=== PATIENT | male | born 1945 | race Caucasian/White ===

== ENCOUNTER 2022-04-03 13:51 | Outpatient (RCR) | payer OTHER, SELFPAY ==
[2022-03-14 19:12] LABS: Basophils Absolute Auto 0.04 K/uL (0.00-0.30); Basophils Percent Auto 0.7 % (0.0-3.0); Eosinophils Absolute Auto 0.34 K/uL (0.00-0.50); Eosinophils Percent Auto 5.5 % (0.0-7.0); Hematocrit 46.3 % (37.0-53.0); Hemoglobin* 15.6 gm/dL (13.5-17.5); Immature Granulocytes Abs Auto 0.02 K/uL (0.00-0.30); Lymphocytes Absolute Auto 1.41 K/uL (0.90-2.90); Mean Corpuscular HGB Conc 34 gm/dL (32-36); Mean Corpuscular Hemoglobin 32 pg (26-34); Mean Corpuscular Volume 96 fL (80-100); Monocytes Percent Auto 9.4 % (0.0-11.0); Neutrophils Absolute Auto 3.75 K/uL (1.7-7.0); Neutrophils Percent Auto 61.1 % (42.0-72.0); Platelet Count* 167 K/uL (140-440); RDW Coefficient of Variation % 13.1 % (11.5-15.5); Red Blood Count 4.82 m/uL (4.30-5.90); White Blood Count* 6.14 K/uL (4.50-11.00)
[2022-03-14 19:39] LABS: Aspartate Amino Transferase* 27 U/L (12-35); Bilirubin Total* 3.2 mg/dL (0.1-1.5); Estimated Glomerular Filt Rate 78 ml/min
[2022-03-14 19:40] LABS: Alanine Aminotransferase* 17 U/L (4-50); Alkaline Phosphatase* 109 U/L (40-150)
[2022-03-14 19:57] LABS: Slide Review Reflex No
[2022-04-03 14:20] LABS: White Blood Count* 6.12 K/uL (4.50-11.00)
[2022-04-03 14:21] LABS: Basophils Absolute Auto 0.05 K/uL (0.00-0.30); Basophils Percent Auto 0.8 % (0.0-3.0); Eosinophils Percent Auto 8.3 % (0.0-7.0); Hematocrit 44.7 % (37.0-53.0); Hemoglobin* 15.4 gm/dL (13.5-17.5); Immature Granulocytes Abs Auto 0.02 K/uL (0.00-0.30); Lymphocytes Absolute Auto 1.52 K/uL (0.90-2.90); Lymphocytes Percent Auto 24.8 % (20-44); Mean Corpuscular HGB Conc 35 gm/dL (32-36); Mean Corpuscular Hemoglobin 33 pg (26-34); Mean Corpuscular Volume 94 fL (80-100); Monocytes Percent Auto 11.6 % (0.0-11.0); Neutrophils Absolute Auto 3.31 K/uL (1.7-7.0); Neutrophils Percent Auto 54.2 % (42.0-72.0); Platelet Count* 169 K/uL (140-440); Red Blood Count 4.74 m/uL (4.30-5.90)
[2022-04-03 14:29] LABS: Slide Review Reflex No
[2022-04-03 14:41] LABS: Creatinine* 1.1 mg/dL (0.5-1.5); Estimated Glomerular Filt Rate 69 ml/min
[2022-04-05 15:17] LABS: Hepatitis B Core Antibody, IgM Negative (Negative); Hepatitis B Surface Antigen Negative (Negative); Hepatitis C Antibody by CIA Negative (Negative)
== END 2023-03-04 23:00 | disposition home or self-care (01) ==
LOC: LAB 13:51
PROVIDERS: PCP Internal Medicine; Visit Provider Internal Medicine
DX: A31.9 Mycobacterial infection, unspecified (principal); Z79.2 Long term (current) use of antibiotics
CPT/HCPCS: 36415; 80074; 82247; 82565; 84075; 84450; 84460; 85025

== ENCOUNTER 2022-04-11 14:55 | Outpatient (CLI) | payer OTHER, SELFPAY ==
--- OUTSIDE RECORDS SUMMARY | 2022-04-11 15:02 | XMS_ITS | Encounter Summary ---
:1945 Author Organization [facility] Address [address] [place] [address] Care Team Providers Name Role Phone Elsewhere, Pcp Primary Care Provider Unavailable Encounter Details Date Type Department Care Team Description 01/04/2022 Ancillary Procedure Department of Infectious Diseases Social History Tobacco Use Types Packs/Day Years Used Date Smoking Tobacco: Former Cigarettes 0 4 09/1965 - 09/01/1969 Smokeless Tobacco: Never Alcohol Use Standard Drinks/Week Comments No 0 (1 standard drink = 0.6 oz pure alcoho l) Alcohol Habits Answer Date Recorded How often do you have a drink containing alcohol? Monthly or less 12/12/2021 How many drinks containing alcohol do you have on a 1 or 2 12/12/2021 typical day when you are drinking? How often do you have six or more drinks on one Never 12/12/2021 occasion? Comment: Not asked Social Isolation Answer Date Recorded In a typical week, how many times do you More than three maximiliano es a week 12/12/2021 talk on the phone with family, friends, or neighbors? How often do you get together with friends More than three t imes a week 12/12/2021 or relatives? How often do you attend voodoo or More than 4 times per year 12/12/2021 gnosticist services? Do you belong to any clubs or Yes 12/12/2021 organizations such as voodoo groups, unions, fraternal or athletic groups, or school groups? How often do you attend meetings of the More than 4 times pe r year 12/12/2021 clubs or organizations you belong to? Are you now , , , 12/12/2021 , never or living with a partner? Physical Activity Answer Date Recorded On average, how many days per week do you engage in moderate to 2 days 12/12/2021 strenuous exercise (like walking fast, running, jogging, dancing, swimming, biking, or other activities that cause a light or heavy sweat)? On average, how many minutes do you engage in exercise at th is 10 min 12/12/2021 level? Stress Answer Date Recorded Do you feel stress - tense, restless, nervous, or anxious, N ot at all 12/12/2021 or unable to sleep at night because your mind is troubled all the time - these days? Financial Resource Strain Answer Date Recorded How hard is it for you to pay for the very basics like Not h valeriy at all 12/12/2021 food, housing, medical care, and heating? Intimate Partner Violence Answer Date Recorded Within the last year, have you been afraid of your partner o r No 12/12/2021 ex-partner? Within the last year, have you been humiliated or emotionall y No 12/12/2021 abused in other ways by your partner or ex-partner? Within the last year, have you been kicked, hit, slapped, or No 12/12/2021 otherwise physically hurt by your partner or ex-partner? Within the last year, have you been raped or forced to have any No 12/12/2021 kind of sexual activity by your partner or ex-partner? Food Insecurity Answer Date Recorded Within the past 12 months, you worried that your food would Never true 12/12/2021 run out before you got money to buy more. Within the past 12 months, the food you bought just didn't N ever true 12/12/2021 last and you didn't have money to get more. Transportation Needs Answer Date Recorded In the past 12 months, has lack of transportation kept you f rom No 12/12/2021 medical appointments or from getting medications? In the past 12 months, has lack of transportation kept you f rom No 12/12/2021 meetings, work, or getting things needed for daily living? Housing Stability Answer Date Recorded In the last 12 months, was there a time when you were not ab le No 12/12/2021 to pay the mortgage or rent on time? In the last 12 months, how many places have you lived? 1 12/12/2021 In the last 12 months, was there a time when you did not hav e a No 12/12/[address] to [address] or slept in a penitentiary (including now)? Education Answer Date Recorded What is the highest level of Professional school degree (e.g ., MD, 12/12/2021 school you have completed or the DDS, DVM, RODOLFO) highest degree you have received? Sex Assigned at Date Recorded Male 04/03/2018 7:54 AM CDT documented as of this encounter Plan of Treatment Upcoming Encounters Date Type Specialty Care Team Description 04/16/2022 Clinical Communication Admitting/Central Scheduling 04/19/2022 Ancillary Procedure Cardiovascular Disease Milla Lew M.D. [address] [place] [phone] 04/19/2022 Appointment Laboratory Medicine Sherrie Lew M.D. [address] [place] [phone] 04/19/2022 Office Visit Infectious Diseases Max Aguilar, D.ODale [address] [place] [phone] 04/20/2022 Comprehensive Visit Allergy and Immunology Kavon Ahmadi M.D., M.S. [address] [place] [phone] documented as of this encounter Procedures Procedure Name Priority Date/Time Associated Comments Diagnosis INFECTIOUS DISEASES Routine 01/04/2022 4:05 PM Re sults for this IMAGE EXAM CDT procedure are i n the results section. documented in this encounter Results Hand-Infectious Diseases Image Exam (01/04/2022 4:05 PM CDT) Specimen (Source) Anatomical Collection Method Collection Time Re ceived Time Location / / Volume Laterality 01/04/2022 4:05 PM CDT Narrative [facility] - 01/04/2022 4:08 PM CDT This order has been created and auto-finalized to support the import of images acquired without order. The clini em documentation to support these images can be found on the encounter benny t produced images. Provider Not In System IMG NON RAD IMAGING PROCEDUR ES Performing Organization Address City/State/ZIP Code Phon e Number [facility] NA documented in this encounter Visit Diagnoses Not on filedocumented in this encounter Care Teams Media Supervisor Relationship Specialty Start Date End Date Elsewhere, Pcp PCP - General Internal Medicine 12/26/21 documented as of this encounter
--- OUTSIDE RECORDS SUMMARY | 2022-04-11 15:02 | XMS_ITS | Encounter Summary ---
:1945 Author Organization [facility] Address [address] [place] [address] Care Team Providers Name Role Phone Elsewhere, Pcp Primary Care Provider Unavailable Reason for Referral Outpatient (Routine) - Authorized Specialty Diagnoses / Procedures Referred By Contact Refer red To Contact Infectious Diseases Max Acevedo [place] D.O. 200 [place] [address] Referral ID Status Reason Start Date Expiration Date Visits V isits Requested Authorized [id number] Authorized 03/22/2022 03/22/2023 1 1 Reason for Visit Reason Comments Med Refill Encounter Details Date Type Department Care Team Description 03/22/2022 Clinical Communication Section of Infectious Max Acevedo Med Refill Diseases in [place], [place], [place] 200 [facility] 200 [place] [phone] Social History Tobacco Use Types Packs/Day Years [...] or relatives? How often do you attend mosque or More than 4 times per year 12/12/2021 amish services? Do you belong to any clubs or Yes 12/12/2021 organizations such as mosque groups, unions, fraternal or athletic groups, or [...] place to sleep or slept in a longterm (including now)? Education Answer Date Recorded What is the highest level of Professional school degree (e.g ., , 12/12/2021 school you have completed or the DDS, DVM, RODOLFO) highest degree you have received? Sex Assigned at Date Recorded Male 04/03/2018 7:54 AM CDT documented as of this encounter Miscellaneous Notes Addendum Note - Max Acevedo, D.O. - 03/22/2022 3:38 PM CDT Addended by: MAX ACEVEDO on: 03/22/2022 03:38 PM Modules accepted: Orders Telephone Encounter - Max Acevedo, D.O. - 03/22/2022 3:34 PM CDT Have changed the Doxycycline and azithromycin to go to the requested [facility]. Will need Dr. Lew's assistance to order Clofazamine Telephone Encounter - Bharti Mahajan - 03/22/2022 9:13 AM CDT You refilled his two antibiotics, azithromycin and doxycycline monohydrate, on 03/12/22 and sent them to [facility]. He no longer uses them so would like the prescriptions sent to [facility] instead.This pharmacy has been added and [facility] deleted. He also needs clofazimine which is part of a research study. He's not sure how that is obtained but he only has about [address] Lew was involved with that. documented in this encounter Plan of Treatment Upcoming Encounters Date Type Specialty Care Team Description 04/16/2022 Clinical Communication Admitting/Central Scheduling 04/19/2022 Ancillary Procedure Cardiovascular Disease Milla Lew M.D. [address] [place] [phone] 04/19/2022 Appointment Laboratory Medicine Sherrie Lew M.D. [address] [place] [phone] 04/19/2022 Office Visit Infectious Diseases Max Acevedo D.O. [address] [place] [phone] 04/20/2022 Comprehensive Visit Allergy and Immunology Kavon Ahmadi M.D., M.S. [address] [place] [phone] Scheduled Referrals Name Type Priority Associated Order Schedule Diagnoses Infectious Diseases Outpatient Referral Routine E xpected: office visit 04/09/2022 (clinic) (Approximate), Expires: 06/22/2023 documented as of this encounter Visit Diagnoses Diagnosis Mycobacterium Infection documented in this encounter Care Teams Rn Telemetry Relationship Specialty Start Date End Date Elsewhere, Pcp PCP - General Internal Medicine 12/26/21 documented as of this encounter
--- OUTSIDE RECORDS SUMMARY | 2022-04-11 15:02 | XMS_ITS | Encounter Summary ---
:1945 Author Organization [facility] Address [address] [place] [address] Care Team Providers Name Role Phone Elsewhere, Pcp Primary Care Provider Unavailable Reason for Visit Reason Comments OPAT Normal Labs Encounter Details Date Type Department Care Team Description 04/04/2022 Clinical Communication Section of SONIA Lice[place] (Normal Labs) Infectious Diseases Pascual Cross R.N. in [place], [place] (Work) [address] [place] [phone] Social History Tobacco Use Types Packs/Day Years [...] or relatives? How often do you attend nondenominational or More than 4 times per year 12/12/2021 buddhist services? Do you belong to any clubs or Yes 12/12/2021 organizations such as nondenominational groups, unions, fraternal or athletic groups, or [...] place to sleep or slept in a halfway (including now)? Education Answer Date Recorded What is the highest level of Professional school degree (e.g ., MD, 12/12/2021 school you have completed or the DDS, DVM, RODOLFO) highest degree you have received? Sex Assigned at Date Recorded Male 04/03/2018 7:54 AM CDT documented as of this encounter Miscellaneous Notes Telephone Encounter - Rocky Toure R.N. - 04/06/2022 1:52 PM CDT OPAT NOTE Infusion Provider: NA-patient on oral antimicrobials Labs at [facility] Antimicrobial(s) currently prescribed: See Med List Hyperlink in note Tentative stop date: 4-6 months ; final stop date to be determined at follow up visit. Date of ID follow up appt: 04/19/22 Lab results from 04/03/2022 are viewable in the MCR record. ECG from 03/29/22 is viewable in Care Everywhere ([facility]) Interpretation and action: Labs we received are satisfactory per OPAT practice guidelines, but the liver tests are missing. Patient will have labs drawn here on 04/19 and I verified that correct labs are ordered. Monthly labs: (CBC with diff, Creatinine, ALT, AST, Bili, Alk Phos). Also needs monthly ECG. documented in this encounter Plan of Treatment Upcoming Encounters Date Type Specialty Care Team Description 04/16/2022 Clinical Communication Admitting/Central Scheduling 04/19/2022 Ancillary Procedure Cardiovascular Disease Milla Lew M.D. [address] [place] [phone] 04/19/2022 Appointment Laboratory Medicine Sherrie Lew M.D. [address] [place] [phone] 04/19/2022 Office Visit Infectious Diseases Max Aguilar D.O. [address] [place] [phone] 04/20/2022 Comprehensive Visit Allergy and Immunology Kavon Ahmadi M.D., M.S. [address] [place] [phone] documented as of this encounter Procedures Procedure Name Priority Date/Time Associated Diagnosis Comme nts CBC WITH DIFFERENTIAL, Routine 04/03/2022 Resul ts for this B procedure are i n the results section . CREATININE WITH EGFR, Routine 04/03/2022 Result s for this S/P procedure are i n the results section . documented in this encounter Results Creatinine with Estimated GFR (04/03/2022) athologist Signature EXT Creatinine 1.1 0.5 - 1.5 [place] mg/dL [facility] Specimen (Source) Anatomical Location Collection Method / Collectio n Time Received Time / Laterality Volume Blood (Blood, Venous) Max Aguilar D.O. LAB BLOOD ADD-ON Performing Organization Address City/State/ZIP Code Phon e Number [facility] [address] [place] [address] CBC with Differential, Blood (04/03/2022) athologist Signature EXT Platelet 169 140 - 440 [place] Count [facility] EXT Eosinophils 0.5 0 - 0.5 [facility] EXT Hemoglobin 15.4 13.5 - [place] 17.5 [facility] EXT Absolute 3.31 1.7 - 7 [place] Neutrophils [facility] EXT White Blood 6.1 4.5 - 11.0 [place] Cell (WBC) Count [facility] Specimen (Source) Anatomical Location Collection Method / Collectio n Time Received Time / Laterality Volume Blood (Blood, Venous) Max Aguilar D.O. LAB BLOOD ADD-ON Performing Organization Address City/State/ZIP Code Phon e Number [facility] [address] [place] [phone] documented in this encounter Visit Diagnoses Not on filedocumented in this encounter Care Teams Disassembler Product Relationship Specialty Start Date End Date Elsewhere, Pcp PCP - General Internal Medicine 12/26/21 documented as of this encounter
--- OUTSIDE RECORDS SUMMARY | 2022-04-11 15:02 | XMS_ITS | Encounter Summary ---
:1945 Author Organization [facility] Address [address] [place] [address] Care Team Providers Name Role Phone Elsewhere, Pcp Primary Care Provider Unavailable Reason for Visit Reason Comments OPAT Lab Request Encounter Details Date Type Department Care Team Description 03/20/2022 Clinical Communication Section of [place] Chambers (Lab Request) Infectious Diseases M, R.N. in [facility] [phone] [place] (Work) [address] [place] [phone] Social History Tobacco Use Types Packs/Day Years [...] or relatives? How often do you attend sabianist or More than 4 times per year 12/12/2021 mosque services? Do you belong to any clubs or Yes 12/12/2021 organizations such as sabianist groups, unions, fraternal or athletic groups, or [...] place to sleep or slept in a usp (including now)? Education Answer Date Recorded What is the highest level of Professional school degree (e.g ., , 12/12/2021 school you have completed or the DDS, DVM, RODOLFO) highest degree you have received? Sex Assigned at Date Recorded Male 04/03/2018 7:54 AM CDT documented as of this encounter Miscellaneous Notes Addendum Note - Max Acevedo D.O. - 03/29/2022 3:51 PM CDT Addended by: MAX ACEVEDO on: 03/29/2022 03:51 PM Modules accepted: Orders Telephone Encounter - Max Acevedo D.O. - 03/29/2022 3:43 PM CDT I called Mr. Mendez regarding his bilirubin level. He denies any abdominal pain, change in stools, or altered taste. He is willing to have repeat liver test done at the [facility] lab. I will reach out to our post adoption coordinator regarding the Clofazamine. -Max Acevedo Telephone Encounter - Cynthia Ortega R.N. - 03/28/2022 10:54 AM CDT OPAT NOTE Infusion Provider: NA-patient on oral antimicrobials Antimicrobial(s) currently prescribed: See Med List Hyperlink in note Tentative stop date: 4-6 months ; final stop date to be determined at follow up visit. Date of ID follow up appt:Not yet scheduled . Lab results from 03/14/2022 are viewable in the MCR record. Interpretation and action: Total bilirubin will be sent to OPAT providers for review. Monthly labs: (CBC with diff, Creatinine, ALT, AST, Bili, Alk Phos). Telephone Encounter - Argentina Chambers R.N. - 03/20/2022 4:40 PM CDT Contacted Radha Howard, phone: [phone] and spoke with Medical Records. I checked for results (labs and EKG) from 03/12/22 (or any time in March) and was advised that there are no results available. Per Rocky Toure RN's documentation on 02/07/22, she sent orders to Radha Howard for monthly CBC, Cr, ALT, AST, Bili, Alk phos and ECG x 2 months at [facility]. I will reach out to thepatient to request he go in for a lab appt this week. documented in this encounter Plan of Treatment Upcoming Encounters Date Type Specialty Care Team Description 04/16/2022 Clinical Communication Admitting/Central Scheduling 04/19/2022 Ancillary Procedure Cardiovascular Disease Milla Lew M.D. [address] [place] [phone] 04/19/2022 Appointment Laboratory Medicine Sherrie Lew M.D. [address] [place] [address] [phone] 04/19/2022 Office Visit Infectious Diseases Max Acevedo D.O. [address] [place] [address] 04/20/2022 Comprehensive Visit Allergy and Immunology Kavon Ahmadi M.D., M.S. [address] [place] [phone] documented as of this encounter Procedures Procedure Name Priority Date/Time Associated Diagnosis Comme nts CBC WITH DIFFERENTIAL, B Routine 03/14/2022 Res ults for this procedure are i n the results section. ALANINE AMINOTRANSFERASE Routine 03/14/2022 Res ults for this (ALT), S/P procedure are i n the results section. ASPARTATE AMINOTRANSFERASE Routine 03/14/2022 R esults for this (AST), S/P procedure are i n the results section. ALKALINE PHOSPHATASE, S/P Routine 03/14/2022 Re sults for this procedure are i n the results section. CREATININE WITH EGFR, S/P Routine 03/14/2022 Re sults for this procedure are i n the results section. BILIRUBIN, TOT, S/P Routine 03/14/2022 Results for this procedure are i n the results section. documented in this encounter Results ALT (Alanine Aminotransferase) (03/14/2022) athologist Signature EXT ALT 17 4 - 50 [facility] Specimen (Source) Anatomical Location Collection Method / Collectio n Time Received Time / Laterality Volume Blood (Blood, Venous) Eliana Ivy P.A.-C. LAB BLOOD ADD-ON Performing Organization Address City/[facility]/ZIP Code Phon e [facility] [address] [place] [address] AST (Aspartate Aminotransferase) (03/14/2022) athologist Signature EXT AST 27 12 - 35 [facility] Specimen (Source) Anatomical Location Collection Method / Collectio n Time Received Time / Laterality Volume Blood (Blood, Venous) Eliana Perez-C. LAB BLOOD ADD-ON Performing Organization Address City/[facility]/ZIP Code Phon [facility] [address] [place] [address] Alkaline Phosphatase (03/14/2022) athologist Signature EXT Alkaline 109 40 - 150 [facility] Specimen (Source) Anatomical Location Collection Method / Collectio n Time Received Time / Laterality Volume Blood (Blood, Venous) Eliana Ivy P.A.-C. LAB BLOOD ADD-ON Performing Organization Address City/[facility] Code Phon e Number [facility] [address] [place] [address] Creatinine with Estimated GFR (03/14/2022) athologist Signature EXT Creatinine 1 0.5 - 1.5 [place] mg/dL [facility] Specimen (Source) Anatomical Location Collection Method / Collectio n Time Received Time / Laterality Volume Blood (Blood, Venous) Eliana Ivy P.A.-C. LAB BLOOD ADD-ON Performing Organization Address [facility] Phon e Number [facility] [address] [place] [address] (ABNORMAL) Bilirubin, Total (03/14/2022) athologist Signature EXT Bilirubin, 3.2 (A) 0.1 - 1.5 [place] Total, S [facility] Specimen (Source) Anatomical Location Collection Method / Collectio n Time Received Time / Laterality Volume Blood (Blood, Venous) Eliana Ivy P.A.-C. LAB BLOOD ADD-ON Performing Organization Address [facility] Phon e Number [facility] [address] [place] [address] CBC with Differential, Blood (03/14/2022) athologist Signature EXT Platelet 167 140 - 440 [place] Count [facility] EXT Eosinophils 0.34 0 - 0.5 [facility] EXT Hemoglobin 15.6 13.5 - [place] 17.5 [facility] EXT Absolute 3.75 1.7 - 7 [place] Neutrophils [facility] EXT White Blood 6.1 4.5 - 11.0 [place] Cell (WBC) Count [facility] Comment: 6.14 Specimen (Source) Anatomical Location Collection Method / Collectio n Time Received Time / Laterality Volume Blood (Blood, Venous) Eliana Ivy P.A.-C. LAB BLOOD ADD-ON Performing Organization Address City/State/ZIP Code Phon e Number [facility] [address] [place] [address] documented in this encounter Visit Diagnoses Diagnosis Elevated Bilirubin - Primary documented in this encounter Care Teams Kitchen Runner Relationship Specialty Start Date End Date Elsewhere, Pcp PCP - General Internal Medicine 12/26/21 documented as of this encounter
--- OUTSIDE RECORDS SUMMARY | 2022-04-11 15:02 | XMS_ITS | Encounter Summary ---
:1945 Author Organization [facility] Address [address] [place] [address] Care Team Providers Name Role Phone Elsewhere, Pcp Primary Care Provider Unavailable Encounter Details Date Type Department Care Team Description 01/04/2022 Orders Only Section of Infectious Monae Khan My cobacterium Infection Diseases in [facility] (Primary Dx) [place], [place] [phone] [address] [facility] (Work) [place] [phone] Social History Tobacco Use Types Packs/Day Years [...] or relatives? How often do you attend episcopalian or More than 4 times per year 12/12/2021 quaker services? Do you belong to any clubs or Yes 12/12/2021 organizations such as episcopalian groups, unions, fraternal or athletic groups, or [...] place to sleep or slept in a skilled nursing (including now)? Education Answer Date Recorded What [...] Procedure Cardiovascular Disease Milla Lew M.D. [address] [place] [phone] 04/19/2022 Appointment Laboratory Medicine Sherrie Lew M.D. [address] [place] [phone] 04/19/2022 Office Visit Infectious Diseases Max Aguilar, D.O. [address] [place] [address] 04/20/2022 Comprehensive Visit Allergy and Immunology Kavon Ahmadi M.D., M.S. 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
--- OUTSIDE RECORDS SUMMARY | 2022-04-11 15:02 | XMS_ITS | Encounter Summary ---
:1945 Author Organization [facility] Address [address] [place] [address] Care Team Providers Name Role Phone Elsewhere, Pcp Primary Care Provider Unavailable Reason for Referral Outpatient (Routine) - Closed Specialty Diagnoses / Procedures Referred By Contact Refer red To Contact Diagnoses Mycobacterium Infection Smith Arambula M.D. [facility] Procedures ECG 12 Lead [address] [place], [place] [phone] Referral ID Status Reason Start Date Expiration Date Visits Requ ested Visits Authorized [id number] Closed 01/04/2022 01/04/2023 1 1 utpatient (Routine) - Closed Specialty Diagnoses / Procedures Referred By Contact Refer red To Contact Infectious Diseases Diagnoses Mycobacterium Infection Smith Arambula M.D. [facility] [address] [place] [address] Referral ID Status Reason Start Date Expiration Date Visits Requ ested Visits Authorized [id number] Closed 01/04/2022 01/04/2023 1 1 Scheduling Instructions NTM return appointment Reason for Visit Outpatient (Routine) - Closed Specialty Diagnoses / Procedures Referred By Contact Refer red To Contact Infectious Diseases Diagnoses Mycobacterium Infection Sherrie Lew M.D. [facility] [address] [place] [address] Referral ID Status Reason Start Date Expiration Date Visits Requ ested Visits Authorized [id number] Closed 12/28/2021 12/28/2022 1 1 Encounter Details Date Type Department Care Team Description 01/04/2022 Office Visit Section of Infectious Emory Lew M.D. [address] [place] [phone] Mycobacterium Infection Diseases in [place] [address] [place] [phone] [place] [address] [place] [phone] Social History Tobacco Use Types Packs/Day Years [...] or relatives? How often do you attend buddhist or More than 4 times per year 12/12/2021 latter-day services? Do you belong to any clubs or Yes 12/12/2021 organizations such as buddhist groups, unions, fraternal or athletic groups, or [...] place to sleep or slept in a residential (including now)? Education Answer Date Recorded What is the highest level of Professional school degree (e.g ., , 12/12/2021 school you have completed or the DDS, DVM, RODOLFO) highest degree you have received? Sex Assigned at Date Recorded Male 04/03/2018 7:54 AM CDT documented as of this encounter Progress Notes Smith Arambula M.D. - 01/04/2022 4:00 PM CDT Infectious Diseases Outpatient Consultation Service-Subsequent Visit Note SUBJECTIVE DEMOGRAPHIC INFORMATION Clinic Number:[id number] Patient Name: Truong Mendez Age: 76 y.o. Birthdate: 1945 Sex: male [address]: [address] [place] [phone] Service Date/Time: 01/04/22 4:25 PM CDT Provider: Smith Arambula M.D. Referring Provider: Sherrie Lew M.D. REASON FOR CONSULT We are asked to see Mr. 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 The patient presents with his . HISTORY OF PRESENT ILLNESS Mr. 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 Please see Dr. Sherrie Lew and Dr. Cota's previous Infectious Diseases consultative notes from November and Dec, 2021. 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 He underwent a biopsy of the left hand earlier this month. His biopsy revealed granulomatous inflammation with positive AFB staining and culture was again positive for M chelonae. Mr. Mendez is not immunosuppressed although he does have multiple chronic medical conditions including congestive heart failure, nonischemic cardiomyopathy, nonobstructive coronary artery disease, permanent atrial fibrillation on apixaban??s/p AV node ablation and SOFTWARE IMPLEMENTATION SPECIALIST-P placement??02/20/2021, hypertension, dyslipidemia, JOSE RAFAEL, and obesity with BMI 52.?Additionally he has had a righttotal knee arthroplasty around [phone], reportedly complicated by a noninfected periprosthetic frac ture which limits ambulation. ??Immunocompetent, no recent steroids or other immunosuppressants. The patient was started on oral doxycycline December 29 and azithromycin December 30, 2021. He has signed an informed consent to start clofazimine, which requires an IND to the manufacture: [employer]. Our yard coordinator has discussed potential risks and benefits of this medication: Dale Farida Khan. The patient feels well in general. He has thin skin and his forearm Skin is easily bruised. He removed 1 of the sutures from the left hand biopsy. He could not locate the 2nd suture. He wears skin protection when exposed to the sun and he was encouraged to do so in setting of doxycycline which increases risk for photosensitivity reaction with sun exposure. Organism ? MYCOBACTERIUM CHELONAE ?Antibiotic ?POPPY (mcg/mL) ??Interpretation ?Cefoxitin ? >128 ? R ?Imipenem ?16 ? I ?Clofazimine ? 0.25 ?Ciprofloxacin ? >4 ? R ?Moxifloxacin ?>4 ? R ?Clarithromycin ? 0.5 ? S ?Amikacin ?32 ? I ?Tobramycin ? 2 ? S ?Doxycycline ? >8 ? R ?Tigecycline ?0.5 ?TMP/SMX ?>4/ ? R ?Linezolid ? 32 ? R REVIEW OF SYSTEMS A full review of systems was performed and was negative except as noted in the history of present illness. I have reviewed and updated the following: allergies, current medications, family history, medical history, social history, surgical history and problem list. OBJECTIVE There were no vitals filed for this visit. PHYSICAL EXAMINATION Physical Exam Left hand skin lesion was photo-documented with the patient's permission. See photo in QREADS. DIAGNOSTICS Lab Results Component Value Date WBC 6.5 01/04/2022 HGB 15.6 01/04/2022 HCT 45.6 01/04/2022 MCV 93.6 01/04/2022 PLT 182 01/04/2022 Lab Results Component Value Date ALT 18 01/04/2022 AST 18 01/04/2022 ALKPHOS 122 01/04/2022 BILITOT 2.0 (H) 01/04/2022 Lab Results Component Value Date CREATININE 1.08 01/04/2022 CrCl cannot be calculated (Patient weight not recorded). ASSESSMENT / PLAN 1. 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 Initiation of oral doxycycline monohydrate (December 29) and azithromycin (December 30) with plan to start clofazimine in the next couple days after it has been shift to the patient. 3. Multiple medical comorbidities DISCUSSION The patient is tolerating azithromycin and doxycycline. RECOMMENDATIONS 1. Start clofazimine after in arrives at his home. The patient has signed an informed consent for this medication and side effects had been discussed by 1 of our study coordinators. 2. EKG with the patient's home physician in 2 weeks. 3. Follow-up with us in 4 weeks, ideally Dr. Lew with repeat CBC, serum creatinine, and LFTs and ECG. 4. Patient should concept us with any questions or changes or new symptoms that might be related to antibiotic intolerance. DIAGNOSES #1 Mycobacterium Infection Smith Arambula M.D. documented in this encounter Plan of Treatment Upcoming Encounters Date Type Specialty Care Team Description 04/16/2022 Clinical Communication Admitting/Central Scheduling 04/19/2022 Ancillary Procedure Cardiovascular Disease Milla Lew M.D. [address] [place] [phone] 04/19/2022 Appointment Laboratory Medicine Sherrie Lew M.D. [address] [place] [phone] 04/19/2022 Office Visit Infectious Diseases Max Aguilar, Hua.ODale [address] [place] [phone] 04/20/2022 Comprehensive Visit Allergy and Immunology Kavon Ahmadi M.D., M.S. [address] [place] [phone] Scheduled Referrals Name Type Priority Associated Diagnoses Order [facility] Infectious Diseases Outpatient Referral Routine Mycobacterium Expected: office visit Infection 02/03/2022 (clinic) (Approximate), Expires: 04/06/2023 documented as of this encounter Results ECG 12 Lead (02/07/2022 9:42 AM CDT) [facility] Method Time Signature Ventricular 85 BPM MUSE Rate ECG/Min QRSD Interval 140 ms MUSE QT Interval 392 ms MUSE QTC Interval 466 ms MUSE R [place] -46 degrees MUSE T Wave [place] 2 degrees MUSE CODED Atrial MUSE DIAGNOSIS fibrillation Specimen Anatomical Collection Method Collection Time Receive d Time (Source) Location / / Volume Laterality 02/07/2022 9:42 AM 2 CDT 10:24 AM CDT Impressions MUSE - 02/07/2022 10:24 AM CDT Electronic ventricular pacemaker Atrial fibrillation When compared with ECG of 28-NOV-2021 15 :36, No significant change was found Reviewed by VARUN Sullivan Narrative This result has an attachment that is no t available. Procedure Note Daniel Bobo M.D. - 02/07/2022Formatt ing of this note might be different from the original. IMPRESSION: Electronic ventricular pacemaker Atrial fibrillation When compared with ECG of 28-NOV-2021 15 :36, No significant change was found Reviewed by VARUN Sullivan Smith Arambula M.D. ECG ORDERABLES Performing Organization Address City/[facility]/ZIP Code Phon e Number MUSE MUSE NA Bilirubin, Direct (02/07/2022 9:26 AM CDT) athologist Signature Bilirubin, 0.3 0.0 - 0.3 02/07/2022 DTL Direct, S mg/dL 10:29 AM CDT Specimen Anatomical Collection Method Collection Time Receive d Time (Source) Location / / Volume Laterality Blood (Blood, 02/07/2022 9:26 AM 02/08/20 22 Venous) CDT 10:11 AM CDT Smith Arambula M.D. LAB BLOOD ADD-ON Performing Organization Address City/[facility]/ZIP Code Phon e Number [facility] - [address] [place] [address] [facility] (ABNORMAL) Bilirubin, Total (02/07/2022 9:26 AM CDT) athologist Signature Bilirubin, 2.3 (H) <=1.2 02/07/2022 DTL Total, S mg/dL 10:29 AM CDT Specimen Anatomical Collection Method Collection Time Receive d Time (Source) Location / / Volume Laterality Blood (Blood, 02/07/2022 9:26 AM 02/08/20 22 Venous) CDT 10:11 AM CDT Smith Arambula M.D. LAB BLOOD ADD-ON Performing Organization Address City/[facility]/ZIP Code Phon e Number [facility] - [address] [place] [address] [facility] CBC with Differential, Blood (02/07/2022 9:26 AM CDT) athologist Signature Hemoglobin 15.3 13.2 - 02/07/2022 DTL 16.6 g/dL 10:21 AM CDT Hematocrit 46.2 38.3 - 02/07/2022 DTL 48.6 % 10:21 AM CDT Erythrocytes 4.85 4.35 - 02/07/2022 DTL 5.65 10:21 AM CDT x10(12)/L MCV 95.3 78.2 - 02/07/2022 DTL 97.9 fL 10:21 AM CDT RBC Distrib Width 12.9 11.8 - 02/07/2022 DTL 14.5 % 10:21 AM CDT Platelet Count 165 135 - 317 02/07/2022 DTL x10(9)/L 10:21 AM CDT Leukocytes 5.3 3.4 - 9.6 02/07/2022 DTL x10(9)/L 10:21 AM CDT Neutrophils 3.28 1.56 - 02/07/2022 DTL 6.45 10:21 AM CDT x10(9)/L Lymphocytes 1.28 0.95 - 02/07/2022 DTL 3.07 10:21 AM CDT x10(9)/L Monocytes 0.55 0.26 - 02/07/2022 DTL 0.81 10:21 AM CDT x10(9)/L Eosinophils 0.19 0.03 - 02/07/2022 DTL 0.48 10:21 AM CDT x10(9)/L Basophils 0.03 0.01 - 02/07/2022 DTL 0.08 10:21 AM CDT x10(9)/L Specimen Anatomical Collection Method Collection Time Receive d Time (Source) Location / / Volume Laterality Blood (Blood, 02/07/2022 9:26 AM 02/08/20 9:53 Venous) CDT AM CDT Smith Arambula M.D. LAB BLOOD ADD-ON Performing Organization Address City/State/ZIP Code Phon e Number [facility] - [address] [place], [place] [address] [facility] [place] [address] [facility] [address] [facility] Creatinine with Estimated GFR (02/07/2022 9:26 AM CDT) athologist Signature Creatinine 0.98 0.74 - 02/07/2022 DTL 1.35 mg/dL 10:29 AM CDT eGFR-Non 74 >=60 02/07/2022 DTL Black/ mL/min/BSA 10:29 AM CDT [place] Comment: ----ADDITIONAL INFORMATION---- Estimated GFR calculated using the 2009 CKD_EPI creatinine equation. eGFR-Black/ 86 >=60 mL/min/BSA 2021 10:29 AM CDT DTL Comment: ----ADDITIONAL INFORMATION---- Estimated GFR calculated using the 2009 CKD_EPI creatinine equation. Specimen Anatomical Collection Method Collection Time Receive d Time (Source) Location / / Volume Laterality Blood (Blood, 02/07/2022 9:26 AM 02/08/20 Venous) CDT 10:11 AM CDT Smith Arabmula M.D. LAB BLOOD ADD-ON Performing Organization Address City/[facility] Code Phon e Number [facility] - [address] [place], [place] [address] [place] [address] [place] [address] ALT (Alanine Aminotransferase) (02/07/2022 9:26 AM CDT) Patholo gist Method Time Signature Alanine 17 7 - 55 02/07/2022 DTL Aminotransferase U/L 10:29 AM CDT (ALT), S Specimen Anatomical Collection Method Collection Time Receive d Time (Source) Location / / Volume Laterality Blood (Blood, 02/07/2022 9:26 AM 02/08/20 22 Venous) CDT 10:11 AM CDT Smith Arambula M.D. LAB BLOOD ADD-ON Performing Organization Address City/State/[facility] Code Phon e Number [facility] - [address] [place], [place] [address] [place] [address] [place] [address] [place] [address] [facility] Alkaline Phosphatase (02/07/2022 9:26 AM CDT) P athologist Signature Alkaline 116 40 - 129 02/07/2022 DTL Phosphatase, S U/L 10:29 AM CDT Specimen Anatomical Collection Method Collection Time Receive d Time (Source) Location / / Volume Laterality Blood (Blood, 02/07/2022 9:26 AM 02/08/20 22 Venous) CDT 10:11 AM CDT Smith Arambula M.D. LAB BLOOD ADD-ON Performing Organization Address City/State/ZIP Code Phon e Number [facility] - [address] [place], [place] [address] [facility] [place] [place] [address] [facility] [address] documented in this encounter Visit Diagnoses Diagnosis Mycobacterium Infection documented in this encounter Care Teams Data Warehousing Specialist Relationship Specialty Start Date End Date Elsewhere, Pcp PCP - General Internal Medicine 12/26/21 documented as of this encounter
--- OUTSIDE RECORDS SUMMARY | 2022-04-11 15:02 | XMS_ITS | Encounter Summary ---
:1945 Author Organization [facility] Address [address] [place] [address] Care Team Providers Name Role Phone Elsewhere, Pcp Primary Care Provider Unavailable Reason for Visit Outpatient (Routine) - Closed Specialty Diagnoses / Procedures Referred By Contact Refer red To Contact Video Medicine Diagnoses Mycobacterium Infection Sherrie Lew M.D. [facility] [address] [place] [phone] Referral ID Status Reason Start Date Expiration Date Visits Requ ested Visits Authorized [id number] Closed 02/07/2022 02/07/2023 1 1 Encounter Details Date Type Department Care Team Description 03/12/2022 Telemedicine Section of Infectious Max Aguilar Infection Diseases in D, D.O. (Primary Dx) [place], [place] [address] [facility] [address] [place] [phone] Social History Tobacco Use Types Packs/Day Years [...] or relatives? How often do you attend gnosticist or More than 4 times per year 12/12/2021 amish services? Do you belong to any clubs or Yes 12/12/2021 organizations such as gnosticist groups, unions, fraDailymotion or athletic groups, or school groups? How [...] place to sleep or slept in a custodial (including now)? Education Answer Date Recorded What is the highest level of Professional school degree (e.g ., , 12/12/2021 school you have completed or the DDS, DVM, RODOLFO) highest degree you have received? Sex Assigned at Date Recorded Male 04/03/2018 7:54 AM CDT documented as of this encounter Progress Notes Max Aguilar, D.O. - 03/12/2022 3:00 PM CDT SUBJECTIVE CHIEF COMPLAINT / REASON FOR VISIT Truong Mendez is a 76 y.o. 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 HISTORY OF PRESENT ILLNESS Please see note from 02/07/[address] Lew and 10/31/[address] Garry Bradley for the descriptionhis clinical course. In brief, is being treated with doxycycline and azithromycin, as well as experimental clofazimine. Monthly monitoring of labs and EKG and follow-up. At this time, he reports a skin rash to be slowly resolving. He has noticed some bruising when he hits seen and, but attributes this to his Eliquis. He has had some diarrhea around 10:00 a.m. that he attributes to the medications. He is interested in trying kefir, but did not know how to obtain this. He wonders if he was supposed to get labs prior to this appointment. The following portions of the patient's history were reviewed and updated as appropriate: current medications, medical history, and problem list. REVIEW OF SYSTEMS The following systems were negative: Constitutional, Skin, Eyes, ENT, Respiratory, Cardiovascular, Genitourinary, Hematologic, Musculoskeletal, Neurological, Psychiatric OBJECTIVE PHYSICAL EXAM Tele visit, unable to obtain Previous EKG 02/07/2022 QTC 466 CBC, creatinine LFTs unremarkable ASSESSMENT / PLAN 1. Mycobacterium Infection Patient reports doing well. Some diarrhea. I showed him photos of Kefir to help him obtain. Believe labs and EKG need to be performed now and in 1 month with follow-up. Plan to send orders to [facility]. Need follow-up in [address] Lew and Dr. Aguilar. This will be virtual, followed by in-person visit in 2 months - Video anyplace visit - ECG 12 Lead; now - CBC with Differential, Blood; now - Creatinine with Estimated GFR; now - Hepatic Function Panel; now - doxycycline monohydrate (ADOXA) 100 mg tablet; Take 1 tablet (100 mg total) by mouth 2 (two) timesa day. Dispense: 60 tablet; Refill: 2 - azithromycin (ZITHROMAX) 500 mg tablet; Take 1 tablet (500 mg total) by mouth daily. Take with food Dispense: 30 tablet; Refill: 2 - CBC with Differential, Blood; 1 mo - ECG 12 Lead; 1 mo - Creatinine with Estimated GFR; 1 mo - Hepatic Function Panel; 1 mo Max Aguilar D.O. documented in this encounter Plan of Treatment Upcoming Encounters Date Type Specialty Care Team Description 04/16/2022 Clinical Communication Admitting/Central Scheduling 04/19/2022 Ancillary Procedure Cardiovascular Disease Milla Lew M.D. [address] [place] [phone] 04/19/2022 Appointment Laboratory Medicine Sherrie Lew M.D. [address] [place] [phone] 04/19/2022 Office Visit Infectious Diseases Max Aguilar D.O. [address] [place] [address] 04/20/2022 Comprehensive Visit Allergy and Immunology Kavon Ahmadi M.D., M.S. [address] [place] [phone] documented as of this encounter Visit Diagnoses Diagnosis Mycobacterium Infection - Primary documented in this encounter Care Teams Merchant Banker Relationship Specialty Start Date End Date Elsewhere, Pcp PCP - General Internal Medicine 12/26/21 documented as of this encounter
--- OUTSIDE RECORDS SUMMARY | 2022-04-11 15:02 | XMS_ITS | Encounter Summary ---
:1945 Author Organization [facility] Address [address] [place] [address] Care Team Providers Name Role Phone Elsewhere, Pcp Primary Care Provider Unavailable Encounter Details Date Type Department Care Team Description 03/23/2022 Orders Only Section of Infectious Monae Khan, Na cobacteria Cutaneous Diseases in [facility] Not Tuberculosis [place], [place] [phone] (Primary Dx) [address] [facility] (Work) [place] [phone] Social History Tobacco Use Types Packs/Day Years [...] More than 4 times per year 12/12/2021 islam services? Do you belong to any clubs [...] place to sleep or slept in a snf (including now)? Education Answer Date Recorded What [...] Procedure Cardiovascular Disease Milla Lew M.D. [address] [place] [phone] 04/19/2022 Appointment Laboratory Medicine Sherrie Lew M.D. [address] [place] [phone] 04/19/2022 Office Visit Infectious Diseases Max Aguilar, D.O. [address] [place] [phone] 04/20/2022 Comprehensive Visit Allergy and Immunology Kavon Ahmadi M.D., M.S. [address] [place] [phone] documented as of this encounter Visit Diagnoses Diagnosis Mycobacteria Cutaneous Not Tuberculosis - Primary documented in this encounter Care Teams Manager Learning Relationship Specialty Start Date End Date Elsewhere, Pcp PCP - General Internal Medicine 12/26/21 documented as of this encounter
--- OUTSIDE RECORDS SUMMARY | 2022-04-11 15:02 | XMS_ITS | Encounter Summary ---
:1945 Author Organization [facility] Address [address] [place] [address] Care Team Providers Name Role Phone Elsewhere, Pcp Primary Care Provider Unavailable Encounter Details Date Type Department Care Team Description 01/04/2022 Hospital Encounter Department of Sherrie Lew Laboratory Medicine Feliberto Cavrajal Infection and Pathology, [address] [place] [address] in [place], [place] [phone] [place] [address] [place], [place] (Work) [phone] Social History Tobacco Use Types Packs/Day Years [...] or relatives? How often do you attend mandaen or More than 4 times per year 12/12/2021 nondenominational services? Do you belong to any clubs or Yes 12/12/2021 organizations such as mandaen groups, unions, fraternal or athletic groups, or [...] place to sleep or slept in a correction (including now)? Education Answer Date Recorded What is the highest level of Professional school degree (e.g ., , 12/12/2021 school you have completed or the DDS, DVM, RODOLFO) highest degree you have received? Sex Assigned at Date Recorded Male 04/03/2018 7:54 AM CDT documented as of this encounter Medications at Time of Discharge Medication Sig Dispensed Refills Start Date End Date acetaminophen (TYLENOL) Take 1,000 mg by 0 500 mg tablet mouth. atorvastatin (LIPITOR) 40 Take 40 mg by mouth 0 0 02/21/2021 mg tablet daily. carvediloL (COREG) 25 mg Take 25 mg by mouth 0 tablet 2 (two) times a day with meals. clindamycin (CLEOCIN) 300 2 capsules prior to 0 mg capsule dental work Eliquis 5 mg tablet 0 11/29/2021 Entresto 97-103 mg per Take 1 tablet by 0 022 tablet mouth 2 (two) times a day. furosemide (LASIX) 20 mg Take 20 mg by mouth 0 tablet as needed. multivit with min-folic Take 1 tablet by 0 2016 acid 0.4 mg tablet mouth daily. nitroglycerin (NITROSTAT) Place 0.4 mg under 0 0.4 mg SL tablet the tongue. omeprazole (PriLOSEC) 20 Take 20 mg by mouth [address] capsule daily. Research IRB [id number] Take 2 capsules 2 Bottle 0 01/05/20 22 clofazimine 50 mg (100 mg total) by capsuleIndications: mouth daily. Take Mycobacterium Infection with food. spironolactone (ALDACTONE) Take 25 mg by mouth 0 11/19/2021 25 mg tablet daily. azithromycin (ZITHROMAX) Take 1 tablet (500 30 tablet 2 03/12/2022 500 mg tablet mg total) by mouth daily. Take with food doxycycline monohydrate Take 1 tablet (100 60 tablet 2 12/0403/12/2022 (ADOXA) 100 mg tablet mg total) by mouth 2 (two) times a day. multivitamin (THERAGRAN) Take 1 tablet by 0 03/09/2022 tablet mouth. documented as of this encounter Plan of Treatment Upcoming Encounters Date Type Specialty Care Team Description 04/16/2022 Clinical Communication Admitting/Central Scheduling 04/19/2022 Ancillary Procedure Cardiovascular Disease Milla Lew M.D. [address] [place] [phone] 04/19/2022 Appointment Laboratory Medicine Sherrie Lew M.D. [address] [place] [phone] 04/19/2022 Office Visit Infectious Diseases Max Aguilar, D.ODale [address] [place] [phone] 04/20/2022 Comprehensive Visit Allergy and Immunology Kavon Ahmadi M.D., M.S. [address] [place] [phone] documented as of this encounter Procedures Procedure Name Priority Date/Time Associated Diagnosis Comme nts CBC WITH Routine 01/04/2022 12:21 Mycobacterium Results fo r this DIFFERENTIAL, B PM CDT Infection procedure ar e in the results section. COMPREHENSIVE Routine 01/04/2022 12:21 Mycobacterium Results f or this METABOLIC PANEL, S/P PM CDT Infection procedu re are in the results section. documented in this encounter Results (ABNORMAL) Comprehensive Metabolic Panel (01/04/2022 12:21 PM CDT) P athologist Signature Potassium, S 4.7 3.6 - 5.2 01/04/2022 DTL mmol/L 1:41 PM CDT Sodium, S 139 135 - 145 01/04/2022 DTL mmol/L 1:41 PM CDT Chloride, S 101 98 - 107 01/04/2022 DTL mmol/L 1:41 PM CDT Bicarbonate, S 28 22 - 29 01/04/2022 DTL mmol/L 1:41 PM CDT Anion Gap 10 7 - 15 01/04/2022 DTL 1:41 PM CDT BUN (Blood Urea 13 8 - 24 01/04/2022 DTL Nitrogen), S mg/dL 1:41 PM CDT Creatinine 1.08 0.74 - 01/04/2022 DTL 1.35 mg/dL 1:41 PM CDT eGFR-Non 66 >=60 01/04/2022 DTL Black/ mL/min/BSA 1:41 PM CDT [place] Comment: ----ADDITIONAL INFORMATION---- Estimated GFR calculated using the 2009 CKD_EPI creatinine equation. eGFR-Black/ 76 >=60 mL/min/BSA 2021 1:41 PM CDT DTL Comment: ----ADDITIONAL INFORMATION---- Estimated GFR calculated using the 2009 CKD_EPI creatinine equation. Calcium, Total, S 9.3 8.8 - 10.2 mg/dL 01/04/2022 1:41 PM CDT DTL Glucose, S 102 70 - 140 mg/dL 01/04/2022 1:41 PM CDT D TL Protein, Total, S 6.4 6.3 - 7.9 g/dL 01/04/2022 1:41 P M CDT DTL Albumin, S 4.0 3.5 - 5.0 g/dL 01/04/2022 1:41 PM CDT D TL Aspartate Aminotransferase 18 8 - 48 U/L 01/04/2022 1 :41 PM CDT DTL (AST), S Alkaline Phosphatase, S 122 40 - 129 U/L 01/04/2022 1: 41 PM CDT DTL Alanine Aminotransferase 18 7 - 55 U/L 01/04/2022 1:4 1 PM CDT DTL (ALT), S Bilirubin, Total, S 2.0 (H) <=1.2 mg/dL 01/04/2022 1:41 PM CDT DTL Specimen Anatomical Collection Method Collection Time Receive d Time (Source) Location / / Volume Laterality Blood (Blood, 01/04/2022 12:21 01/04/2022 1:04 Venous) PM CDT PM CDT Sherrie Lew M.D. LAB BLOOD ADD-ON Performing Organization Address City/State/ZIP Code Phon e Number [facility] - 200 [place], [place] [address] [place] [address] [facility] 200 [facility] CBC with Differential, Blood (01/04/2022 12:21 PM CDT) P athologist Signature Hemoglobin 15.6 13.2 - 01/04/2022 DTL 16.6 g/dL 12:59 PM CDT Hematocrit 45.6 38.3 - 01/04/2022 DTL 48.6 % 12:59 PM CDT Erythrocytes 4.87 4.35 - 01/04/2022 DTL 5.65 12:59 PM CDT x10(12)/L MCV 93.6 78.2 - 01/04/2022 DTL 97.9 fL 12:59 PM CDT RBC Distrib Width 13.0 11.8 - 01/04/2022 DTL 14.5 % 12:59 PM CDT Platelet Count 182 135 - 317 01/04/2022 DTL x10(9)/L 12:59 PM CDT Leukocytes 6.5 3.4 - 9.6 01/04/2022 DTL x10(9)/L 12:59 PM CDT Neutrophils 3.74 1.56 - 01/04/2022 DTL 6.45 12:59 PM CDT x10(9)/L Lymphocytes 1.65 0.95 - 01/04/2022 DTL 3.07 12:59 PM CDT x10(9)/L Monocytes 0.70 0.26 - 01/04/2022 DTL 0.81 12:59 PM CDT x10(9)/L Eosinophils 0.32 0.03 - 01/04/2022 DTL 0.48 12:59 PM CDT x10(9)/L Basophils 0.05 0.01 - 01/04/2022 DTL 0.08 12:59 PM CDT x10(9)/L Specimen Anatomical Collection Method Collection Time Receive d Time (Source) Location / / Volume Laterality Blood (Blood, 01/04/2022 12:21 01/04/2022 Venous) PM CDT 12:50 PM CDT Sherire Lew M.D. LAB BLOOD ADD-ON Performing Organization Address City/State/ZIP Code Phon e Number [facility] - [address] [place], [place] [address] [facility] [place] [address] [facility] [address] documented in this encounter Visit Diagnoses Diagnosis Mycobacterium Infection documented in this encounter Care Teams Medical Customer Service Representative Relationship Specialty Start Date End Date Elsewhere, Pcp PCP - General Internal Medicine 12/26/21 documented as of this encounter
--- OUTSIDE RECORDS SUMMARY | 2022-04-11 15:02 | XMS_ITS | Encounter Summary ---
:1945 Author Organization [facility] Address 200 [place] [address] Care Team Providers Name Role Phone Elsewhere, Pcp Primary Care Provider Unavailable Reason for Referral Outpatient (Routine) - Closed Specialty Diagnoses / Procedures Referred By Contact Refer red To Contact Video Medicine Diagnoses Mycobacterium Infection Sherrie Lew M.D. [facility] [address] [place] [phone] Referral ID Status Reason Start Date Expiration Date Visits Requ ested Visits Authorized [id number] Closed 02/07/2022 02/07/2023 1 1 Reason for Visit Outpatient (Routine) - Closed Specialty Diagnoses / Procedures Referred By Contact Refer red To Contact Infectious Diseases Diagnoses Mycobacterium Infection Smith Arambula M.D. [facility] [address] [place] [phone] Referral ID Status Reason Start Date Expiration Date Visits Requ ested Visits Authorized [id number] Closed 01/04/2022 01/04/2023 1 1 Encounter Details Date Type Department Care Team Description 02/07/2022 Office Visit Section of Infectious Emory Arambula M.D. [address] [place] [phone] Mycobacterium Infection Diseases in [place], Sherrie Lew M.D. [address] [place] [phone] [place] [address] [place] [phone] Social History Tobacco Use Types Packs/Day Years [...] or relatives? How often do you attend confucianism or More than 4 times per year 12/12/2021 anglican services? Do you belong to any clubs or Yes 12/12/2021 organizations such as confucianism groups, unions, fraternal or athletic groups, or [...] AM CDT documented as of this encounter Last Filed Vital Signs Vital Sign Reading Time Taken Comments Blood Pressure - - Pulse - - Temperature 36.3 ??C (97.3 ??F) 02/07/2022 10:53 AM CDT Respiratory Rate - - Oxygen Saturation - - Inhaled Oxygen Concentration - - Weight 149 kg (327 lb 15 oz) 02/07/2022 10:53 AM CDT Height - - Body Mass Index 52.45 07/08/2018 2:12 PM [employer]PER[employer] documented in this encounter Progress Notes Sherrie Lew M.D. - 02/07/2022 11:00 AM CDT SUBJECTIVE CHIEF COMPLAINT/REASON FOR VISIT M. Chelonae infection L hand HISTORY OF PRESENT ILLNESS Please see Dr. Cota's note from 11/28/[address] Arambula's 01/04/22 follow-up. He received the clofazimine shortly after his visit with Tyesha Helms (later that weeks ) and promptly started it. He is tolerating all of his medications well. He has noted occasional loose stools but nothing bothersome. He asked about a probiotic. No other concerns and reports hand is improving. REVIEW OF SYSTEMS Pertinent items are noted in HPI; all other review of systems was negative. OBJECTIVE Vitals: 02/07/22 1053 Temp: 36.3 ??C Weight: (!) 149 kg TempSrc: Tympanic PHYSICAL EXAMINATION Overweight but otherwise appears well L hand appears significantly improved. Lesion is less erythematous and is now nontender. DIAGNOSTICS Organism ? MYCOBACTERIUM CHELONAE ?Antibiotic ?POPPY (mcg/mL) ??Interpretation ?Cefoxitin ? >128 ? R ?Imipenem ?16 ? I ?Clofazimine ? 0.25 ?Ciprofloxacin ? >4 ? R ?Moxifloxacin ?>4 ? R ?Clarithromycin ? 0.5 ? S ?Amikacin ?32 ? I ?Tobramycin ? 2 ? S ?Doxycycline ? >8 ? R ?Tigecycline ?0.5 ?TMP/SMX ?>4/76 ? R ?Linezolid ? 32 ? R ?? ECG no change since 11/24. ASSESSMENT / PLAN 1. 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 Initiation of oral doxycycline monohydrate (December 29) and azithromycin (December 30) and clofazimine approx 01/07/22 3. Multiple medical comorbidities Recommendations 1. Continue current RX Plan for 4-6 months Rx 2. ECG and routine labs for clofazimine monthly - He wants to do at [facility]. RTN via videoin 1 and 2 months and face to face in 3 months 3. Will ask for a fellow to see him, and although usually I would be happy to staff him, I will be away the fir two weeks of march. 4. Suggested Kefir as a probiotic 5. Will reach out to [facility] re scheduling apt. He remains interested in a face to face consult. 25 minutes with at least 20 being spent counseling and coordinating care. GOLDEN Lew [id number] documented in this encounter Plan of Treatment Upcoming Encounters Date Type Specialty Care Team Description 04/16/2022 Clinical Communication Admitting/Central Scheduling 04/19/2022 Ancillary Procedure Cardiovascular Disease Milla Lew M.D. [address] [place] [phone] 04/19/2022 Appointment Laboratory Medicine Sherrie Lew M.D. [address] [place] [phone] 04/19/2022 Office Visit Infectious Diseases Max Aguilar D.O. [address] [place] [phone] 04/20/2022 Comprehensive Visit Allergy and Immunology Kavon Ahmadi M.D., M.S. [address] [place] [phone] Scheduled Referrals Name Type Priority Associated Diagnoses Order S chedule Video anyplace Outpatient Referral Routine Mycobacterium Expec emory: visit Infection 03/12/2022, Expires: 05/10/2023 documented as of this encounter Visit Diagnoses Diagnosis Mycobacterium Infection documented in this encounter Care Teams Supervisor [employer] Relationship Specialty Start Date End Date Elsewhere, Pcp PCP - General Internal Medicine 12/26/21 documented as of this encounter
--- OUTSIDE RECORDS SUMMARY | 2022-04-11 15:02 | XMS_ITS | Encounter Summary ---
:1945 Author Organization [facility] Address [address] [place] [address] Care Team Providers Name Role Phone Elsewhere, Pcp Primary Care Provider Unavailable Reason for Referral Outpatient (Routine) - Authorized Specialty Diagnoses / Procedures Referred By Contact Refer red To Contact Diagnoses Skilled Nursing Antibiotic Treatment Sherrie Lew M.D. [facility] Procedures ECG 12 Lead [address] [place] [phone] Referral ID Status Reason Start Date Expiration Date Visits V isits Requested Authorized [id number] Authorized 02/07/2022 02/07/2023 1 1 utpatient (Routine) - Authorized Specialty Diagnoses / Procedures Referred By Contact Refer red To Contact Diagnoses Road Service Locksmith Antibiotic Treatment Sherrie Lew M.D. [address] [place] [phone] Referral ID Status Reason Start Date Expiration Date Visits V isits Requested Authorized [id number] Authorized 02/07/2022 02/07/2023 1 1 Reason for Visit Reason Comments OPAT Care Coordination/ Normal la bs Encounter Details Date Type Department Care Team Description 02/07/2022 Clinical Communication Section of Rocky Toure (Care Infectious Diseases E, R.N. Coordination/ in [address] Normal labs) [place], [place] [address] [facility] [address] [place], [place] [phone] (Work) [phone] Social History Tobacco Use Types Packs/Day Years [...] or relatives? How often do you attend protestant or More than 4 times per year 12/12/2021 yazidi services? Do you belong to any clubs or Yes 12/12/2021 organizations such as protestant groups, unions, fraternal or athletic groups, or [...] place to sleep or slept in a care home (including now)? Education Answer Date Recorded What is the highest level of Professional school degree (e.g ., , 12/12/2021 school you have completed or the DDS, DVM, RODOLFO) highest degree you have received? Sex Assigned at Date Recorded Male 04/03/2018 7:54 AM CDT documented as of this encounter Miscellaneous Notes Telephone Encounter - Cynthia Ortega R.N. - 02/08/2022 8:17 AM CDT OPAT NOTE Infusion Provider: NA-patient on oral antimicrobials Antimicrobial(s) currently prescribed: See Med List Hyperlink in note Tentative stop date: 4-6 months ; final stop date to be determined at follow up visit. Date of ID follow up appt:03/12/2022 . Lab results from 02/07/2022 are viewable in the MCR record. Interpretation and action: The labs were satisfactory and acceptable. No change in plan as per OPAT Practice Guideline. Total bilirubin (not a lab we follow for the patient's oral antibiotics) has increased. Telephone Encounter - Rocky Toure R.N. - 02/07/2022 4:40 PM CDT Lab and ECG orders were faxed to Radha Howard, phone: [phone], fax: [phone]. They were also ordered to be scheduled along with ID follow up in 3 months. Telephone Encounter - Rocky Toure R.N. - 02/07/2022 11:28 AM CDT ----- Message from Sherrie Lew M.D. sent at 02/07/2022 11:12 AM CDT ----- Please enroll patient in OPAT for monitoring on Clofazimine Arrange monthly CBC, Cr, ALT, AST, Bili,Alk phos and ECG x 2 months at [facility] (not hospital) In 3 months arrange for here at [facility] to be coordinated with his face to face rtn in ID Thanks for the help! Yolande [id number] documented in this encounter Plan of Treatment Upcoming Encounters Date Type Specialty Care Team Description 04/16/2022 Clinical Communication Admitting/Central Scheduling 04/19/2022 Ancillary Procedure Cardiovascular Disease Milla Lew M.D. [address] [place] [phone] 04/19/2022 Appointment Laboratory Medicine Sherrie Lew M.D. [address] [place] [phone] 04/19/2022 Office Visit Infectious Diseases Max Aguilar, D.ODale [address] [place] [phone] 04/20/2022 Comprehensive Visit Allergy and Immunology Kavon Ahmadi M.D., M.S. [address] [place] [phone] Scheduled Orders Name Type Priority Associated Diagnoses Order S chedule CBC with Differential, Lab Routine Skilled Nursing Antibiot ic Expected: 05/10/2022, Blood Treatment Expires: 2022 ALT (Alanine Lab Routine Skilled Nursing Antibiotic Expecte d: 05/10/2022, Aminotransferase) Treatment Expires: 0 02/07/2023 Creatinine with Estimated Lab Routine Skilled Nursing Antib iotic Expected: 05/10/2022, GFR Treatment Expires: 2022 AST (Aspartate Lab Routine Skilled Nursing Antibiotic Expec emory: 05/10/2022, Aminotransferase) Treatment Expires: 1 Alkaline Phosphatase Lab Routine Skilled Nursing Antibiotic Expected: 05/10/2022, Treatment Expires: 2022 Bilirubin, Total Lab Routine Skilled Nursing Antibiotic Exp ected: 05/10/2022, Treatment Expires: 2022 ECG 12 Lead ECG Routine Skilled Nursing Antibiotic Expecte d: 05/10/2022, Treatment Expires: 2022 documented as of this encounter Visit Diagnoses Diagnosis Skilled Nursing Antibiotic Treatment - Primary documented in this encounter Care Teams Issuing Operator Relationship Specialty Start Date End Date Elsewhere, Pcp PCP - General Internal Medicine 12/26/21 documented as of this encounter
--- OUTSIDE RECORDS SUMMARY | 2022-04-11 15:02 | XMS_ITS | Clinical Summary ---
:1945 Author Organization [facility] Address [address] [place] [address] Care Team Providers Name Role Phone Elsewhere, Pcp Primary Care Provider Unavailable Source Comments Patient records contain information from all sites at [facility]. For routine questions regarding patient records, call [phone] during business hours, M-F 8:00 AM - 5:00 PM Central Time. Record requests for emergency care only can be directed to [phone] at any time.[facility] Allergies Active Allergy Reactions Severity Noted Date Comments Adhesive Tape-Silicones Rash Low 07/18/2017 Penicillins Hives Low 07/18/2017 Medications Medication Sig Dispensed Refills Start Date End Date Status acetaminophen Take 1,000 mg 0 Ac tive (TYLENOL) 500 mg by mouth. tablet clindamycin 2 capsules 0 Active (CLEOCIN) 300 mg prior to capsule dental work nitroglycerin Place 0.4 mg 0 Act cristhian (NITROSTAT) 0.4 mg under the SL tablet tongue. multivit with Take 1 tablet 0 10/18/2016 A ctive min-folic acid 0.4 by mouth mg tablet daily. omeprazole Take 20 mg by 0 10/18/2016 Acti ve (PriLOSEC) [address] mouth daily. capsule atorvastatin Take 40 mg by 0 02/21/2021 Ac tive (LIPITOR) 40 mg mouth daily. tablet carvediloL (COREG) Take 25 mg by 0 04/04/2021 Active 25 mg tablet mouth 2 (two) times a day with meals. furosemide (LASIX) Take 20 mg by 0 02/21/2021 Active 20 mg tablet mouth as needed. spironolactone Take 25 mg by 0 11/19/2021 Active (ALDACTONE) 25 mg mouth daily. tablet Entresto 97-103 mg Take 1 tablet 0 09/21/2021 Active per tablet by mouth 2 (two) times a day. Eliquis 5 mg tablet 0 11/29/2021 Active Research IRB Take 2 2 Bottle 0 01/04/2022 Active [id number] capsules (100 clofazimine 50 mg mg total) by capsuleIndications: mouth daily. Mycobacterium Take with Infection food. apixaban (ELIQUIS) 5 5 mg 2 (two) 0 Active mg tablet times a day. azithromycin Take 1 tablet 30 tablet 2 03/22/2022 Ac tive (ZITHROMAX) 500 mg (500 mg total) tabletIndications: by mouth Mycobacterium daily. Take Infection with food doxycycline Take 1 tablet 60 tablet 2 03/22/2022 Act cristhian monohydrate (ADOXA) (100 mg total) 100 mg by mouth 2 tabletIndications: (two) times a Mycobacterium day. Infection Research IRB Take 2 2 Bottle 0 03/28/2022 Active [id number] capsules (100 clofazimine 50 mg mg total) by capsuleIndications: mouth daily. Mycobacteria Take with Cutaneous Not food. Tuberculosis doxycycline Take 1 tablet 60 tablet 2 03/12/2022 Dis continued monohydrate (ADOXA) (100 mg total) 2 100 mg by mouth 2 tabletIndications: (two) times a Mycobacterium day. Infection azithromycin Take 1 tablet 30 tablet 2 03/12/2022 Di scontinued (ZITHROMAX) 500 mg (500 mg total) 2 tabletIndications: by mouth Mycobacterium daily. Take Infection with food Encounters Date Type Specialty Care Team Description 04/04/2022 Clinical Infectious Pascual Licea (Normal Labs) Communication Diseases P, R.N. 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 03/20/2022 Clinical Infectious Argentina Chambers (Lab Req uest) Communication Diseases M, R.N. 03/12/2022 Telemedicine Infectious Aguilar, Mycobacterium Diseases Max Sequeira D.O. Infection (P rimary Dx) 03/09/2022 Clinical Admitting/Central Pre-visit Intake Communication Scheduling 02/07/2022 Office Visit Infectious Smith Arambula, Mycobacteriu m Diseases Ashli. Infection Sherrie Lew M.D. 02/07/2022 Hospital Encounter Laboratory Smith Arambula, Mycoba cterium Medicine Feliberto Infection 02/07/2022 Clinical Infectious Rocky Toure (Care Communication Diseases E, R.N. Coordination/ Normal labs) 01/11/2022 Clinical Infectious Monae Khan Communication Diseases D, CCRP 01/11/2022 Clinical Infectious Monae Khan Starting Lea barber Communication Diseases D, CCRP from Last 3 Months Family History Medical History Relation Name Comments Melanoma Brother 1 Mayank Cisnerosverson Prostate cancerm Prostate cancer Brother 1 Mayank Andrea Basal cell carcinoma Brother 2 Colon polyps Brother 3 leonel andrea Coronary artery disease Brother 3 leonel andrea Melanoma Brother 3 leonel andrea Coronary artery disease Father r aristides andrea Hypertension Father r aristides andrea Melanoma Father r aristides andrea Obesity Father r aristides andrea Melanoma Father's Brother Melanoma Mother Sabina Reeson Relation Name Status Comments Brother 1 Mayank Andrea Brother 2 Brother 3 leonel andrea Father r aristides andrea Father's Brother Mother Sabina Mendez Social History Tobacco Use Types Packs/Day Years [...] or relatives? How often do you attend samaritan or More than 4 times per year 12/12/2021 worship services? Do you belong to any clubs or Yes 12/12/2021 organizations such as samaritan groups, unions, fraternal or athletic groups, or [...] place to sleep or slept in a senior care (including now)? Education Answer Date Recorded What is the highest level of Professional school degree (e.g ., , 12/12/2021 school you have completed or the DDS, DVM, RODOLFO) highest degree you have received? 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 [address] [place] [phone] 04/19/2022 Appointment Laboratory Medicine Sherrie Lew M.D. [address] [place] [phone] 04/19/2022 Office Visit Infectious Diseases Max Aguilar D.O. [address] [place] [address] 04/20/2022 Comprehensive Visit Allergy and Immunology Kavon Ahmadi M.D., M.S. [address] [place] [phone] Health Maintenance Due Date Last Done Comments CT Colonography 1945 Cologuard 1945 Colonoscopy 1945 Colorectal Cancer Surveillance 1945 Hepatitis C Screening 1945 Pneumococcal vaccine (65+ years) 06/07/2016 06/07/2015 (2 - PPSV23 or PCV20) Depression Screening (Annual 08/05/2021 PHQ-2) Fall Risk Screen (Annual) 08/05/2021 Influenza Vaccine (#1) 2022 05/08/2021, 05/21/2019, 05/13/2018, Additional history exists Potassium Level 01/04/2023 01/04/2022, 09/21/2021, 06/19/2021, Additional history exists Sodium Level 01/04/2023 01/04/2022, 09/21/2021, 06/19/2021, Additional history exists Creatinine Level 04/03/2023 04/03/2022, 03/14/2022, 02/07/2022, Additional history exists DTaP,Tdap,and Td Vaccines (2 - Td 06/07/2025 06/07/2015, or Tdap) Zoster Vaccines Completed 09/06/2021, 05/08/2021 COVID-19 Vaccine Completed 12/29/2021, 05/30/2021, 09/25/2020, Additional history exists Medical Devices Implanted Type Area Case Supervisor Device Shelf Model / Identifier Expiration Serial / Date Lot Knee Implant-07/06/2019 Knee Implant Right: Implanted: 07/06/2019 (Quantity not on file) Knee Ocular Lens Ocular Lens Bilateral : Eye 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 CBC WITH DIFFERENTIAL, B Routine 04/03/2022 Res ults for this procedure are i n the results section. ALANINE AMINOTRANSFERASE Routine 03/14/2022 Res ults for this (ALT), S/P procedure are i n the results section. ASPARTATE Routine 03/14/2022 Results for thi s AMINOTRANSFERASE (AST), proc edure are in S/P the results section. ALKALINE PHOSPHATASE, Routine 03/14/2022 Result s for this S/P procedure are i n the results section. CREATININE WITH EGFR, Routine 03/14/2022 Result s for this S/P procedure are i n the results section. BILIRUBIN, TOT, S/P Routine 03/14/2022 Results for this procedure are i n the results section. CBC WITH DIFFERENTIAL, B Routine 03/14/2022 Res ults for this procedure are i n the results section. ECG Routine 02/07/2022 9:42 Mycobacterium Results for this AM CDT Infection procedure are i n the results section. BILIRUBIN DIRECT, S/P Routine 02/07/2022 9:26 Mycobacterium Re sults for this AM CDT Infection procedure are i n the results section. BILIRUBIN, TOT, S/P Routine 02/07/2022 9:26 Mycobacterium Resu lts for this AM CDT Infection procedure are i n the results section. CBC WITH DIFFERENTIAL, B Routine 02/07/2022 9:26 Mycobacterium Results for this AM CDT Infection procedure are i n the results section. CREATININE WITH EGFR, Routine 02/07/2022 9:26 Mycobacterium Re sults for this S/P AM CDT Infection procedure are i n the results section. ALANINE AMINOTRANSFERASE Routine 02/07/2022 9:26 Mycobacterium Results for this (ALT), S/P AM CDT Infection procedure are i n the results section. ALKALINE PHOSPHATASE, Routine 02/07/2022 9:26 Mycobacterium Re sults for this S/P AM CDT Infection procedure are i n the results section. from Last 3 Months Results CBC with Differential, Blood (04/03/2022)Only the most recent of3 resultswithin the time period is included. athologist Signature EXT Platelet 169 140 - 440 [place] Count [facility] EXT Eosinophils 0.5 0 - 0.5 [facility] EXT Hemoglobin 15.4 13.5 - [place] 17.5 [facility] EXT Absolute 3.31 1.7 - 7 [place] Neutrophils [facility] EXT White Blood 6.1 4.5 - 11.0 [place] Cell (WBC) Count [facility] Specimen (Source) Anatomical Location Collection Method / Collectio n Time Received Time / Laterality Volume Blood (Blood, Venous) Max Aguilar D.O. LAB BLOOD ADD-ON Performing Organization Address City/[facility]/ZIP [facility] [address] [place] [address] Creatinine with Estimated GFR (04/03/2022)Only the most recent of3 resultswithin the time period is included. athologist Signature EXT Creatinine 1.1 0.5 - 1.5 [place] mg/dL [facility] Specimen (Source) Anatomical Location Collection Method / Collectio n Time Received Time / Laterality Volume Blood (Blood, Venous) Max Aguilar D.O. LAB BLOOD ADD-ON Performing Organization Address City/[facility] Phon e Number [facility] [address] [place] [address] ALT (Alanine Aminotransferase) (03/14/2022)Only the most recent of2 results within the time period is included. athologist Signature EXT ALT 17 4 - 50 [facility] Specimen (Source) Anatomical Location Collection Method / Collectio n Time Received Time / Laterality Volume Blood (Blood, Venous) Eliana Ivy P.A.-C. LAB BLOOD ADD-ON Performing Organization Address City/[facility]/ZIP [facility] [place] [place] Phon e [facility] [address] [place] [address] AST (Aspartate Aminotransferase) (03/14/2022) athologist Signature EXT AST 27 12 - 35 [facility] Specimen (Source) Anatomical Location Collection Method / Collectio n Time Received Time / Laterality Volume Blood (Blood, Venous) Eliana Ivy P.A.-C. LAB BLOOD ADD-ON Performing Organization Address [facility]/ZIP Code Phon e Number [facility] [address] [place] [address] Alkaline Phosphatase (03/14/2022)Only the most recent of2 resultswithin the time period is included. athologist Signature EXT Alkaline 109 40 - 150 [facility] Specimen (Source) Anatomical Location Collection Method / Collectio n Time Received Time / Laterality Volume Blood (Blood, Venous) Eliana Perez-CDale LAB BLOOD ADD-ON Performing Organization Address [facility] e Number [facility] [address] [place] [address] (ABNORMAL) Bilirubin, Total (03/14/2022)Only the most recent of2 resultswithin the time period is included. athologist Signature EXT Bilirubin, 3.2 (A) 0.1 - 1.5 [facility] Specimen (Source) Anatomical Location Collection Method / Collectio n Time Received Time / Laterality Volume Blood (Blood, Venous) Eliana Perez-Andria LAB BLOOD ADD-ON Performing Organization Address City/[facility]/ZIP [facility] [place] [place] Phon e Number [facility] [address] [place] [address] ECG 12 Lead (02/07/2022 9:42 AM CDT) [facility] gist Method Time Signature Ventricular 85 BPM MUSE Rate ECG/Min QRSD Interval 140 ms MUSE QT Interval 392 ms MUSE QTC Interval 466 ms MUSE R [place] -46 degrees MUSE T Wave [place] 2 degrees MUSE CODED Atrial MUSE DIAGNOSIS [...] Arambula M.D. ECG ORDERABLES Performing Organization Address City/State/ZIP Code Phon e Number MUSE MUSE NA Bilirubin, Direct (02/07/2022 9:26 AM CDT) P athologist Signature Bilirubin, 0.3 0.0 - 0.3 02/07/2022 DTL Direct, S mg/dL 10:29 AM CDT Specimen Anatomical Collection Method Collection Time Receive d Time (Source) Location / / Volume Laterality Blood (Blood, 02/07/2022 9:26 AM 02/08/20 22 Venous) CDT 10:11 AM CDT Smith Arambula M.D. LAB BLOOD ADD-ON Performing Organization Address City/State/ZIP Code Phon e Number [facility] - [address] [place], [place] [address] [facility] [place] [address] Laboratories-[facility] [address] from Last 3 Months Insurance Payer Benefit Plan / Subscriber ID Effective Dates Phone Addre ss Type Group HUMANA HUMANA CHOICE [id number] 2018-Present [phone] [address] [address] [place] [address] Care Teams Labor And Employment Paralegal Relationship Specialty Start Date End Date Elsewhere, Pcp PCP - General Internal Medicine 12/26/21
--- OUTSIDE RECORDS SUMMARY | 2022-04-11 15:02 | XMS_ITS | Encounter Summary ---
:1945 Author Organization [facility] Address [address] [place] [address] Care Team Providers Name Role Phone Elsewhere, Pcp Primary Care Provider Unavailable Reason for Visit Reason Onset Date Comments Starting Clofazimine 01/11/2022 Encounter Details Date Type Department Care Team Description 01/11/2022 Clinical Communication Section of Monae Khan Infectious D, CCRP Clofazimine Diseases in [phone] [facility] [address] [place] [address] Social History Tobacco Use Types Packs/Day Years [...] or relatives? How often do you attend orthodox or More than 4 times per year 12/12/2021 mormonism services? Do you belong to any clubs or Yes 12/12/2021 organizations such as orthodox groups, unions, fraternal or athletic groups, or school groups? How often do you attend meetings of the More than 4 times [facility] year 12/12/2021 clubs or organizations you belong [...] minutes do you engage in exercise at is 10 min 12/12/2021 level? Stress Answer [...] place to sleep or slept in a long term (including now)? Education Answer Date Recorded What [...] Procedure Cardiovascular Disease Milla Lew M.D. [address] [place] [phone] 04/19/2022 Appointment Laboratory Medicine Sherrie Lew M.D. [address] [place] [phone] 04/19/2022 Office Visit Infectious Diseases Max Aguilar, D.O. [address] [place] [phone] 04/20/2022 Comprehensive Visit Allergy and Immunology Kavon Ahmadi M.D., M.S. [address] [place] [phone] documented as of this encounter Visit Diagnoses Not on filedocumented in this encounter Care Teams Press And Blow Machine Tender Relationship Specialty Start Date End Date Elsewhere, Pcp PCP - General Internal Medicine 12/26/21 documented as of this encounter
--- OUTSIDE RECORDS SUMMARY | 2022-04-11 15:02 | XMS_ITS | Encounter Summary ---
:1945 Author Organization [facility] Address [address] [place] [address] Care Team Providers Name Role Phone Elsewhere, Pcp Primary Care Provider Unavailable Encounter Details Date Type Department Care Team Description 12/28/2021 Documentation Section of Infectious Natali Khan, CCRP Diseases in [place], (Work ) [place] [address] [place] [phone] Social History Tobacco Use Types Packs/Day Years [...] or relatives? How often do you attend congregational or More than 4 times per year 12/12/2021 druze services? Do you belong to any clubs or Yes 12/12/2021 organizations such as congregational groups, unions, fraternal or athletic groups, or [...] place to sleep or slept in a fci (including now)? Education Answer Date Recorded What [...] Admitting/Central Scheduling 04/19/2022 Ancillary Procedure Cardiovascular Disease Mlila Lew M.D. [address] [place] [phone] 04/19/2022 Appointment Laboratory Medicine Sherrie Lew M.D. [address] [place] [phone] 04/19/2022 Office Visit Infectious Diseases Max Aguilar, D.O. [address] [place] [phone] 04/20/2022 Comprehensive Visit Allergy and Immunology Kavon Ahmadi M.D., M.S. [address] [place] [phone] documented as of this encounter Visit Diagnoses Not on filedocumented in this encounter Care Teams Hole Digger Truck Driver Relationship Specialty Start Date End Date Elsewhere, Pcp PCP - General Internal Medicine 12/26/21 documented as of this encounter
--- OUTSIDE RECORDS SUMMARY | 2022-04-11 15:02 | XMS_ITS | Encounter Summary ---
:1945 Author Organization [facility] Address [address] [place] [address] Care Team Providers Name Role Phone Elsewhere, Pcp Primary Care Provider Unavailable Encounter Details Date Type Department Care Team Description 01/11/2022 Clinical Communication Section of Grecia Ashley, [place] [phone] [address] [facility] ([place]) [place] [address] Social History Tobacco Use Types Packs/Day Years [...] or relatives? How often do you attend christian or More than 4 times per year 12/12/2021 sikhism services? Do you belong to any clubs or Yes 12/12/2021 organizations such as christian groups, unions, fraternal or athletic groups, or [...] Procedure Cardiovascular Disease Milla Lew M.D. [address] [place] [phone] 04/19/2022 Appointment Laboratory Medicine Sherire Lew M.D. [address] [place] [phone] 04/19/2022 Office Visit Infectious Diseases Max Aguilar, D.O. [address] [place] [phone] 04/20/2022 Comprehensive Visit Allergy and Immunology Kavon Ahmadi M.D., M.S. [address] [place] [phone] documented as of this encounter Visit Diagnoses Not on filedocumented in this encounter Care Teams Sighter Relationship Specialty Start Date End Date Elsewhere, Pcp PCP - General Internal Medicine 12/26/21 documented as of this encounter
--- OUTSIDE RECORDS SUMMARY | 2022-04-11 15:02 | XMS_ITS | Encounter Summary ---
:1945 Author Organization [facility] Address [address] [place] [address] Care Team Providers Name Role Phone Elsewhere, Pcp Primary Care Provider Unavailable Reason for Visit Reason Comments Pre-visit Intake Encounter Details Date Type Department Care Team Description 03/09/2022 Clinical Communication Visit Review in Pr e-visit Intake [place], [place] [address] [place] [address] Social History Tobacco Use Types Packs/Day Years [...] or relatives? How often do you attend druze or More than 4 times per year 12/12/2021 jewish services? Do you belong to any clubs or Yes 12/12/2021 organizations such as druze groups, unions, fraternal or athletic groups, or [...] place to sleep or slept in a long-term (including now)? Education Answer Date Recorded What is the highest level of Professional school degree (e.g ., , 12/12/2021 school you have completed or the DDS, DVM, RODOLFO) highest degree you have received? Sex Assigned at Date Recorded Male 04/03/2018 7:54 AM CDT documented as of this encounter Miscellaneous Notes Telephone Encounter - Sharri Sanchez - 03/09/2022 2:51 PM CDT ALISA DONE- [facility] 03/09 documented in this encounter Plan of Treatment Upcoming Encounters Date Type Specialty Care Team Description 04/16/2022 Clinical Communication Admitting/Central Scheduling 04/19/2022 Ancillary Procedure Cardiovascular Disease Milla Lew M.D. [address] [place] [phone] 04/19/2022 Appointment Laboratory Medicine Sherrie Lew M.D. [address] [place] [phone] 04/19/2022 Office Visit Infectious Diseases Max Aguilar, Rufino [address] [place] [phone] 04/20/2022 Comprehensive Visit Allergy and Immunology Kavon Ahmadi M.D., M.S. [address] [place] [phone] documented as of this encounter Visit Diagnoses Not on filedocumented in this encounter Care Teams Netting Inspector Relationship Specialty Start Date End Date Elsewhere, Pcp PCP - General Internal Medicine 12/26/21 documented as of this encounter
--- OUTSIDE RECORDS SUMMARY | 2022-04-11 15:02 | XMS_ITS | Clinical Summary ---
:1945 Author Organization [employer] [facility] [place] [address] Care Team Providers Name Role Phone Choco Masters MD Primary Care Provider Nurses, Advanced Heart Failure Unavailable [phone] [facility] Unavailable Allergies Active Allergy Reactions Severity Noted Date Comments Adhesive Tape-Silicones Rash Low 07/18/2017 Hydrocodone-Acetaminophen GI Upset 02/10/2016 In tolerance Penicillins Hives Medium 10/18/2016 Medications Medication Sig Dispensed Refills Start End Status Date Date multivitamin Take 1 Tablet by 0 Active therapeutic mouth once daily. (THERAGRAN; ONCOVITE) tablet omeprazole Take 1 Capsule by 0 A ctive (PRILOSEC) 20 mg mouth once daily 1 Delayed-Release before a meal. capsule nitroglycerin Place 0.4 mg 0 Act cristhian (NITROSTAT) 0.4 mg under the tongue sublingual tablet every 5 minutes if needed. spironolactone Take 25 mg by 0 A ctive (ALDACTONE) 25 mg mouth once daily. 1 tablet acetaminophen Take 1,000 mg by 0 Active (TYLENOL EXTRA mouth every 6 STRGTH) 500 mg hours if needed. tablet Max acetaminophen dose: 4000mg in 24 hrs. atorvastatin Take 1 Tablet (40 30 Tablet 2 Active (LIPITOR) 40 mg mg) by mouth at 1 tabletIndications: bedtime. Dyslipidemia furosemide (LASIX) Take 20 mg as 0 Active 20 mg needed for weight 1 tabletIndications: gain of 3lbs in Acute on chronic 24 hours. Your systolic heart dry weight is 316 failure (HC) pounds. carvediloL (COREG) Take 1 Tablet (25 90 Tablet 3 Active 25 mg mg) by mouth 2 1 tabletIndications: times daily with Chronic systolic meals. congestive heart failure (HC) sacubitril-valsart Take 1 Tablet by 180 Tablet 1 Active an (ENTRESTO) mouth 2 times 2 97-103 mg daily. tabletIndications: Chronic systolic congestive heart failure (HC) apixaban (ELIQUIS) Take 1 Tablet (5 180 Tablet 1 Active 5 mg mg) by mouth 2 2 tabletIndications: times daily. Chronic systolic congestive heart failure (HC), Longstanding persistent atrial fibrillation (HC) doxycycline Take 100 mg by 0 Act cristhian (ADOXA) 100 mg mouth. 2 tablet Clofazimine, Bulk, As directed. 0 Active powd 2 azithromycin Take 1 Tablet 0 Act cristhian (ZITHROMAX) 500 mg (500 mg) by 2 tablet mouth. warfarin Take 7.5 mg 0 Disconti nued (COUMADIN) 5 mg tonight. INR 1 022 ( *Patient tabletIndications: check in the AM. states no Longstanding longer persistent atrial ta oni/Not on fibrillation (HC) se nding facility l ist) azithromycin Once daily for 21 0 Discontinued (ZITHROMAX) 250 mg Days, last day - 2 022 (*Patient tablet states no longer taking/Not on sending facility l ist) sacubitril-valsart Take two tablets 180 Tablet 1 28/09 Discontinued an (ENTRESTO) twice a day until 2 022 (*Patient 49-51 mg gone then start stat es no tabletIndications: new prescription longer Chronic systolic for 97-103 mg taking/Not on congestive heart twice a day s ending failure (HC) facilit y list) perflutren lipid Inject 1.5 mL 1.5 mL 0 Discontinued microspheres 1.1 intravenous one 2 022 (*Med mg/mL (Definity) time for 1 dose. complete/Regime 1.1 mg/mL 1.5 mg given n injection 2 mL compl ete/Level vialIndications: of care change) Chronic systolic congestive heart failure (HC) Active Problems Problem Noted Date Dyslipidemia 02/16/2021 DOW (dyspnea on exertion) 02/16/2021 Chronic systolic congestive heart failure 03/11/2020 Longstanding persistent atrial fibrillation 03/11/2020 HTN (hypertension) 03/11/2020 Morbid obesity due to excess calories 03/11/2020 Acute systolic heart failure Acute on chronic systolic heart failure Encounters Date Type Specialty Care Team Description 04/11/2022 Refill Christelle Wright [facility] Refill Request (Eliquis, Entresto 97 Mg- 103 Mg Tablet) 04/06/2022 Office Visit Christelle Wright [facility] CV Hear t Failure Est (6 month f/u w/ labs gunjan or. Hx CHF. Pt reporting occas ional PVCs, recent addresse d this w/ Dr. Rutledge. ) 04/06/2022 Orders Only Lab 04/06/2022 Orders Only <No scans attac hed> 04/06/2022 Travel 03/28/2022 Office Visit Garry Rutledge MD CV El ectrophysiology New (Initial visit. Hx: pacemaker. Pt r eports no sx. ) 03/28/2022 Travel 01/19/2022 Telephone Buster Mondragon Appoin tment Request from Last 3 Months Social History Tobacco Use Types Packs/Day Years Used Date Former Smoker Smokeless Tobacco: Never Used Comments: 47 years ago Alcohol Use Standard Drinks/Week Comments Not Currently 0 (1 standard drink = 0.6 oz pure alcoho l) Sex Assigned at Date Recorded Not on file COVID-19 Exposure Response Date Recorded In the last 10 days, have you been in contact with No / Unsu re 04/06/2022 10:33 AM CDT someone who was confirmed or suspected to have Coronavirus/COVID-19? Obstetrics History Last Filed Vital Signs Vital Sign Reading Time Taken Comments Blood Pressure 128/82 04/06/2022 1:00 PM CDT Pulse 90 04/06/2022 1:00 PM CDT Temperature 36.8 ??C (98.2 ??F) 02/21/2021 7:01 AM CDT Respiratory Rate 18 02/21/2021 7:01 AM CDT Oxygen Saturation 97% 04/06/2022 1:00 PM CDT Inhaled Oxygen Concentration - - Weight 148.8 kg (328 lb) 04/06/2022 1:00 PM CDT Height 170.2 cm (5' 7) 04/06/2022 1:00 PM CDT Body Mass Index 51.37 04/06/2022 1:00 PM CDT Plan of Treatment Health Maintenance Due Date Last Done Comments Pneumococcal series for age 65+ (1 1950 - PCV) Tdap 12/11/1955 Depression screening for age 12+ 1956 Hepatitis C screening for age 0512/10/1962 18-79 Tetanus booster 1964 Zoster (shingles) series for age 0512/10/1994 50+ (1 of 2) Medicare Wellness for age 65+ 2009 Influenza for age 65+ 04/05/2022 BMI (ht and wt on same day) for 04/06/2023 04/06/2022, 0811/2021, age 18+ 09/21/2021 COVID-19 vaccine series Completed 12/29/2021, 05/30/2021, 09/25/2020, Additional history exists Procedures Procedure Name Priority Date/Time Associated Diagnosis Comme nts PRO-BNP Routine 04/06/2022 12:51 PM Chronic systolic Resu lts for this CDT congestive heart procedure a re in failure (HC) the results section. CBC W PLT NO DIFF Routine 04/06/2022 12:51 PM Chronic systolic Results for this CDT congestive heart procedure a re in failure (HC) the results section. BASIC METABOLIC Routine 04/06/2022 12:51 PM Chronic systolic R esults for this PANEL CDT congestive heart procedure a re in failure (HC) the results section. ECHO COMPLETE W Routine 04/06/2022 11:43 AM Chronic systolic R esults for this CONTRAST CDT congestive heart procedure a re in failure (HC) the results section. EKG 12 LEAD Routine 03/29/2022 PVC's (premature Results for this ventricular procedure are i n contractions) the results section. from Last 3 Months Results CBC W PLT NO DIFF (04/06/2022 12:51 PM CDT) P athologist Signature WHITE BLOOD 6.1 4.5 - 11.0 04/06/2022 [facility] COUNT thou/cu mm 1:14 PM CDT [facility] RED BLOOD COUNT 4.57 4.30 - 04/06/2022 [facility] 5.90 1:14 PM CDT [place] mil/cu mm [facility] HEMOGLOBIN 14.9 13.5 - 04/06/2022 [facility] 17.5 g/dL 1:14 PM CDT [facility] HEMATOCRIT 43.2 37.0 - 04/06/2022 [facility] 53.0 % 1:14 PM CDT [facility] MCV 95 80 - 100 04/06/2022 [facility] fL 1:14 PM CDT [facility] MCH 32.6 26.0 - 04/06/2022 [facility] 34.0 pg 1:14 PM CDT [facility] MCHC 34.5 32.0 - 04/06/2022 [facility] 36.0 g/dL 1:14 PM CDT [facility] RDW 13.3 11.5 - 04/06/2022 [facility] 15.5 % 1:14 PM CDT [facility] PLATELET COUNT 158 140 - 440 04/06/2022 [facility] thou/cu mm 1:14 PM CDT [facility] MPV 9.7 6.5 - 11.0 04/06/2022 [facility] fL 1:14 PM CDT [facility] Specimen Anatomical Collection Method / Collection Time Recei cathy Time (Source) Location / Volume Laterality Blood BLOOD SPECIMEN / Venipuncture / 04/06/2022 12:51 04/06 Unknown Unknown PM CDT 12:52 PM CDT Narrative [facility] - 04/06/2022 1:14 PM CDT This procedure was originally ordered at [facility]. [facility] HEMATOLOGY Performing Organization Address City/State/ZIP Code Phon e Number [facility] [address] [place] [address] [facility] [place] PRO-BNP (04/06/2022 12:51 PM CDT) P athologist Signature PRO BNP NT 426 0 - 1800 04/06/2022 [facility] pg/mL 10:44 PM CDT [facility] Comment: NT-proBNP values less than 300 pg/ml hav e a 99% negative predictive value for excluding congestive heart failure. ??A cutoff of 1200 pg/ml for patients with an eGFR <60 yields a diagnostic sensitivit y and specificity of 89% and 72% for acu te congestive heart failure. A diagnostic NT-proBNP cu toff of 900 pg/mL has been suggested in adults 50-75 years of age in absence of renal failure. Specimen Anatomical Collection Method / Collection Time Recei cathy Time (Source) Location / Volume Laterality Blood BLOOD SPECIMEN / Venipuncture / 04/06/2022 12:51 04/06 Unknown Unknown PM CDT 12:52 PM CDT Narrative [facility] - 022 10:44 PM CDT This procedure was originally ordered at [facility]. Christelle Wright [facility] SEND OUTS Performing Organization Address City/State/[place] [address] CENTER MAIL CODE 812 (ABNORMAL) BASIC METABOLIC PANEL (04/06/2022 12:51 PM CDT) Analysis Performed At Patho logist Time Signature SODIUM 139 135 - 145 04/06/2022 [facility] [employer] mmol/L 6:31 PM CDT [facility] POTASSIUM 4.5 3.5 - 5.0 04/06/2022 [facility] [employer] mmol/L 6:31 PM CDT [facility] CHLORIDE 105 98 - 110 04/06/2022 [facility] [employer] mmol/L 6:31 PM CDT [facility] CO2,TOTAL 24 21 - 31 04/06/2022 [facility] [employer] mmol/L 6:31 PM CDT [facility] ANION GAP 10 5 - 18 04/06/2022 [facility] [employer] 6:31 PM CDT [facility] GLUCOSE 147 (H) 65 - 100 04/06/2022 [facility] mg/dL 6:31 PM CDT [facility] CALCIUM 9.0 8.5 - 10.5 04/06/2022 [facility] mg/dL 6:31 PM CDT [facility] BUN 14 8 - 25 04/06/2022 [facility] [employer] mg/dL 6:31 PM CDT [facility] CREATININE 0.98 0.72 - 04/06/2022 [facility] 1.25 mg/dL 6:31 PM CDT [facility] BUN/CREAT RATIO 14 10 - 20 04/06/2022 [facility] [employer] 6:31 PM CDT [facility] eGFR 79 (L) >90 04/06/2022 [facility] [employer] mL/min/1.7 6:31 PM CDT [facility] Comment: As of 2021, eGFR is calcu lated by the CKD-EPI creatinine equation without race adjustment. eGFR can be inf luenced by muscle mass, exercise, and diet. The reported eGFR is an estimation only and is only applicable if the renal function is stable. Specimen Anatomical Collection Method / Collection Time Recei cathy Time (Source) Location / Volume Laterality Blood BLOOD SPECIMEN / Venipuncture / 04/06/2022 12:51 04/06 Unknown Unknown PM CDT 12:52 PM CDT [facility] CHEMISTRY Performing Organization Address City/State/ZIP Code Phon e Number [facility] [address] [facility] [address] [address] [facility] LABOR[facility]ORY ECHO COMPLETE W CONTRAST (04/06/2022 11:43 AM CDT) P athologist Signature AORTIC VALVE 3 mmHg MEAN PG PEAK TR 3.1 m/s VELOCITY LVEDD 4.2 cm EJECTION 45 - 50% FRACTION Anatomical Region Laterality Modality HEART Ultrasound Specimen (Source) Anatomical Collection Method Collection Time Re ceived Time Location / / Volume Laterality 04/06/2022 10:48 AM CDT Narrative 04/06/2022 1:13 PM CDT ECHOCARDIOGRAM TRUONG RANKIN ?Accessio n#: ?? [id number] : ?1945 76 years Study Date: ?? 04/06/2022 10:48:29 AM Gender: M ? BP: ? 103/58 mmHg Height: 170.18 cm ? BSA: ?2.50 m? ?? Weight: 148.78 kg ? Tech: ? MLP ?R hannah LAGUERRE: CHRISTELLE FLORESBella Site: ? I - [facility] Reading Location: [facility] Procedure: 2D w/ Contrast, Color Doppler and Spectral Doppler. Indication for study: CHRONIC SYS CHF Cardiac Rhythm: Ventricular paced.Study quality: Technically limited. Imaging limitations: This study was subj ect to imaging limitations due to body habitus. Final Impressions: 1. Technically limited exam. 2. Normal LV size, moderately increased wall thickness, an estimated EF ~45%. 3. Noraml RV size and function. 4. The aortic valve is trileaflet and s clerotic, no stenosis and no regurgitation. 5. The aortic sinus is dilated with a m aximal diameter of 4.0 cm. 6. The ascending aorta is dilated with a maximal diameter of 4.4 cm. 7. Echo contrast was administrered to e nhance visualization of all left ventricular segments. Comparison Compared to prior exam of 06-01-2021, th ere has been no significant change. Chamber Sizes and Function Normal left ventricular size, moderately increased wall thickness, mildly reduced global systolic function with an estimated EF of 45 - 50%. Left atrial size is normal. Left atrial pressure is normal. R ight ventricular cavity size is normal, global systolic RV function is normal. Pacing wire/catheter visualized in the right ventricle and pacing wire/catheter visualized in the right atrium. The right a trium is normal. Right atrial volume ind ex is 19 ml/m? ??. Right atrial area is 19 cm? ??. The pulmonary artery is not well visualized. The sinus of Valsalva is dilated. The ascending aorta is dilated. Valves, RV Pressures and Diastolic Funct ion The aortic valve is trileaflet and scler otic, no stenosis and no regurgitation. The mitral valve is normal in structure, trace mitral regurgitation. Indeterminate pattern of LV diastolic filling. The tr icuspid valve is normal in structure. Tr icuspid regurgitation is mild regurgitation. The tricuspid regurgitant velocity is 3.1 m/s, the estimated right ventricular systolic pressure is 38 mmHg plus righ t atrial pressure. The pulmonic valve is not well visualized. Trace pulmonary regurgitation. Masses, Effusion, Shunts There is no pericardial effusion. There is a significant pericardial fat pad present. The inferior vena cava is not well visualized, respiratory size variation not well visualized. No left to right shun ting was detected by limited color flow Doppler interrogation of the interatrial septum. MEASUREMENTS AND CALCULATIONS 2-D Measurements and LV Function: LVID (d) 4.2 cm LV FS% (2D) ?? 40 % LVID (s) 2.5 cm LVOT diameter 2.1 cm IVS (d) ??1.5 cm HR ?95 bpm LVPW (d) 1.3 cm RA Vol index ??19 ml/m2 Ao Sinus 4.0 cm RA area ? 19 cm? ?? Asc Ao ?? 4.4 cm LA ? 4.4 cm Diastology: Mitral ?Tissue Doppler E Peak 0.7 m/s ??e', Septum ? 0.07 m /s DT ? 184 msec e', Lateral ?0.13 m/s IVRT ?? 69 msec ??E/e' Average ?? 6.54 Aortic Valve: Vmax ? 1.2 m/s ??SYLVAIN (V) ?? 1.96 cm? ?? VTI ?0.24 m ?? SYLVAIN (I) ?? 1.56 cm? ?? LVOT V max 0.7 m/s ??Max PG ?6 mmHg LVOT VTI ?? 0.11 m ?? Mean PG ?? 3 mmHg SV ? 38 ml ?Dim Index 0.45 SV index ?? 15 ml/m? ?? CO ?3.6 l/min ?CI ?1.4 l/min/m? ?? Mitral Valve: MVA ?4.1 cm? ?? MV P 1/2 53 msec Tricuspid Valve and estimated PA pressur es: TR Vmax 3.1 m/s TAPSE 2.1 cm TR maxG 38 mmHg Contrast documentation: 1.5cc ml diluted Definity, lot #[id number], was administered peripherally to enhance visualization of all left ventricular segments. . This study was interpreted by an [facility]. ??Final ?? Procedure Note Christelle Wright, [facility] - 04/06/2022Formatt ing of this note might be different from the original. ECHOCARDIOGRAM TRUONG RANKIN : 1945 76 years Study Date: 10:48:29 AM Gender: M BP: 103/58 mmHg Height: 170.18 cm BSA: 2.50 m? ?? Weight: 148.78 kg Tech: MLP Referring MD: CHRISTELLE WRIGHT Site: [facility] Location: [facility] Procedure: 2D w/ Contrast, Color Doppler and Spectral Doppler. Indication for study: CHRONIC SYS CHF Cardiac Rhythm: Ventricular paced.Study quality: Technically limited. Imaging limitations: This study was subj ect to imaging limitations due to body habitus. Final Impressions: 1. Technically limited exam. 2. Normal LV size, moderately increased wall thickness, an estimated EF ~45%. 3. Noraml RV size and function. 4. The aortic valve is trileaflet and s clerotic, no stenosis and no regurgitation. 5. The aortic sinus is dilated with a m aximal diameter of 4.0 cm. 6. The ascending aorta is dilated with a maximal diameter of 4.4 cm. 7. Echo contrast was administrered to e nhance visualization of all left ventricular segments. Comparison Compared to prior exam of 06-01-2021, ere has been no significant change. Chamber Sizes and Function Normal left ventricular size, moderately increased wall thickness, mildly reduced global systolic function with an estimated EF of 45 - 50%. Left atrial size is normal. Left atrial pressure is normal. Right ventricular cavity size is normal, global systolic R V function is normal. Pacing wire/catheter visualized in the right ventricle and pacing wire/catheter visualized in the right atrium. The right atrium is normal. Right atrial volume index is 19 ml/m? ??. Right atrial area is 19 cm? ??. The pulmonary artery is not well visualized. The sinus of Valsalva is dilated. The ascending aorta is dilated. Valves, RV Pressures and Diastolic Funct ion The aortic valve is trileaflet and scler otic, no stenosis and no regurgitation. The mitral valve is normal in structure, trace mitral regurgitation. Indeterminate pattern of LV diastolic filling. The tricuspid valve is normal in structure. Tricuspid regurgitation is mild regurgitation. The tricuspid regurgitant velocity is 3.1 m/s, the estimated right ventricular systolic pressure is 38 mmHg plus right atrial pressure. The pulmonic valve is not well visualized. Trace pulmonary regurgitation. Masses, Effusion, Shunts There is no pericardial effusion. There is a significant pericardial fat pad present. The inferior vena cava is not well visualized, respiratory size variation not well visualized. No left to right shunting was detected by limited color flow Doppler interrogat ion of the interatrial septum. MEASUREMENTS AND CALCULATIONS 2-D Measurements and LV Function: LVID (d) 4.2 cm LV FS% (2D) 40 % LVID (s) 2.5 cm LVOT diameter 2.1 cm IVS (d) 1.5 cm HR 95 bpm LVPW (d) 1.3 cm RA Vol index 19 ml/m2 Ao Sinus 4.0 cm RA area 19 cm? ?? Asc Ao 4.4 cm LA 4.4 cm Diastology: Mitral Tissue Doppler E Peak 0.7 m/s e', Septum 0.07 m/s DT 184 msec e', Lateral 0.13 m/s IVRT 69 msec E/e' Average 6.54 Aortic Valve: Vmax 1.2 m/s SYLVAIN (V) 1.96 cm? ?? VTI 0.24 m SYLVAIN (I) 1.56 cm? ?? LVOT V max 0.7 m/s Max PG 6 mmHg LVOT VTI 0.11 m Mean PG 3 mmHg SV 38 ml Dim Index 0.45 SV index 15 ml/m? ?? CO 3.6 l/min CI 1.4 l/min/m? ?? Mitral Valve: MVA 4.1 cm? ?? MV P / 53 msec Tricuspid Valve and estimated PA pressur es: TR Vmax 3.1 m/s TAPSE 2.1 cm TR maxG 38 mmHg Contrast documentation: 1.5cc ml diluted Definity, lot #[id number], was administered peripherally to enhance visualization of all left ventricular segments. . This study was interpreted by an [facility]. Final [facility] ECHO ORD EKG 12 LEAD (03/29/2022) Narrative This result has an attachment that is no t available. 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
--- OUTSIDE RECORDS SUMMARY | 2022-04-11 15:02 | XMS_ITS | Encounter Summary ---
:1945 Author Organization [facility] Address [address] [place] [address] Care Team Providers Name Role Phone Elsewhere, Pcp Primary Care Provider Unavailable Encounter Details Date Type Department Care Team Description 02/07/2022 Hospital Encounter Department of Smith [facility] Laboratory Medicine Feliberto Carvajal Infection and Pathology, [address] [place] [address] in [place], [place] [phone] [place] [address] [place], [place] (Work) [phone] Social History Tobacco Use Types Packs/Day Years [...] or relatives? How often do you attend jain or More than 4 times per year 12/12/2021 jewish services? Do you belong to any clubs or Yes 12/12/2021 organizations such as jain groups, unions, fraternal or athletic groups, or [...] mg by 0 500 mg tablet mouth. apixaban (ELIQUIS) 5 mg 5 mg 2 (two) times 0 tablet a day. atorvastatin (LIPITOR) 40 Take 40 mg by [...] [address] capsule daily. Research IRB [id number] Take 2 capsules 2 Bottle 0 01/05/20 clofazimine 50 mg (100 mg total) by [...] Procedure Cardiovascular Disease Milla Lew M.D. [address] [place] [phone] 04/19/2022 Appointment Laboratory Medicine Sherrie Lew M.D. [address] [place] [address] [phone] 04/19/2022 Office Visit Infectious Diseases Max Aguilar, DDaleODale [address] [place] [phone] 04/20/2022 Comprehensive Visit Allergy and Immunology Kavon Ahmadi M.D., M.S. [address] [place] [phone] documented as of this encounter Procedures Procedure Name Priority Date/Time Associated Diagnosis Comme nts CBC WITH DIFFERENTIAL, B Routine 02/07/2022 9:26 [...] results section. documented in this encounter Results Bilirubin, Direct (02/07/2022 9:26 AM CDT) athologist Signature Bilirubin, 0.3 0.0 - 0.3 02/07/2022 DTL Direct, S mg/dL 10:29 AM CDT Specimen Anatomical Collection Method Collection Time Receive d Time (Source) Location / / Volume Laterality Blood (Blood, 02/07/2022 9:26 AM 02/08/20 22 Venous) CDT 10:11 AM CDT Smith Arambula M.D. LAB BLOOD ADD-ON Performing Organization Address City/[facility] Code Phon e Number [facility] - [address] (ABNORMAL) Bilirubin, Total (02/07/2022 9:26 AM CDT) athologist Signature Bilirubin, 2.3 (H) <=1.2 02/07/2022 DTL Total, S mg/dL 10:29 AM CDT Specimen Anatomical Collection Method Collection Time Receive d Time (Source) Location / / Volume Laterality Blood (Blood, 02/07/2022 9:26 AM 02/08/20 22 Venous) CDT 10:11 AM CDT Smith Arambula M.D. LAB BLOOD ADD-ON Performing Organization Address City/[facility] Code Phon e Number [facility] - [address] CBC with Differential, Blood (02/07/2022 9:26 AM CDT) P athologist Signature Hemoglobin 15.3 13.2 - 02/07/2022 [...] Organization Address City/State/ZIP Code Phon e Number [facility] - [address] [place], [place] [address] [facility] [place] [address] Laboratories-[facility] [address] Creatinine with Estimated GFR (02/07/2022 9:26 AM CDT) P athologist Signature Creatinine 0.98 0.74 - 02/07/2022 DTL 1.35 mg/dL 10:29 AM CDT eGFR-Non 74 >=60 02/07/2022 DTL Black/ mL/min/BSA 10:29 AM CDT Lebanese Comment: ----ADDITIONAL INFORMATION---- Estimated GFR calculated using [...] Organization Address City/State/ZIP Code Phon e Number [facility] - [address] [place], [place] [address] [place] [address] [place] [address] Laboratories-[facility] [address] ALT (Alanine Aminotransferase) (02/07/2022 9:26 AM CDT) [facility] Method Time Signature Alanine 17 7 - 55 02/07/2022 DTL Aminotransferase U/L 10:29 AM CDT (ALT), S Specimen Anatomical Collection Method Collection Time Receive d Time (Source) Location / / Volume Laterality Blood (Blood, 02/07/2022 9:26 AM 02/08/20 22 Venous) CDT 10:11 AM CDT Smith Arambula M.D. LAB BLOOD ADD-ON Performing Organization Address City/State/ZIP Code Phon e Number [facility] - [address] [place], [place] [address] [place] [address] [place] [address] [facility] [address] Alkaline Phosphatase (02/07/2022 9:26 AM CDT) P athologist Signature Alkaline 116 40 - 129 02/07/2022 DTL Phosphatase, S U/L 10:29 AM CDT Specimen Anatomical Collection Method Collection Time Receive d Time (Source) Location / / Volume Laterality Blood (Blood, 02/07/2022 9:26 AM 02/08/20 22 Venous) CDT 10:11 AM CDT Smith Arambula M.D. LAB BLOOD ADD-ON Performing Organization Address City/State/ZIP Code Phon e Number [facility] - [address] [place], [place] [address] [facility] [place] [address] Laboratories-[facility] [address] documented in this encounter Visit Diagnoses Diagnosis Mycobacterium Infection documented in this encounter Care Teams Crossing Gateman Relationship Specialty Start Date End Date Elsewhere, Pcp PCP - General Internal Medicine 12/26/21 documented as of this encounter
--- OUTSIDE RECORDS SUMMARY | 2022-04-11 15:03 | XMS_ITS | Encounter Summary ---
:1945 Author Organization [facility] Address [address] [place] [address] Care Team Providers Name Role Phone Unavailable Primary Care Provider Unavailable Encounter Details Date Type Department Care Team Description 12/13/2021 Clinical Communication Department of Rocky Bates, Dermatology in [place], [place] [address] [facility] [place] [address] [place] [phone] Social History Tobacco Use Types Packs/Day Years Used Date Smoking Tobacco: Former Cigarettes 0 Star emory: 04/03/1964 Smokeless Tobacco: Never Alcohol Use Standard Drinks/Week [...] or relatives? How often do you attend uatsdin or More than 4 times per year 12/12/2021 pentecostalism services? Do you belong to any clubs or Yes 12/12/2021 organizations such as uatsdin groups, unions, fraternal or athletic groups, or [...] place to sleep or slept in a retirement (including now)? Education Answer Date Recorded What is the highest level of Professional school degree (e.g ., MD, 12/12/2021 school you have completed or the DDS, DVM, RODOLFO) highest degree you have received? Sex Assigned at Date Recorded Male 04/03/2018 7:54 AM CDT documented as of this encounter Miscellaneous Notes Telephone Encounter - Rocky Bates R.N. - 12/13/2021 9:47 AM CDT Information Discussed Patient was seen and a biopsy was completed in clinic. The patient is trying to take his sutures outat home and only located one suture. He thinks that there was an additional suture placed. He has dug around looking for it but cannot find it. He is currently COVID positive and cannot go to his localclinic to have the area looked at to see if there is additional sutures. He will send in a photo through the portal so that we can take a peek at it and see if there is an additional suture left. PLAN Disposition/Recommendation: recommended continue engagement in self-management activities Information/Education: patient/caller able to teach back Caller agreeable to plan of care: yes The following references were used: nursing clinical judgement documented in this encounter Plan of Treatment Upcoming Encounters Date Type Specialty Care Team Description 04/16/2022 Clinical Communication Admitting/Central Scheduling 04/19/2022 Ancillary Procedure Cardiovascular Disease Milla Lew M.D. [address] [place] [phone] 04/19/2022 Appointment Laboratory Medicine Sherrie Lew M.D. [address] [place] [phone] 04/19/2022 Office Visit Infectious Diseases Max Aguilar D.O. [address] [place] [phone] 04/20/2022 Comprehensive Visit Allergy and Immunology Kavon Ahmadi M.D., M.S. [address] [place] [phone] documented as of this encounter Visit Diagnoses Not on filedocumented in this encounter
--- OUTSIDE RECORDS SUMMARY | 2022-04-11 15:03 | XMS_ITS | Encounter Summary ---
:1945 Author Organization [facility] Address [address] [place] [address] Care Team Providers Name Role Phone Unavailable Primary Care Provider Unavailable Encounter Details Date Type Department Care Team Description 01/18/2020 Clinical Communication Department of Leela Linares, Dermatology in [place], [place] [address] [facility] [address] [place] [phone] Social History Tobacco Use Types Packs/Day Years [...] or relatives? How often do you attend hinduism or More than 4 times per year 12/12/2021 christianity services? Do you belong to any clubs or Yes 12/12/2021 organizations such as hinduism groups, unions, fraternal or athletic groups, or [...] place to sleep or slept in a fdc (including now)? Sex Assigned at Date Recorded Male 04/03/2018 7:54 AM CDT documented as of this encounter Miscellaneous Notes Telephone Encounter - Kay Jamil - 01/18/2020 9:37 AM CDT (Note for [facility] locations only: If the patient states they are asking for testing because attended a protest, parr, community cleanup or other mass gathering in the last 7 days and is asking for testing, complete the below questions and transfer to the COVID Nurse Line). 1. Do you have a pending COVID test because you had symptoms or exposure to someone with COVID or you have tested positive for COVID in the last 30 days? no 2. In the past 14 days, do you, anyone in the household, or anyone you have had prolonged exposure have any of the following? a. Fever greater than or equal to 37.8 C (100.0 F)? no b. New symptoms (Specifically: headache, cough, shortness of breath, respiratory distress, sore throat, diarrhea, nausea, vomiting, chills and repeated shaking with chills, myalgia's (muscle aches), loss of smell, or change or loss of taste sensation)? no c. Had close contact with a patient with known or possible COVID-19 in the last 14 days? no Route reply to: Scheduling Contact Number: [phone] documented in this encounter Plan of Treatment Upcoming Encounters Date Type Specialty Care Team Description 04/16/2022 Clinical Communication Admitting/Central Scheduling 04/19/2022 Ancillary Procedure Cardiovascular Disease Milla Lew M.D. [address] [place] [address] [phone] 04/19/2022 Appointment Laboratory Medicine Sherrie Lew M.D. [address] [place] [address] [phone] 04/19/2022 Office Visit Infectious Diseases Max Aguilar, D.ODale [address] [place] [phone] 04/20/2022 Comprehensive Visit Allergy and Immunology Kavon Ahmadi M.D., M.S. [address] [place] [phone] documented as of this encounter Visit Diagnoses Not on filedocumented in this encounter
--- OUTSIDE RECORDS SUMMARY | 2022-04-11 15:03 | XMS_ITS | Encounter Summary ---
:1945 Author Organization [facility] Address [address] [place] [address] Care Team Providers Name Role Phone Unavailable Primary Care Provider Unavailable Reason for Referral Outpatient (Routine) - Closed Specialty Diagnoses / Procedures Referred By Contact Refer red To Contact Video Medicine Diagnoses Mycobacterium Infection Sherrie Lew M.D. [facility] [address] [place] [address] [phone] Referral ID Status Reason Start Date Expiration Date Visits Requ ested Visits Authorized [id number] Closed 12/25/2021 12/25/2022 1 1 Scheduling Instructions 9 am saturday Encounter Details Date Type Department Care Team Description 12/25/2021 Orders Only Section of Infectious Sherrie Lew, Myc obacterium Infection Diseases in [place] (Primary Dx) [address] [place] [phone] Social History Tobacco Use Types Packs/Day Years [...] or relatives? How often do you attend mormonism or More than 4 times per year 12/12/2021 jain services? Do you belong to any clubs or Yes 12/12/2021 organizations such as mormonism groups, unions, fraternal or athletic groups, or [...] Procedure Cardiovascular Disease Milla Lew M.D. [address] [place] [address] [phone] 04/19/2022 Appointment Laboratory Medicine Sherrie Lew M.D. [address] [place] [address] [phone] 04/19/2022 Office Visit Infectious Diseases Max Aguilar, D.O. [address] [place] [address] 04/20/2022 Comprehensive Visit Allergy and Immunology Kavon Ahmadi M.D., M.S. 200 [place] [phone] Scheduled Referrals Name Type Priority Associated Diagnoses Order S chedule Video anyplace Outpatient Referral Routine Mycobacterium Expec emory: visit Infection 12/28/2021, Expires: 03/27/2023 documented as of this encounter Visit Diagnoses Diagnosis Mycobacterium Infection - Primary documented in this encounter
--- OUTSIDE RECORDS SUMMARY | 2022-04-11 15:03 | XMS_ITS | Encounter Summary ---
:1945 Author Organization [facility] Address [address] [place] [address] Care Team Providers Name Role Phone Unavailable Primary Care Provider Unavailable Reason for Visit Reason Comments Biopsy Outpatient (Routine) - Closed Specialty Diagnoses / Procedures Referred By Contact Refer red To Contact Dermatology Leela Linares M.D . [facility] [address] [place], [place] [phone] Referral ID Status Reason Start Date Expiration Date Visits Requ ested Visits Authorized [id number] Closed 01/19/2020 01/18/2021 1 1 Encounter Details Date Type Department Care Team Description 03/08/2020 Office Visit Department of Leela Linares, Tumor Skin Uncertain Dermatology in [place] (Primary Dx) [place], [place] [address] [phone] [phone] Social History Tobacco Use Types Packs/Day Years [...] or relatives? How often do you attend hindu or More than 4 times per year 12/12/2021 taoist services? Do you belong to any clubs or Yes 12/12/2021 organizations such as hindu groups, unions, fraCompute or athletic groups, or school groups? How [...] place to sleep or slept in a detention (including now)? Sex Assigned at Date Recorded Male 04/03/2018 7:54 AM CDT documented as of this encounter Progress Notes Serenity Pérez M.D. - 03/08/2020 11:00 AM CDT PATIENT DEMOGRAPHICS Clinic Number: [id number] Patient Name: Mr.. Truong Mendez Age: 74 y.o. Sex: male Birthdate: 1945 Service: DERM REFERRED BY Leela Linares M.D. CORRESPONDENCE TO : Leela Linares M.D. CHIEF COMPLAINT Shave biopsy of lesion on the left forearm and left thigh Patient seen and discussed with supervising hospice consultant, Leela Lang M.D., who evaluated thepatient and concurs with the assessment and plan. HISTORY OF PRESENT ILLNESS Mr. Truong Mendez is a 74 y.o. male who was previously seen in the Dermatology Clinic by Dr. Linares on 01/18 presents today for shave biopsies. He has had a longstanding lesion on the left forearm. A biopsy was obtained in June 2018 which showed verrucal keratosis with prurigo nodule like features. Dr. Linares recommended a repeat shave biopsy to rule out nonmelanoma skin cancer for which hepresents today. Patient denies chronically irritating this lesion now. He tries to apply Band-Aids on the site the avoid picking on this lesion. OBJECTIVE PHYSICAL EXAM General: Alert, in no acute distress. Respiratory system: Normal work of breathing in room air Skin: Limited exam involving the left forearm and left thigh was performed today. Located on the left posterior forearm is a keratotic thickened plaque of size approximately 1.5 cm with surrounding hyperpigmentation of the skin. Located on the left lateral thigh is a erythematous plaque with accentuated skin markings and scaling on the surface. ASSESSMENT AND PLAN #1 Tumor of uncertain significance, left posterior forearm - verrucal keratosis versus prurigo nodule versus rule out squamous cell carcinoma. Performed shave biopsy for histopathology CONSENT Discussed the risks, benefits, alternatives, and the necessity of other members of the healthcare team participating in the procedure. All questions answered and consent given. UNIVERSAL PROTOCOL Procedural pause conducted to verify: correct patient identity, procedure to be performed, and as applicable, correct side and site, correct patient position, and availability of implants, special equipment, or special requirements. PROCEDURE INFORMATION Shave biopsy. We explained the potential diagnosis and recommended that we obtain a biopsy. The risks and benefitsof the procedure were discussed, and the patient consented to these procedures. Using 1% lidocaine with epinephrine for local anesthesia, a shave biopsy was obtained from the left posterior forearm. Biopsy submitted to Dermatopathology for H&E. Special stains will be performed as indicated. The ble eding was well controlled with application of aluminum chloride. Dressing was applied, and wound care instructions were explained. Biopsy results and any further recommendations will be communicated tothe patient by letter. Patient given pamphlet [id number]. #2 Tumor of uncertain significance, left lateral thigh - psoriasiform dermatitis versus lichen simplex chronicus versus rule out nonmelanoma skin cancer. Performed shave biopsy for histopathology CONSENT Discussed the risks, benefits, alternatives, and the necessity of other members of the healthcare team participating in the procedure. All questions answered and consent given. UNIVERSAL PROTOCOL Procedural pause conducted to verify: correct patient identity, procedure to be performed, and as applicable, correct side and site, correct patient position, and availability of implants, special equipment, or special requirements. PROCEDURE INFORMATION Shave biopsy. We explained the potential diagnosis and recommended that we obtain a biopsy. The risks and benefitsof the procedure were discussed, and the patient consented to these procedures. Using 1% lidocaine with epinephrine for local anesthesia, a shave biopsy was obtained from the left lateral thigh. Biopsysubmitted to Dermatopathology for H&E. Special stains will be performed as indicated. The bleeding was well controlled with application of aluminum chloride. Dressing was applied, and wound care instructions were explained. Biopsy results and any further recommendations will be communicated to thepatient by letter. Patient given pamphlet [id number]. Patient education Ready to learn, no apparent learning barriers were identified; learning preferences include listening. Explained diagnosis and treatment plan; patient/guardian of patient expressed understanding of thecontent. Associated attestation - Leela Linares M.D. - 03/08/2020 11:36 AM CDT I saw and evaluated the patient, participating in the buenrostro elements of the service. I discussed the findings, assessment and plan with the resident/fellow and agree with resident/fellow???s findings andplan as documented in the resident/fellow's note. I was immediately available for the entirety of the procedure(s) and present for the buenrostro and critical portions. documented in this encounter Miscellaneous Notes Result Encounter Note - Leela Linares M.D. - 03/14/2020 11:36 AM CDT A. Left posterior forearm: Benign lesion letter B. Left lateral thigh: Benign lesion letter [place] patient. Please send letter documented in this encounter Plan of Treatment Upcoming Encounters Date Type Specialty Care Team Description 04/16/2022 Clinical Communication Admitting/Central Scheduling 04/19/2022 Ancillary Procedure Cardiovascular Disease Milla Lew M.D. [address] [place] [phone] 04/19/2022 Appointment Laboratory Medicine Sherrie Lew M.D. [address] [place] [phone] 04/19/2022 Office Visit Infectious Diseases Max Aguilar D.O. [address] [place] [address] 04/20/2022 Comprehensive Visit Allergy and Immunology Kavon Ahmadi M.D., M.S. [address] [place] [phone] documented as of this encounter Procedures Procedure Name Priority Date/Time Associated Comments Diagnosis DERMATOPATHOLOGY CONSULT Routine 03/08/2020 11:02 Tumor Skin Results for this AM CDT Uncertain Behavior procedure are in the results section. documented in this encounter Results Dermatopathology Consult (03/08/2020 11:02 AM CDT) Component Value Ref Test Analysis Performed At [facility] Range Method Time Signature 03/11/2020 [facility] 3:22 PM CDT Report Rachel Ortega 03/11/2020 [facility] electronically Feliberto Gottlieb 3:22 PM CDT signed by Homero Description: A: ??Received in formalin labeled with the patie nt's name, 03/11/2020 [facility] medical record number, and left posterior forearm is a 3:22 PM CDT 1.7 x 1.5 x 0.1 cm ac-white skin shave biopsy. ??There is a pale ac hair-bearing pigmented lesion diffusely involved on the skin surface. ??Specimen is serially sectioned and submitted entirely in cassette A1. Grossed by SUKUMAR. B: ??Received in formalin labeled with the patient's name, medical record number, and left lateral thigh is a 1.2 x 1.1 x 0.1 cm ac-white skin shave biopsy. ??There is a 0.8 x 0.8 cm pale ac pigmented lesion centrally located on the skin surface. ??Specimen is serially sectioned submitted entirely in cassette B1. Grossed by SUKUMAR. Addendum B. ??PAS-D stain is negative for fungal microorganisms. 03/15/2020 PDRM Signed by Yonatan Galo M.D. 03/15/2020 2:25 PM 2:25 PM CDT Comment: REVISED RESULTS Interpetation FINAL DIAGNOSIS 03/15/2020 2:25 PM C DT PDRM A. ??DermPath Consult Wet Tissue; Left posterior forearm, Skin shave biopsy: ??Consistent with prurigo nodule B. ??DermPath Consult Wet Tissue; Left lateral thigh, Skin shave biopsy: ??Chronic dermatitis with focal psoriasiform changes COMMENT A PAS-D stain has been ordered and an addendum report will be issued upon its review. Specimen Anatomical Collection Method Collection Time Receive d Time (Source) Location / / Volume Laterality Tissue 03/08/2020 11:02 03/09/2020 9:41 AM CDT AM CDT Narrative This result has an attachment that is no t available. Leela Linares M.D. LAB PATH DERM ORDERABLES Performing Organization Address City/State/ZIP Code Phon e Number [facility] - [address] [place] [address] [facility] [place] [address] Laboratories-[facility] [address] documented in this encounter Visit Diagnoses Diagnosis Tumor Skin Uncertain Behavior - Primary documented in this encounter Administered Medications Inactive Administered Medications - up to 3 most recent administrations Medication Order MAR Action Action Date Dose Rate Site lidocaine-EPINEPHrine 1 %-1:100,000 Given 03/08/2020 11:05 AM CD T 2 mL injection 2 mL (XYLOCAINE W/EPI) 2 mL, infiltration, Once, On Sat03/08/20 at 1100, For 1 dose documented in this encounter
--- OUTSIDE RECORDS SUMMARY | 2022-04-11 15:03 | XMS_ITS | Encounter Summary ---
:1945 Author Organization [facility] Address [address] [place] [address] Care Team Providers Name Role Phone Unavailable Primary Care Provider Unavailable Encounter Details Date Type Department Care Team Description 01/19/2020 Ancillary Procedure Department of Dermatology Social History Tobacco Use Types Packs/Day Years [...] or relatives? How often do you attend gnosticism or More than 4 times per year 12/12/2021 anglican services? Do you belong to any clubs or Yes 12/12/2021 organizations such as gnosticism groups, unions, fraternal or athletic groups, or [...] or slept in a custodial (including now)? Sex Assigned at Date Recorded Male 04/03/2018 7:54 AM CDT documented as of this encounter Plan of Treatment Upcoming Encounters Date Type Specialty Care Team Description 04/16/2022 Clinical Communication Admitting/Central Scheduling 04/19/2022 Ancillary Procedure Cardiovascular Disease Milla Lew M.D. [address] [place] [phone] 04/19/2022 Appointment Laboratory Medicine Sherrie Lew M.D. [address] [place] [phone] 04/19/2022 Office Visit Infectious Diseases Max Aguilar, D.ODale [address] [place] [phone] 04/20/2022 Comprehensive Visit Allergy and Immunology Kavon Ahmadi M.D., M.S. [address] [place] [phone] documented as of this encounter Procedures Procedure Name Priority Date/Time Associated Comments Diagnosis DERMATOLOGY IMAGE Routine 01/19/2020 3:19 PM Resu lts for this EXAM CDT procedure are i n the results section. documented in this encounter Results hand, left ventral wrist 337-Dermatology Image Exam (01/19/2020 3:19 PM CDT) Specimen (Source) Anatomical Collection Method Collection Time Re ceived Time Location / / Volume Laterality 01/19/2020 3:16 PM CDT Narrative [facility] - 01/19/2020 3:19 PM CDT This order has been created [...]
--- OUTSIDE RECORDS SUMMARY | 2022-04-11 15:03 | XMS_ITS | Encounter Summary ---
:1945 Author Organization [facility] Address [address] [place] [address] Care Team Providers Name Role Phone Elsewhere, Pcp Primary Care Provider Unavailable Encounter Details Date Type Department Care Team Description 12/21/2021 Orders Only Section of Infectious Sherrie Lew Myc obacterium Infection (Primary Dx); Diseases in [place] Monitoring For Therapeutic Drug Therapy [place] [address] [facility] [address] [place] [phone] Social History Tobacco Use Types Packs/Day Years [...] or relatives? How often do you attend baptist or More than 4 times per year 12/12/2021 latter-day services? Do you belong to any clubs or Yes 12/12/2021 organizations such as baptist groups, unions, fraternal or athletic groups, or [...] place to sleep or slept in a mcfp (including now)? Education Answer Date Recorded What [...] Procedure Cardiovascular Disease Milla Lew M.D. [address] [place] [phone] 04/19/2022 Appointment Laboratory Medicine Sherrie Lew M.D. [address] [place] [phone] 04/19/2022 Office Visit Infectious Diseases Max Aguilar, D.O. [address] [place] [phone] 04/20/2022 Comprehensive Visit Allergy and Immunology Kavon Ahmadi M.D., M.S. [address] [place] [phone] documented as of this encounter Visit Diagnoses Diagnosis Mycobacterium Infection - Primary Monitoring For Therapeutic Drug Therapy documented in this encounter Care Teams Brake Coupler Dinkey Relationship Specialty Start Date End Date Elsewhere, Pcp PCP - General Internal Medicine 12/26/21 documented as of this encounter
--- OUTSIDE RECORDS SUMMARY | 2022-04-11 15:03 | XMS_ITS | Encounter Summary ---
:1945 Author Organization [facility] Address [address] [place] [address] Care Team Providers Name Role Phone Unavailable Primary Care Provider Unavailable Encounter Details Date Type Department Care Team Description 06/10/2018 Ancillary Procedure Department of Dermatology Social History Tobacco Use Types Packs/Day Years Used Date Smoking Tobacco: Former Cigarettes Star emory: 04/03/1964 Smokeless Tobacco: Never Alcohol [...] or relatives? How often do you attend evangelical or More than 4 times per year 12/12/2021 church services? Do you belong to any clubs or Yes 12/12/2021 organizations such as evangelical groups, unions, fraternal or athletic groups, or [...] place to sleep or slept in a half-way (including now)? Sex Assigned at Date Recorded Male 04/03/2018 7:54 AM CDT documented as of this encounter Plan of Treatment Upcoming Encounters Date Type Specialty Care Team Description 04/16/2022 Clinical Communication Admitting/Central Scheduling 04/19/2022 Ancillary Procedure Cardiovascular Disease Milla Lew M.D. [address] [place] [phone] 04/19/2022 Appointment Laboratory Medicine Sherrie Lew M.D. [address] [place] [phone] 04/19/2022 Office Visit Infectious Diseases Max Aguilar, D.ODale [address] [place] [address] 04/20/2022 Comprehensive Visit Allergy and Immunology Kavon Ahmadi M.D., M.S. [address] [place] [phone] documented as of this encounter Procedures Procedure Name Priority Date/Time Associated Comments Diagnosis DERMATOLOGY IMAGE Routine 06/10/2018 10:15 Result s for this EXAM AM BILLING DEPARTMENT SUPERVISOR procedure are i n the results section. documented in this encounter Results DERMATOLOGY IMAGE EXAM (06/10/2018 10:15 AM BILLING DEPARTMENT SUPERVISOR) Specimen (Source) Anatomical Collection Method Collection Time Re ceived Time Location / / Volume Laterality 06/10/2018 10:12 AM BILLING DEPARTMENT SUPERVISOR Narrative IIMS - 06/10/2018 10:15 AM BILLING DEPARTMENT SUPERVISOR This order has been created and auto-finalized [...]
--- OUTSIDE RECORDS SUMMARY | 2022-04-11 15:03 | XMS_ITS | Encounter Summary ---
:1945 Author Organization [facility] Address [address] [place] [address] Care Team Providers Name Role Phone Unavailable Primary Care Provider Unavailable Reason for Referral Outpatient (Routine) - Closed Specialty Diagnoses / Procedures Referred By Contact Refer red To Contact Video Medicine Diagnoses Mycobacterium Infection Yolis Cota M.B., [facility] Ch.B. [address] [place] [phone] Referral ID Status Reason Start Date Expiration Date Visits Requ ested Visits Authorized [id number] Closed 11/28/2021 11/28/2022 1 1 Scheduling Instructions ANURAG - Beata or fellow Outpatient (Routine) - Closed Specialty Diagnoses / Procedures Referred By Contact Refer red To Contact Diagnoses Monitoring For Therapeutic Drug Therapy Yolis Cota M.B.[facility] on Procedures ECG 12 Lead Ch.B. [address] [place] [phone] Referral ID Status Reason Start Date Expiration Date Visits Requ ested Visits Authorized [id number] Closed 11/28/2021 11/28/2022 1 1 Reason for Visit Outpatient (Routine) - Closed Specialty Diagnoses / Procedures Referred By Contact Refer red To Contact Infectious Diseases Garry Bradley M.D. [facility] [address] [place] [phone] Referral ID Status Reason Start Date Expiration Date Visits Requ ested Visits Authorized [id number] Closed 10/31/2021 10/31/2022 1 1 Encounter Details Date Type Department Care Team Description 11/28/2021 Office Visit Section of Infectious Terrie Bradley M.D. [address] [place] [phone] Mycobacterium Infection (Primary Dx); Diseases in [place], Yolis Cota M.B., Ch.B. [address] [place] [phone] Monitoring For Therapeutic Drug Therapy [address] [phone] Social History Tobacco Use Types Packs/Day Years [...] or relatives? How often do you attend temple or More than 4 times per year 12/12/2021 latter day services? Do you belong to any clubs or Yes 12/12/2021 organizations such as temple groups, unions, fraternal or athletic groups, or [...] slept in a long term (including now)? Sex Assigned at Date Recorded Male 04/03/2018 7:54 AM CDT documented as of this encounter Last Filed Vital Signs Vital Sign Reading Time Taken Comments Blood Pressure - - Pulse - - Temperature 35.9 ??C (96.7 ??F) 11/28/2021 10:57 AM CDT Respiratory Rate - - Oxygen Saturation - - Inhaled Oxygen Concentration - - Weight - - Height - - Body Mass Index - - documented in this encounter Consult Notes Yolis Cota M.B., Ch.B. - 11/28/2021 11:00 AM CDT SUBJECTIVE Referring Provider: Garry Bradley M.D. REASON FOR CONSULT Mycobacterium chelonae skin infection HISTORY OF PRESENT ILLNESS Mr. 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 Follows with a delivery rn locally for skin lesions various etiologies routinely. Around March 2021 he noted an erythematous, nodular left index finger dorsal skin lesion for which he received a short course of antibiotic therapy (possibly cephalexin) with some improvement. Howeverover the next several months he noted a few different lesions on the dorsum of the left hand and wrist. Underwent skin biopsy from dorsum aspect of left hand on 09/05/2021 locally, this noted polymicrobial bacterial stanley as well as Mycobacterium chelonae. Received 3 weeks of oral azithromycin in September 2021 with resolution of the skin lesion. However over the past few weeks he has noted a new erythematous, nodular skin lesion over the dorsumof the left hand. This is not painful, tender or pruritic. No other skin lesions noted, no joint pain involving the wrist or hands, no axillary lymphadenopathy or tenderness. Throughout this time he has remained systemically well without fevers, sweats, unintentional weight loss. Chest x-ray earlier today was unremarkable. Most recent TTE on 06/01/2021 noted EF of 45%. 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 Additionally he has had a right total knee arthroplasty around [phone], reportedly complicated by a noninfected periprostheticfracture which limits ambulation. Immunocompetent, no recent steroids or other immunosuppressants. Lives in an independent apartment in a [place] community in [facility]. Previously enjoyed golfing, no recent outdoors or water exposures. Prior remote tobacco use. Interestingly his daughter apparently had a Mycobacterium iranicum hand skin/soft tissue infection. No other past history or family history of unusual/recurrent infections. Outside results (viewable in Care Everywhere) Left wrist skin biopsy 09/05/2021: Dermal abscess with associated panniculitis; negative AFB, Gram, GMS stains. Left wrist skin biopsy cultures 09/05/2021: Coagulase negative Staphylococci, other Gram-positive cocci, Mycobacterium chelonae (AST done through [facility]) ??Organism ? MYCOBACTERIUM CHELONAE ?Antibiotic ?POPPY (mcg/mL) ??Interpretation ?Cefoxitin ? >128 ? R ?Imipenem ?16 ? I ?Clofazimine ? 0.25 ?Ciprofloxacin ? >4 ? R ?Moxifloxacin ?>4 ? R ?Clarithromycin ? 0.5 ? S ?Amikacin ?32 ? I ?Tobramycin ? 2 ? S ?Doxycycline ? >8 ? R ?Tigecycline ?0.5 ?TMP/SMX ?>4/ ? R ?Linezolid ? 32 ? R Ciprofloxacin: Ciprofloxacin and levofloxacin are interchangeable, but both are less active in vitro than moxifloxacin. Clarithromycin: Clarithromycin is the class chemical sales representative for the macrolides (ie, clarithromycin, azithromycin, and roxithromycin). ?S=SUSCEPTIBLE ??I=INTERMEDIATE ??R=RESISTANT ?NS=NONSUSCEPTIBLE ??SDD=SUSCEPTIBLE DOSE DEPENDENT REVIEW OF SYSTEMS Pertinent items are noted in HPI; all other review of systems was negative. The following portions of the patient's history were reviewed and updated as appropriate: allergies,current medications, family history, medical history, social history, surgical history and problem list. OBJECTIVE Vitals: 11/28/21 1057 Temp: (!) 35.9 ??C TempSrc: Tympanic PHYSICAL EXAMINATION General: Alert, nondistressed, interactive and appropriate, obese Heart: Dual heart sounds, no murmurs/rubs/gallops, CIED pocket site well healed Lungs: Clear to auscultation, respirations even/unlabored Extremities: Bilateral lower extremity edema, right TKA incision well healed without evident joint effusion/pain/tenderness Skin: Left hand dorsum 1-2 cm nodular erythematous lesion, healed lesions over left hand/wrist, painfree range of movement left fingers/wrist, no synovitis or arthritis noted Lymph: No cervical, supraclavicular, axillary lymphadenopathy DIAGNOSTICS Reviewed and summarized in HPI ASSESSMENT / PLAN 1. Mycobacterium chelonae localized skin infection 2. Nonischemic cardiomyopathy 3. Atrial fibrillation on apixaban, s/p AVN ablation, CORKING MACHINE OPERATOR-P implantation 02/20/2021 4. Obesity, BMI 52 Mr. Mendez is a 75-year-old man seen for left hand Mycobacterium chelonae skin infection with fairly localized skin lesions noted since March 2021. Completed a 3 week course of azithromycin monotherapy in September 2021 with resolution of the dominant skin lesion over the wrist, however over the past few weeks he has noted a new lesion. Scheduled to see Dermatology at [place] this afternoon. It wouldbe ideal if we could obtain another biopsy to confirm the diagnosis of Mycobacterium chelonae and obtain repeat susceptibilities to guide further combination antibiotic therapy. We discussed that he will likely need combination antimycobacterial therapy for a likely more prolonged period. I will set up a video visit in a few weeks to review results. RECOMMENDATIONS 1. Video visit in 2-3 weeks to decide on ongoing antibiotic therapy 2. ECG for baseline QTC 3. Await dermatology consult later today; would appreciate if skin biopsy could be sent for acid-fast smear, mycobacterial culture, fungal smear, fungal culture and pathology. documented in this encounter Plan of Treatment Upcoming Encounters Date Type Specialty Care Team Description 04/16/2022 Clinical Communication Admitting/Central Scheduling 04/19/2022 Ancillary Procedure Cardiovascular Disease Milla Lew M.D. [address] [place] [phone] 04/19/2022 Appointment Laboratory Medicine Sherrie Lew M.D. 200 [place] [phone] 04/19/2022 Office Visit Infectious Diseases Max Aguilar D.O. [address] [place] [phone] 04/20/2022 Comprehensive Visit Allergy and Immunology Kavon Ahmadi M.D., M.S. [address] [place] [phone] Scheduled Referrals Name Type Priority Associated Diagnoses Order S chedule Video anyplace Outpatient Referral Routine Mycobacterium Expec emory: visit Infection 12/19/2021 (Approximate), Expires: 02/27/2023 documented as of this encounter Results ECG 12 Lead (11/28/2021 3:36 PM CDT) [facility] gist Method Time Signature Ventricular 83 BPM MUSE Rate ECG/Min QRSD Interval 146 ms MUSE QT Interval 398 ms MUSE QTC Interval 467 ms MUSE R [place] -44 degrees MUSE T Wave [place] 14 degrees MUSE CODED Atrial MUSE DIAGNOSIS fibrillation Specimen Anatomical Collection Method Collection Time Receive d Time (Source) Location / / Volume Laterality 11/28/2021 3:36 PM 3:59 CDT PM CDT Impressions MUSE - 11/28/2021 3:59 PM CDT Electronic ventricular pacemaker Atrial fibrillation When compared with ECG of 01-APR-2018 08 :19, Electronic ventricular pacemaker is now evident Reviewed by VARUN Sullivan Narrative This result has an attachment that is no t available. Procedure Note Giancarlo Vieira Jr., M.D. - 11/28/2021For matting of this note might be different from the original. IMPRESSION: Electronic ventricular pacemaker Atrial fibrillation When compared with ECG of 01-APR-2018 08 :19, Electronic ventricular pacemaker is now evident Reviewed by VARUN Sullivan Yolis Wyatt, Ch.B. ECG ORDERABLES Performing Organization Address City/State/ZIP Code Phon e Number MUSE MUSE NA documented in this encounter Visit Diagnoses Diagnosis Mycobacterium Infection - Primary Monitoring For Therapeutic Drug Therapy documented in this encounter
--- OUTSIDE RECORDS SUMMARY | 2022-04-11 15:03 | XMS_ITS | Encounter Summary ---
:1945 Author Organization [facility] Address [address] [place] [address] Care Team Providers Name Role Phone Unavailable Primary Care Provider Unavailable Reason for Referral Outpatient (Routine) - Closed Specialty Diagnoses / Procedures Referred By Contact Refer red To Contact Allergy and Immunology Diagnoses Mycobacterium Infection Sherrie Lew M.D. [facility] [address] [place] [phone] Referral ID Status Reason Start Date Expiration Date Visits V isits Requested Authorized [id number] Closed Specialty 12/19/2021 12/19/2022 1 1 Services Required Reason for Visit Outpatient (Routine) - Closed Specialty Diagnoses / Procedures Referred By Contact Refer red To Contact Video Medicine Diagnoses Mycobacterium Infection Yolis Cota M.B., [facility] Ch.B. [address] [place] [phone] Referral ID Status Reason Start Date Expiration Date Visits Requ ested Visits Authorized [id number] Closed 11/28/2021 11/28/2022 1 1 Encounter Details Date Type Department Care Team Description 12/19/2021 Telemedicine Section of Infectious Blanca Cota M.B., Ch.B. [address] [place] [phone] Mycobacterium Infection Diseases in [place] Vela Mary J, M.D. 200 [place] [address] [place] 200 [place] [phone] Social History Tobacco Use Types Packs/Day Years [...] or relatives? How often do you attend roman catholic or More than 4 times per year 12/12/2021 buddhist services? Do you belong to any clubs or Yes 12/12/2021 organizations such as roman catholic groups, unions, fraternal or athletic groups, or [...] documented as of this encounter Progress Notes Sherrie Lew M.D. - 12/19/2021 10:30 AM CDT SUBJECTIVE Consult conducted via real-time audio/video technology by GOLDEN Lew M.D. in [facility] to the patient in his home CHIEF COMPLAINT/REASON FOR VISIT M. Chelonae infection HISTORY OF PRESENT ILLNESS Please see Dr. Cota's note from 11/28/21. He has a history of M. Chelonae skin infection. He underwent a biopsy of a new lesion on his left hand earlier this month. His biopsy revealed granulomatous inflammation with positive AFB staining and culture was again positive for M chelonae. Mr. 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 Additionally he has had a right total knee arthroplasty around [phone], reportedly complicated by a noninfected periprosthetic fracture which limits ambulation. Immunocompetent, no recent steroids or other immunosuppressants. His family history is significant for his daughter having a Mycobacterium iranicum hand skin/soft tissue infection. I was able to speak with her today and she reports that outside of diabetes she is generally healthy and was not on any immunosuppressive medication. He reports that his skin lesions are doing well and he has no new systemic symptoms or other new problems. He has taken azithromycin in the past and tolerated it well. Susc testing through [facility] was done on his September biopsy and follow: Organism ? MYCOBACTERIUM CHELONAE ?Antibiotic ?POPPY (mcg/mL) [...] than moxifloxacin. Clarithromycin: Clarithromycin is the class construction sales representative for the macrolides (ie, clarithromycin, azithromycin, and roxithromycin). REVIEW OF SYSTEMS Pertinent items are noted in HPI; all other review of systems was negative. DIAGNOSTICS 09/26 K+ 4.9 on spironolactone Cr 0.93 ASSESSMENT / PLAN #1 Cutaneous M. Chelonae infection #2 Family Hx of unusual NTM disease #3 Nonischemic cardiomyopathy #4 Atrial fibrillation on apixaban, s/p AVN ablation, GEAR CUTTING MACHINE SET UP OPERATOR-P implantation 02/20/2021 #5 Obesity, BMI 52 Recommendations: I will ask for input in view of the resistance pattern on Rx and use of clofazimine. Check basic labs Recheck 2 weeks after starting RX 40 minutes all that time spent counseling and coordinating care. Answers for HPI/ROS submitted by the patient on 12/12/2021 No general issues: Yes No eye issues: Yes No ENT issues: Yes No heart issues: Yes No respiratory issues: Yes No GI issues: Yes No muscle/bone issues: Yes No skin issues: Yes No neurologic issues: Yes No mental health issues: Yes No blood/lymph issues: Yes No urinary/reproductive issues: Yes documented in this encounter Plan of Treatment Upcoming Encounters Date Type Specialty Care Team Description 04/16/2022 Clinical Communication Admitting/Central Scheduling 04/19/2022 Ancillary Procedure Cardiovascular Disease Milla Lew M.D. [address] [place] [phone] 04/19/2022 Appointment Laboratory Medicine Sherrie Lew M.D. [address] [place] [phone] 04/19/2022 Office Visit Infectious Diseases Max Aguilar, D.O. [address] [place] [phone] 04/20/2022 Comprehensive Visit Allergy and Immunology Kavon Ahmadi M.D., M.S. [address] [place] [phone] Scheduled Referrals Name Type Priority Associated Diagnoses Order S chedule Allergy and Outpatient Referral Routine Mycobacterium Expecte d: Immunology - Infection 12/19/2021 General consult (Approximate ), (clinic) Expires: 03/21/2023 documented as of this encounter Visit Diagnoses Diagnosis Mycobacterium Infection documented in this encounter
--- OUTSIDE RECORDS SUMMARY | 2022-04-11 15:03 | XMS_ITS | Encounter Summary ---
:1945 Author Organization [facility] Address [address] [place] [address] Care Team Providers Name Role Phone Unavailable Primary Care Provider Unavailable Reason for Referral Outpatient (Routine) - Closed Specialty Diagnoses / Procedures Referred By Contact Refer red To Contact Dermatology Leela Linares M.D . [facility] [address] [place] [phone] Referral ID Status Reason Start Date Expiration Date Visits Requ ested Visits Authorized [id number] Closed 02/02/2019 02/02/2020 1 1 Scheduling Instructions Skin cancer recheck in 3 months Reason for Visit Reason Comments Follow-up Outpatient (Routine) - Closed Specialty Diagnoses / Procedures Referred By Contact Refer red To Contact Dermatology Leela Linares M.D . [facility] Region [address] [place] [address] [phone] Referral ID Status Reason Start Date Expiration Date Visits Requ ested Visits Authorized [id number] Closed 11/03/2018 11/03/2019 1 1 Encounter Details Date Type Department Care Team Description 02/02/2019 Office Visit Department of Leela Linares, Keratosis Actinic (Primary Dx); Dermatology in [place] Keratosis Seborrheic Inflamed; [place], [place] [address] [phone] Social History Tobacco Use Types Packs/Day Years [...] or relatives? How often do you attend confucianist or More than 4 times per year 12/12/2021 faith services? Do you belong to any clubs or Yes 12/12/2021 organizations such as confucianist groups, unions, fraternal or athletic groups, or [...] or slept in a snf (including now)? Sex Assigned at Date Recorded Male 04/03/2018 7:54 AM CDT documented as of this encounter Progress Notes Leela Linares M.D. - 02/02/2019 2:30 PM CDT SUBJECTIVE CHIEF COMPLAINT/REASON FOR VISIT Recheck nevus HISTORY OF THE PRESENT ILLNESS Truong Mendez is a pleasant 73 y.o. male who follows up for recheck of a nevus involving the right upper ear helix. During his last visit with me on 11/03/18, this lesion had slight irregular bordersbut appeared benign on clinical examination and dermoscopy. 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 Villafana at [facility] on 05/30/16.??He also has a history of previous basal cell carcinomas involving the right cheek and right neck treated elsewhere. The patient denies a personal history of melanoma; however, his father had ocular melanoma and his brother also had melanoma. MEDICAL HISTORY 1. 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 Villafana at [facility] on 05/30/16. 2. History of basal cell carcinomas in right cheek and neck status post excision, done elsewhere. 3. History of right knee replacement in 2017 ?? FAMILY HISTORY Brother has history for melanoma and father has history for ocular melanoma OBJECTIVE PHYSICAL EXAMINATION General: Awake, alert, in no acute distress, and with appropriate affect. Skin: Examination of the right upper ear helix reveals a 3 mm x 4 mm brown nevus with slight irregular borders. This lesion looks benign on clinical exam and dermoscopy. It has not changed. Examinationreveals 3 actinic keratoses involving his right forehead and 1 involving his left upper cheek. Examination of the left lateral eyebrow reveals an irritated seborrheic keratosis. Examination of his faceotherwise reveals seborrheic keratoses and benign nevi. No recurrence of previous squamous cell carcinoma or basal cell carcinoma involving face. ASSESSMENT/PLAN #1 Right ear helix: Benign nevus This nevus continues to look benign on clinical examination as well as dermoscopy. Follow up in approximately 3 months for recheck or earlier if needed. #2 Face: Actinic keratosis x4 lesions CONSENT Discussed the risks, benefits, alternatives, and the necessity of other members of the healthcare team participating in the procedure. All questions answered and consent given. PROCEDURE INFORMATION Given the precancerous nature of this lesion(s), treatment is medically indicated. After discussion of the risks, benefits and alternatives to treatment with cryotherapy, informed consent was obtained.We treated a total of 4 lesion(s) with two 53-77-qzekhx freeze-thaw cycles of liquid nitrogen cryothe rapy. The patient tolerated the procedure well. Aftercare instructions were provided in written and verbal form to the patient. Should any of these lesions recur, the patient should return for biopsy or further evaluation. #3 Left lateral eyebrow: Irritated seborrheic keratosis This lesion is quite irritated and was treated today with liquid nitrogen x2 with a thaw cycle of 1015 seconds followed by nursing care instructions. If this does not resolve within the next 3-4 weeks, he will return for further treatment. Otherwise follow up in approximately 3 months for a skin cancer recheck as he will be due at that time. PATIENT EDUCATION: Ready to learn. No apparent learning barriers were identified. Learning preferences include listening. Explained diagnosis and treatment plan; patient/guardian of patient expressed understanding of thecontent. documented in this encounter Plan of Treatment Upcoming Encounters Date Type Specialty Care Team Description 04/16/2022 Clinical Communication Admitting/Central Scheduling 04/19/2022 Ancillary Procedure Cardiovascular Disease Milla Lew M.D. [address] [place] [phone] 04/19/2022 Appointment Laboratory Medicine Sherrie Lew M.D. [address] [place] [phone] 04/19/2022 Office Visit Infectious Diseases Max Aguilar, D.O. [address] [place] [address] 04/20/2022 Comprehensive Visit Allergy and Immunology Kavon Ahmadi M.D., M.S. [address] [place] [phone] Scheduled Referrals Name Type Priority Associated Order Schedule Diagnoses Dermatology office Outpatient Referral Routine Ex pected: visit (clinic) 05/05/2019 (Approximate), Expires: 02/02/2022 documented as of this encounter Visit Diagnoses Diagnosis Keratosis Actinic - Primary Keratosis Seborrheic Inflamed Nevi Multiple documented in this encounter
--- OUTSIDE RECORDS SUMMARY | 2022-04-11 15:03 | XMS_ITS | Encounter Summary ---
:1945 Author Organization [facility] Address [address] [place] [address] Care Team Providers Name Role Phone Elsewhere, Pcp Primary Care Provider Unavailable Reason for Referral Outpatient (Routine) - Authorized Specialty Diagnoses / Procedures Referred By Contact Refer red To Contact Allergy and Immunology Diagnoses Mycobacterium Infection Mulu Cid M.D. [address] [phone] Referral ID Status Reason Start Expiration Visits Visits Date Date Requested Authorized [id number] Authorized Specialty 02/07/2022 02/07/2023 1 1 Services Required Reason for Visit Outpatient (Routine) - Closed Specialty Diagnoses / Procedures Referred By Contact Refer red To Contact Allergy and Immunology Diagnoses Mycobacterium Infection Sherrie Lew M.D. [facility] [address] [place] [phone] Referral ID Status Reason Start Date Expiration Date Visits V isits Requested Authorized [id number] Closed Specialty 12/19/2021 12/19/2022 1 1 Services Required Encounter Details Date Type Department Care Team Description 12/20/2021 Internal E-Consult Division of Allergic Mulu Cid, Mycobacterium Diseases in [facility] Infection [place], [place] [address] [facility] [address] [place] [phone] Social History Tobacco Use Types Packs/Day Years [...] or relatives? How often do you attend religious or More than 4 times per year 12/12/2021 roman catholic services? Do you belong to any clubs or Yes 12/12/2021 organizations such as religious groups, unions, fraternal or athletic groups, or [...] AM CDT documented as of this encounter Consult Notes Mulu Cid M.D. - 12/20/2021 1:30 PM CDT Request for e-consultation Referral: Sherrie Lew M.D. [address] [place] [address] [place] [phone] CHIEF COMPLAINT / REASON FOR E-CONSULTATION Mr. Truong Mendez is a 76 y.o.. male referred for e-consultation for mycobacterial skin infection. HISTORY OF PRESENT ILLNESS This is request for an e-consultation. The patient was not available for questioning, examination, or for testing. Salient portions of the medical record were reviewed. ASSESSMENT / PLAN 1. Mycobacterial skin infection 2. Family history of mycobacterial skin infection in daughter Apparently, Mr. Mendez was able to spend decades of his life without chronic, unusual or severe infections of significance per report. 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 Mr. Mendez is reported to have a daughter with a history of Mycobacterium iranicum in the hand/soft tissue infection as well. A recent chest x-ray was without significant pulmonary infiltrates per the x-ray report. A CBC with differential from February 18, 2021 was normal and blood monocytes and neutrophils were slightly elevated rather than reduced. A glycohemoglobin was elevated at 6.7 and per report the BMI was reportedly elevated at 52. Overall, the odds of finding a new immunodeficiency condition to explain mycobacterial skin infection at the age of 76 would be low. However, we agree that skin infections in a patient and his daughterwith Mycobacterium is usual. This raises a rare possibility of a genetic concern and also questions the possibility of a potentially autoimmune disruption of the interleukin 12/interferon gamma axis. If the patient would like to pursue issues further then would recommend a niod-if-aupb or video visit with Dr. Kavon Ahmadi for further immunodeficiency evaluation. We would be willing to place the consultif that would be helpful for the patient or the referring provider. documented in this encounter Miscellaneous Notes Addendum Note - Mulu Cid M.D. - 12/20/2021 1:30 PM CDT Addended by: MULU CID on: 02/07/2022 02:17 PM Modules accepted: Orders documented in this encounter Plan of Treatment Upcoming Encounters Date Type Specialty Care Team Description 04/16/2022 Clinical Communication Admitting/Central Scheduling 04/19/2022 Ancillary Procedure Cardiovascular Disease Milla Lew M.D. [address] [place] [phone] 04/19/2022 Appointment Laboratory Medicine Sherrie Lew M.D. [address] [place] [phone] 04/19/2022 Office Visit Infectious Diseases Max Aguilar, D.O. [address] [place] [phone] 04/20/2022 Comprehensive Visit Allergy and Immunology Kavon Ahmadi M.D., M.S. [address] [place] [phone] Scheduled Referrals Name Type Priority Associated Diagnoses Order S chedule Allergy and Outpatient Referral Routine Mycobacterium Expecte d: Immunology - Infection 02/07/2022 General consult (Approximate ), (clinic) Expires: 05/10/2023 documented as of this encounter Visit Diagnoses Diagnosis Mycobacterium Infection documented in this encounter Care Teams Chinese Language Professor Relationship Specialty Start Date End Date Elsewhere, Pcp PCP - General Internal Medicine 12/26/21 documented as of this encounter
--- OUTSIDE RECORDS SUMMARY | 2022-04-11 15:03 | XMS_ITS | Encounter Summary ---
:1945 Author Organization [facility] Address [address] [place] [address] Care Team Providers Name Role Phone Elsewhere, Pcp Primary Care Provider Unavailable Reason for Visit Reason Comments Pre-visit Intake Encounter Details Date Type Department Care Team Description 12/26/2021 Clinical Communication Visit Review in Pr e-visit Intake [place], [place] [address] [place] [address] Social History Tobacco Use Types [...] or relatives? How often do you attend taoist or More than 4 times per year 12/12/2021 mu-ism services? Do you belong to any clubs or Yes 12/12/2021 organizations such as taoist groups, unions, fraternal or athletic groups, or [...] Procedure Cardiovascular Disease Milla Lew M.D. [address] [place] [phone] 04/19/2022 Appointment Laboratory Medicine Sherrie Lew M.D. [address] [place] [phone] 04/19/2022 Office Visit Infectious Diseases Max Aguilar, D.O. [address] [place] [phone] 04/20/2022 Comprehensive Visit Allergy and Immunology Kavon Ahmadi M.D., M.S. [address] [place] [phone] documented as of this encounter Visit Diagnoses Not on filedocumented in this encounter Care Teams Systems Tester Relationship Specialty Start Date End Date Elsewhere, Pcp PCP - General Internal Medicine 12/26/21 documented as of this encounter
--- OUTSIDE RECORDS SUMMARY | 2022-04-11 15:03 | XMS_ITS | Encounter Summary ---
:1945 Author Organization [facility] Address [address] [place] [address] Care Team Providers Name Role Phone Elsewhere, Pcp Primary Care Provider Unavailable Reason for Referral Outpatient (Routine) - Closed Specialty Diagnoses / Procedures Referred By Contact Refer red To Contact Infectious Diseases Diagnoses Mycobacterium Infection Sherrie Lew M.D. [address] [phone] Referral ID Status Reason Start Date Expiration Date Visits Requ ested Visits Authorized [id number] Closed 12/28/2021 12/28/2022 1 1 Scheduling Instructions With any provider next or if possible. Needs pictures 30 min slot ok If with fellow I or Dr. Cota can be c alled to staff If no apts let me know TAMI Reason for Visit Outpatient (Routine) - Closed Specialty Diagnoses / Procedures Referred By Contact Refer red To Contact Video Medicine Diagnoses Mycobacterium Infection Sherrie Lew M.D. [facility] [address] [place] [address] [phone] Referral ID Status Reason Start Date Expiration Date Visits Requ ested Visits Authorized [id number] Closed 12/25/2021 12/25/2022 1 1 Encounter Details Date Type Department Care Team Description 12/28/2021 Telemedicine Section of Infectious Sherrie Lew Myc obtiffanie Infection Diseases in [place] 200 [facility] 200 [place] [phone] Social History Tobacco Use Types Packs/Day Years [...] or relatives? How often do you attend mandaeism or More than 4 times per year 12/12/2021 evangelical services? Do you belong to any clubs or Yes 12/12/2021 organizations such as mandaeism groups, unions, fraternal or athletic groups, or [...] place to sleep or slept in a mcc (including now)? Education Answer Date Recorded What is the highest level of Professional school degree (e.g ., , 12/12/2021 school you have completed or the DDS, DVM, RODOLFO) highest degree you have received? Sex Assigned at Date Recorded Male 04/03/2018 7:54 AM CDT documented as of this encounter Progress Notes Sherrie Lew M.D. - 12/28/2021 10:00 AM CDT SUBJECTIVE Consult conducted via real-time audio/video technology by GOLDEN Lew M.D. in [facility] to the patient in Patient's Home CHIEF COMPLAINT/REASON FOR VISIT Rebecca Worthington infection HISTORY OF PRESENT ILLNESS Please see my previous notes and Dr. Cota's original consult note. Today's vide visit was to get Clofazimine consent form signed. I reviewed in detail with him and answered questions. He is happy that we are using this drug instead of TMP/SMX which would have required decrease or stopping Spironolactone which he takes for CHF. We reviewed potential side effects including the fact that his QT is longer than average and we willneed to monitor closely to decrease risk for arrhythmia. DIAGNOSTICS CBC, Cr and ALT at [facility] on 12/22/21 normal. ASSESSMENT / PLAN #1 Rebecca Worthington skin infection Plan: 1. Start Doxycycline 100 mg bid and Azithromycin 500 mg qd today or tomorrow - Side effects reviewedin detail. 2. Check blood work in 1 week, he will come down to [place] and hopefully also be seen for pictures of his hand at that time - to ID provider seeing him, this can be a brief visit to document hand, at start of treatment with photos in chart, and ensure tolerating Azithromycin and Doxycycline before clofazimine is started. 3. Start Clofazimine after apt above 4. Recheck ECG 2 weeks after clofazimine 5. Plan for monthly labs and ECG once on clofazimine if all goes well. Tentative RX course 3-6 months 6 Immunology face to face in future. 30 minutes all that time counseling and coordinating care. documented in this encounter Plan of Treatment Upcoming Encounters Date Type Specialty Care Team Description 04/16/2022 Clinical Communication Admitting/Central Scheduling 04/19/2022 Ancillary Procedure Cardiovascular Disease Milla Lew M.D. [address] [place] [phone] 04/19/2022 Appointment Laboratory Medicine Sherrie Lew M.D. 200 [place] [phone] 04/19/2022 Office Visit Infectious Diseases Max Aguilar D.[place]ale 200 [place] [address] 04/20/2022 Comprehensive Visit Allergy and Immunology Kavon Ahmadi M.D., M.S. 200 [place] [phone] Scheduled Referrals Name Type Priority Associated Diagnoses Order S turner Infectious Diseases Outpatient Referral Routine Mycobacterium Expected: office visit Infection 01/04/2022 (clinic) (Approximate), Expires: 03/30/2023 documented as of this encounter Results (ABNORMAL) Comprehensive Metabolic Panel (01/04/2022 12:21 PM CDT) athologist Signature Potassium, S 4.7 3.6 - [...] 01/04/2022 DTL Black/ mL/min/BSA 1:41 PM CDT Angolan Comment: ----ADDITIONAL INFORMATION---- Estimated GFR calculated using [...] Organization Address City/State/ZIP Code Phon e Number [facility] - [address] [place] [address] [address] [place] [address] Laboratories-[address] CBC with Differential, Blood (01/04/2022 12:21 PM [...] 01/04/2022 Venous) PM CDT 12:50 PM CDT Sherrie Lew M.D. LAB BLOOD ADD-ON Performing Organization Address City/State/ZIP Code Phon e Number [facility] - [address] [place], [place] [address] [facility] [place] [address] Laboratories-[facility] [address] documented in this encounter Visit Diagnoses Diagnosis Mycobacterium Infection documented in this encounter Care Teams Client Retention Specialist Relationship Specialty Start Date End Date Elsewhere, Pcp PCP - General Internal Medicine 12/26/21 documented as of this encounter
--- OUTSIDE RECORDS SUMMARY | 2022-04-11 15:03 | XMS_ITS | Encounter Summary ---
:1945 Author Organization [facility] Address [address] [place] [address] Care Team Providers Name Role Phone Unavailable Primary Care Provider Unavailable Encounter Details Date Type Department Care Team Description 11/23/2021 Documentation Section of Infectious Terrie Bradley M.D. Diseases in [place] [facility] [place] [address] [place], [place] [address] [facility] [phone] [place] [phone] Social History Tobacco Use Types Packs/Day Years [...] or relatives? How often do you attend anabaptism or More than 4 times per year 12/12/2021 orthodox services? Do you belong to any clubs or Yes 12/12/2021 organizations such as anabaptism groups, unions, fraternal or athletic groups, or [...] or slept in a residential (including now)? Sex Assigned at Date Recorded Male 04/03/2018 7:54 AM CDT documented as of this encounter Progress Notes Garry Bradley M.D. - 11/23/2021 9:18 AM CDT Infectious diseases miscellaneous note DEMOGRAPHIC INFORMATION Clinic Number:[id number] Patient Name: Truong Mendez Age: 75 y.o. Birthdate: 1945 Sex: male Address: [address] [phone] Service Date/Time: 11/23/21 9:19 AM CDT Provider: Garry Bradley M.D. Patient not seen I received a copy of the antimicrobial drug susceptibility report from the skin biopsy growth of mycobacterium chelonae from September 05, 2023 (from [facility]). For clinical information, please refer to my outpatient Infectious Diseases E- consult from October (patient has not been seen pupf-vz-bzuk/formally in [facility] Infectious Diseases). Patient has previously been seen at [facility] with dermatology and Cardiology. The Mycobacterium chelonae isolate from previous September 2021 outside skin biopsy demonstrates susceptibility to clarithromycin, tobramycin (both generally expected), intermediate to imipenem (POPPY 16), amikacin (MS C 32), resistant to cefoxitin, ciprofloxacin, moxifloxacin (POPPY >4), doxycycline (POPPY >8), Bactrim and linezolid (POPPY 32). Tigecycline POPPY 0.5. Please see laboratory susceptibility report scanned into the [facility] EMR for further information/details. Patient has an Infectious Diseases appointment and dermatology appointment scheduled at [facility] on November 28, 2021. Patient did receive a few weeks of oral azithromycin monotherapy in October,. If the skin lesion has notably improved and no other current or new skin lesions are present, then clinical observation may be fine at this point in time. If however, there are other concerning skin lesions (especially if new skin lesions have developed), re biopsy (for confirmation purposes) and consideration for combination antimicrobial therapy could be considered. A chest x-ray may be a consideration at time of Med[place] evaluation to ensure no concurrent pulmonary findings of mycobacterial disease. Patient is immunocompetent although does have medical comorbidities including medical obesity with JOSE RAFAEL,congestive heart failure, PPM placement, hyperlipidemia. documented in this encounter Plan of Treatment Upcoming Encounters Date Type Specialty Care Team Description 04/16/2022 Clinical Communication Admitting/Central Scheduling 04/19/2022 Ancillary Procedure Cardiovascular Disease Milla eLw M.D. [address] [place] [phone] 04/19/2022 Appointment Laboratory Medicine Sherrie Lew M.D. [address] [place] [phone] 04/19/2022 Office Visit Infectious Diseases Max Aguilar, D.O. [address] [place] [address] 04/20/2022 Comprehensive Visit Allergy and Immunology Kavon Ahmadi M.D., M.S. [address] [place] [phone] documented as of this encounter Visit Diagnoses Not on filedocumented in this encounter
--- OUTSIDE RECORDS SUMMARY | 2022-04-11 15:03 | XMS_ITS | Encounter Summary ---
:1945 Author Organization [facility] Address [address] [place] [address] Care Team Providers Name Role Phone Unavailable Primary Care Provider Unavailable Reason for Referral Outpatient (Routine) - Closed Specialty Diagnoses / Procedures Referred By Contact Refer red To Contact Infectious Diseases Diagnoses Mycobacteria Cutaneous Not Tuberculosis Leann Roach [place] [facility] M.D. [address] [place] [address] Referral ID Status Reason Start Date Expiration Date Visits Requ ested Visits Authorized [id number] Closed 09/26/2021 09/26/2022 1 1 ERAGE COORDINATOR Encounter Details Date Type Department Care Team Description 09/26/2021 [facility] Isaak Roach Mycobacteria AND DUSTY Blanco M.D. Cutaneous Not [address] [facility] [address] Tuberculosis [place], [place] 5 (Primary Dx) [address] [place], [place] [phone] [address] Social History Tobacco Use Types Packs/Day Years [...] More than 4 times per year 12/12/2021 episcopal services? Do you belong to any clubs [...] or slept in a fci (including now)? Sex Assigned at Date Recorded Male 04/03/2018 7:54 AM CDT documented as of this encounter Plan of Treatment Upcoming Encounters Date Type Specialty Care Team Description 04/16/2022 Clinical Communication Admitting/Central Scheduling 04/19/2022 Ancillary Procedure Cardiovascular Disease Milla Lew M.D. 200 [place] [phone] 04/19/2022 Appointment Laboratory Medicine Sherrie Lew M.D. [address] [place] [phone] 04/19/2022 Office Visit Infectious Diseases Max Aguilar D.O. [address] [place] [address] 04/20/2022 Comprehensive Visit Allergy and Immunology Kavon Ahmadi M.D., M.S. [address] [place] [address] Scheduled Referrals Name Type Priority Associated Diagnoses [facility] Outpatient Referral Routine Mycobacteria E xpected: Referral Cutaneous Not 09/26/2021 Tuberculosis (Approximate), Expires: 12/24/2022 documented as of this encounter Visit Diagnoses Diagnosis Mycobacteria Cutaneous Not Tuberculosis - Primary documented in this encounter
--- OUTSIDE RECORDS SUMMARY | 2022-04-11 15:03 | XMS_ITS | Encounter Summary ---
:1945 Author Organization [facility] Address [address] [place] [address] Care Team Providers Name Role Phone Unavailable Primary Care Provider Unavailable Reason for Visit Reason Comments Skin Check Outpatient (Routine) - Closed Specialty Diagnoses / Procedures Referred By Contact Refer red To Contact Dermatology Leela Linares M.D . [facility] [address] [place] [address] Referral ID Status Reason Start Date Expiration Date Visits Requ ested Visits Authorized [id number] Closed 02/02/2019 02/02/2020 1 1 Encounter Details Date Type Department Care Team Description 05/18/2019 Office Visit Department of Leela Linares Nevi Multi ple (Primary Dx); Dermatology in [place] Keratosis Seborrheic; [place], [place] [address] [email or web address]] Verrucal Keratosis; [address] [place] [address] Keratosis Seborrheic Inflame d; [place] [address] Cancer Skin Basal Cell Personal History; [id number] Cancer Skin Squamous Cell Pe rsonal History Social History Tobacco Use Types Packs/Day Years [...] or relatives? How often do you attend jainism or More than 4 times per year 12/12/2021 judaism services? Do you belong to any clubs or Yes 12/12/2021 organizations such as jainism groups, unions, fraDympol or athletic groups, or school groups? How often do you attend meetings of the More than 4 times r year 12/12/2021 clubs or organizations you [...] encounter Progress Notes Leela Linares M.D. - 05/18/2019 2:30 PM CDT SUBJECTIVE CHIEF COMPLAINT/REASON FOR VISIT Full skin cancer screening HISTORY OF THE PRESENT ILLNESS Truong Mendez is a pleasant 73 y.o. male who presents for a full skin cancer screening examination. 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 Villafana at [facility].??He also has a history of previous basalcell carcinomas x2 involving the right cheek and right neck treated elsewhere. The patient denies a personal history of melanoma. However, his father had ocular melanoma and his brother also had melanoma. He uses sunscreen intermittently though practices sun avoidance. No new or changing lesions are noted today. MEDICAL HISTORY 1. 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 Villafana at [facility] 2. Basal cell carcinoma x2 involving right cheek and right neck, status post excisions done elsewhere around 1999 and 2012 respectively 3. Right knee replacement in 2017 4. Negative for melanoma ?? FAMILY HISTORY Melanoma in father and brother OBJECTIVE PHYSICAL EXAMINATION General: Awake, alert, in no acute distress, and with appropriate affect. Eyes: No scleral injection or icterus. No eyelid abnormalities. Lymph: No lower extremity edema. Skin: I have examined the scalp, face, neck, chest, abdomen, back, bilateral upper extremities, and bilateral lower extremities. Examination of the skin inferior to the left eye reveals no evidence forrecurrence of squamous cell carcinoma. Examination of the right cheek and right neck reveals no evidence for recurrence of basal cell carcinoma x2. Examination of the scalp and face reveals some benign-appearing nevi, lentigines and seborrheic keratoses. Examination of the trunk and extremities reveals multiple benign-appearing nevi, lentigines and seborrheic keratoses. Examination of the left frontal scalp reveals an irritated verrucal keratosis. Examination of the right mid-back reveals an irritated seborrheic keratosis. No suspicious lesions for skin cancer today. ASSESSMENT/PLAN #1 Left frontal scalp: Irritated verrucal keratosis x1 CONSENT Discussed the risks, benefits, alternatives, and the necessity of other members of the healthcare team participating in the procedure. All questions answered and consent given. PROCEDURE INFORMATION After discussion of the risks, benefits and alternatives to treatment with cryotherapy, informed consent was obtained. We treated a total of 1 lesion(s) with two 27-58-gywwtb freeze-thaw cycles of liquid nitrogen cryotherapy. The patient tolerated the procedure well. Aftercare instructions were provided in written and verbal form to the patient. Should any of these lesions recur, the patient should return for biopsy or further evaluation. Follow up in 1-2 months for recheck if these areas do not complete resolve. #2 Right mid-back: Irritated seborrheic keratosis x1 CONSENT Discussed the risks, benefits, alternatives, and the necessity of other members of the healthcare team participating in the procedure. All questions answered and consent given. PROCEDURE INFORMATION After discussion of the risks, benefits and alternatives to treatment with cryotherapy, informed consent was obtained. We treated a total of 1 lesion(s) with two 85-71-bnpyuk freeze-thaw cycles of liquid nitrogen cryotherapy. The patient tolerated the procedure well. Aftercare instructions were provided in written and verbal form to the patient. Should any of these lesions recur, the patient should return for biopsy or further evaluation. Follow up in 1-2 months for recheck if these areas do not complete resolve. #3 Scalp, face, trunk and extremities: Multiple nevi and lentigines The ABCDE criteria for melanoma was reviewed with the patient. None of the patient's nevi reach the clinical threshold for biopsy. I recommend continued sun protection, self-skin examinations, and observation. Should any of the patient's nevi change in size, color, texture, or shape or develop symptoms such as itching or bleeding, I recommend an immediate return visit for reassessment. Follow up in 6months or immediately if any new or changing lesions are noted. #4 Scalp, face, trunk and extremities: Seborrheic keratosis The benign nature of the skin lesion(s) was discussed with the patient. No treatment is required. I recommend continued observation. Should symptoms or changes develop related to this condition, I would recommend a return visit for reassessment. #5 Inferior to left eye: History of squamous cell carcinoma, status post Mohs surgery on 05/30/16 [address]Dr. Villafana at [facility] No clinical evidence of local recurrence today. Recommended monthly self-skin examinations to evaluate for new, changing, symptomatic, or otherwise worrisome lesions. Signs and symptoms of skin cancer discussed. Photoprotection was recommended. Return to Dermatology in 6-12 months for a full skin examor immediately if any new or changing lesions are noted. #6 Right cheek and right neck: History of basal cell carcinoma x2, status post excisions done elsewhere around 1999 and 2012 respectively No clinical evidence of local recurrence today. Recommended monthly self-skin examinations to evaluate for new, changing, symptomatic, or otherwise worrisome lesions. Signs and symptoms of skin cancer discussed. Photoprotection was recommended. Return to Dermatology in 6-12 months for a full skin examor immediately if any new or changing lesions are noted. PATIENT EDUCATION: Ready to learn. No apparent learning barriers were identified. Learning preferences include listening. Explained diagnosis and treatment plan; patient/guardian of patient expressed understanding of thecontent. By signing my name below, I, Mando Ivon, attest that this documentation has been prepared under thedirection and in the presence of Leela Linares M.D. Electronically Signed: sadie Lopez. 05/18/2019. 2:39 PM. I, Leela Linares M.D., personally performed the services described in this documentation. All medical record entries made by the scribe were at my direction and in my presence. I have reviewed the chart and discharge instructions (if applicable) and agree that the record reflects my personal performance and is accurate and complete. Leela Linares M.D. . 05/18/2019. 4:27 PM. documented in this encounter Plan of Treatment Upcoming Encounters Date Type Specialty Care Team Description 04/16/2022 Clinical Communication Admitting/Central Scheduling 04/19/2022 Ancillary Procedure Cardiovascular Disease Milla Lew M.D. [address] [place] [phone] 04/19/2022 Appointment Laboratory Medicine Sherrie Lew M.D. [address] [place] [phone] 04/19/2022 Office Visit Infectious Diseases Max Aguilar, D.O. [address] [place] [phone] 04/20/2022 Comprehensive Visit Allergy and Immunology Kavon Ahmadi M.D., M.S. [address] [place] [phone] documented as of this encounter Visit Diagnoses Diagnosis Nevi Multiple - Primary Keratosis Seborrheic Verrucal Keratosis Keratosis Seborrheic Inflamed Cancer Skin Basal Cell Personal History Cancer Skin Squamous Cell Personal Histo ry documented in this encounter
--- OUTSIDE RECORDS SUMMARY | 2022-04-11 15:03 | XMS_ITS | Encounter Summary ---
:1945 Author Organization [facility] Address [address] [place] [address] Care Team Providers Name Role Phone Unavailable Primary Care Provider Unavailable Reason for Visit Outpatient (Routine) - Closed Specialty Diagnoses / Referred By Contact Referred To Contact Procedures Cardiovascular Diseases / Diagnoses Shortness Of Breath Jarvis Lynn M.D. [facility] Cardiovascular Disease [address] [place] [address] Referral ID Status Reason Start Date Expiration Date Visits Requ ested Visits Authorized [id number] Closed 05/21/2018 05/21/2019 1 1 Encounter Details Date Type Department Care Team Description 07/08/2018 Comprehensive Visit Department of Amrik Palm Of Breath Cardiovascular Medicine W, Ph.D. in [facility] [address] [facility] [address] [place] [phone] Social History Tobacco Use Types Packs/Day Years [...] or relatives? How often do you attend latter-day or More than 4 times per year 12/12/2021 christian services? Do you belong to any clubs or Yes 12/12/2021 organizations such as latter-day groups, unions, fraternal or athletic groups, or [...] place to sleep or slept in a group home (including now)? Sex Assigned at Date Recorded Male 04/03/2018 7:54 AM CDT documented as of this encounter Last Filed Vital Signs Vital Sign Reading Time Taken Comments Blood Pressure 156/98 07/08/2018 2:12 PM SENIOR SOLUTIONS ARCHITECT Pulse 99 07/08/2018 2:12 PM SENIOR SOL[employer]IONS ARCHITECT Temperature - - Respiratory Rate - - Oxygen Saturation - - Inhaled Oxygen Concentration - - Weight 142 kg (312 lb 6.3 oz) 07/08/2018 2:12 PM SENIOR [employer]IONS ARCHITECT Height 168.4 cm (5' 6.3) 07/08/2018 2:12 PM SENIOR SOLUTIONS ARCHITECT Body Mass Index 49.97 07/08/2018 2:12 PM SENIOR SOLUTIONS ARCHITECT documented in this encounter Consult Notes Amrik Palm, Ph.D. - 07/08/2018 2:00 PM CST DEMOGRAPHIC INFORMATION [phone] Truong Mendez 72 y.o. male July 08, 2018 Service:[facility] Type/Description: Consult REFERRAL Dr.Ugur Dodge PURPOSE OF VISIT Preventive cardiology consultation HISTORY OF PRESENT ILLNESS The patient has a personal history persistent atrial fibrillation, status post 2 attempts at cardioversion, heart failure with reduced ejection fraction, hypertension, obstructive sleep apnea treated with CPAP, obesity, and right total knee arthroplasty complicated with a tibial fracture. He ambulateswith a walker. He has been evaluated in the Heart rhythm Service and he is being maintained on rate control medications in addition to Coumadin. He also takes a statin and CHARLEY-inhibitor. A recent regadenoson sestamibi showed a possible area of scar with no ischemia. His cardiac MR showed a left ventricular ejection fraction of 35%. Holter monitor showed well-controlled atrial fibrillation with the range of rate of 54-116 beats per minute. He is 140 kg. Diet quality could be better we discussed this.He does not use tobacco products. Sleep quality on the CPAP machine is good. Mental stress scale is 2/10. Quality of life index is 67 out 10. Since his knee replacement in July of 2017 his spontaneous physical activity has diminished. He has a stationary cycle at home and currently is not using it. CURRENT MEDICATIONS Current Outpatient Prescriptions: ??? acetaminophen (TYLENOL) 500 mg tablet, Take 1,000 mg by mouth., Disp: , Rfl: ??? clindamycin (CLEOCIN) 300 mg capsule, 2 capsules prior to dental work, Disp: , Rfl: ??? lisinopril (PRINIVIL,ZESTRIL) 40 mg tablet, , Disp: , Rfl: ??? lovastatin (MEVACOR) 40 mg tablet, , Disp: , Rfl: ??? metoprolol tartrate (LOPRESSOR) 100 mg tablet, Take 100 mg by mouth 2 (two) times a day. , Disp:, Rfl: ??? multivit with min-folic acid (ADULT ONE DAILY MULTIVITAMIN) 0.4 mg tablet, Take 1 tablet by mouth daily., Disp: , Rfl: ??? omeprazole (PriLOSEC) [address] capsule, Take 20 mg by mouth daily., Disp: , Rfl: ??? warfarin (COUMADIN) 5 mg tablet, TAKE 1.5 tab Saturday and . Saturday and Saturday take 1 tab, Disp: , Rfl: ??? nitroglycerin (NITROSTAT) 0.4 mg SL tablet, Place 0.4 mg under the tongue., Disp: , Rfl: IMPRESSION/REPORT/PLAN 1. Persistent atrial fibrillation He will be maintained on rate control medications and Coumadin. He is not symptomatic with his atrial fibrillation. He is mildly short of breath with exertion consistent with his central obesity. 2. Heart failure with reduced ejection fraction Is on appropriate heart failure medications. We discussed dietary basics emphasizing sodium and alcohol restriction. Discussed the importance of losing weight. Reviewed heart healthy eating practices. His goal is to reduce sweets and increase fruits and vegetables. 3. Hypertension He is currently taking lisinopril and metoprolol. Will follow with his local physician. 4. Blood glucose and blood lipid profile Not measured here. Recommend he continue with his local physician. 5. Physical activity Recommend he gradually increase lifestyle physical activity such as going grocery shopping, etc., ambulating with the aid of his walker. He has a stationary cycle we have asked him to gradually return to it. Suggest he start with 3-5 minutes sessions gradually increasing to 30 min at a moderate intensity 6 days per week. He agrees. 6. Obstructive sleep apnea Uses CPAP machine with good results. DIAGNOSES 1. Persistent atrial fibrillation 2. Heart failure with reduced ejection fraction 3. Medically complicated obesity 4. Hypertension 5. Right total knee arthroplasty 6. Obstructive sleep apnea OR SOLUTIONS ARCHITECT documented in this encounter Plan of Treatment Upcoming Encounters Date Type Specialty Care Team Description 04/16/2022 Clinical Communication Admitting/Central Scheduling 04/19/2022 Ancillary Procedure Cardiovascular Disease Milla Lew M.D. [address] [place] [phone] 04/19/2022 Appointment Laboratory Medicine Sherrie Lew M.D. [address] [place] [phone] 04/19/2022 Office Visit Infectious Diseases Max Aguilar, DDaleO. [address] [place] [phone] 04/20/2022 Comprehensive Visit Allergy and Immunology Kavon Ahmadi M.D., M.S. [address] [place] [phone] documented as of this encounter Visit Diagnoses Diagnosis Shortness Of Breath documented in this encounter
--- OUTSIDE RECORDS SUMMARY | 2022-04-11 15:03 | XMS_ITS | Encounter Summary ---
:1945 Author Organization [facility] Address [address] [place] [address] Care Team Providers Name Role Phone Unavailable Primary Care Provider Unavailable Encounter Details Date Type Department Care Team Description 11/28/2021 Ancillary Procedure Department of Dermatology Social History [...] More than 4 times per year 12/12/2021 hindu services? Do you belong to any clubs [...] place to sleep or slept in a [facility] (including now)? Sex Assigned at Date Recorded Male 04/03/2018 7:54 AM CDT documented as of this encounter Plan of Treatment Upcoming Encounters Date Type Specialty Care Team Description 04/16/2022 Clinical Communication Admitting/Central Scheduling 04/19/2022 Ancillary Procedure Cardiovascular Disease Milla Lew M.D. [address] [place] [phone] 04/19/2022 Appointment Laboratory Medicine Sherrie Lew M.D. [address] [place] [phone] 04/19/2022 Office Visit Infectious Diseases Max Aguilar, D.O. [address] [place] [phone] 04/20/2022 Comprehensive Visit Allergy and Immunology Kavon Ahmadi M.D., M.S. [address] [place] [phone] documented as of this encounter Procedures Procedure Name Priority Date/Time Associated Comments Diagnosis DERMATOLOGY IMAGE Routine 11/28/2021 12:00 Result s for this EXAM AM CDT procedure are i n the results section. documented in this encounter Results Hand-Dermatology Image Exam (11/28/2021 12:00 AM CDT) Specimen (Source) Anatomical Location Collection Method / Collectio n Time Received Time / Laterality Volume Narrative IIMS - 11/28/2021 3:02 PM CDT This order has been created [...]
--- OUTSIDE RECORDS SUMMARY | 2022-04-11 15:03 | XMS_ITS | Encounter Summary ---
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 [place] [address] [facility] [address] [place] [phone] Social History Tobacco Use Types Packs/Day Years [...] or relatives? How often do you attend christianity or More than 4 times per year 12/12/2021 mormonism services? Do you belong to any clubs or Yes 12/12/2021 organizations such as christianity groups, unions, fraternal or athletic groups, or [...] documented as of this encounter Consult Notes Yamini Hernandez M.D. - 11/28/2021 1:00 PM CDT Patient was seen and evaluated by Refinery Technician Dr Fontenot, who concurs with the assessment and plan. Correspondence to MD Renae SUBJECTIVE CHIEF COMPLAINT Hand lesion HISTORY OF THE PRESENT ILLNESS Truong Mendez is a pleasant 75 y.o. male who is seen in consultation at the request of Garry Bradley M.D. for evaluation of a hand lesion concerning for infection. He has had nodular lesions on hand and finger March of 2021 initially was given a course of cephalexin without much improvement. 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 Hewas given a course of azithromycin for three weeks which resulted in significant improvement of mostof his nodules however most recently he has noted a recurrence on the back of his hand. Was seen by infectious disease this morning and referred to Dermatology for biopsy. OBJECTIVE PHYSICAL EXAM General: Awake, alert, in no acute distress, and with appropriate affect. Skin: Involving the left dorsal hand there is a red violaceous plaque with central pustule and some induration without warmth. A few scattered healing crusted and hemorrhagic papules are noted on the right dorsal forearm There are no other skin lesions of concern in the areas examined. ASSESSMENT / PLAN #1 Skin lesion, left dorsal hand concerning for infection Biopsy performed today with Dr. Carlos Coker. Punch biopsy split for H&E and panculture including bacterial mycobacterial and fungal culture CONSENT Discussed the risks, benefits, alternatives, and the necessity of other members of the healthcare team participating in the procedure. All questions answered and consent given. UNIVERSAL PROTOCOL Procedural pause conducted to verify: correct patient identity, procedure to be performed, and as applicable, correct side and site, correct patient position, and availability of implants, special equipment, or special requirements. PROCEDURE INFORMATION Punch biopsy. We explained the potential diagnosis and recommended that we obtain a biopsy. The risks and benefitsof the procedure were discussed, and the patient consented to these procedures. Using 1% lidocaine with epinephrine for local anesthesia, a six-mm punch biopsy was obtained from the left dorsal hand. Biopsy submitted to Dermatopathology and microbiology. Biopsy site closed with a top layer of 4-0 nylon. The skin sutures need to be removed in 10-14 days. Dressing was applied, and wound care instructions were explained. Biopsy results and any further recommendations will be communicated to the patientby letter. Patient given pamphlet [id number]. Associated attestation - Jojo Fontenot M.D. - 11/28/2021 5:22 PM CDT I saw and evaluated the patient, participating in the buenrostro elements of the service. I discussed the findings, assessment and plan with the resident and agree with resident???s findings and plan as documented in the resident's note. I was immediately available for the entirety of the procedure(s) and present for the buenrostro and critical portions. documented in this encounter Miscellaneous Notes Result Encounter Note - Yamini Hernandez M.D. - 12/15/2021 12:[address] Cota, The culture results came back as M. Ander! Appreciate your advice and care. Thanks! Result Encounter Note - Yamini Hernandez M.D. 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 I have notified your infectious disease doctors as well. Thank you! documented in this encounter Plan of Treatment Upcoming Encounters Date Type Specialty Care Team Description 04/16/2022 Clinical Communication Admitting/Central Scheduling 04/19/2022 Ancillary Procedure Cardiovascular Disease Milla Lew M.D. [address] [place] [phone] 04/19/2022 Appointment Laboratory Medicine Sherrie Lew M.D. [address] [place] [phone] 04/19/2022 Office Visit Infectious Diseases Max Aguilar, D.ODale [address] [place] [phone] 04/20/2022 Comprehensive Visit Allergy and Immunology Kavon Ahmadi M.D., M.S. [address] [place] [phone] Scheduled Orders Name Type Priority Associated Diagnoses Order S chedule Acid Fast Smear For Microbiology Routine Ordered: Mycobacterium 11/28/2021 documented as of this encounter Procedures Procedure Name Priority Date/Time Associated Comments Diagnosis BACTERIAL CULTURE, Routine 11/28/2021 1:46 Mycobacteria Result s for this AEROBIC + SUSC PM CDT Cutaneous Not procedure ar e in Tuberculosis the results section. MYCOBACTERIAL CULTURE, V Routine 11/28/2021 1:46 Mycobacteria Results for this PM CDT Cutaneous Not procedure are in Tuberculosis the results section. ACID FAST SMEAR FOR Routine 11/28/2021 1:46 Resul ts for this MYCOBACTERIUM PM CDT procedure are in the results section. FUNGAL CULTURE, ROUTINE Routine 11/28/2021 1:46 Mycobacteria R esults for this PM CDT Cutaneous Not procedure are in Tuberculosis the results section. DERMATOPATHOLOGY Routine 11/28/2021 1:25 Mycobacteria Results for this PM CDT Cutaneous Not procedure are in Tuberculosis the results section. documented in this encounter Results Acid Fast Smear For Mycobacterium (11/28/2021 1:46 PM CDT) Trig [facility] Method Time Signature Acid Fast Smear Negative. 11/28/2021 DTL For Mycobacterium 11:02 PM CDT Specimen Anatomical Collection Method Collection Time Receive d Time (Source) Location / / Volume Laterality Hand, Left 11/28/2021 1:46 PM 4:26 CDT PM CDT Comment: Specimen Source Site: Skin Yamini Vieira M.D. LAB MICROBIOLOGY - GENE RAL ORDERABLES Performing Organization Address City/[facility]/ZIP Code Phon e Number [facility] - [id number] [place] [address] Bacterial Culture, Aerobic + Susc (11/28/2021 1:46 PM CDT) Trig Medical Method Time Signature Bacterial No growth 12/03/2021 DTL Culture, after 5 7:14 AM CDT Aerobic + Susc days of incubation. Specimen (Source) Anatomical Collection Method Collection Time Re ceived Time Location / / Volume Laterality Skin (Left dorsal 11/28/2021 1:46 PM hand) CDT Yamini Vieira M.D. LAB MICROBIOLOGY - GENE RAL ORDERABLES Performing Organization Address City/[facility] Phon e Number [facility] - [address] [place], [place] [address] [facility] [place] [address] [facility] [address] (ABNORMAL) Mycobacterial Culture (11/28/2021 1:46 PM CDT) Component Value Ref Test Analysis Performed At [facility] Range Method Time Signature Mycobacterial There are no established interpretive guidelines for agents 01/10/2022 DTL Culture reported without interpretations. 3:00 P M CDT (A) Mycobacterial MYCOBACTERIUM CHELONAE 01/10/2022 DT L Culture Few 3:00 PM CDT (A) Comment: Semi-Urgent Result. Semi-Urgent This is a semi-urgent result [facility] - ([facility] Specimen (Source) Anatomical Collection Method Collection Time Re ceived Time Location / / Volume Laterality Skin (Left dorsal 11/28/2021 1:46 PM hand) CDT Organism Antibiotic Method Susceptibility Mycobacterium chelonae Imipenem SUSCEPTIBILITY, BP 16 mcg /mL: Intermediate (MCG/ML) Mycobacterium chelonae Tigecycline SUSCEPTIBILITY, BP 0.12 m cg/mL (MCG/ML) Mycobacterium chelonae Doxycycline SUSCEPTIBILITY, BP >8 mcg /mL: Resistant (MCG/ML) Mycobacterium chelonae Amikacin SUSCEPTIBILITY, BP 32 mcg /mL: Intermediate (MCG/ML) Mycobacterium chelonae Ciprofloxacin SUSCEPTIBILITY, BP >4 mcg /mL: Resistant (MCG/ML) Comment: Ciprofloxacin and levofloxac in are interchangeable, but both are less active in vitro benny n moxifloxacin. Mycobacterium chelonae Linezolid SUSCEPTIBILITY, BP 32 mcg /mL: Resistant (MCG/ML) Mycobacterium chelonae Tobramycin SUSCEPTIBILITY, BP 2 mcg/ mL: Susceptible (MCG/ML) Mycobacterium chelonae Cefoxitin SUSCEPTIBILITY, BP >128 m cg/mL: (MCG/ML) Resistant Mycobacterium chelonae Clofazimine SUSCEPTIBILITY, BP 0.25 m cg/mL (MCG/ML) Mycobacterium chelonae Moxifloxacin SUSCEPTIBILITY, BP >4 mcg /mL: Resistant (MCG/ML) Mycobacterium chelonae Clarithromycin SUSCEPTIBILITY, BP 2 mcg/ mL: Susceptible (MCG/ML) Comment: Clarithromycin is the class agency sales representative for the macrolides (ie, clarithromyc in, azithromycin, and roxithromycin). Mycobacterium Trimethoprim + SUSCEPTIBILITY, BP >4/76 mcg/mL: chelonae Sulfamethoxazole (MCG/ML) Resistant Yamini Vieira M.D. LAB MICROBIOLOGY - GENE [facility] ORDERABLES Performing Organization Address City/State/ZIP Code Phon e Number [facility] - [address] [place], [place] [address] [place] [address] Laboratories-[address] Fungal Culture, Routine (11/28/2021 1:46 PM CDT) Patholo gist Method Time [facility] Fungal No growth 12/23/2021 DT Culture, after 24 1:01 AM CDT Routine days of incubation. Specimen (Source) Anatomical Collection Method Collection Time Re ceived Time Location / / Volume Laterality Skin (Left dorsal 11/28/2021 1:46 PM hand) CDT Yamini Vieira M.D. LAB MICROBIOLOGY - GENE RAL ORDERABLES Performing Organization Address City/State/ZIP Code Phon e Number [facility] - [address] [place], [place] [address] [place] [address] [facility]-[address] Dermatopathology (11/28/2021 1:25 PM CDT) Component Value Ref Test Analysis Performed Pathologis t Range Method Time At [facility] 12/07/2021 PDRM 2:34 PM CDT Participated in Estrella Starkey, 12/07/2021 PDR the MAngie-Pathology 2:34 PM CDT Interpretation Fellow Report Tamika Robins 12/07/2021 PDR electronically Feliberto Coats 2:34 PM CDT signed by Gross Description Received in formalin labeled with the patient's n earlene, 12/07/2021 PDR medical record number, and left dorsal hand is a 0.6 x 2:34 PM CDT 0.4 cm pale ac, previously inked blue ??portion of skin punch biopsy (greater than half-punch), excised to a depth of 0.5 cm. ??Encompassing nearly the entire skin surface is a 0.5 x 0.4 cm pale-ac hypopigmented lesion with irregular borders. The specimen is submitted en toto in cassette A1. Grossed by JOVAN. Interpretation FINAL DIAGNOSIS 12/07/2021 PDRM A. ??Left dorsal hand, Skin punch biopsy: ??Suppurative and 2:34 PM CDT granulomatous inflammation with AFB- and Andrea-positive organisms compatible the reported history of mycobacterial infection COMMENT The patient's history of ??M. chelonae ??infection is noted. GMS and Gram stains are negative. ??These features are consistent with a mycobacterial infection and continued correlation with tissue cultures is recommended. Specimen (Source) Anatomical Collection Method Collection Time Re ceived Time Location / / Volume Laterality Skin (Left dorsal 11/28/2021 1:25 PM hand) CDT Narrative This result has an attachment that is no t available. Yamnii Vieira M.D. 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
--- OUTSIDE RECORDS SUMMARY | 2022-04-11 15:03 | XMS_ITS | Encounter Summary ---
:1945 Author Organization [facility] Address [address] [place] [address] Care Team Providers Name Role Phone Unavailable Primary Care Provider Unavailable Reason for Visit Reason Comments review records Encounter Details Date Type Department Care Team Description 09/27/2021 Clinical Communication Section of Providerjudah records Infectious Diseases Unknown in [place], [place] [address] [place] [phone] Social History Tobacco Use Types Packs/Day Years [...] or relatives? How often do you attend latter day or More than 4 times per year 12/12/2021 yarsani services? Do you belong to any clubs or Yes 12/12/2021 organizations such as latter day groups, unions, fraternal or athletic groups, or school groups? How often do you attend meetings of the More than 4 times pe guadalupe year 12/12/2021 clubs or organizations you belong [...] this encounter Miscellaneous Notes Telephone Encounter - [place] Balderrama - 09/28/2021 1:22 PM CST MORE RECORDS LOADED IN DOC VIEWER [facility] RO[facility] Telephone Encounter - Mary Carmen Barker - 09/28/2021 9:47 AM CST Truong Mendez 1945 Who filled out form: Patient Who requested evaluation: Other provider Reason evaluation was requested: Persistent sores on left hand and wrist. 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 Goals: 1) See if diagnosis is accurate 2) Find course of action 3) Bring about cure 4) Symptoms/Concerns: 1) Swelling in left hand 2) Black or white heads that Erupt. 3) Sores drain 4) Flesh is left with scars 5) MOST IMPORTANT: Symptom/Concern #2: Black or white heads that Erupt. 1) Swelling in left hand Duration: More than 6 months Previous Eval: Yes Outcome: Recently identified as mycobacterium chelonae 2) Black or white heads that Erupt. Duration: More than 6 months Previous Eval: Yes Outcome: Identified as mycobacterium chelonae 3) Sores drain Duration: More than 6 months Previous Eval: Yes Outcome: Recently identified as mycobacterium chelonae 4) Flesh is left with scars Duration: Less than 6 months Previous Eval: Yes Outcome: Recently identified as mycobacterium chelonae 5) Duration: Previous Eval: Outcome: Antibiotics? Yes Penicillin Allergy? Yes Number of medications currently taking? 08 Requested specialists: Infectious disease Bothered by the following problems in last 2 weeks: (Scale: Not at all, Several Days, More than half the days, Nearly every day) Feeling nervous, anxious, or on edge: Not at all Not being able to stop or control worrying : Not at all Little interest or pleasure in doing things : Not at all Feeling down, depressed, or hopeless: Not at all OVERALL HEALTH: (Scale: Excellent, Very good, Good, Fair, Poor) Good RADIOLOGY QUESTIONS: Iodine contrast reaction? No Gadolinium contrast reaction? No Dialysis? No Urine or no urine output past 48 hours? No Implanted medical devices or pumps? Yes Implanted device? Pacemaker Organ transplant? No Bone marrow/stem cell transplant? No HIV/AIDS? No Diabetic? No TB? No Bone/joint infection referral? No REFERRED FOR URINARY TRACT INFECTION: No Genitournary system surgery? Types and dates: Passed air in urine? Urinary system stones? Diagnosis date/describe treatment: Urinary catheter? Blood in urine? Constipation? Cystoscopy? Where and when: CT scan/ultrasound? Where and when: SEX ASSIGNED AT : FEMALE: Current menstrual cycles? When did they stop: Sexual intercourse pain? Systemic hormone replacement therapy? Estrogen/estradiol use? How long: Chronic pelvis pain? MALE: Prostate cancer? Treatment: Prostate enlargement/BPH? Treatment: Prostate infection/prostatitis? Treatment: REFERRED FOR UNEXPLAINED FEVERS: No First occurence? How often? Progressed since onset? Maximum temperature recorded? How temperature was taken: Treatments attempted? Specialists evaluated? SCHEDULING QUESTIONS: I AM AVAILABLE ANYTIME Dates to avoid scheduling: PHONE: [phone] AGREE? I have read the Medical Emergency directions as noted above., I have read the Infectious Diseases Consultation Model of Care as noted above and agree to the process outlined. [facility] Telephone Encounter - Mary Carmen Barker - 09/27/2021 11:58 AM CST Add'l records received and scanned into doc viewer 09/27 cr [facility] documented in this encounter Plan of Treatment Upcoming Encounters Date Type Specialty Care Team Description 04/16/2022 Clinical Communication Admitting/Central Scheduling 04/19/2022 Ancillary Procedure Cardiovascular Disease Milla Lew M.D. [address] [place] [phone] 04/19/2022 Appointment Laboratory Medicine Sherrie Lew M.D. [address] [place] [phone] 04/19/2022 Office Visit Infectious Diseases Max Aguilar D.O. [address] [place] [phone] 04/20/2022 Comprehensive Visit Allergy and Immunology Kavon Ahmadi M.D., M.S. [address] [place] [phone] documented as of this encounter Visit Diagnoses Not on filedocumented in this encounter
--- OUTSIDE RECORDS SUMMARY | 2022-04-11 15:03 | XMS_ITS | Encounter Summary ---
:1945 Author Organization [facility] Address [address] [place] [address] Care Team Providers Name Role Phone Unavailable Primary Care Provider Unavailable Reason for Referral Outpatient (Routine) - Closed Specialty Diagnoses / Procedures Referred By Contact Refer red To Contact Dermatology Leela Linares M.D . [facility] Region [address] [place] [address] Referral ID Status Reason Start Date Expiration Date Visits Requ ested Visits Authorized [id number] Closed 11/03/2018 11/03/2019 1 1 Scheduling Instructions Recheck right ear nevus in 3 months Reason for Visit Reason Comments Skin Check Appointment Request (Routine) - Closed Specialty Diagnoses / Procedures Referred By Contact Refer red To Contact Family Medicine Referral ID Status Reason Start Date Expiration Date Visits Requ ested Visits Authorized [id number] Closed 10/06/2018 10/06/2019 1 Encounter Details Date Type Department Care Team Description 11/03/2018 Office Visit Department of Leela Linares, Keratosis Actinic (Primary Dx); Dermatology in [place] Verrucal Keratosis; [place], [place] [address] [facility] Nevi Multiple; [address] [address] [place], [place] Keratosis Seborrheic; [place] [address] Cancer Skin Squamous Cell Personal Histo ry; [id number] Cancer Skin Basal Cell Perso nal History Social History Tobacco Use Types Packs/Day [...] or relatives? How often do you attend baptism or More than 4 times per year 12/12/2021 restorationism services? Do you belong to any clubs or Yes 12/12/2021 organizations such as baptism groups, unions, fraternal or athletic groups, or [...] or slept in a mcc (including now)? Sex Assigned at Date Recorded Male 04/03/2018 7:54 AM CDT documented as of this encounter Progress Notes Leela Linares M.D. - 11/03/2018 2:45 PM CDT CHIEF COMPLAINT/REASON FOR VISIT Skin cancer recheck HISTORY OF PRESENT ILLNESS Mr. Truong Mendez is a 72 y.o. male who presents today for a full skin cancer screening examination. 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 Villafana at [facility] on 05/30/16. He also has a history of previous basal cell carci nomas involving the right cheek and right neck treated elsewhere. The patient denies a personal history of melanoma; however, his father had ocular melanoma and his brother also had melanoma. During his most recent visit with me on 06/10/18, we performed a shave biopsy of a portion of a nodule involving the left posterior arm. Dermatopathology returned as verrucal keratosis with prurigo nodule-like features. No areas of concern today. Allergies Allergen Reactions ??? Hydrocodone-Acetaminophen GI intolerance Intolerance ??? Penicillins Hives ??? Adhesive Tape-Silicones Rash PAST MEDICAL HISTORY 1. 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 Villafana at [facility] on 05/30/16. 2. History of basal cell carcinomas in right cheek and neck status post excision, done elsewhere. 3. History of right knee replacement in 2017 FAMILY HISTORY No family history for melanoma. PHYSICAL EXAM General: Awake, alert, in no acute distress, and with appropriate affect. Eyes: No scleral injection or icterus. No eyelid abnormalities. Lymph: No lower extremity edema. Skin: I have examined the scalp, face, neck, chest, abdomen, back, bilateral upper extremities, and bilateral lower extremities. Examination of the right cheek reveals no evidence of recurrence of basal cell carcinoma. Examination of the right infraorbital reveals no evidence of recurrence of squamouscell carcinoma. Examination of the right upper forehead reveals an actinic keratosis. Examination ofthe face reveals a few benign nevi and seborrheic keratoses. Examination of the left distal extensorarm reveals a 2 cm x 1.5 cm lichenified prurigo plaque. At the lateral component of this plaque is an 8 mm x 7 mm verrucal keratosis. Examination of the upper chest and back reveals several seborrheic keratoses and a few benign nevi. Examination of the lower legs reveals seborrheic keratoses. Examination of the right upper ear helix reveals a 3 mm x 4 mm brown nevus with slight irregular borders. This lesion looks benign on clinical exam and dermoscopy. IMPRESSION/REPORT/PLAN #1 Left distal extensor arm: Verrucal keratosis within lichenified prurigo plaque The patient has a biopsy-proven verrucal keratosis within a larger lichenified prurigo plaque. Giventhe verrucal keratosis raised portion today, I recommended treatment of the VK only with liquid nitrogen cryotherapy. CONSENT Discussed the risks, benefits, alternatives, and the necessity of other members of the healthcare team participating in the procedure. All questions answered and consent given. ?? PROCEDURE INFORMATION Given the nature of this lesion(s), treatment is medically indicated. After discussion of the risks,benefits and alternatives to treatment with cryotherapy, informed consent was obtained. We treated atotal of one lesion(s) with two 20- second freeze-thaw cycles of liquid nitrogen cryotherapy. The patient tolerated the procedure well. Aftercare instructions were provided in written and verbal form tothe patient. Should any of these lesions recur, the patient should return for biopsy or further evaluation. Follow up in 1-2 months for recheck if these do not completely resolve. #2 Right upper forehead: Actinic keratosis x 1 CONSENT Discussed the risks, benefits, alternatives, and the necessity of other members of the healthcare team participating in the procedure. All questions answered and consent given. ?? PROCEDURE INFORMATION Given the precancerous nature of this lesion, treatment is medically indicated. After discussion of the risks, benefits and alternatives to treatment with cryotherapy, informed consent was obtained. Wetreated a total of 1 lesion with two [id number] freeze-thaw cycles of liquid nitrogen cryotherapy.The patient tolerated the procedure well. Aftercare instructions were provided in written and verbalform to the patient. Should any of these lesions recur, the patient should return for biopsy or further evaluation. Follow up in 1-2 months for recheck if these do not completely resolve. #3 Multiple nevi The ABCDE criteria for melanoma was reviewed with the patient. None of the patient's nevi reach the clinical threshold for biopsy. We will continue to observe the nevus involving the right upper ear helix, given the slight jagged borders. I recommend continued sun protection, self-skin examinations, and observation. Should any of the patient's nevi change in size, color, texture, or shape or develop symptoms such as itching or bleeding, I recommend an immediate return visit for reassessment. Follow up for recheck of nevus involving the right upper ear helix in 3-4 months and in 6-12 months for a full skin cancer screening exam. #4 Trunk and extremities: Seborrheic Keratosis The benign nature of the skin lesion(s) was discussed with the patient. No treatment is required. I recommend continued observation. Should symptoms or changes develop related to this condition, I would recommend a return visit for reassessment. #5 Inferior to left eye: History of squamous cell carcinoma just under left eye status post Mohs surgery by Dr. Villafana at [facility] on 05/30/16. No evidence for recurrence of squamous cell carcinoma on clinical exam today. Follow-up immediately if any changes or evidence for recurrence. #6 Right cheek and neck: History of basal cell carcinomas status post excision elsewhere. No evidence for recurrence of basal cell carcinoma on clinical exam today. Follow-up immediately if any changes or evidence for recurrence. PATIENT EDUCATION Ready to learn. No apparent learning barriers were identified. Learning preferences include listening. Explained diagnosis and treatment plan; patient/guardian of patient expressed understanding of thecontent. By signing my name below, I, Ana Bradley, attest that this documentation has been prepared under thedirection and in the presence of Leela Linares M.D. Electronically Signed: sadie Piña. 11/03/2018. 3:18 PM . ILeela M.D., personally performed the services described in this documentation. All medical record entries made by the scribe were at my direction and in my presence. I have reviewed the chart and discharge instructions (if applicable) and agree that the record reflects my personal performance and is accurate and complete. Leela Linares M.D. . 11/03/2018. 5:22 PM. documented in this encounter Plan of Treatment Upcoming Encounters Date Type Specialty Care Team Description 04/16/2022 Clinical Communication Admitting/Central Scheduling 04/19/2022 Ancillary Procedure Cardiovascular Disease Milla Lew M.D. [address] [place] [address] 04/19/2022 Appointment Laboratory Medicine Sherrie Lew M.D. [address] [place] [address] 04/19/2022 Office Visit Infectious Diseases Max Aguilar, [place] [address] [place] [address] 04/20/2022 Comprehensive Visit Allergy and Immunology Kavon Ahmadi M.D., M.S. [address] [place] [phone] Scheduled Referrals Name Type Priority Associated Order Schedule Diagnoses Dermatology office Outpatient Referral Routine Ex pected: visit (clinic) 02/02/2019 (Approximate), Expires: 11/03/2021 documented as of this encounter Visit Diagnoses Diagnosis Keratosis Actinic - Primary Verrucal Keratosis Nevi Multiple Keratosis Seborrheic Cancer Skin Squamous Cell Personal Histo ry Cancer Skin Basal Cell Personal History documented in this encounter
--- OUTSIDE RECORDS SUMMARY | 2022-04-11 15:03 | XMS_ITS | Encounter Summary ---
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 [facility] [address] [place] [address] Referral ID Status Reason Start Date Expiration Date Visits V isits Requested Authorized [id number] Closed Specialty 10/31/2021 10/31/2022 1 1 Services Required Scheduling Instructions Please schedule dermatology appointment same day as ID NTM appointment utpatient (Routine) - Closed Specialty Diagnoses / Procedures Referred By Contact Refer red To Contact Infectious Diseases Mulu Bradley M.D. 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 [address] [place] [address] Referral ID Status Reason Start Date Expiration Date Visits Requ ested Visits Authorized [id number] Closed 09/26/2021 09/26/2022 1 1 Encounter Details Date Type Department Care Team Description 10/31/2021 Virtual Visit Section of Carol Roach M.D. [address] [place] [address] Mycobacteria Infectious Diseases Mulu Bradley M.D. [address] [place] [phone] Cutaneous Not in [place], Tuberculosis [place] [address] [place] [phone] Social History Tobacco Use Types Packs/Day Years [...] or relatives? How often do you attend adventist or More than 4 times per year 12/12/2021 spiritism services? Do you belong to any clubs or Yes 12/12/2021 organizations such as adventist groups, unions, fraternal or athletic groups, or [...] place to sleep or slept in a nursing home (including now)? Sex Assigned at Date Recorded Male 04/03/2018 7:54 AM CDT documented as of this encounter Consult Notes Mulu Bradley M.D. - 10/31/2021 8:30 AM CDT SUBJECTIVE Infectious diseases phone consultation Patient not directly seen or examined. Information taken over the telephone this morning in through the electronic medical record, but not directly in person Referring Provider: Leann Roach M.D. REASON FOR CONSULT Patient is a 75 y.o. male being seen by Infectious Diseases for cutaneous NTM infection HISTORY OF PRESENT ILLNESS Patient is a 75-year-old male from [facility] with underlying congestive heart failure, coronary artery disease, atrial fibrillation, obesity, obstructive sleep apnea [facility] skin lesions. Patient had a skin biopsy from dorsum aspect of his hand on September 05, 2021 with polymicrobial bacterial stanley including 1+ coagulase-negative Staphylococcus, 1+ alternative Gram-positive coccus and 1+ Mycobacterium chelonae. I do not have antimicrobial susceptibility data from the mycobacterium chelonae. Patient tells me that he received 3 weeks of oral azithromycin monotherapy in September. His dorsum skin lesion has healed well; there are no other new skin lesions. Patient tells me he otherwise feels fairly well without fever, chills or any other adverse systemic or respiratory symptoms. No prior history of mycobacterial infections in the past that the patient is aware of. Past medical history 1. Congestive heart failure 2. Permanent pacemaker 3. Coronary artery disease, nonischemic cardiomyopathy 4. Atrial fibrillation 5. Medical obesity (body weight greater than 140 kg) 6. Hypertension 7. Dyslipidemia 8. Obstructive sleep apnea Patient is a previous smoker, quit; previous alcohol consumption. OBJECTIVE There were no vitals filed for this visit. ASSESSMENT / PLAN Impression 1. 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 Coronary artery disease, congestive heart failure 3. Obesity Patient did receive 3 weeks of oral azithromycin which can be quite effective for localized cutaneous M. chelonae infection. Although generally, we often use combination treatment, there is published data from the of macrolide based monotherapy for localized cutaneous M chelonae infection. Further assessment of the skin lesion as well as determination whether additional therapy needed is difficult to do via telephone. Thus, [id number] consultation would be more appropriate in that capacity (Infectious Diseases with Dermatology at [facility]). I discussed this option with the patient who isin agreement to coming to [facility] for Infectious Diseases in Dermatology combined multidisciplinary assessment. Goal in this context is to determine how well the previous dorsum skin biopsy is healing as well as consideration of other skin biopies of any suspicious skin lesions. If the lesions appear well healed and no new lesions, clinical observation may be warranted; however, there remains notable persistent skin lesions, we can re approach combination antimicrobial therapy (ideally based on antimicrobial susceptibility data from the previous isolated M chelonae - which I will try to obtain). Recommendations 1. Will arrange for [id number] assessment at [facility] with Infectious Diseases as well as Dermatology on the same day 2. Baseline chest x-ray 3. Will try to obtain outside antibiotic susceptibility data from the September 05, 2021 skin biopsy with M chelonae Addendum - I was able to connect with the [facility] and [facility] in [place], [place] over thephone. Antimicrobial susceptibilities had not been performed on the September 05 M chelonae isolate; however, they have contacted the [place] department of Health laboratory and they will add drug susceptibility testing. This should be available in the near future, in case additional antimicrobial therapy needed. documented in this encounter Miscellaneous Notes Addendum Note - Mulu Bradley M.D. - 10/31/2021 8:30 AM CDT Addended by: MULU BRADLEY on: 10/31/2021 09:44 AM Modules accepted: Orders documented in this encounter Plan of Treatment Upcoming Encounters Date Type Specialty Care Team Description 04/16/2022 Clinical Communication Admitting/Central Scheduling 04/19/2022 Ancillary Procedure Cardiovascular Disease Milla Lew M.D. [address] [place] [phone] 04/19/2022 Appointment Laboratory Medicine Sherrie Lew M.D. [address] [place] [phone] 04/19/2022 Office Visit Infectious Diseases Max Aguilar, D.O. [address] [place] [phone] 04/20/2022 Comprehensive Visit Allergy and Immunology Kavon Ahmadi M.D., M.S. [address] [place] [phone] Scheduled Referrals Name Type Priority Associated Diagnoses Order S chedule Infectious Diseases Outpatient Referral Routine E xpected: office visit 10/31/2021 (clinic) (Approximate), Expires: 01/31/2023 Dermatology - Outpatient Referral Routine Mycobacteria Expecte d: General consult Cutaneous Not 10/31/2021 (clinic) Tuberculosis (Approximate), Expires: 01/31/2023 documented as of this encounter Results DX Chest AP or PA and Lateral 2 Views (11/28/2021 10:29 AM CDT) Anatomical Region Laterality Modality Chest, Thoracic RST LOS, Thoracic ARZ LOS, Thoracic N/A Digital Radiography FLA LOS Specimen (Source) Anatomical Collection Method Collection Time Re ceived Time Location / / Volume Laterality 11/28/2021 10:34 AM CDT Impressions 11/28/2021 10:35 AM CDT Since 04/02/2018 a pacemaker has been placed. Stable mild cardiac enlargement. Unchanged prominence of the central pulm onary arteries. No focal pulmonary infiltrates or pleural effusions. Segmental elevation of the ri ght hemidiaphragm. Degenerative and hypertrophic changes in the spine. Abdominal surgical clips. Narrative 11/28/2021 10:35 AM CDT EXAM: ??DX CHEST AP OR PA AND LATERAL 2 VIEWS Procedure Note Victor M Valentin M.D. - 11/28/2021Form atting of this note might be different from the original. EXAM: DX CHEST AP OR PA AND LATERAL 2 EWS IMPRESSION: Since 04/02/2018 a pacemaker has been pl aced. Stable mild cardiac enlargement. Unchanged prominence of the central pulm onary arteries. No focal pulmonary infiltrates or pleural effusions. Segmental elevation of the ri ght hemidiaphragm. Degenerative and hypertrophic changes in the spine. Abdominal surgical clips. 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
--- OUTSIDE RECORDS SUMMARY | 2022-04-11 15:03 | XMS_ITS | Encounter Summary ---
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 [facility] Procedures DX Chest AP or PA and Lateral 2 Views [address] [place] [address] Referral ID Status Reason Start Date Expiration Date Visits Requ ested Visits Authorized [id number] Closed 10/31/2021 10/31/2022 1 1 Encounter Details Date Type Department Care Team Description 11/28/2021 Hospital Encounter Department of Garry Bradley RadiologySubhash M.D. Cutaneous Not Building, in 200 [facility] Tuberculosis [place], [place] 200 [facility] [address] [place], [place] [phone] (Work) [phone] Social History Tobacco Use Types Packs/Day Years [...] or relatives? How often do you attend tenriism or More than 4 times per year 12/12/2021 yazidi services? Do you belong to any clubs or Yes 12/12/2021 organizations such as tenriism groups, unions, fraternal or athletic groups, or [...] or slept in a long-term (including now)? Sex Assigned at Date Recorded [...] prior to 0 mg capsule dental work Entresto 97-103 mg per Take 1 tablet [...] by mouth [address] capsule daily. spironolactone Take 25 mg by mouth 0 11/19/2021 (ALDACTONE) 25 mg tablet daily. lisinopril 0 01/29/2018 12/20/2021 (PRINIVIL,ZESTRIL) 40 mg tablet lovastatin (MEVACOR) 40 0 02/11/2018 0 12/20/2021 mg tablet metoprolol tartrate Take 100 mg by mouth 0 201712/20/2021 (LOPRESSOR) 100 mg tablet 2 (two) times a day. multivitamin (THERAGRAN) Take 1 tablet by 0 03/09/2022 tablet mouth. sacubitriL-valsartan Take 1 tablet by 0 2 12/20/2021 (ENTRESTO) 97-103 mg per mouth 2 (two) times tablet a day. warfarin (COUMADIN) 5 mg TAKE 1.5 tab Saturday 0 12/20/2021 tablet and . Saturday and Saturday take 1 tab documented as of this encounter Plan of Treatment Upcoming Encounters Date Type Specialty Care Team Description 04/16/2022 Clinical Communication Admitting/Central Scheduling 04/19/2022 Ancillary Procedure Cardiovascular Disease Milla Lew M.D. [address] [place] [phone] 04/19/2022 Appointment Laboratory Medicine Sherrie Lew M.D. [address] [place] [phone] 04/19/2022 Office Visit Infectious Diseases Mxa Aguilar D.O. [address] [place] [address] 04/20/2022 Comprehensive Visit Allergy and Immunology Kavon Ahmadi M.D., M.S. [address] [place] [address] documented as of this encounter Procedures Procedure Name Priority Date/Time Associated Comments Diagnosis DX CHEST AP OR PA RAD - Routine 11/28/2021 10:29 Mycobacteria Resul ts for this AND LATERAL 2 (most inpatients AM CDT Cutaneous Not procedure are in VIEWS and all Tuberculosis the results outpatients) section. documented in this encounter Results DX Chest AP or [...] changes in the spine. Abdominal surgical clips. Garry W Kirk M.D. 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
--- OUTSIDE RECORDS SUMMARY | 2022-04-11 15:03 | XMS_ITS | Encounter Summary ---
:1945 Author Organization [facility] Address [address] [place] [address] Care Team Providers Name Role Phone Unavailable [...] Procedure Cardiovascular Disease Milla Lew M.D. [address] [place] [phone] 04/19/2022 Appointment Laboratory Medicine Sherrie Lew M.D. [address] [place] [phone] 04/19/2022 Office Visit Infectious Diseases Max Aguilar, D.ODale [address] [place] [phone] 04/20/2022 Comprehensive Visit Allergy and Immunology Kavon Ahmadi M.D., M.S. [address] [place] [phone] documented as of this encounter Procedures Procedure Name Priority Date/Time Associated Comments Diagnosis DERMATOLOGY IMAGE Routine 01/19/2020 3:19 PM Resu lts for this EXAM CDT procedure are i n the results section. documented in this encounter Results lower extremity, left anterior thigh 403-Dermatology Image Exam (01/19/2020 3:19 PM CDT) Specimen [...]
--- OUTSIDE RECORDS SUMMARY | 2022-04-11 15:03 | XMS_ITS | Encounter Summary ---
:1945 Author Organization [facility] Address [address] [place] [address] Care Team Providers Name Role Phone Unavailable Primary Care Provider Unavailable Reason for Referral Outpatient (Routine) - Closed Specialty Diagnoses / Procedures Referred By Contact Refer red To Contact Dermatology Leela Linares M.D . [facility] Region [address] [place] [address] Referral ID Status Reason Start Date Expiration Date Visits Requ ested Visits Authorized [id number] Closed 01/19/2020 01/18/2021 1 1 Scheduling Instructions 30 minutes appointment on March 01 for 2 punch biopsies Reason for Visit Reason Comments Skin Check Appointment Request (Routine) - Closed Specialty Diagnoses / Procedures Referred By Contact Refer karlie To Contact Family Medicine Referral ID Status Reason Start Date Expiration Date Visits Requ ested Visits Authorized [id number] Closed 01/18/2020 01/17/2021 1 1 Encounter Details Date Type Department Care Team Description 01/19/2020 Office Visit Department of Leela Linares, Keratosis Actinic (Primary Dx); Dermatology in [place] [facility] Keratosis Seborrheic; [place], [place] [address] [phone] Social History Tobacco Use Types Packs/Day Years [...] or relatives? How often do you attend jew or More than 4 times per year 12/12/2021 religion services? Do you belong to any clubs or Yes 12/12/2021 organizations such as jew groups, unions, fraternal or athletic groups, or [...] encounter Progress Notes Leela Linares M.D. - 01/19/2020 3:00 PM CDT SUBJECTIVE CHIEF COMPLAINT / REASON FOR VISIT Skin cancer screening exam HISTORY OF PRESENT ILLNESS Mr. Truong Mendez is a 74 y.o. male who presents today for a full skin cancer screening examination. 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 He denies any personal history for melanoma. The patient denies any lesions of concern. Allergies Allergen Reactions ??? Hydrocodone-Acetaminophen GI intolerance Intolerance ??? Penicillins Hives ??? Adhesive Tape-Silicones Rash MEDICAL HISTORY 1. 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 Villafana at [facility] 2. Basal cell carcinoma x2 involving right cheek and right neck, status post excisions done elsewhere around 1999 and 2012 respectively 3. Right knee replacement in 2017 4. Negative for melanoma FAMILY HISTORY Positive family history for melanoma in father and brother OBJECTIVE PHYSICAL EXAMINATION General: Awake, alert, in no acute distress, and with appropriate affect. Eyes: No scleral injection or icterus. No eyelid abnormalities. Lymph: No lower extremity edema. Skin: I have examined the scalp, face, neck, chest, abdomen, back, bilateral upper extremities, and bilateral lower extremities. Examination of his forehead today reveals 6 actinic keratoses. The remainder of his skin exam reveals benign nevi and seborrheic keratoses. No evidence for recurrence of hisprevious nonmelanoma skin cancers. Examination of his left dorsal wrist area reveals a 2 x 1.5 cm lichenified plaque that was previously biopsied in the past and showed features of both verrucal keratosis and prurigo nodule. This lesion has persisted and may have gotten larger. In addition, he has a 2.2 x 1.7 cm lichenified plaque involving his left lateral thigh that he does knots feel he scratches either. ASSESSMENT / PLAN #1 Forehead: Actinic keratoses x6 lesions CONSENT Discussed the risks, benefits, alternatives, and the necessity of other members of the healthcare team participating in the procedure. All questions answered and consent given. PROCEDURE INFORMATION Given the precancerous nature of this lesion(s), treatment is medically indicated. After discussion of the risks, benefits and alternatives to treatment with cryotherapy, informed consent was obtained.We treated a total of 6 lesion(s) with two 10-second freeze-thaw cycles of liquid nitrogen cryotherapy. The patient tolerated the procedure well. Aftercare instructions were provided in written and verbal form to the patient. Should any of these lesions recur, the patient should return for biopsy or further evaluation. #2 Multiple benign nevi The ABCDE criteria for melanoma was reviewed with the patient. None of the patient's nevi reach the clinical threshold for biopsy. I recommend continued sun protection, self-skin examinations, and observation. Should any of the patient's nevi change in size, color, texture, or shape or develop symptoms such as itching or bleeding, I recommend an immediate return visit for reassessment. 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 Photographs taken today. #4 Seborrheic keratosis The benign nature of the skin lesion(s) was discussed with the patient. No treatment is required. I recommend continued observation. Should symptoms or changes develop related to this condition, I would recommend a return visit for reassessment. #5 History of multiple nonmelanoma skin cancers with no evidence for recurrence Follow-up immediately if any evidence for recurrence. Otherwise follow up in 6 months. PATIENT EDUCATION: Ready to learn. No apparent learning barriers were identified. Learning preferences include listening. Explained diagnosis and treatment plan; patient/guardian of patient expressed understanding of thecontent. documented in this encounter Plan of Treatment Upcoming Encounters Date Type Specialty Care Team Description 04/16/2022 Clinical Communication Admitting/Central Scheduling 04/19/2022 Ancillary Procedure Cardiovascular Disease Milla Lew M.D. [address] [place] [phone] 04/19/2022 Appointment Laboratory Medicine Sherrie Lew M.D. [address] [place] [phone] 04/19/2022 Office Visit Infectious Diseases Max Aguilar, D.O. [address] [place] [phone] 04/20/2022 Comprehensive Visit Allergy and Immunology Kavon Ahmadi M.D., M.S. [address] [place] [address] [place] [phone] Scheduled Referrals Name Type Priority Associated Order Schedule Diagnoses Dermatology office Outpatient Referral Routine Ex pected: visit (clinic) 03/01/2020 (Approximate), Expires: 01/18/2023 documented as of this encounter Visit Diagnoses Diagnosis Keratosis Actinic - Primary Keratosis Seborrheic Nevi Multiple documented in this encounter
--- OUTSIDE RECORDS SUMMARY | 2022-04-11 15:04 | XMS_ITS | Encounter Summary ---
:1945 Author Organization [facility] Address [address] [place] [address] Care Team Providers Name Role Phone Unavailable Primary Care Provider Unavailable Encounter Details Date Type Department Care Team Description 05/30/2016 Hospital Encounter HX RST DERM SURG OP [facility] Ra jeancarlos Villafana M.D. [address] [place] [phone] (Wo rk) Social History Tobacco Use Types Packs/Day Years Used Date Smoking Tobacco: Never Assessed Alcohol Habits Answer Date Recorded How often [...] or relatives? How often do you attend advent or More than 4 times per year 12/12/2021 pentecostalism services? Do you belong to any clubs or Yes 12/12/2021 organizations such as advent groups, unions, fraternal or athletic groups, or [...] place to sleep or slept in a jail (including now)? Sex Assigned at Date Recorded Male 04/03/2018 7:54 AM CDT documented as of this encounter Last Filed Vital Signs Vital Sign Reading Time Taken Comments Blood Pressure 126/65 05/30/2016 12:57 PM CDT Vital sign result from Clinical Notes. Pulse 79 05/30/2016 12:57 PM CDT Vital sign result from Clinical Notes. Temperature - - Respiratory Rate - - Oxygen Saturation - - Inhaled Oxygen Concentration - - Weight - - Height - - Body Mass Index - - documented in this encounter Medications at Time of Discharge Medication Sig Dispensed Refills Start Date End Date multivitamin tablet Take 1 tablet by 0 05/30/2016 06/03/2018 mouth daily. omeprazole (PriLOSEC) 20 Take 1 capsule by 0 05/0606/03/2018 mg capsule mouth daily. documented as of this encounter Plan of Treatment Upcoming Encounters Date Type Specialty Care Team Description 04/16/2022 Clinical Communication Admitting/Central Scheduling 04/19/2022 Ancillary Procedure Cardiovascular Disease Milla Lew M.D. [address] [place] [phone] 04/19/2022 Appointment Laboratory Medicine Sherrie Lew M.D. [address] [place] [phone] 04/19/2022 Office Visit Infectious Diseases Max Aguilar, D.ODale [address] [place] [phone] 04/20/2022 Comprehensive Visit Allergy and Immunology Kavon Ahmadi M.D., M.S. [address] [place] [phone] (work) documented as of this encounter Visit Diagnoses Not on filedocumented in this encounter
--- OUTSIDE RECORDS SUMMARY | 2022-04-11 15:04 | XMS_ITS | Encounter Summary ---
:1945 Author Organization [facility] Address [address] [place] [address] Care Team Providers Name Role Phone Unavailable Primary Care Provider Unavailable Encounter Details Date Type Department Care Team Description 04/01/2018 Hospital Encounter Department of Vitor, Hon-[facility], Atrial Fibrillation Cardiovascular Diseases Feliberto, Ph .D. Personal History in [facility]ia [address] [facility] [address] [place] [phone] Social History Tobacco Use Types Packs/Day Years Used Date Smoking Tobacco: Unknown Alcohol Habits Answer Date Recorded How often [...] or relatives? How often do you attend denominational or More than 4 times per year 12/12/2021 sabianist services? Do you belong to any clubs or Yes 12/12/2021 organizations such as denominational groups, unions, fraternal or athletic groups, or [...] or slept in a penitentiary (including now)? Sex Assigned at Date Recorded Male 04/03/2018 7:54 AM CDT documented as of this encounter Medications at Time of Discharge Medication Sig Dispensed Refills Start Date End Date acetaminophen (TYLENOL) Take 1,000 mg by 0 500 mg tablet mouth. clindamycin (CLEOCIN) 300 2 capsules prior to 0 mg capsule dental work multivit with min-folic Take 1 tablet by 0 2016 acid 0.4 mg tablet mouth daily. nitroglycerin (NITROSTAT) Place 0.4 mg under 0 0.4 mg SL tablet the tongue. omeprazole (PriLOSEC) 20 Take 20 mg by mouth [address] capsule daily. amiodarone (PACERONE) 200 0 12/19/2017 07/08/2018 mg tablet lisinopril 0 01/29/2018 12/20/2021 (PRINIVIL,ZESTRIL) 40 mg tablet lovastatin (MEVACOR) 40 0 02/11/2018 0 12/20/2021 mg tablet metoprolol tartrate Take 100 mg by mouth 0 201712/20/2021 (LOPRESSOR) 100 mg tablet 2 (two) times a day. multivitamin tablet Take 1 tablet by 0 05/30/2016 06/03/2018 mouth daily. omeprazole (PriLOSEC) 20 Take 1 capsule by 0 05/0606/03/2018 mg capsule mouth daily. warfarin (COUMADIN) 5 mg TAKE 1.5 tab Saturday 0 12/20/2021 tablet and . Saturday and Saturday take 1 tab documented as of this encounter Plan of Treatment Upcoming Encounters Date Type Specialty Care Team Description 04/16/2022 Clinical Communication Admitting/Central Scheduling 04/19/2022 Ancillary Procedure Cardiovascular Disease Milla Lew M.D. [address] [place] [phone] 04/19/2022 Appointment Laboratory Medicine Sherrie Lew M.D. [address] [place] [phone] 04/19/2022 Office Visit Infectious Diseases Max Aguilar D.O. [address] [place] [phone] 04/20/2022 Comprehensive Visit Allergy and Immunology Kavon Ahmadi M.D., M.S. [address] [place] [phone] documented as of this encounter Procedures Procedure Name Priority Date/Time Associated Diagnosis Comme nts (TTE) 2D ECHO Routine 04/01/2018 2:46 PM Atrial Fibrillation R esults for this DOPPLER COLOR AND CDT Personal History proced ure are in CONTRAST the results section. documented in this encounter Results (TTE) 2D ECHO DOPPLER COLOR AND CONTRAST (04/01/2018 2:46 PM CDT) Analysis Performed At Patho logist Time Signature Ejection Fraction 40 [facility] Left ventricular 30 [facility] stroke volume index Cardiac Output 4.92 [facility] Cardiac Index 2.05 [facility] Tricuspid Annular 0.11 [facility] S? TR Vmax 2.68 [facility] RA Pressure 5 [facility] RV Systolic 34 [facility] Pressure Aortic valve area 3.53 [facility] Aortic Valve 0.78 [facility] Dimensionless Index LA Volume Index 29 [facility] Anatomical Region Laterality Modality Echocardiography Specimen (Source) Anatomical Collection Method Collection Time Re ceived Time Location / / Volume Laterality 04/01/2018 1:51 PM CDT Narrative 04/01/2018 4:39 PM CDT This result has an attachment that is no t available. See PDF For Result Procedure Note Junito Bobo M.D. - 04/01/2018For matting of this note might be different from the original. See PDF For Result Nadiya Adler M.D., Ph.D. CV ECHO PROCEDURES documented in this encounter Visit Diagnoses Diagnosis Atrial Fibrillation Personal History documented in this encounter Administered Medications Inactive Administered Medications - up to 3 most recent administrations Medication Order MAR Action Action Date Dose Rate Site perflutren lipid Given 04/01/2018 3:00 PM 1.5 mL Left Forearm microspheres injection CDT (DEFINITY) intravenous, As needed, contrast, Starting on Sat04/01/18 at 1455, See protocol documented in this encounter
--- OUTSIDE RECORDS SUMMARY | 2022-04-11 15:04 | XMS_ITS | Encounter Summary ---
:1945 Author Organization [facility] Address [address] [place] [address] Care Team Providers Name Role Phone Unavailable Primary Care Provider Unavailable Reason for Visit Reason Comments Biopsy Encounter Details Date Type Department Care Team Description 06/10/2018 Procedure visit Department of Leela Linares Tumor Skin Uncertain Behavior (Primary Dx); Dermatology in [place] Sarah M.D. [place], [place] [address] [phone] Social History Tobacco Use Types Packs/Day Years [...] or relatives? How often do you attend judaism or More than 4 times per year 12/12/2021 jewish services? Do you belong to any clubs or Yes 12/12/2021 organizations such as judaism groups, unions, fraternal or athletic groups, or [...] encounter Progress Notes Leela Linares M.D. - 06/10/2018 10:00 AM CST CHIEF COMPLAINT Return for biopsy of the left distal arm HISTORY OF THE PRESENT ILLNESS Truong Mendez is a pleasant 72 y.o. male who follows up for biopsy of the left distal extensor arm to rule out squamous cell carcinoma although I favor a prurigo nodule. The patient has had the nodule for 10-15 years without change. He does pick at the lesion and previously has deferred biopsy of this particular lesion. He was previously applying Vaseline to the involved area, but stopped when the lesion opened. He resumed use twice daily after his last visit on 06/03/18. PAST MEDICAL HISTORY 1. Squamous cell carcinoma just under left eye status post Mohs surgery in May 2016 2. History of basal cell carcinomas in right cheek and neck status post excision, done elsewhere. 3. History of right knee replacement in 2017 ?? FAMILY HISTORY Father has history ocular melanoma. Brother has history of melanoma. PHYSICAL EXAM General: Awake, alert, in no acute distress, and with appropriate affect. Skin: Examination of the left distal lateral extensor arm reveals 1.5 cm x 1.5 cm slightly scaly prurigo-like nodule. 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 He was told by his orthopedic surgeon previously that heneeds antibiotics with procedures and we explained to him that we would not typically do this for a skin biopsy but to make him more comfortable asked him to check with his orthopedic surgeon who was confirmed no prophylactic antibiotic needed. We recommend a shave biopsy of a portion of the nodule involving the left posterior arm (left distalextensor arm). Photograph taken today with patient's verbal consent. We will correspond as to the results and if any further treatment is needed PROCEDURAL PAUSE Procedural pause conducted to verify: correct patient identity, procedure to be performed, and as applicable, correct side and site, correct patient position, and availability of implants, special equipment, or special requirements. PROCEDURE DETAILS Shave biopsy. We explained the potential diagnosis and recommended that we obtain a biopsy. The risks and benefitsof the procedure were discussed, and the patient consented to these procedures. The patient denies any allergies to local anesthetics. Using 1% lidocaine with epinephrine for local anesthesia, a shave biopsy was obtained from the left posterior arm (left distal extensor arm). Biopsy submitted to Dermatopathology for H&E. Special stains will be performed as indicated. The bleeding was well controlled with application of aluminum chloride. Dressing was applied, and wound care instructions were explained. Biopsy results and any further recommendations will be communicated to the patient by letter.Patient given pamphlet [id number]. Discussed the risks, benefits, alternatives, and the necessity of other members of the healthcare team participating in the procedure. All questions answered and consent given. PATIENT EDUCATION Ready to learn. No apparent learning barriers were identified. Learning preferences include listening. Explained diagnosis and treatment plan; patient/guardian of patient expressed understanding of thecontent. By signing my name below, Ana Ashley, attest that this documentation has been prepared under the direction and in the presence of Leela Linares M.D.. Electronically Signed: sadie Kirk. 06/10/2018. 7:48 AM . Leela Ashley M.D., personally performed the services described in this documentation. All medical record entries made by the scribe were at my direction and in my presence. I have reviewed the chart and discharge instructions (if applicable) and agree that the record reflects my personal performance and is accurate and complete. Leela Linares M.D. . 06/10/2018. 10:[address] COMMANDER Leela Linares M.D. - 06/10/2018 10:00 AM CST Benign lesion letter WAY PATROL COMMANDER documented in this encounter Plan of Treatment Upcoming Encounters Date Type Specialty Care Team Description 04/16/2022 Clinical Communication Admitting/Central Scheduling 04/19/2022 Ancillary Procedure Cardiovascular Disease Milla Lew M.D. [address] [place] [phone] 04/19/2022 Appointment Laboratory Medicine Sherrie Lew M.D. [address] [place] [phone] 04/19/2022 Office Visit Infectious Diseases Max Aguilar, D.ODale [address] [place] [phone] 04/20/2022 Comprehensive Visit Allergy and Immunology Kavon Ahmadi M.D., M.S. [address] [place] [phone] documented as of this encounter Procedures Procedure Name Priority Date/Time Associated Comments Diagnosis DERMATOPATHOLOGY CONSULT Routine 06/10/2018 10:20 Tumor Skin Results for this AM HIGHW[facility] PATROL COMMANDER Uncertain Behavior procedure are in the results section. documented in this encounter Results Dermatopathology Consult (06/10/2018 10:[address]) Component Value Ref Test Analysis Performed At [facility] Range Method Time Signature Gross Received in formalin labeled with the patient's name, 06/17/2018 [facility] Description: medical record number, and left posterior forearm i s a 3:16 PM LABORATORIES - 1.0 x 0.5 x 0.2 cm pale ac-mclaughlin skin shave biopsy. [facility] Previously applied ink partially obscures the skin surface. CAMPUS There is a 0.2 x 0.1 cm light ac pigmented slightly raised lesion with ill-defined borders eccentrically located on the skin surface, abutting the periphery. ??The specimen is trisected and submitted entirely cassette A1. Grossed by MAGY. Participated in Flori 06/17/2018 [facility] kellen Gordillo, 3:16 PM LABORATORIES - Interpretation M.Darryn-Pathology [facility] Report Tamika Robins 06/17/2018 [facility] electronically Feliberto Coats 3:16 PM LABORATORIE S - signed by [facility] 06/17/2018 [facility] 3:16 PM LABORATORIES - [facility] Interpetation FINAL DIAGNOSIS 06/17/2018 [facility] ??DermPath Consult Wet Tissue; Left posterior forearm, 3:16 PM LABORATORIES - Skin shave biopsy: ??Verrucal keratosis with prurigo [facility] nodule-like features [place] Specimen Anatomical Collection Method Collection Time Receive d Time (Source) Location / / Volume Laterality Tissue 06/10/2018 10:20 06/11/[address] [facility] [facility] 11:[address] [facility] Narrative This result has an attachment that is no t available. Leela Linares M.D. LAB PATH DERM ORDERABLES Performing Organization Address City/State/ZIP Code Phon e Number [facility] LAB[facility]ATORIES - [address] documented in this encounter Visit Diagnoses Diagnosis Tumor Skin Uncertain Behavior - Primary Lesion Skin documented in this encounter Administered Medications Inactive Administered Medications - up to 3 most recent administrations Medication Order MAR Action Action Date Dose Rate Site lidocaine-EPINEPHrine 1 %-1:100,000 Given 06/10/2018 11:00 AM CS T 1 mL injection 1 mL (XYLOCAINE W/EPI) 1 mL, infiltration, Once, On Sat06/10/18 at 1030, For 1 dose documented in this encounter
--- OUTSIDE RECORDS SUMMARY | 2022-04-11 15:04 | XMS_ITS | Encounter Summary ---
:1945 Author Organization [facility] Address [address] [place] [address] Care Team Providers Name Role Phone Unavailable Primary Care Provider Unavailable Encounter Details Date Type Department Care Team Description 04/01/2018 Hospital Encounter Department of Vitor, Hon-Chi, Atrial Fibrillation Cardiovascular Diseases Feliberto, Ph .D. Personal History in [facility] yulia [address] [facility] [address] [place] [phone] Social History Tobacco Use Types Packs/Day Years [...] More than 4 times per year 12/12/2021 jew services? Do you belong to any clubs [...] Procedure Cardiovascular Disease Milla Lew M.D. [address] [place] [phone] 04/19/2022 Appointment Laboratory Medicine Sherrie Lew M.D. [address] [place] [phone] 04/19/2022 Office Visit Infectious Diseases Max Aguilar D.O. [address] [place] [phone] 04/20/2022 Comprehensive Visit Allergy and Immunology Kavon Ahmadi M.D., M.S. [address] [place] [phone] documented as of this encounter Procedures Procedure Name Priority Date/Time Associated Diagnosis Comme [facility] HOLTER MONITOR - IN Routine 04/01/2018 9:33 AM Atrial Fibrilla tion Results for this CLINIC CHLORINATION OPERATOR CDT Personal History procedure are in the results section. documented in this encounter Results HOLTER MONITOR - IN CLINIC CHLORINATION OPERATOR (04/01/2018 9:33 AM CDT) [facility] Method Time Signature Recording Date [id number] HOLTER SENTINEL Analysis Date 180,829 HOLTER SENTINEL Max Heart Rate 116 bpm HOLTER SENTINEL Max Heart Rate [id number] HOLTER Time SENTINEL Min Heart Rate 54 bpm HOLTER SENTINEL Min Heart Rate [id number] HOLTER Time SENTINEL Mean Heart 74 bpm HOLTER Rate SENTINEL Holter Pauses 21 count HOLTER SENTINEL Pause Longest 2.55 s HOLTER SENTINEL Tachycardia 0 count HOLTER Runs SENTINEL Bradycardia 0 count HOLTER Runs SENTINEL VT Runs 0 count HOLTER SENTINEL AIVR/IVR Runs 0 count HOLTER SENTINEL VE Total Beats 2,054 count HOLTER SENTINEL VE Percent 2 percent HOLTER Beats SENTINEL VE Max Per 235 count HOLTER Hour SENTINEL VE Max Per HOLTER Hour Time SENTINEL AF Count 1 count HOLTER SENTINEL SVT Runs 0 count HOLTER SENTINEL SVE Total 0 count HOLTER Beats SENTINEL SVE Percent 0 percent HOLTER Beats SENTINEL SVE Max Per 0 count HOLTER Hour SENTINEL SVE Max Per [id number] HOLTER Hour Time SENTINEL Specimen (Source) Anatomical Collection Method Collection Time Re ceived Time Location / / Volume Laterality 04/01/2018 9:33 AM CDT Narrative This result has an attachment that is no t available. Nadiya Adler M.D., Ph.D. CV CARDIAC SERVICES PROCEDUR ES Performing Organization Address City/State/ZIP Code Phon e Number HOLTER SENTINEL HOLTER SENTINEL NA documented in this encounter Visit Diagnoses Diagnosis Atrial Fibrillation Personal History documented in this encounter
--- OUTSIDE RECORDS SUMMARY | 2022-04-11 15:04 | XMS_ITS | Encounter Summary ---
:1945 Author Organization [facility] Address [address] [place] [address] Care Team Providers Name Role Phone Unavailable Primary Care Provider Unavailable Encounter Details Date Type Department Care Team Description 04/02/2018 Hospital Encounter Department of Vitor, Hon-Chi, Atrial Fibrillation Radiology, Glenn Dao, Ph.D. Personal History Building, in [address] [place] [address] [place] [phone] [place], [place] [phone] (Work) [phone] Social History Tobacco Use Types Packs/Day Years [...] or relatives? How often do you attend bahai or More than 4 times per year 12/12/2021 tenriism services? Do you belong to any clubs or Yes 12/12/2021 organizations such as bahai groups, unions, fraternal or athletic groups, or [...] Cardiovascular Disease Milla Lew M.D. [address] [place] [phone] 04/19/2022 Appointment Laboratory Medicine Sherrie Lew M.D. [address] [place] [phone] 04/19/2022 Office Visit Infectious Diseases Max Aguilar D.O. [address] [place] [phone] 04/20/2022 Comprehensive Visit Allergy and Immunology Kavon Ahmadi M.D., M.S. [address] [place] [phone] documented as of this encounter Procedures Procedure Name Priority Date/Time Associated Comments Diagnosis DX CHEST AP OR PA RAD - Routine 04/02/2018 2:38 Atrial Fibrillation Results for this AND LATERAL 2 (most inpatients PM CDT Personal History proced ure are in VIEWS and all the results outpatients) section. documented in this encounter Results DX Chest AP or PA and Lateral 2 Views (04/02/2018 2:38 PM CDT) Anatomical Region Laterality Modality Chest, Thoracic RST LOS N/A Digital Radiogra phy Specimen (Source) Anatomical Collection Method Collection Time Re ceived Time Location / / Volume Laterality 04/02/2018 2:58 PM CDT Impressions 04/02/2018 3:04 PM CDT IMPRESSION: ??Rotated positioning. Mild cardiomegaly with mild dextroposition of the heart. Mildly tortuous and ectatic a delroy. Segmental elevation right hemidiaphragm. Abdominal surgical clips. Hypertrophic changes spine. Narrative 04/02/2018 3:04 PM CDT EXAM: ??DX CHEST AP OR PA AND LATERAL 2 VIEWS Procedure Note Brianda Diaz M.D. - 04/02/2018For matting of this note might be different from the original. EXAM: DX CHEST AP OR PA AND LATERAL 2 EWS IMPRESSION: Rotated positioning. Mild ca rdiomegaly with mild dextroposition of the heart. Mildly tortuous and ectatic a delroy. Segmental elevation right hemidiaphragm. Abdominal surgical clips. Hypertrophic changes spine. Nadiya Adlre M.D., Ph.D. IMG DIAGNOSTIC IMAGING UMAIR SAUCEDO documented in this encounter Visit Diagnoses Diagnosis Atrial Fibrillation Personal History documented in this encounter
--- OUTSIDE RECORDS SUMMARY | 2022-04-11 15:04 | XMS_ITS | Encounter Summary ---
:1945 Author Organization [facility] Address [address] [place] [address] Care Team Providers Name Role Phone Unavailable Primary Care Provider Unavailable Encounter Details Date Type Department Care Team Description 04/11/2018 Documentation Department of Cardiovascular Jarvis Lynn M.D. Medicine in [place], [place] [address] [place] [phone] Social History Tobacco Use Types Packs/Day [...] or relatives? How often do you attend yazdanism or More than 4 times per year 12/12/2021 baptism services? Do you belong to any clubs or Yes 12/12/2021 organizations such as yazdanism groups, unions, fraternal or athletic groups, or [...] to sleep or slept in a senior living (including now)? Sex Assigned at Date Recorded Male 04/03/2018 7:54 AM CDT documented as of this encounter Progress Notes Jarvis Lynn M.D. - 04/11/2018 11:07 AM CDT Mr. Mendez is a very pleasant 72 years old gentleman with history of atrial fibrillation and recent decrease in left ventricular systolic function. We are not sure LV systolic dysfunction is becauseof atrial fibrillation. We ordered a nuclear stress test to rule out coronary artery disease or old infarction. Nuclear stress test showed fixed perfusion defect consistent with old infarct or Artifact. We are going to proceed with cardiac MRI to rule out old infarction, coronary artery disease or anymyocardial disease. Mr. Mendez is okay with this plan. documented in this encounter Plan of Treatment Upcoming Encounters Date Type Specialty Care Team Description 04/16/2022 Clinical Communication Admitting/Central Scheduling 04/19/2022 Ancillary Procedure Cardiovascular Disease Milla Lew M.D. 200 [place] [phone] 04/19/2022 Appointment Laboratory Medicine Sherrie Lew M.D. 200 [place] [phone] 04/19/2022 Office Visit Infectious Diseases Max Aguilar, Rufino [address] [place] [address] 04/20/2022 Comprehensive Visit Allergy and Immunology Kavon Ahmadi M.D., M.S. [address] [place] [phone] documented as of this encounter Visit Diagnoses Not on filedocumented in this encounter
--- OUTSIDE RECORDS SUMMARY | 2022-04-11 15:04 | XMS_ITS | Encounter Summary ---
:1945 Author Organization [facility] Address [address] [place] [address] Care Team Providers Name Role Phone Unavailable Primary Care Provider Unavailable Encounter Details Date Type Department Care Team Description 04/04/2018 Hospital Encounter Department of Radiology, Tila Lynn M.D. [facility], in [place], [place] [address] [place] [phone] Social History Tobacco Use Types Packs/Day [...] More than 4 times per year 12/12/2021 congregational services? Do you belong to any clubs [...] Cardiovascular Disease Milla Lew M.D. [address] [place] [phone] 04/19/2022 Appointment Laboratory Medicine Sherrie Lew M.D. [address] [place] [phone] 04/19/2022 Office Visit Infectious Diseases Max Aguilar D.O. [address] [place] [phone] 04/20/2022 Comprehensive Visit Allergy and Immunology Kavon Ahmadi M.D., M.S. [address] [place] [phone] documented as of this encounter Procedures Procedure Name Priority Date/Time Associated Comments Diagnosis NM CARDIAC RAD - Routine 04/04/2018 10:30 Unspecified Results fo r this PERFUSION REST (most inpatients AM CDT Systolic procedure are in AND STRESS SPECT and all (Congestive) Heart the r esults outpatients) Failure (HCC) section. documented in this encounter Visit Diagnoses Not on filedocumented in this encounter Administered Medications Inactive Administered Medications - up to 3 most recent administrations Medication Order MAR Action Action Date Dose Rate Site technetium Tc 99m Given 04/04/2018 10:45 AM 10.8 millicuries sestamibi injection CDT (Tc-99m SESTAMIBI) 10.8 millicurie, intravenous, Once, On Sat04/04/18 at 1045, For 1 dose documented in this encounter
--- OUTSIDE RECORDS SUMMARY | 2022-04-11 15:04 | XMS_ITS | Encounter Summary ---
:1945 Author Organization [facility] Address [address] [place] [address] Care Team Providers Name Role Phone Unavailable Primary Care Provider Unavailable Reason for Visit Reason Comments Skin Check Appointment Request (Routine) - Closed Specialty Diagnoses / Procedures Referred By Contact Refer red To Contact Family Medicine Referral ID Status Reason Start Date Expiration Date Visits Requ ested Visits Authorized [id number] Closed 03/26/2018 03/26/2019 1 Encounter Details Date Type Department Care Team Description 06/03/2018 Office Visit Department of Leela Linares, Lesion Nury n (Primary Dx); Dermatology in [place] Keratosis Seborrheic; [place], [place] [address] [facility] Keratosis Actinic [address] [place] [phone] Social History Tobacco Use Types Packs/Day Years [...] More than 4 times per year 12/12/2021 hoahaoism services? Do you belong to any clubs [...] encounter Progress Notes Leela Linares M.D. - 06/03/2018 8:30 AM CDT CHIEF COMPLAINT/REASON FOR VISIT Skin cancer recheck HISTORY OF PRESENT ILLNESS Mr. Truong Mendez is a 72 y.o. male who presents today for a full skin cancer screening examination. 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 He also has a history of basal cell carcinomas involving the right cheek and right neck. Patient denies history of melanoma; however, his father had ocular melanoma and his brother also had melanoma. Today, the patient would like to have a lesion involving his left distal arm evaluated. He states the lesion has been present for multiple decades without change; however he does report the lesion has been dry. He does pick at the lesion and previously has deferred biopsies when discussed given that he picks at it and has been chronic for or over 15 years. He was previously applying Vaseline twice daily to the lesion with significant improvement but recently stopped the Vaseline as he did not experience any improvement. Allergies Allergen Reactions ??? Hydrocodone-Acetaminophen GI intolerance Intolerance ??? Penicillins Hives ??? Adhesive Tape-Silicones Rash PAST MEDICAL HISTORY 1. Squamous cell carcinoma just under left eye status post Mohs surgery in May 2016 2. History of basal cell carcinomas in right cheek and neck status post excision, done elsewhere. 3. History of right knee replacement in 2017 FAMILY HISTORY Father has history ocular melanoma. Brother has history of melanoma. PHYSICAL EXAM General: Awake, alert, in no acute distress, and with appropriate affect. Eyes: No scleral injection or icterus. No eyelid abnormalities. Lymph: No lower extremity edema. Skin: I have examined the scalp, face, neck, chest, abdomen, back, bilateral upper extremities, and bilateral lower extremities. Examination of the right cheek and right neck reveals scars with no evidence of recurrence for previous basal cell carcinoma. Examination of the left intraorbital area reveals no evidence of recurrence of squamous cell carcinoma. Examination of the face and arms reveals actinic keratoses, including right upper cheek x 2, left bahai x 2, right forehead x 1, and left elbow x 1. Examination of the right arm reveals some bruising and small erosion from a trauma wound with noevidence of infection. Examination of the left distal arm reveals 1.8 cm x 1.6 cm crusted prurigo nodule. Examination of the face and trunk reveals multiple seborrheic keratoses. Otherwise, examinationof the skin reveals few benign nevi. IMPRESSION/REPORT/PLAN #1 Face and arms: Actinic keratoses x 6 CONSENT Discussed the risks, benefits, alternatives, and [...] a total of 6 lesion(s) with two 20-second freeze-thaw cycles of liquid nitrogen cryotherapy. The patient tolerated the procedure well. Aftercare instructions were provided in written and verbal form to the patient. Should any of these lesions recur, the patient should return for biopsy or further evaluation. Follow up in 1-2 months for recheck if these do not completely resolve. 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 Rule out squamous cell carcinoma The patient has had the nodule for multiple decades without change; however, given the patient's history of multiple non-melanoma skin cancers, I recommended shave biopsy just to be safe. He has previously deferred biopsy given the chronicity of the lesion and the fact that he does pick at it. I recommend the patient return during procedure clinic on 06/10/18 for shave biopsy. The patient had a recentright knee revision in 2017 and he is uncertain of his orthopedist's recommendations regarding prophylactic antibiotics for skin biopsies. The patient typically takes clindamycin given his penicillin allergy. I have instructed the patient to follow up with his orthopedist regarding the use of prophylactic antibiotics, and the patient will update me on the discussion. I did discuss with him that we usually do not require prophylactic antibiotics in this situation. In the meantime, I recommend patientresume use of Vaseline ointment twice daily to the involved area. #3 Face and trunk: Seborrheic keratoses The benign nature of the skin lesion(s) was discussed with the patient. No treatment is required. I recommend continued observation. Should symptoms or changes develop related to this condition, I would recommend a return visit for reassessment. #4 History of non-melanoma skin cancers No evidence of recurrence on clinical examination today. Follow up immediately if any evidence of recurrence. #5 Multiple nevi The ABCDE criteria for melanoma [...] new or changing lesions are noted. PATIENT EDUCATION Ready to learn. No apparent learning barriers were identified. Learning preferences include listening. Explained diagnosis and treatment plan; patient/guardian of patient expressed understanding of thecontent. By signing my name below, I, Ana Bradley, attest that this documentation has been prepared under the direction and in the presence of Leela Linares M.D.. Electronically Signed: sadie Kirk. 06/03/2018. 7:49 AM . Leela Ashley M.D., personally performed the services described in this documentation. All medical record entries made by the scribe were at my direction and in my presence. I have reviewed the chart and discharge instructions (if applicable) and agree that the record reflects my personal performance and is accurate and complete. Leela Linares M.D. . 06/03/2018. 9:51 AM. documented in this encounter Plan of Treatment Upcoming Encounters Date Type Specialty Care Team Description 04/16/2022 Clinical Communication Admitting/Central Scheduling 04/19/2022 Ancillary Procedure Cardiovascular Disease Milla Lew M.D. [address] [place] [phone] 04/19/2022 Appointment Laboratory Medicine Sherrie Lew M.D. [address] [place] [phone] 04/19/2022 Office Visit Infectious Diseases Max Aguilar, D.O. [address] [place] [phone] 04/20/2022 Comprehensive Visit Allergy and Immunology Kavon Ahmadi M.D., M.S. [address] [place] [phone] Scheduled Orders Name Type Priority Associated Diagnoses Order S chedule Dermatology misc minor Dermatology Routine Lesion Skin Expec emory: 06/10/2018 procedure (Approximate), Expires: 2020 documented as of this encounter Visit Diagnoses Diagnosis Lesion Skin - Primary Keratosis Seborrheic Keratosis Actinic documented in this encounter
--- OUTSIDE RECORDS SUMMARY | 2022-04-11 15:04 | XMS_ITS | Encounter Summary ---
:1945 Author Organization [facility] Address [address] [place] [address] Care Team Providers Name Role Phone Elsewhere, Pcp Primary Care Provider Unavailable Encounter Details Date Type Department Care Team Description 02/28/2018 [facility] Choco Masters Persistent Atrial AND DUSTY Carvajal M.D. Fibrillation (Primary [address] [facility] Dx) [place] [address] [phone] Social History Tobacco Use Types Packs/Day Years [...] or relatives? How often do you attend zoroastrian or More than 4 times per year 12/12/2021 nondenominational services? Do you belong to any clubs or Yes 12/12/2021 organizations such as zoroastrian groups, unions, fraternal or athletic groups, or [...] or slept in a usp (including now)? Sex Assigned at Date Recorded Male 04/03/2018 7:54 AM CDT documented as of this encounter Plan of Treatment Upcoming Encounters Date Type Specialty Care Team Description 04/16/2022 Clinical Communication Admitting/Central Scheduling 04/19/2022 Ancillary Procedure Cardiovascular Disease Milla Lew M.D. [address] [place] [phone] 04/19/2022 Appointment Laboratory Medicine Sherrie Lew M.D. [address] [place] [phone] 04/19/2022 Office Visit Infectious Diseases Max Aguilra, D.ODale [address] [place] [phone] 04/20/2022 Comprehensive Visit Allergy and Immunology Kavon Ahmadi M.D., M.S. [address] [place] [phone] documented as of this encounter Visit Diagnoses Diagnosis Persistent Atrial Fibrillation - Primary documented in this encounter Care Teams Clip Loading Machine Feeder Relationship Specialty Start Date End Date Elsewhere, Pcp PCP - General Internal Medicine 12/26/21 documented as of this encounter
--- OUTSIDE RECORDS SUMMARY | 2022-04-11 15:04 | XMS_ITS | Encounter Summary ---
:1945 Author Organization [facility] Address [address] [place] [address] Care Team Providers Name Role Phone Unavailable Primary Care Provider Unavailable Encounter Details Date Type Department Care Team Description 04/01/2018 Hospital Encounter Department of Vitor, Hon-Chi, Atrial Fibrillation Laboratory Medicine MJensen., Ph.D. Personal History and Pathology, [address] [facility] in [place], [place] [address] [place] [address] [place], [place] (Work) [phone] Social History Tobacco Use Types Packs/Day Years [...] or relatives? How often do you attend synagogue or More than 4 times per year 12/12/2021 shinto services? Do you belong to any clubs or Yes 12/12/2021 organizations such as synagogue groups, unions, fraternal or athletic groups, or [...] Admitting/Central Scheduling 04/19/2022 Ancillary Procedure Cardiovascular Disease Vipin, Mar y J, M.D. [address] [place] [phone] 04/19/2022 Appointment Laboratory Medicine Sherrie Lew M.D. [address] [place] [phone] 04/19/2022 Office Visit Infectious Diseases Max Aguilar, Rufino [address] [place] [address] 04/20/2022 Comprehensive Visit Allergy and Immunology Kavon Ahmadi M.D., M.S. [address] [place] [phone] documented as of this encounter Procedures Procedure Name Priority Date/Time Associated Diagnosis Comme nts BUN (BLOOD UREA Routine 04/01/2018 8:06 AM Atrial Fibrillation Results for this NITROGEN), S/P CDT Personal History procedure are in the results section. SODIUM, S/P Routine 04/01/2018 8:06 AM Atrial Fibrillation Re sults for this CDT Personal History procedure a re in the results section. POTASSIUM, S/P Routine 04/01/2018 8:06 AM Atrial Fibrillation Results for this CDT Personal History procedure a re in the results section. GLUCOSE, FASTING, Routine 04/01/2018 8:06 AM Atrial Fibrillati on Results for this S/P CDT Personal History procedure a re in the results section. CREATININE WITH Routine 04/01/2018 8:06 AM Atrial Fibrillation Results for this EGFR, S/P CDT Personal History procedure a re in the results section. documented in this encounter Results (ABNORMAL) Glucose, Fasting (04/01/2018 8:06 AM CDT) P athologist Signature Glucose, P 114 (H) 70 - 100 04/01/2018 [facility] mg/dL 9:08 AM T [facility] Last Intake 12 hr 04/01/2018 [facility] 8:29 AM T [facility] Specimen Anatomical Collection Method Collection Time Receive d Time (Source) Location / / Volume Laterality Blood (Blood, 04/01/2018 8:06 AM 04/01/20 18 8:29 Venous) CDT AM CDT Nadiya Adler M.D., Ph.D. LAB BLOOD NON ADD-ON Performing Organization Address City/[facility] Phon e Number [facility] LABORATORIES - [address] [place] [phone] 05 [facility] BUN (Blood Urea Nitrogen) (04/01/2018 8:06 AM CDT) P athologist Signature BUN (Blood 16 8 - 24 04/01/2018 [facility] Urea mg/dL 9:35 AM CDT LABORATORIES - Nitrogen), S [facility] Specimen Anatomical Collection Method Collection Time Receive d Time (Source) Location / / Volume Laterality Blood (Blood, 04/01/2018 8:06 AM 04/01/20 18 8:29 Venous) CDT AM CDT Nadiya Adler M.D., Ph.D. LAB BLOOD ADD-ON Performing Organization Address City/[facility] Code Phon e Number [facility] LABORATORIES - [address] [place] [address] 05 [facility] Creatinine with Estimated GFR (04/01/2018 8:06 AM CDT) Analysis Performed At Patho logist Time Signature Creatinine 1.00 0.74 - 04/01/2018 [facility] 1.35 mg/dL 9:35 AM CDT LABORATORIES - [facility] eGFR-Non 74 >=60 04/01/2018 [facility] Black/ mL/min/BSA 9:35 AM CDT LABORATORIES - [facility] Comment: ----ADDITIONAL INFORMATION---- Estimated GFR calculated using the 2009 CKD_EPI creatinine equation. eGFR-Black/ 86 >=60 mL/min/BSA 04/01/2018 9:35 [facility] Jordanian AM CDT LABORATORIES - [facility] Comment: ----ADDITIONAL INFORMATION---- Estimated GFR calculated using the 2009 CKD_EPI creatinine equation. Specimen Anatomical Collection Method Collection Time Receive d Time (Source) Location / / Volume Laterality Blood (Blood, 04/01/2018 8:06 AM 04/01/20 18 8:29 Venous) CDT AM CDT Nadiya Adler M.D., Ph.D. LAB BLOOD ADD-ON Performing Organization Address City/State/ZIP Code Phon e Number [facility] LABORATORIES - [address] [place] [address] 05 [facility] Potassium (04/01/2018 8:06 AM CDT) P athologist Signature Potassium, S 4.9 3.6 - 5.2 04/01/2018 [facility] mmol/L 9:35 AM CDT LABORATORIES [facility] Specimen Anatomical Collection Method Collection Time Receive d Time (Source) Location / / Volume Laterality Blood (Blood, 04/01/2018 8:06 AM 04/01/20 18 8:29 Venous) CDT AM CDT Nadiya Adler M.D., Ph.D. LAB BLOOD ADD-ON Performing Organization Address City/[facility]/ZIP Code Phon e Number [facility] LABORATORIES - [address] [place] [address] 05 [facility] Sodium (04/01/2018 8:06 AM CDT) P athologist Signature Sodium, S 140 135 - 145 04/01/2018 [facility] mmol/L 9:35 AM CDT LABORATORIES - [facility] Specimen Anatomical Collection Method Collection Time Receive d Time (Source) Location / / Volume Laterality Blood (Blood, 04/01/2018 8:06 AM 04/01/20 18 8:29 Venous) CDT AM CDT Nadiya Adler M.D., Ph.D. LAB BLOOD ADD-ON Performing Organization Address City/State/ZIP Code Phon e Number [facility] LABORATORIES - [address] [place] [address] 05 [facility] documented in this encounter Visit Diagnoses Diagnosis Atrial Fibrillation Personal History documented in this encounter
--- OUTSIDE RECORDS SUMMARY | 2022-04-11 15:04 | XMS_ITS | Encounter Summary ---
:1945 Author Organization [facility] Address [address] [place] [address] Care Team Providers Name Role Phone Unavailable Primary Care Provider Unavailable Reason for Visit Reason Comments Nail Problem Encounter Details Date Type Department Care Team Description 02/24/2018 Office Visit Department of Leela Linares Hematoma S ubungual Dermatology in [place], [place] [address] (Primary Dx) [place] [phone] Social History Tobacco Use Types Packs/Day Years [...] or relatives? How often do you attend worship or More than 4 times per year 12/12/2021 denominational services? Do you belong to any clubs or Yes 12/12/2021 organizations such as worship groups, unions, fraternal or athletic groups, or [...] or slept in a retirement (including now)? Sex Assigned at Date Recorded Male 04/03/2018 7:54 AM CDT documented as of this encounter Progress Notes Leela Linares M.D. - 02/24/2018 1:30 PM CDT CHIEF COMPLAINT/REASON FOR VISIT Skin cancer recheck HISTORY OF PRESENT ILLNESS Mr. Truong Mendez is a 72 y.o. male who presents today for a recheck of his left second toenail subungual hemorrhage. 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 He has also had basal cell carcinoma prior to that. No areas of concern today. The patient reports that when his toenails were last trimmed the darkened area had completely grown out. Allergies Allergen Reactions ??? Hydrocodone-Acetaminophen GI intolerance Intolerance ??? Penicillins Hives ??? Adhesive Tape-Silicones Rash PAST MEDICAL HISTORY 1. Squamous cell carcinoma just under left eye status post Mohs surgery in May 2016 2. History of basal cell carcinoma FAMILY HISTORY No family history for melanoma. PHYSICAL EXAM General: Awake, alert, in no acute distress, and with appropriate affect. Eyes: No scleral injection or icterus. No eyelid abnormalities. Lymph: No lower extremity edema. Skin: Examination of the left second toenail reveals no subungual hemorrhage. No discoloration of proximal nail fold. IMPRESSION/REPORT/PLAN #1 Left second toenail: History of subungual hemorrhage, completely resolved No evidence of subungual hemorrhage. Follow up as needed. #2 History of squamous cell carcinoma and basal cell carcinoma He will be due back in May 2018 for a full skin cancer screening exam PATIENT EDUCATION Ready to learn. No apparent learning barriers were identified. Learning preferences include listening. Explained diagnosis and treatment plan; patient/guardian of patient expressed understanding of thecontent. By signing my name below, I, Tyler Koch, attest that this documentation has been prepared underthe direction and in the presence of Leela Linares M.D.. Electronically Signed: sadie Rogers. 02/24/2018. 2:08 PM . I, Leela Linares M.D., personally performed the services described in this documentation. All medical record entries made by the scribe were at my direction and in my presence. I have reviewed the chart and discharge instructions (if applicable) and agree that the record reflects my personal performance and is accurate and complete. Leela Linares M.D. . 02/24/2018. 2:34 PM. documented in this encounter Plan of Treatment Upcoming Encounters Date Type Specialty Care Team Description 04/16/2022 Clinical Communication Admitting/Central Scheduling 04/19/2022 Ancillary Procedure Cardiovascular Disease Milla Lew M.D. [address] [place] [phone] 04/19/2022 Appointment Laboratory Medicine Sherrie Lew M.D. [address] [place] [phone] 04/19/2022 Office Visit Infectious Diseases Max Aguilar, D.O. [address] [place] [phone] 04/20/2022 Comprehensive Visit Allergy and Immunology Kavon Ahmadi M.D., M.S. [address] [place] [phone] documented as of this encounter Visit Diagnoses Diagnosis Hematoma Subungual Lesser Toenail Subseq uent Left - Primary documented in this encounter
--- OUTSIDE RECORDS SUMMARY | 2022-04-11 15:04 | XMS_ITS | Encounter Summary ---
:1945 Author Organization [facility] Address [address] [place] [address] Care Team Providers Name Role Phone Unavailable Primary Care Provider Unavailable Encounter Details Date Type Department Care Team Description 03/06/2018 Orders Only Department of Vitor, Hon-Chi, Atrial Fibril lation Cardiovascular Medicine MJensen., Ph .D. Personal History in [facility] yulia [address] [facility] (Primary Dx) [address] [place] [phone] Social History Tobacco Use Types Packs/Day Years [...] or relatives? How often do you attend rastafari or More than 4 times per year 12/12/2021 lutheran services? Do you belong to any clubs or Yes 12/12/2021 organizations such as rastafari groups, unions, fraternal or athletic groups, or [...] Cardiovascular Disease Milla Lew M.D. [address] [place] [phone] 04/19/2022 Appointment Laboratory Medicine Sherrie Lew M.D. [address] [place] [phone] 04/19/2022 Office Visit Infectious Diseases Max Aguilar, D.O. [address] [place] [phone] 04/20/2022 Comprehensive Visit Allergy and Immunology Kavon Ahmadi M.D., M.S. [address] [place] [phone] documented as of this encounter Results DX [...] Abdominal surgical clips. Hypertrophic changes spine. Nadiya Adler M.D., Ph.D. IMG DIAGNOSTIC IMAGING PROCE DURES (TTE) 2D ECHO DOPPLER COLOR AND CONTRAST (04/01/2018 2:46 PM CDT) Analysis Performed At [facility] Time Signature Ejection Fraction 40 [facility] CV [...] Nadiya Adler M.D., Ph.D. CV ECHO PROCEDURES HOLTER MONITOR - IN CLINIC DIE CASTING MACHINE OPERATOR (04/01/2018 9:33 AM CDT) [facility] gist Method Time Signature Recording Date [id number] HOLTER SENTINEL Analysis Date 20180,829 HOLTER SENTINEL Max Heart Rate 116 bpm HOLTER SENTINEL Max Heart Rate [id number] HOLTER Time SENTINEL Min Heart Rate 54 bpm HOLTER SENTINEL Min Heart Rate [id number] HOLTER Time SENTINEL Mean Heart 74 bpm [...] count HOLTER Hour SENTINEL SVE Max Per [id number] HOLTER Hour Time SENTINEL Specimen (Source) Anatomical Collection Method Collection Time Re ceived Time Location / / Volume Laterality 04/01/2018 9:33 AM CDT Narrative This result has an attachment that is no t available. Nadiya Adler M.D., Ph.D. CV CARDIAC SERVICES PROCEDUR ES Performing Organization Address City/State/ZIP Code Phon e Number HOLTER SENTINEL HOLTER SENTINEL NA ECG 12 Lead (04/01/2018 8:19 AM CDT) Patholo gist Method Time Signature Ventricular 87 BPM MUSE Rate ECG/Min QRSD Interval 94 ms MUSE QT Interval 368 ms MUSE QTC Interval 442 ms MUSE R [place] 22 degrees MUSE T Wave [place] 19 degrees MUSE CODED Atrial MUSE DIAGNOSIS fibrillation Specimen Anatomical Collection Method Collection Time Receive d Time (Source) Location / / Volume Laterality 04/01/2018 8:19 AM 8 8:33 CDT AM CDT Impressions MUSE - 04/01/2018 8:33 AM CDT Atrial fibrillation with premature ventricular or aberrantly conducted complexes Nonspecific ST and T wave abnormality No previous ECGs available Narrative This result has an attachment that is no t available. Nadiya Adler M.D., Ph.D. ECG ORDERABLES Performing Organization Address City/State/ZIP Code Phon e Number MUSE MUSE NA (ABNORMAL) Glucose, Fasting (04/01/2018 8:06 AM CDT) P athologist Signature Glucose, P 114 (H) 70 - 100 04/01/2018 [facility] mg/dL 9:08 AM CDT LABORATORIES - [facility] Last Intake 12 hr 04/01/2018 [facility] 8:29 AM CDT LABORATORIES - [facility] Specimen Anatomical Collection Method Collection Time Receive d Time (Source) Location / / Volume Laterality Blood (Blood, 04/01/2018 8:06 AM 04/01/20 18 8:29 Venous) CDT AM CDT Nadiya Adler M.D., Ph.D. LAB BLOOD NON ADD-ON Performing Organization Address City/[facility]/ZIP Code Phon e Number [facility] LABORATORIES - [address] [place] [address] [address] [facility] BUN (Blood Urea Nitrogen) (04/01/2018 8:06 AM CDT) P athologist Signature BUN (Blood 16 8 - 24 04/01/2018 [facility] Urea mg/dL 9:35 AM CDT LABORATORIES - Nitrogen), S [facility] Specimen Anatomical Collection Method Collection Time Receive d Time (Source) Location / / Volume Laterality Blood (Blood, 04/01/2018 8:06 AM 04/01/20 18 8:29 Venous) CDT AM CDT Nadiya Adler M.D., Ph.D. LAB BLOOD ADD-ON Performing Organization Address City/State/[facility] Code Phon e Number [facility] LABORATORIES - [address] [place] [address] [facility] Creatinine with Estimated GFR (04/01/2018 8:06 AM CDT) Analysis Performed At Patho logist Time Signature Creatinine 1.00 0.74 - 04/01/2018 [facility] 1.35 mg/dL 9:35 AM CDT LABORATORIES - [facility] eGFR-Non 74 >=60 04/01/2018 [facility] Black/ mL/min/BSA 9:35 AM CDT LABORATORIES - [facility] Comment: ----ADDITIONAL INFORMATION---- Estimated GFR calculated using the 2009 CKD_EPI creatinine equation. eGFR-Black/ 86 >=60 mL/min/BSA 04/01/2018 9:35 [facility] Kittitian AM CDT LABORATORIES - [facility] Comment: ----ADDITIONAL INFORMATION---- Estimated GFR calculated using the 2009 CKD_EPI creatinine equation. Specimen Anatomical Collection Method Collection Time Receive d Time (Source) Location / / Volume Laterality Blood (Blood, 04/01/2018 8:06 AM 04/01/20 18 8:29 Venous) CDT AM CDT Nadiya Adler M.D., Ph.D. LAB BLOOD ADD-ON Performing Organization Address City/State/ZIP Code Phon e Number [facility] LABORATORIES - [address] [place] [address] [address] [facility] Potassium (04/01/2018 8:06 AM CDT) P athologist Signature Potassium, S 4.9 3.6 - 5.2 04/01/2018 [facility] mmol/L 9:35 AM CDT LABORATORIES - [facility] Specimen Anatomical Collection Method Collection Time Receive d Time (Source) Location / / Volume Laterality Blood (Blood, 04/01/2018 8:06 AM 04/01/20 18 8:29 Venous) CDT AM CDT Nadiya Adler M.D., Ph.D. LAB BLOOD ADD-ON Performing Organization Address City/[facility]/ZIP Code Phon e Number [facility] LABORATORIES - [address] [place] [address] [address] [facility] Sodium (04/01/2018 8:06 AM CDT) P athologist Signature Sodium, S 140 135 - 145 04/01/2018 [facility] mmol/L 9:35 AM CDT [facility] Specimen Anatomical Collection Method Collection Time Receive d Time (Source) Location / / Volume Laterality Blood (Blood, 04/01/2018 8:06 AM 04/01/20 18 8:29 Venous) CDT AM CDT Nadiya Adler M.D., Ph.D. LAB BLOOD ADD-ON Performing Organization Address City/State/ZIP Code Phon e Number [facility] LABORATORIES - [address] [place] [address] [address] [facility] documented in this encounter Visit Diagnoses Diagnosis Atrial Fibrillation Personal History - P rimary Atrial Fibrillation Personal History Atrial Fibrillation Personal History documented in this encounter
--- OUTSIDE RECORDS SUMMARY | 2022-04-11 15:04 | XMS_ITS | Encounter Summary ---
:1945 Author Organization [facility] Address [address] [place] [address] Care Team Providers Name Role Phone Unavailable Primary Care Provider Unavailable Encounter Details Date Type Department Care Team Description 04/04/2018 Hospital Encounter Department of Shane, Jarvis, Unspecif ied Systolic Radiology, Sidney Dao (Congestive ) Heart Building, in Failure (HCC) [place], [place] [address] [place] [address] Social History Tobacco Use Types Packs/Day Years [...] place to sleep or slept in a prison (including now)? Sex Assigned at Date Recorded [...] Cardiovascular Disease Milla Lew M.D. [address] [place] [phone] 04/19/2022 Appointment Laboratory Medicine Sherrie Lew M.D. [address] [place] [phone] 04/19/2022 Office Visit Infectious Diseases Max Aguilar, [place] [address] [place] [phone] 04/20/2022 Comprehensive Visit Allergy and Immunology Kavon Ahmadi M.D., M.S. 200 [place] [phone] documented as of this encounter Procedures Procedure Name Priority Date/Time Associated Comments Diagnosis NM CARDIAC RAD - Routine 04/04/2018 10:30 Unspecified Results fo r this PERFUSION REST (most inpatients AM CDT Systolic procedure are in AND STRESS SPECT and all (Congestive) Heart the r esults outpatients) Failure (HCC) section. documented in this encounter Results NM Cardiac Perfusion Rest and Stress SPECT (04/04/2018 10:30 AM CDT) Specimen (Source) Anatomical Collection Method Collection Time Re ceived Time Location / / Volume Laterality 04/04/2018 9:08 AM CDT Narrative [facility] CV MERGE - 04/04/2018 12:15 PM CDT This result has an attachment that is no t available. See PDF For Result Jarvis ALVARES NM PROCEDURES Performing Organization Address City/State/ZIP Code Phon e Number [facility] CV MERGE [facility] CV MERGE NA documented in this encounter Visit Diagnoses Diagnosis Unspecified Systolic (Congestive) Heart Failure (HCC) documented in this encounter
--- OUTSIDE RECORDS SUMMARY | 2022-04-11 15:04 | XMS_ITS | Encounter Summary ---
:1945 Author Organization [facility] Address [address] [place] [address] Care Team Providers Name Role Phone Unavailable Primary Care Provider Unavailable Encounter Details Date Type Department Care Team Description 04/18/2018 Documentation Department of Cardiovascular Jarvis Lynn M.D. Medicine in [place], [place] [address] [place] [phone] Social History Tobacco Use Types Packs/Day [...] or relatives? How often do you attend alevism or More than 4 times per year 12/12/2021 episcopal services? Do you belong to any clubs or Yes 12/12/2021 organizations such as alevism groups, unions, fraternal or athletic groups, or [...] encounter Progress Notes Jarvis Lynn M.D. - 04/18/2018 4:48 PM CDT Truong Mendez is a pleasant 72 y.o. old male with history of atrial fibrillation, obesity, hypertension, moderate left ventricular systolic dysfunction, PVCs and obstructive sleep apnea. For for the last couple of days I tried to reach him. I emailed his MRI result and my comments aboutit. Today I called Mr. Mendez and had a nice conversation about atrial fibrillation. Based on testing there is no coronary artery disease or underlying myocardial disease that may cause left ventricular systolic dysfunction. I again explained logic behind atrial fibrillation ablation. I am not sureabout if his symptoms are related to atrial fibrillation. He is not sure if his symptoms improved after cardioversion. He requested more time to think about his symptoms. Next week I am going call him to further discuss about his symptoms and atrial fibrillation ablation. All questions answered. Jarvis Lynn M.D. - 04/18/2018 4:48 PM CDT Truong Mendez??is a pleasant 72 y.o.??old male??with history of atrial fibrillation, obesity, hypertension, moderate left ventricular systolic dysfunction, PVCs and obstructive sleep apnea. After all testing we had a nice conversation with Mr. Mendez. We also exchange e-mails regarding atrial fibrillation. Finally he decided not to proceed with ablation. He states that his symptoms didnot improved after cardioversion. I think this decision is reasonable. I would recommend regular cardiology follow up because of atrial fibrillation, decreased LV functions and his high cardiovascular risk profile. We can schedule it in [place] or he can see a local grades 1 thru 5 teacher. It is my pleasure to be part of Mr. Mendez's care. documented in this encounter Plan of Treatment Upcoming Encounters Date Type Specialty Care Team Description 04/16/2022 Clinical Communication Admitting/Central Scheduling 04/19/2022 Ancillary Procedure Cardiovascular Disease Milla Lew M.D. [address] [place] [phone] 04/19/2022 Appointment Laboratory Medicine Sherrie Lew M.D. [address] [place] [phone] 04/19/2022 Office Visit Infectious Diseases Max Aguilar, D.O. [address] [place] [address] 04/20/2022 Comprehensive Visit Allergy and Immunology Kavon Ahmadi M.D., M.S. [address] [place] [phone] documented as of this encounter Visit Diagnoses Not on filedocumented in this encounter
--- OUTSIDE RECORDS SUMMARY | 2022-04-11 15:04 | XMS_ITS | Encounter Summary ---
:1945 Author Organization [facility] Address [address] [place] [id number] Care Team Providers Name Role Phone Unavailable Primary Care Provider Unavailable Reason for Referral Outpatient (Routine) - Closed Specialty Diagnoses / Referred By Contact Referred To Contact Procedures Cardiovascular Diseases / Diagnoses Shortness Of Breath Jarvis Lynn M.D. [facility] Cardiovascular Disease [address] [place] [address] Referral ID Status Reason Start Date Expiration Date Visits Requ ested Visits Authorized [id number] Closed 05/21/2018 05/21/2019 1 1 Reason for Visit Appointment Request (Routine) - Closed Specialty Diagnoses / Procedures Referred By Contact Refer red To Contact Cardiovascular Disease Choco Masters M.D. [address] [place] [address] Referral ID Status Reason Start Date Expiration Date Visits Requ ested Visits Authorized [id number] Closed 03/05/2018 03/05/2019 1 1 Encounter Details Date Type Department Care Team Description 04/03/2018 Comprehensive Visit Department of Mamadou Adler Systolic (Congestive) Heart Failure (HCC) (Primary Dx); Cardiovascular Medicine Eugenie Hearn tness Of Breath in [facility] yulia Dao, Ph.D. [address] [place] [address] [place] [id number] [facility] [phone] [place] [id number] Social History Tobacco Use Types Packs/Day Years [...] Pressure - - Pulse - - Temperature - - Respiratory Rate - - Oxygen Saturation - - Inhaled Oxygen Concentration - - Weight 143 kg (316 lb 5.8 oz) 04/03/2018 8:15 AM CDT Height 169.5 cm (5' 6.73) 04/03/2018 8:15 AM CDT Body Mass Index 49.95 04/03/2018 8:15 AM CDT documented in this encounter Consult Notes Jarvis Lynn M.D. - 04/03/2018 8:30 AM CDT Heart Rhythm Outpatient Consult Note IMPRESSION / REPORT / PLAN Recent Cardiographics: ECG(04.01.2018):Atrial fibrillation at 87 bpm, RBBB morphology PVC, Mitral annular origin TTE(04.01.06):LVEF 40%,generalizied LV hypokinesis, Normal RV size and function,Mild LA enlargement TTE(2016): LVEF 62%, [id number] Holter ECG(2016):Basic rhythm sinus rhythm at average HR 76bpm. 27% PVC burden, 3-4 beats runs of VTat 129 bpm Holter ECG(04.01.06): baseline rhythm atrial fibrilation, Averahe HR 74 bpm(54-116bpm) 2% PVC burden, , 2.5 pause at 11pm Labs(04.01.2018): Cre 1.0, INR: 3.2(outside-decreased dose after test result) [id number]: 2 Coronary cath-outside-(2011):Normal Truong Mendez is a pleasant 72 y.o. old male with history of atrial fibrillation, obesity, hypertension, moderate left ventricular systolic dysfunction, PVCs and obstructive sleep apnea. Today I met with him during an March heart rhythm clinic visit at [facility]. He was accompanied by his daughter and suppose. First I gave information about his recent test results. ECG showed atrial fibrillation at 85 beats per minute. ECG showed right bundle block morphology PVCs probable mitral annular origin. Transthoracic echocardiogram showed 40 percent left ventricular ejection fraction with generalized left ventricular hypokinesis. RV size and function was normal. There was no serious valvular disease. His left atrial size is mildly enlarged. Holter ECG showed atrial fibrillation at average heart rate of 74 beats per minute and 2 percent PVC burden. I had a detailed discussion with the patient about atrial fibrillation, the nature, natural history,pathogenesis, treatment options, and reasons for treatment including amelioration of symptoms, decreasing stroke risk, and the issue of tachycardia-related cardiomyopathy. I discussed various treatment options including antiarrhythmic drug therapy. I also gave him information about atrial fibrillationablation and complications. A 4% to 5% risk for major complications including, but not limited to, vascular access site complications, pseudoaneurysm, AV fistula, cardiac perforation, need for pericardiocentesis or emergency cardiac surgery, pulmonary vein stenosis, phrenic nerve injury, atrioesophageal fistula, 1% risk for stroke, risk for DVT, pulmonary embolism, infections, pacemaker implantation,and myocardial infarction were all discussed. I also discussed with him risk for injury to cardiac valves, particularly of the tricuspid valve. He understands that neither the medication or the ablation procedure would be curative of this condition. I briefly discussed AV node ablation and pacemaker insertion. I briefly gave information about [employer]PERATOR and his pacing. First we decided to proceed with stress test to rule out ischemic causes of left ventricular systolic dysfunction. Looks like pharmacological rhythm control strategy failed for him. He is in atrial fibrillation and still using amiodarone. I think it is reasonable to stop amiodarone. After stopping amio darone his Coumadin dose may need adjustment. Also beta-lyle dose needs adjustment based on heartrate. He is going to do these dose adjustment with his primary care white lead grinder. We are going to give our final decision based on stress test results. All questions answered. Jarvis Lynn M.D. Clinical Cardiac Electrophysiology Fellow 04/03/2018 9:19 AM CHIEF COMPLAINT/REASON FOR CONSULTATION Shortness of breath/atrial fibrillation HISTORY OF PRESENT ILLNESS Mr. Truong Mendez is a 72 y.o. male with past medical history as detailed below, most significant for atrial fibrillation, moderate left ventricular systolic dysfunction, hypertension, obesity, obstructive sleep apnea and PVCs who has been referred for management of atrial fibrillation. Briefly, his atrial fibrillation 1st diagnosed in July 2017. Atrial fibrillation detected duringa routine ECG before surgery. He underwent 2 cardioversions. Atrial fibrillation recurred shortly after 2 cardioversions. He used sotalol and amiodarone. He is still on amiodarone. He did not feel atrial fibrillation was sent after cardioversions. He denies any palpitation, chest pain lightheadedness or syncope. His only symptom is slight shortness of breath with exertion. He is using a walker because of his knee problems. I am not sure this shortness of breath is related to atrial fibrillation. He is anticoagulated with Coumadin. He has sleep apnea and he is using his CPAP machine religiously. Medications trailed: sotalol, amiodarone Number of direct current cardioversions: required 3 shocks, Prior ablation procedure, where: No prior ablations Prior sleep apnoea screening: on cpap PAST MEDICAL HISTORY #1 Beat Premature Ventricular (PVC) #2 Hypertension, essential #3 Obesity #4 Persistent atrial fibrillation (H) Past Medical History: Diagnosis Date ??? Malignant Neoplasm Of Skin Basal Cell Carcinoma ??? Malignant Neoplasm Of Skin Squamous Cell Carcinoma REVIEW OF SYSTEMS A complete 14 point review of systems was completed and negative except for as mentioned in the HPI. ALLERGIES Allergies Allergen Reactions ??? Hydrocodone-Acetaminophen GI intolerance Intolerance ??? Penicillins Hives ??? Adhesive Tape-Silicones Rash HOME MEDICATIONS Current Medications: ??? acetaminophen (TYLENOL) 500 mg tablet, Take 1,000 mg by mouth. ??? amiodarone (PACERONE) 200 mg tablet, ??? clindamycin (CLEOCIN) 300 mg capsule, 2 capsules prior to dental work ??? lisinopril (PRINIVIL,ZESTRIL) 40 mg tablet, ??? lovastatin (MEVACOR) 40 mg tablet, ??? metoprolol tartrate (LOPRESSOR) 100 mg tablet, Take 50 mg by mouth 2 (two) times a day. ??? multivitamin tablet, Take 1 tablet by mouth daily. ??? nitroglycerin (NITROSTAT) 0.4 mg SL tablet, Place 0.4 mg under the tongue. ??? omeprazole (PriLOSEC) 20 mg capsule, Take 1 capsule by mouth daily. ??? warfarin (COUMADIN) 5 mg tablet, TAKE 1 TABLET BY MOUTH SATURDAY, SATURDAY; AND 1 AND ONE-HALF TABLETS REST OF WEEK SOCIAL HISTORY reports that he has quit smoking. He started smoking about 54 years ago. He has never used smokeless tobacco. He reports that he does not drink alcohol. FAMILY HISTORY No history of atrial fibrillation. No history of Sudden cardiac in the family. VITAL SIGNS Height: [169.5 cm] 169.5 cm Weight: [143.5 kg] 143.5 kg BSA (Calculated - sq m): [2.6 sq meters] 2.6 sq meters BMI (Calculated): [49.9 kg/m??] 49.9 kg/m?? Body mass index is 49.95 kg/m??. PHYSICAL EXAMINATION General: No acute distress Neurological: Alert Oriented x 3; Speech Normal; Gait Normal, no facial assymetry CVS: Irregular heart rate at 80 beats per minute; S1+S2 No gallops, rubs or murmurs Neck: Supple Chest: Clear to ascultation bilaterally Extremities: Warm; no edema Psychiatry: Mood and affect congruent Nadiya Adler M.D., Ph.D. - 04/03/2018 8:30 AM CDT SUBJECTIVE Referring Provider: Choco Masters M.D. EP Fellow: Dr. Jarvis Lynn. HISTORY OF PRESENT ILLNESS Mr. Truong Mendez is a 72 y.o. male who is referred to [facility] for persistent atrial fibrillation. I have reviewed the patient's medical record, interviewed, and evaluated the patient. I agree with Dr. Lynn's documented findings and plan of care as in his note from today. The patient was 1st noted to have atrial fibrillation when he underwent knee surgery in July 2017. He also had an echocardiogram which showed moderate reduction in left ventricular ejection fraction 40-45%. He underwent electrical cardioversion and was put on sotalol. However, he reverted back to atrial fibrillation after a couple of days. It is not clear whether he has symptomatic improvement during the period when he was in sinus rhythm. He was stents noted with amiodarone and had another electrical cardioversion. Again he reverted back to atrial fibrillation after a couple of days. During this period of time, it is not clear how much symptomatic improvement the patient had when he was in normal sinus r hythm. Patient mentioned that he had to take his pulse to no whether he was in atrial fibrillation. On the other hand, he mentioned that he may have less shortness of breath with exertion when he was in sinus rhythm. His physical activity has been limited because of his knee problems. In addition to his atrial fibrillation, patient also has hypertension, obstructive sleep apnea on CPAP, obesity, and a history of frequent PVCs. The rest of the patient's medical history was as described by Dr. Lynn. MEDICATIONS Current Medications: ??? acetaminophen (TYLENOL) 500 mg tablet, Take 1,000 mg by mouth. ??? amiodarone (PACERONE) 200 mg tablet, ??? clindamycin (CLEOCIN) 300 mg capsule, 2 capsules prior to dental work ??? lisinopril (PRINIVIL,ZESTRIL) 40 mg tablet, ??? lovastatin (MEVACOR) 40 mg tablet, ??? metoprolol tartrate (LOPRESSOR) 100 mg tablet, Take 50 mg by mouth 2 (two) times a day. ??? multivitamin tablet, Take 1 tablet by mouth daily. ??? nitroglycerin (NITROSTAT) 0.4 mg SL tablet, Place 0.4 mg under the tongue. ??? omeprazole (PriLOSEC) 20 mg capsule, Take 1 capsule by mouth daily. ??? warfarin (COUMADIN) 5 mg tablet, TAKE 1 TABLET BY MOUTH SATURDAY, SATURDAY; AND 1 AND ONE-HALF TABLETS REST OF WEEK SUBSTANCE USE: Social History Substance Use Topics ??? Smoking status: Former Smoker Start date: 04/03/1965 ??? Smokeless tobacco: Never Used ??? Alcohol use No REVIEW OF SYSTEMS As in HPI. PAST MEDICAL, SURGICAL, SOCIAL, AND FAMILY HISTORY The following portions of the patient's history were reviewed and updated as appropriate: allergies,current medications, family history, medical history, social history, surgical history and problem list. OBJECTIVE Ht 169.5 cm Wt (!) 143.5 kg BMI 49.95 kg/m?? PHYSICAL EXAMINATION As described by Dr. Lynn. DIAGNOSTICS I have reviewed the patient's current laboratory, imaging, and other diagnostic studies. Pertinent laboratory studies are notable for: Sodium 140, potassium 4.9, creatinine 1.0, glucose 114. Pertinent imaging studies are notable for: ECG: Atrial fibrillation with a ventricular rate of 87, QRS duration was 94 milliseconds and QTC dhr185 milliseconds. There were nonspecific ST T wave abnormalities. PVCs were present Echocardiogram: Borderline left ventricular enlargement with ejection fraction 40%. Mild to moderategeneralized left ventricular hypokinesis. Normal right ventricular size and systolic function, estimated right ventricular systolic pressure 34. Mild left atrial enlargement and normal right atrial size. No hemodynamically significant valvular heart disease. No pericardial effusion. Holter study: The basic rhythm was atrial fibrillation with heart rates between 54-116 beats per minute, average heart rate 74 beats per minute. There were 21 pauses, the longest was 2.55 sec. It occurred during hours of sleep. There were 2006 PVCs with 24 couplets and no runs. When the patient had a little short of breath and a little out of breath symptoms, he was in atrial fibrillation with heart rates between 81-94 beats per minute in single PVCs were seen during these times. ASSESSMENT / PLAN #1 Persistent atrial fibrillation #2 Unspecified Systolic (Congestive) Heart Failure (HCC) #3 Hypertension #4 Obstructive sleep apnea on CPAP #5 Obesity #6 s/p Knee surgery 72-year-old gentleman who has persistent atrial fibrillation detected in July 2017 and has had 2electrical cardioversions, 1 on sotalol, the other on amiodarone. The patient appeared to have minimal symptoms in atrial fibrillation, although he has been changing his story somewhat as he was not enedina e. We discussed in detail the rationale and approaches of rate control versus rhythm control strategies. For patients who have minimal symptoms with atrial fibrillation, rate control should be considered. However, the patient has significant symptoms with atrial fibrillation and could tell a difference between sinus rhythm and atrial fibrillation, then rhythm control should be considered. We are at the point that such decision should be made. If we pursue rhythm control, then the next step would be atrial fibrillation ablation. The success rate would be in the order of about 50% but it carry a 5% risk complications. Also, rhythm control has not been shown to reduce the risk of stroke or improve longevity. The decision is purely based on symptoms and quality of life. The patient and family will think about and let us know. In any case I think we should should be able to discontinue his amiodaronewhich is not doing much for him at this point. Since the patient has unexplained reduced left ventricular systolic function, we recommended proceeding with a perfusion scan to rule out any significant coronary artery disease. The patient has agreed to proceed and it has been scheduled for tomorrow. The patient is ready to learn, that does not seem to be any barrier to learning, he verbalizes understanding to the issues, his options, the pros and cons of each approach. All questions were answered. Jarvis Lynn M.D. - 04/03/2018 8:30 AM CDT Mr. Mendez is 72 years old gentleman with history of atrial fibrillation, systolic heart failure,hypertension, obesity and sleep apnea. After all testing we did not find a specific reason for decreased left ventricular ejection fraction. Because of he is asymptomatic from atrial fibrillation standpoint Mr. Mendez decided to proceed with rate control. He has multiple cardiovascular risk factors including obesity and hypertension. He wanted to see a preventive white lead grinder and it is very reasonable. I ordered a cardiovascular health clinic consultation for him. documented in this encounter Miscellaneous Notes Addendum Note - Jarvis Lynn M.D. - 04/03/2018 8:30 AM CDT Addended by: JARVIS LYNN on: 04/11/2018 08:39 AM Modules accepted: Orders Addendum Note - Jarvis Lynn M.D. - 04/03/2018 8:30 AM CDT Addended by: JARVIS LYNN on: 05/21/2018 10:45 AM Modules accepted: Orders documented in this encounter Plan of Treatment Upcoming Encounters Date Type Specialty Care Team Description 04/16/2022 Clinical Communication Admitting/Central Scheduling 04/19/2022 Ancillary Procedure Cardiovascular Disease Milla Lew M.D. [address] [place] [phone] 04/19/2022 Appointment Laboratory Medicine Sherrie Lew M.D. [address] [place] [phone] 04/19/2022 Office Visit Infectious Diseases Max Aguilar D.O. [address] [place] [address] 04/20/2022 Comprehensive Visit Allergy and Immunology Kavon Ahmadi M.D., M.S. [address] [place] [phone] Scheduled Referrals Name Type Priority Associated Order Schedule Diagnoses Cardiovascular Disease Outpatient Referral Routine Shortness O f Expected: - Cardiovascular health Breath 08/05 (preventative (Approximate), cardiology) consult Expires: (clinic) 05/21/2021 documented as of this encounter Procedures Procedure Name Priority Date/Time Associated Comments Diagnosis MR CARDIAC RAD - Routine 04/15/2018 12:28 Shortness Of Results fo r this WITHOUT AND WITH (most inpatients PM CDT Breath procedu re are in IV CONTRAST and all the results outpatients) section. documented in this encounter Results MR Cardiac without and with IV Contrast (04/15/2018 12:28 PM CDT) Anatomical Region Laterality Modality Cardiac, Cardiovascular RST LOS N/A Magnetic Resonance Specimen (Source) Anatomical Collection Method Collection Time Re ceived Time Location / / Volume Laterality 04/15/2018 1:21 PM CDT Impressions 04/15/2018 3:08 PM CDT IMPRESSION: 1. Generalized left ventricular hypokine sis with moderately decreased systolic function. LVEF = 35%. 2. Small focus of subendocardial to mid myocardial delayed enhancement with focal transmural extension within the ba se-mid inferolateral wall. This could be sequela of a small remote infarct or rep resent focal scarring from prior myocarditis. However, the size of this a bnormality would not explain the patient's recent significant decrease in systolic ventricular function. 3. Moderately decreased right ventricula r systolic function. RVEF = 30%. Narrative 04/15/2018 3:08 PM CDT EXAM: ??MR CARDIAC WITHOUT AND WITH IV CONTRAST COMPARISON: ??Nuclear medicine cardiac p erfusion examination 04/04/2018. FINDINGS: ?? LEFT VENTRICLE: Normal left ventricular chamber size. Mi ld hypertrophy of the basal anterior septum, 13 mm. There is generalized hypo kinesis of the left ventricle without focal wall motion abnormalities. Left ve ntricular ejection fraction = 35%. No evidence of myocardial edema. Postcontrast images show no resting firs t-pass myocardial perfusion abnormalities. There is a small area benny t demonstrates delayed myocardial enhancement involving the base-mid infer olateral wall. This area appears subendocardial to mid myocardial with fo em transmural extension. No additional convincing areas of delayed myocardial e nhancement. RIGHT VENTRICLE: Normal right ventricular chamber size an d myocardial thickness. Right ventricular ejection fraction = 30%. No evidence of delayed myocardial enhancement. ATRIA: Left and right atrial enlargement. PERICARDIUM: Normal pericardial thickness. No pericar dial effusion. No abnormal pericardial enhancement. ADDITIONAL FINDINGS: ?? Small probable cyst right kidney. MEASUREMENTS: Patient weight: 140.6 kg Patient height: 170.2 cm BSA: 2.6 m2 Series 38: LEFT VENTRICLE: LV End Diastolic Volume = 118mL; Index = 46mL/m2 (normal = 36-88) LV End Systolic Volume = 76mL; Index = 3 0mL/m2 (normal = 8-43) LV Stroke Volume = 42mL; Index = 16mL/m2 (normal = 16-55) LV Ejection Fraction = 35% (normal = 49- 78) LV End Diastolic Mass = 168g; Index = 65 g/m2 (normal = 61-108) Series 38: RIGHT VENTRICLE: RV End Diastolic Volume = 143mL; Index = 55mL/m2 (normal = 78-133) RV End Systolic Volume = 100mL; Index = 39mL/m2 (normal = 26-56) RV Stroke Volume = 43mL; Index = 17mL/m2 (normal = 43-80) RV Ejection Fraction = 30% (normal = 49- 72) Procedure Note Demarcus Lloyd M.D. - 04/15/2018Formattaidan g of this note might be different from the original. EXAM: MR CARDIAC WITHOUT AND WITH IV CON TRAST COMPARISON: Nuclear medicine cardiac per fusion examination 04/04/2018. FINDINGS: LEFT VENTRICLE: Normal left ventricular chamber size. Mi ld hypertrophy of the basal anterior septum, 13 mm. There is generalized hypo kinesis of the left ventricle without focal wall motion abnormalities. Left ve ntricular ejection fraction = 35%. No evidence of myocardial edema. Postcontrast images show no resting firs t-pass myocardial perfusion abnormalities. There is a small area benny t demonstrates delayed myocardial enhancement involving the base-mid infer olateral wall. This area appears subendocardial to mid myocardial with fo em transmural extension. No additional convincing areas of delayed myocardial e nhancement. RIGHT VENTRICLE: Normal right ventricular chamber size an d myocardial thickness. Right ventricular ejection fraction = 30%. No evidence of delayed myocardial enhancement. ATRIA: Left and right atrial enlargement. PERICARDIUM: Normal pericardial thickness. No pericar dial effusion. No abnormal pericardial enhancement. ADDITIONAL FINDINGS: Small probable cyst right kidney. MEASUREMENTS: Patient weight: 140.6 kg Patient height: 170.2 cm BSA: 2.6 m2 Series 38: LEFT VENTRICLE: LV End Diastolic Volume = 118mL; Index = 46mL/m2 (normal = 36-88) LV End Systolic Volume = 76mL; Index = 3 0mL/m2 (normal = 8-43) LV Stroke Volume = 42mL; Index = 16mL/m2 (normal = 16-55) LV Ejection Fraction = 35% (normal = 49- 78) LV End Diastolic Mass = 168g; Index = 65 g/m2 (normal = 61-108) Series 38: RIGHT VENTRICLE: RV End Diastolic Volume = 143mL; Index = 55mL/m2 (normal = 78-133) RV End Systolic Volume = 100mL; Index = 39mL/m2 (normal = 26-56) RV Stroke Volume = 43mL; Index = 17mL/m2 (normal = 43-80) RV Ejection Fraction = 30% (normal = 49- 72) IMPRESSION: 1. Generalized left ventricular hypokine sis with moderately decreased systolic function. LVEF = 35%. 2. Small focus of subendocardial to mid myocardial delayed enhancement with focal transmural extension within the ba se-mid inferolateral wall. This could be sequela of a small remote infarct or rep resent focal scarring from prior myocarditis. However, the size of this a bnormality would not explain the patient's recent significant decrease in systolic ventricular function. 3. Moderately decreased right ventricula r systolic function. RVEF = 30%. Jarvis ALVARES MRI PROCEDURES NM Cardiac Perfusion Rest and Stress SPECT (04/04/2018 10:30 AM CDT) Specimen (Source) Anatomical Collection Method Collection Time Re ceived Time Location / / Volume Laterality 04/04/2018 9:08 AM CDT Narrative [facility] CV MERGE - 04/04/2018 12:15 PM CDT This result has an attachment that is no t available. See PDF For Result Jarvis STRANGE PROCEDURES Performing Organization Address City/State/ZIP Code Phon e Number CV MERGE CV MERGE NA documented in this encounter Visit Diagnoses Diagnosis Unspecified Systolic (Congestive) Heart Failure (HCC) - Primary Shortness Of Breath Unspecified Systolic (Congestive) Heart Failure (HCC) documented in this encounter
--- OUTSIDE RECORDS SUMMARY | 2022-04-11 15:04 | XMS_ITS | Encounter Summary ---
:1945 Author Organization [facility] Address [address] [place] [address] Care Team Providers Name Role Phone Unavailable Primary Care Provider Unavailable Encounter Details Date Type Department Care Team Description 06/03/2018 Ancillary Procedure Department of Dermatology Social History [...] or relatives? How often do you attend zoroastrianism or More than 4 times per year 12/12/2021 hinduism services? Do you belong to any clubs or Yes 12/12/2021 organizations such as zoroastrianism groups, unions, fraternal or athletic groups, or [...] Procedure Cardiovascular Disease Milla Lew M.D. [address] [place] [phone] 04/19/2022 Appointment Laboratory Medicine Sherrie Lew M.D. [address] [place] [phone] 04/19/2022 Office Visit Infectious Diseases Max Aguilar, D.ODale [address] [place] [phone] 04/20/2022 Comprehensive Visit Allergy and Immunology Kavon Ahmadi M.D., M.S. [address] [place] [phone] documented as of this encounter Procedures Procedure Name Priority Date/Time Associated Comments Diagnosis DERMATOLOGY IMAGE Routine 06/03/2018 8:45 AM Resu lts for this EXAM CDT procedure are i n the results section. documented in this encounter Results DERMATOLOGY IMAGE EXAM (06/03/2018 8:45 AM CDT) Specimen (Source) Anatomical Collection Method Collection Time Re ceived Time Location / / Volume Laterality 06/03/2018 8:45 AM CDT Narrative IIMS - 06/03/2018 8:47 AM CDT This order has been created and [...]
--- OUTSIDE RECORDS SUMMARY | 2022-04-11 15:04 | XMS_ITS | Encounter Summary ---
:1945 Author Organization [facility] Address [address] [place] [address] Care Team Providers Name Role Phone Unavailable Primary Care Provider Unavailable Encounter Details Date Type Department Care Team Description 04/15/2018 Hospital Encounter Department of Radiology, Tila Lynn M.D. [facility], in [place], [place] [address] [place] [address] Social History Tobacco Use Types Packs/Day [...] or relatives? How often do you attend catholic or More than 4 times per year 12/12/2021 mu-ism services? Do you belong to any clubs or Yes 12/12/2021 organizations such as catholic groups, unions, fraternal or athletic groups, [...] or slept in a correction (including now)? Sex Assigned at Date Recorded Male 04/03/2018 7:54 AM CDT documented as of this encounter Last Filed Vital Signs Vital Sign Reading Time Taken Comments Blood Pressure - - Pulse 81 04/15/2018 1:00 PM CDT Temperature - - Respiratory Rate 20 04/15/2018 1:00 PM CDT Oxygen Saturation 94% 04/15/2018 1:00 PM CDT Inhaled Oxygen Concentration - - Weight 141 kg (310 lb) 04/15/2018 11:00 AM CDT Height 170.2 cm (5' 7) 04/15/2018 11:00 AM CDT Body Mass Index 48.55 04/15/2018 11:00 AM CDT documented in this encounter Medications at Time [...] 1 tab documented as of this encounter Nursing Notes Flori Erickson R.N. - 04/15/2018 1:23 PM CDT Patient returned to nursing after having sedation prior to MRI and placed in the care of his Karen after nursing assessment. Flori Erickson R.N. - 04/15/2018 11:23 AM CDT Is the patient 18 and older: Yes if yes... continue Able to take oral meds? Yes If yes... continue Does the patient have a responsible adult accompanying them? Yes - if no, and all screening criteria reviewed, set up sedation dismissal process. Does patient have an allergy to lorazepam or other benzodiazepines? No If no... continue Does patient have active respiratory issues? No If no...continue If yes notify radiologist for direction prior to continuing. Has the patient taken any other benzodiazepines, antidepressants, or sedating medications today? No If no...continue If yes notify radiologist for direction prior to continuing. Does patient have a hx of narrow angle glaucoma or gaging or choking? No If no... Continue If yes notify radiologist for direction prior to continuing. Is patient scheduled for a MR proctogram or neuro functional MR? No if no... continue Is the patient scheduled for a MR guided breast biopsy? No - if yes, obtain consent prior to administration. Is patient or ? No If no... continue Does patient have other appointments today that may require attention to detail or informed consent?No If no... continue If yes, call other area to determine if administration is ???ok?? . Karen () in [facility] and seen by nursing [phone] documented in this encounter Plan of Treatment Upcoming Encounters Date Type Specialty Care Team Description 04/16/2022 Clinical Communication Admitting/Central Scheduling 04/19/2022 Ancillary Procedure Cardiovascular Disease Milla Lew M.D. [address] [place] [phone] 04/19/2022 Appointment Laboratory Medicine Sherrie Lew M.D. [address] [place] [phone] 04/19/2022 Office Visit Infectious Diseases Max Aguilar, DarrynODale [address] [place] [phone] 04/20/2022 Comprehensive Visit Allergy and Immunology Kavon Ahmadi M.D., M.S. [address] [place] [phone] documented as of this encounter Procedures Procedure Name Priority Date/Time Associated Comments Diagnosis MR CARDIAC RAD - Routine 04/15/2018 12:28 Shortness Of Results fo r this WITHOUT AND WITH (most inpatients PM CDT Breath procedu re are in IV CONTRAST and all the results outpatients) section. documented in this encounter Visit Diagnoses Not on filedocumented in this encounter Administered Medications Inactive Administered Medications - up to 3 most recent administrations Medication Order MAR Action Action Date Dose Rate Site gadobutrol injection 0.5-15 mL Given 04/15/2018 12:31 PM CDT 28 mL (GADAVIST) 0.5-15 mL, intravenous, Once in imaging, contrast, Starting on Sat04/15/18 at 1122, For 1 dose, Imaging Protocol Orders, Dose per Radiant Medication Guidelines LORazepam tablet 0.5 mg (ATIVAN) Given 04/15/2018 11:30 AM CDT 1 mg 0.5 mg, sublingual, As needed, anxiety, Starting on Sat04/15/18 at 1122, For 4 doses, Imaging Protocol Orders, 1 mg by mouth once as needed for anxiety related to radiology study. May administer 0.5 mg dose if patient prefers. May repeat every 15 minutes if anxiety persists (2 mg maximum dose). sodium chloride (PF) 0.9 % injection 40 mL Given 04/15/2018 12:31 PM CDT 40 mL 40 mL, intravenous, Once, On Sat04/15/18 at 1200, For 1 dose sodium chloride injection 3 mL Given 04/15/2018 12:00 PM CDT 3 mL 3 mL, intravenous, Once, On Sat04/15/18 at 1200, For 1 dose documented in this encounter
--- OUTSIDE RECORDS SUMMARY | 2022-04-11 15:04 | XMS_ITS | Encounter Summary ---
:[address] [facility] Address [address] [place] [address] Care Team Providers Name Role Phone Elsewhere, Pcp Primary Care Provider Unavailable Encounter Details Date Type Department Care Team Description 02/26/2018 [facility] Choco Masters Persistent Atrial AND DUSTY Carvajal M.D. Fibrillation (Primary [address] [facility] Dx) [place] [address] [phone] Social History Tobacco Use Types Packs/Day Years [...] More than 4 times per year 12/12/2021 caodaism services? Do you belong to any clubs [...] Procedure Cardiovascular Disease Milla Lew M.D. [address] [place] [phone] 04/19/2022 Appointment Laboratory Medicine Sherrie Lew M.D. [address] [place] [phone] 04/19/2022 Office Visit Infectious Diseases Max Aguilar, D.ODale [address] [place] [phone] 04/20/2022 Comprehensive Visit Allergy and Immunology Kavon Ahmadi M.D., M.S. [address] [place] [phone] documented as of this encounter Visit Diagnoses Diagnosis Persistent Atrial Fibrillation - Primary documented in this encounter Care Teams 911 Emergency Services Dispatcher Relationship Specialty Start Date End Date Elsewhere, Pcp PCP - General Internal Medicine 12/26/21 documented as of this encounter
--- OUTSIDE RECORDS SUMMARY | 2022-04-11 15:04 | XMS_ITS | Encounter Summary ---
:1945 Author Organization [facility] Address [address] [place] [address] Care Team Providers Name Role Phone Unavailable Primary Care Provider Unavailable Encounter Details Date Type Department Care Team Description 03/12/2018 Abstract [facility] DATA ABSTRACTION Provider, Historical Social History Tobacco Use Types Packs/Day Years [...] many times do you More than three maximilinao es a week 12/12/2021 talk on the phone with family, friends, or neighbors? How often do you get together with friends More than three t imes a week 12/12/2021 or relatives? How often do you attend quaker or More than 4 times per year 12/12/2021 yazdanism services? Do you belong to any clubs or Yes 12/12/2021 organizations such as quaker groups, unions, fraternal or athletic groups, or [...] Procedure Cardiovascular Disease Milla Lew M.D. [address] [place] [phone] 04/19/2022 Appointment Laboratory Medicine Sherrie Lew M.D. [address] [place] [address] [phone] 04/19/2022 Office Visit Infectious Diseases Max Aguilar, D.O. [address] [place] [phone] 04/20/2022 Comprehensive Visit Allergy and Immunology Kavon Ahmadi M.D., M.S. [address] [place] [phone] documented as of this encounter Visit Diagnoses Not on filedocumented in this encounter
--- OUTSIDE RECORDS SUMMARY | 2022-04-11 15:04 | XMS_ITS | Encounter Summary ---
:1945 Author Organization [facility] Address [address] [place] [address] Care Team Providers Name Role Phone Unavailable Primary Care Provider Unavailable Encounter Details Date Type Department Care Team Description 04/04/2018 Hospital Encounter Department of Jarvis Lynn, Cardiovascular Diseases in [place], [place] [address] [place] [phone] Social History Tobacco Use Types Packs/Day [...] Cardiovascular Disease Milla Lew M.D. [address] [place] [phone] 04/19/2022 Appointment Laboratory Medicine Sherrie Lew M.D. [address] [place] [phone] 04/19/2022 Office Visit Infectious Diseases Max Aguilar D.O. [address] [place] [phone] 04/20/2022 Comprehensive Visit Allergy and Immunology Kavon Ahmadi M.D., M.S. [address] [place] [phone] documented as of this encounter Procedures Procedure [...] MAR Action Action Date Dose Rate Site regadenoson injection 0.4 mg Given 04/04/2018 10:00 AM CDT 0.4 m g (LEXISCAN) 0.4 mg, intravenous, Once, On Sat04/04/18 at 1000, For 1 dose, See protocol Administer via rapid IV injection (approximately 10 seconds). sodium chloride injection 5 mL Given 04/04/2018 9:51 AM CDT 5 mL 5 mL, intravenous, As needed, line care, See protocol, Starting on Sat04/04/18 at 0950 technetium Tc 99m sestamibi Given 04/04/2018 10:00 AM CDT 42.4 m illicuries injection (Tc-99m SESTAMIBI) 42.4 millicurie, intravenous, Once, On Sat04/04/18 at 1000, For 1 dose documented in this encounter
[2022-04-11 17:01] LABS: Albumin* 3.7 g/dL (3.3-5.0); Chloride* 101 mmol/L (96-114); Potassium* 4.8 mmol/L (3.6-5.1); Sodium* 139 mmol/L (135-149)
[2022-04-11 17:03] LABS: Creatinine* 1.1 mg/dL (0.5-1.5); Estimated Glomerular Filt Rate 69 ml/min
[2022-04-11 17:04] LABS: Alanine Aminotransferase* 18 U/L (4-50); Alkaline Phosphatase* 123 U/L (40-150); Aspartate Amino Transferase* 26 U/L (12-35); Bilirubin Total* 2.8 mg/dL (0.1-1.5); Blood Urea Nitrogen* 18 mg/dL (7-30); Carbon Dioxide* 30 mmol/L (20-32); Glucose* 108 mg/dL (60-115); Total Protein* 6.5 g/dL (6.0-8.3)
[2022-04-11 17:05] LABS: Calcium* 9.2 mg/dL (8.4-10.6)
== END 2022-04-11 14:56 | disposition home or self-care (01) ==
LOC: NFLDREF 14:56
PROVIDERS: PCP Internal Medicine; Visit Provider Internal Medicine
DX: E80.4 Gilbert syndrome (principal)
CPT/HCPCS: 80053

== ENCOUNTER 2022-07-03 15:52 | Outpatient (CLI) | payer OTHER, SELFPAY ==
--- OUTSIDE RECORDS SUMMARY | 2022-07-03 08:23 | XMS_ITS | Clinical Summary ---
:1945 Author Organization [facility] [place] [address] Care Team Providers Name Role Phone Choco Masters MD Primary Care Provider Nurses, Advanced Heart Failure Unavailable [phone] Christelle Wright [facility] Unavailable Allergies Active Allergy Reactions Severity Noted Date Comments Adhesive Tape-Silicones Rash Low 07/18/2017 Hydrocodone-Acetaminophen GI Upset 02/10/2016 In tolerance Penicillins Hives Medium 10/18/2016 Medications Medication Sig Dispensed Refills Start Date End Date Status multivitamin Take 1 Tablet by 0 Active therapeutic mouth once daily. (THERAGRAN; ONCOVITE) tablet omeprazole Take 1 Capsule by 0 11/20/2020 Active (PRILOSEC) 20 mg mouth once daily Delayed-Release before a meal. capsule nitroglycerin Place 0.4 mg under 0 Active (NITROSTAT) 0.4 mg the tongue every 5 sublingual tablet minutes if needed. spironolactone Take 25 mg by mouth 0 01/25/2021 Active (ALDACTONE) 25 mg once daily. tablet acetaminophen Take 1,000 mg by 0 Active (TYLENOL EXTRA mouth every 6 hours STRGTH) 500 mg if needed. Max tablet acetaminophen dose: 4000mg in 24 hrs. atorvastatin Take 1 Tablet (40 30 Tablet 2 02/21/2021 Active (LIPITOR) 40 mg mg) by mouth at tabletIndications: bedtime. Dyslipidemia furosemide (LASIX) Take 20 mg as 0 02/21/2021 Active 20 mg needed for weight tabletIndications: gain of 3lbs in 24 Acute on chronic hours. Your dry systolic heart weight is 316 failure (HC) pounds. carvediloL (COREG) Take 1 Tablet (25 90 Tablet 3 04/04/2021 Active 25 mg mg) by mouth 2 tabletIndications: times daily with Chronic systolic meals. congestive heart failure (HC) doxycycline (ADOXA) Take 100 mg by 0 03/22/2022 Active 100 mg tablet mouth. Clofazimine, Bulk, As directed. 0 03/28/2022 Active powd azithromycin Take 1 Tablet (500 0 03/28/2022 Active (ZITHROMAX) 500 mg mg) by mouth. tablet Eliquis 5 mg TAKE 1 TABLET TWICE 180 Tablet 1 04/11/2022 Active tabletIndications: DAILY Chronic systolic congestive heart failure (HC), Longstanding persistent atrial fibrillation (HC) ENTRESTO 97 MG-103 TAKE 1 TABLET TWICE 180 Tablet 1 04/11/2022 Active MG TABLET 97-103 mg DAILY (DOSE tabletIndications: INCREASE) Chronic systolic congestive heart failure (HC) sotaloL (BETAPACE) Take 1 Tablet (80 180 Tablet 1 05/25/2022 Active 80 mg mg) by mouth two tabletIndications: times daily before Atrial fibrillation, meals. unspecified type (HC) Active Problems Problem Noted Date Dyslipidemia 02/16/2021 DOW (dyspnea on exertion) 02/16/2021 Chronic systolic congestive heart failure 03/11/2020 Longstanding persistent atrial fibrillation 03/11/2020 HTN (hypertension) 03/11/2020 Morbid obesity due to excess calories 03/11/2020 Acute systolic heart failure Acute on chronic systolic heart failure Encounters Date Type Specialty Care Team Description 05/25/2022 Nurse/Clinic Staff Testing ( EKG/) Only 05/25/2022 Travel 05/24/2022 Telephone Garry Rutledge Results (Sotalo l EKG.) MD Sampson 05/14/2022 Refill Garry Rutledge Refill Request MD Sampson 05/10/2022 Telephone Garry Rutledge Results (EKG) MD Sampson 04/25/2022 Telephone Garry Rutledge Follow Up MD Sampson 04/11/2022 Telephone Garry Rutledge Medication Cynthia bonnie Braden MD 04/11/2022 Refill Zimbwa, Peter, Refill Reques t (Huy, [facility] Entresto 97 Mg- 103 Mg Tablet) 04/06/2022 Office Visit Christelle Wright, CV Heart Fail ure Est (6 [facility] month f/u w/ la bs prior. Hx CHF. Pt repo rting occasional PVCs , recent addressed this w/ Dr. Rutledge. ) 04/06/2022 Orders Only Lab 04/06/2022 Orders Only <No scans attac hed> 04/06/2022 Travel from Last 3 Months Social History Tobacco Use Types Packs/Day Years Used Date Former Smoker Smokeless Tobacco: Never Used Comments: 47 years ago Alcohol Use Standard Drinks/Week Comments Not Currently 0 (1 standard drink = 0.6 oz pure alcoho l) Sex Assigned at Date Recorded Not on file Obstetrics History Last Filed Vital Signs Vital [...] wt on same day) for 04/06/2023 04/06/2022, 03/06, age 18+ 09/21/2021 COVID-19 vaccine series Completed 05/10/2022, 12/29/2021, 05/30/2021, Additional history exists Procedures Procedure Name Priority Date/Time Associated Diagnosis Comme nts EKG 12 LEAD Routine 05/28/2022 1:25 PM Atrial fibrillation, R esults for this CDT unspecified type procedure a re in (HC) the results section. PRO-BNP Routine 04/06/2022 12:51 PM Chronic systolic [...] re in failure (HC) the results section. from Last 3 Months Results EKG 12 LEAD (05/28/2022 1:25 PM CDT) Narrative This result has an attachment that is no t available. Garry Rutledge MD EKG ORD CBC W PLT NO DIFF (04/06/2022 12:51 PM CDT) P athologist Signature WHITE BLOOD 6.1 4.5 - 11.0 04/06/2022 [facility] COUNT thou/cu mm 1:14 PM CDT [facility] RED BLOOD COUNT 4.57 4.30 - 04/06/2022 [facility] 5.90 1:14 PM CDT [facility]ERRIS mil/cu mm [facility] HEMOGLOBIN 14.9 13.5 - 04/06/2022 [facility] 17.5 g/dL 1:14 PM CDT [facility] HEMATOCRIT 43.2 37.0 - 04/06/2022 [facility] 53.0 % 1:14 PM CDT [facility] MCV 95 80 - 100 04/06/2022 [facility] fL 1:14 PM CDT [facility] MCH 32.6 26.0 - 04/06/2022 [facility] 34.0 pg 1:14 PM CDT [facility] MCHC 34.5 32.0 - 04/06/2022 [facility] 36.0 g/dL 1:14 PM CDT [facility] RDW 13.3 11.5 - 04/06/2022 [facility] 15.5 % 1:14 PM CDT [facility] PLATELET COUNT 158 140 - 440 04/06/2022 [facility] thou/cu mm 1:14 PM CDT [facility] MPV 9.7 6.5 - 11.0 04/06/2022 [facility] fL 1:14 PM CDT [facility] Specimen Anatomical Collection Method / Collection Time Recei cathy Time (Source) Location / Volume Laterality Blood BLOOD SPECIMEN / Venipuncture / 04/06/2022 12:51 04/06 Unknown Unknown PM CDT 12:52 PM CDT Narrative [facility] - 04/06/2022 1:14 PM CDT This procedure was originally ordered at [facility]. Christelle Wright [facility] HEMATOLOGY Performing Organization Address City/State/ZIP Code Phon e Number [facility] [address] [place] [address] [phone] [facility] PRO-BNP (04/06/2022 12:51 PM CDT) athologist Signature PRO BNP NT 426 0 - 1800 04/06/2022 [facility] pg/mL 10:44 PM CDT [facility] Comment: NT-proBNP values less than 300 pg/ml [...] Unknown Unknown PM CDT 12:52 PM CDT [facility] - 022 10:44 PM CDT This procedure was originally ordered at [facility]. Christelle Wright [facility] SEND OUTS Performing Organization Address City/State/ZIP Code Phon e Number [place] [id number] [place] [address] CENTER MAIL CODE 812 (ABNORMAL) BASIC METABOLIC PANEL (04/06/2022 12:51 PM CDT) Analysis Performed At Patho logist Time Signature SODIUM 139 135 - 145 04/06/2022 [facility] mmol/L 6:31 PM CDT [facility] POTASSIUM 4.5 3.5 - 5.0 04/06/2022 [facility] mmol/L 6:31 PM CDT [facility] CHLORIDE 105 98 - 110 04/06/2022 [facility] mmol/L 6:31 PM CDT [facility] CO2,TOTAL 24 21 - 31 04/06/2022 [facility] mmol/L 6:31 PM CDT [facility] ANION GAP 10 5 - 18 04/06/2022 [facility] 6:31 PM CDT [facility] GLUCOSE 147 (H) 65 - 100 04/06/2022 [facility] mg/dL 6:31 PM CDT [facility] CALCIUM 9.0 8.5 - 10.5 04/06/2022 [facility] mg/dL 6:31 PM CDT [facility] BUN 14 8 - 25 04/06/2022 [facility] mg/dL 6:31 PM CDT [facility] CREATININE 0.98 0.72 - 04/06/2022 [facility] 1.25 mg/dL 6:31 PM CDT [facility] BUN/CREAT RATIO 14 10 - 20 04/06/2022 [facility] 6:31 PM CDT [facility] eGFR 79 (L) >90 04/06/2022 [facility] mL/min/1.7 6:31 PM CDT [facility] 3m2 TRAL [...] PM CDT 12:52 PM CDT Christelle Wright [facility] CHEMISTRY Performing Organization Address City/State/ZIP Code Phon e Number [facility] [address] [place] [address] [facility] 1999 LABORATORY ECHO COMPLETE W CONTRAST (04/06/2022 11:43 [...] CDT ECHOCARDIOGRAM TRUONG RANKIN ?Accessio n#: ?? [id number] : ?1945 76 years Study Date: ?? 04/06/2022 10:48:29 AM Gender: M ? BP: ? 103/58 mmHg Height: 170.18 cm ? BSA: ?2.50 m? ?? Weight: 148.78 kg ? Tech: ? MLP ?Dave young MD: CHRISTELLE MARKKIETBella Site: ? [facility] Location: [facility] Procedure: 2D w/ Contrast, Color Doppler and [...] . This study was interpreted by an [facility] redited facility. ??Final ?? Procedure Note Christelle Wright, [facility] - 04/06/2022Formatt ing of this note might be different from the original. ECHOCARDIOGRAM TRUONG RANKIN : 1945 76 years Study Date: 10:48:29 AM Gender: M BP: 103/58 mmHg Height: 170.18 cm BSA: 2.50 m? ?? Weight: 148.78 kg Tech: NIESHAP Referring MD: CHRISTELLE WRIGHT Site: [facility] Location: [facility] Procedure: 2D w/ Contrast, Color Doppler [...] Valve: MVA 4.1 cm? ?? MV P 1/2 53 msec Tricuspid Valve and estimated PA pressur es: TR Vmax 3.1 m/s TAPSE 2.1 cm TR maxG 38 mmHg Contrast documentation: 1.5cc ml diluted Definity, lot #[id number], was administered peripherally to enhance visualization of all left ventricular segments. . This study was interpreted by an [facility] redited facility. Final Christelle Wright [facility] ECHO ORD from Last 3 Months Insurance Payer Benefit Plan / Subscriber ID Effective Dates Phone Addre ss Type Group HUMANA GOLD MR HUMANA CHOICE [id number] 2021-Present [address] [address] [place] [address] Advance Directives Latest Code Status on File Code Status Date Activated Date Inactivated Comments Full Code 02/16/2021 12:12 PM 02/21/2021 12:35 PM Code Status Discussion: Discussed Care Teams Fire Lieutenant Marine Relationship Specialty Start Date End Date Choco Masters MD PCP - General Internal Medicine 03/03/201999 [place] [address] Nurses, Advanced Heart Advanced Heart 06/19/21 Failure Failure/Transplant Card [address] [place], [place] [phone] Christelle Wright, [facility] Cardiology - CHF Advanced Heart 06/19/21 [address] Failure/Transplant Card [address] [place] [address]
--- OUTSIDE RECORDS SUMMARY | 2022-07-03 08:24 | XMS_ITS | Encounter Summary ---
:1945 Author Organization [facility] Address [address] [place] [address] Care Team Providers Name Role Phone Elsewhere, Pcp Primary Care Provider Unavailable Reason for Visit Reason Comments OPAT Monitoring Complete Encounter Details Date Type Department Care Team Description 05/18/2022 Clinical Section of Ernestine Bobo ([facility] Communication Infectious S, R.N. Complete) Diseases in [phone] [facility] ([facility] [place] [address] [place] [address] Social History Tobacco Use Types Packs/Day Years [...] more drinks on one Never 12/12/2021 occasion? Social Isolation Answer Date Recorded In a typical week, how many times do you More than three maximiliano es a week 12/12/2021 talk on the phone with family, friends, or neighbors? How often do you get together with friends More than three t imes a week 12/12/2021 or relatives? How often do you attend anabaptism or More than 4 times per year 12/12/2021 samaritan services? Do you belong to any clubs [...] this encounter Miscellaneous Notes Telephone Encounter - Ernestine Bobo R.N. - 05/18/2022 2:37 PM CDT Patient completed oral antimicrobial therapy on 05/10/22 and he did not have a PICC. The patient's OPAT Episode will now be completed and they will be removed from OPAT monitoring. documented in this encounter Plan of Treatment Not on filedocumented as of this encounter Visit Diagnoses Not on filedocumented in this encounter Care Teams Ladies Underwear Operator Relationship Specialty Start Date End Date Elsewhere, Pcp PCP - General Internal Medicine 12/26/21 documented as of this encounter
--- OUTSIDE RECORDS SUMMARY | 2022-07-03 08:24 | XMS_ITS | Encounter Summary ---
:1945 Author Organization [facility] Address [address] [place] [address] Care Team Providers Name Role Phone Elsewhere, Pcp Primary Care Provider Unavailable Encounter Details Date Type Department Care Team Description 01/04/2022 Orders Only Section of Infectious oMnae Khan, My cobacterium Infection Diseases in [facility] (Primary Dx) [place], [place] [phone] [address] [facility] (Work) [place] [address] Social History Tobacco Use Types Packs/Day Years [...] or relatives? How often do you attend pentecostal or More than 4 times per year 12/12/2021 orthodoxy services? Do you belong to any clubs or Yes 12/12/2021 organizations such as pentecostal groups, unions, fraternal or athletic groups, or [...] place to sleep or slept in a alf (including now)? Education Answer Date Recorded What is the highest level of Professional school degree (e.g ., , 12/12/2021 school you have completed or the DDS, DVM, RODOLFO) highest degree you have received? Sex Assigned at Date Recorded Male 04/03/2018 7:54 AM CDT documented as of this encounter Plan of Treatment Not on filedocumented as of this encounter Visit Diagnoses Diagnosis Mycobacterium Infection - Primary documented in this encounter Care Teams Mentally Impaired Teacher Relationship Specialty Start Date End Date Elsewhere, Pcp PCP - General Internal Medicine 12/26/21 documented as of this encounter
--- OUTSIDE RECORDS SUMMARY | 2022-07-03 08:24 | XMS_ITS | Encounter Summary ---
:1945 Author Organization [facility] Address [address] [place] [address] Care Team Providers Name Role Phone Elsewhere, Pcp Primary Care Provider Unavailable Reason for Visit Reason Comments OPAT Lab Request Encounter Details Date Type Department Care Team Description 03/20/2022 Clinical Communication Section of [place] (Lab Request) Infectious Diseases M, R.N. in [facility] [phone] [place] (Work) [address] [place] [phone] Social History Tobacco Use Types Packs/Day Years [...] or relatives? How often do you attend restoration or More than 4 times per year 12/12/2021 spiritism services? Do you belong to any clubs or Yes 12/12/2021 organizations such as restoration groups, unions, fraternal or athletic groups, or [...] or slept in a half-way (including now)? Education Answer Date Recorded What is the highest level of Professional school degree (e.g ., , 12/12/2021 school you have completed or the DDS, DVM, RODOLFO) highest degree you have received? Sex Assigned at Date Recorded Male 04/03/2018 7:54 AM CDT documented as of this encounter Miscellaneous Notes Addendum Note - Humaira Acevedo D.O. - 03/29/2022 3:51 PM CDT Addended by: HUMAIRA ACEVEDO on: 03/29/2022 03:51 PM Modules accepted: Orders Telephone Encounter - Humaira Acevedo D.O. - 03/29/2022 3:43 PM CDT I called Mr. Mendez regarding his bilirubin level. He denies any abdominal pain, change in stools, or altered taste. He is willing to have repeat liver test done at the [facility] lab. I will reach out to our clinical nursing coordinator regarding the Clofazamine. -Humaira Acevedo Telephone Encounter - Cynthia Ortega R.N. [...] 4:40 PM CDT Contacted Radha Howard, phone: [phone] and spoke with Medical Records. I checked for results (labs and EKG) from 03/12/22 (or any time in March) and was advised that there are no results available. Per Rocky Toure RN's documentation on 02/07/22, she sent orders to Radha Howard for monthly CBC, Cr, ALT, AST, Bili, Alk phos and ECG x 2 months at [facility]. I will reach out to thepatient to request he go in for a lab appt this week. documented in this encounter Plan of Treatment Not on filedocumented as of this encounter Procedures Procedure Name [...] Signature EXT ALT 17 4 - 50 [facility] Specimen (Source) Anatomical Location Collection Method / Collectio n Time Received Time / Laterality Volume Blood (Blood, Venous) Eliana Herring.-C. LAB BLOOD ADD-ON Performing Organization Address City/[facility]/ZIP [facility] Phon e Number [facility] [address] [place] [address] AST (Aspartate Aminotransferase) (03/14/2022) athologist Signature EXT AST 27 12 - 35 [facility] Specimen (Source) Anatomical Location Collection Method / Collectio n Time Received Time / Laterality Volume Blood (Blood, Venous) Eliana Perez-C. LAB BLOOD ADD-ON Performing Organization Address [facility] Phon e Number [facility] [address] [place] [address] Alkaline Phosphatase (03/14/2022) athologist Signature EXT Alkaline 109 40 - 150 [facility] Specimen (Source) Anatomical Location Collection Method / Collectio n Time Received Time / Laterality Volume Blood (Blood, Venous) Eliana FriedmanA.-C. LAB BLOOD ADD-ON Performing Organization Address City/[facility]/ZIP Code Phon e Number [facility] [address] [place] [address] Creatinine with Estimated GFR (03/14/2022) athologist Signature EXT Creatinine 1 0.5 - 1.5 [place] mg/dL [facility] Specimen (Source) Anatomical Location Collection Method / Collectio n Time Received Time / Laterality Volume Blood (Blood, Venous) Eliana FriedmanA.-C. LAB BLOOD ADD-ON Performing Organization Address City/[facility]/ZIP Code Phon e Number [facility] [address] [place] [address] (ABNORMAL) Bilirubin, Total (03/14/2022) athologist Signature EXT Bilirubin, 3.2 (A) 0.1 - 1.5 [place] Total, [facility] Specimen (Source) Anatomical Location Collection Method / Collectio n Time Received Time / Laterality Volume Blood (Blood, Venous) Eliana Ivy P.A.-C. LAB BLOOD ADD-ON Performing Organization Address City/[facility]/ZIP Code Phon e Number [facility] [address] [place] [address] CBC with Differential, Blood (03/14/2022) athologist Signature EXT Platelet 167 140 - 440 [place] Count [facility] EXT Eosinophils 0.34 0 - 0.5 [facility] EXT Hemoglobin 15.6 13.5 - [place] 17.5 [facility] EXT Absolute 3.75 1.7 - 7 [place] Neutrophils [facility] EXT White Blood 6.1 4.5 - 11.0 [place] Cell (WBC) Count [facility] Comment: 6.14 Specimen (Source) Anatomical Location Collection Method / Collectio n Time Received Time / Laterality Volume Blood (Blood, Venous) Eliana Ivy P.A.-C. LAB BLOOD ADD-ON Performing Organization Address City/[facility]/ZIP Code Phon e Number [facility] [address] [place] [address] documented in this encounter Visit Diagnoses Diagnosis Elevated Bilirubin - Primary documented in this encounter Care Teams Bin Filler Relationship Specialty Start Date End Date Elsewhere, Pcp PCP - General Internal Medicine 12/26/21 documented as of this encounter
--- OUTSIDE RECORDS SUMMARY | 2022-07-03 08:24 | XMS_ITS | Encounter Summary ---
:1945 Author Organization [facility] Address [address] [place] [address] Care Team Providers Name Role Phone Elsewhere, Pcp Primary Care Provider Unavailable Encounter Details Date Type Department Care Team Description 03/23/2022 Orders Only Section of Infectious Monae Khan, My cobacteria Cutaneous Diseases in [facility] Not Tuberculosis [place], [place] [phone] (Primary Dx) [address] [facility] (Work) [place] [address] Social History Tobacco Use Types Packs/Day Years [...] Primary documented in this encounter Care Teams Encoding Clerk Relationship Specialty Start Date End Date Elsewhere, Pcp PCP - General Internal Medicine 12/26/21 documented as of this encounter
--- OUTSIDE RECORDS SUMMARY | 2022-07-03 08:24 | XMS_ITS | Encounter Summary ---
:1945 Author Organization [facility] Address [address] [place] [address] Care Team Providers Name Role Phone Elsewhere, Pcp Primary Care Provider Unavailable Reason for Visit Outpatient (Routine) - Closed Specialty Diagnoses / Procedures Referred By Contact Refer red To Contact Infectious Diseases Max Aguilar [place] [address] [place] [address] Referral ID Status Reason Start Date Expiration Date Visits Requ ested Visits Authorized [id number] Closed 03/22/2022 03/22/2023 1 1 Encounter Details Date Type Department Care Team Description 04/19/2022 Office Visit Section of Infectious [place] Aguilar, D.O. [address] [place], [place] [phone] Infection Mycobacterium Diseases in Brenda Saldana M.D. [address] [place] [phone] [place] (Primary Dx) [place], [place] [address] [place] [phone] Social History Tobacco Use Types Packs/Day Years Used Date Smoking Tobacco: Former Cigarettes 0 4 10/0 09/1965 - 09/01/1969 Smokeless Tobacco: Never Alcohol [...] or relatives? How often do you attend amish or More than 4 times per year 12/12/2021 mu-ism services? 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 He was originally treated with azithromycin monotherapy x3 weeks. Lesion did not resolve. He has been on combination treatment with azithromycin, doxycycline and clofazimine since early January2022. Skin lesion has completely resolved. There are no other signs of inflammation. He has been followed by Cardiology and the plan is to introduce antiarrhythmic treatment with sotalol or other QT prolonging agent. He has a stable thickened plaque on his distal forearm. This was previously biopsied twice by [place] corporate quality assurance manager. There were no findings of granulomatous inflammation. The following portions of the patient's history were reviewed and updated as appropriate: allergies,current medications, family history, medical history, social history, surgical history, and problem list. REVIEW OF SYSTEMS Pertinent items are noted in HPI; all other review of systems was negative. OBJECTIVE Vitals: 04/19/22 1119 Temp: 36.1 ??C Weight: (!) 148 kg TempSrc: Tympanic PHYSICAL EXAMINATION General: Well appearing Extremities: Prior lesion on dorsal aspect of left hand has resolved. There is no skin lesion, induration, swelling or other signs of inflammation. Thickened plaque on the dorsomedial aspect of the distal forearm. DIAGNOSTICS WBC 5.9 (neutrophils 3.69, lymphocytes 1.15), hemoglobin 15.4, platelets 155 Creatinine 1.14, GFR 66 Total bilirubin 2.4, ALT 17, AST 17, ALP 108 EKG shows QTc interval 487 msec. 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 Doxycycline was started on December 29, azithromycin on December 30 and clofazimine on January 07, 2022. He reports that the skin rash resolved after approximately 1 month. Hand swelling resolved after 2 months of treatment. There are currently no signs of residual inflammation. Skin lesion on the distal left forearm was biopsied several times in the past. The diagnosis is prurigo nodularis. There is no evidence of mycobacterial infection in the forearm. We will complete 4 month course of triple antibiotic therapy. Stop date will be May 10, 2022. Both azithromycin and clofazimine are QT prolonging agents. Clofazimine has a prolonged half life. The patient can be started on antiarrhythmic treatment at least 2 weeks after stopping the antibiotic. Brenda Saldana MD documented in this encounter Plan of Treatment Not on filedocumented as of this encounter Visit Diagnoses Diagnosis Infection Mycobacterium Chelonae - Prima ry documented in this encounter Care Teams Virtual Classroom Manager Relationship Specialty Start Date End Date Elsewhere, Pcp PCP - General Internal Medicine 12/26/21 documented as of this encounter
--- OUTSIDE RECORDS SUMMARY | 2022-07-03 08:24 | XMS_ITS | Clinical Summary ---
:1945 Author Organization [facility] Address [address] [place] [address] Care Team Providers Name Role Phone Elsewhere, Pcp Primary Care Provider Unavailable Source Comments Patient records contain information from all sites at [facility]. For routine questions regarding patient records, call [phone] during business hours, M-F 8:00 AM - 5:00 PM Central Time. Record requests for emergency care only can be directed to [phone] at any time.[facility] Allergies Active Allergy Reactions Severity Noted Date Comments Adhesive Tape-Silicones Rash Low 07/18/2017 Penicillins Hives Low 07/18/2017 Medications Medication Sig Dispensed Refills Start Date End Date Status acetaminophen Take 1,000 mg by 0 Active (TYLENOL) 500 mg mouth as needed. tablet clindamycin (CLEOCIN) 2 capsules prior 0 Active 300 mg capsule to dental work nitroglycerin Place 0.4 mg under 0 Active (NITROSTAT) 0.4 mg SL the tongue as tablet needed. FOR EMERGENCIES multivit with Take 1 tablet by 0 10/18/2016 Active min-folic acid 0.4 mg mouth daily. tablet omeprazole (PriLOSEC) Take 20 mg by 0 10/18/[address] capsule mouth daily. atorvastatin (LIPITOR) Take 40 mg by 0 02/21/2021 Active 40 mg tablet mouth daily. carvediloL (COREG) 25 Take 25 mg by 0 04/04/2021 Active mg tablet mouth 2 (two) times a day with meals. furosemide (LASIX) 20 Take 20 mg by 0 02/21/2021 Active mg tablet mouth as needed. spironolactone Take 25 mg by 0 11/19/2021 Active (ALDACTONE) 25 mg mouth daily. tablet Entresto 97-103 mg per Take 1 tablet by 0 09/21/2021 Active tablet mouth 2 (two) times a day. Eliquis 5 mg tablet 5 mg daily. 0 11/29/2021 Active azithromycin Take 1 tablet (500 30 tablet 2 03/22/2022 Active (ZITHROMAX) 500 mg mg total) by mouth tabletIndications: daily. Take with Mycobacterium food Infection doxycycline Take 1 tablet (100 60 tablet 2 03/22/2022 Active monohydrate (ADOXA) mg total) by mouth 100 mg 2 (two) times a tabletIndications: day. Mycobacterium Infection Research IRB [id number] Take 2 capsules 2 Bottle 0 03/28/2022 Active clofazimine 50 mg (100 mg total) by capsuleIndications: mouth daily. Take Mycobacteria Cutaneous with food. 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 05/01/2022 Documentation Infectious Sherrie Lew Diseases M.D. 04/27/2022 Clinical Infectious SONIA Bobo (Normal La bs) Communication Diseases Ernestine S, R.N. 04/20/2022 Comprehensive Visit Allergy and Kavon Ahmadi, Mycoba cterium Immunology M.Hua., M.S. Infection 04/20/2022 Refill Infectious Jeff, Med Refill Diseases Max Sequeira, D.O. 04/19/2022 Office Visit Infectious Jeff Infection Diseases Max Sequeira, D.O. Mycobacterium Vergidis, Chelonae (Kanika Gutierrez M.D. Dx) 04/19/2022 Hospital Encounter Laboratory Sherrie Lew Long T erm Antibiotic Medicine Feliberto Treatment 04/16/2022 Clinical Admitting/Central Pre-visit Intake Communication Scheduling 04/04/2022 Clinical Infectious Pascual Licea (Normal Labs) Communication Diseases P, R.N. from Last 3 Months Family History Medical History Relation Name Comments Melanoma Brother 1 Mayank Mendez Prostate cancerm Prostate cancer Brother 1 Mayank Mendez Basal cell carcinoma Brother 2 Colon polyps Brother 3 leonel mendez Coronary artery disease Brother 3 leonel mendez Melanoma Brother 3 leonel mendez Coronary artery disease Father r aristides mendez Hypertension Father r aristides mendez Melanoma Father r aristides tejadaon Obesity Father r aristides mendez Melanoma Father's Brother Melanoma Mother Sabina Mendez Relation Name Status Comments Brother 1 Mayank Tejadaon Brother 2 Brother 3 leonel tejadaon Father r aristides tejadaon Father's Brother Mother Sabina Mendez Social History Tobacco Use Types Packs/Day Years Used Date Smoking Tobacco: Former Cigarettes 0 4 09/1965 - 09/01/1969 Smokeless Tobacco: Never Tobacco Cessation: Counseling Given: Not Answered Alcohol Use Standard Drinks/Week Comments No 0 [...] or relatives? How often do you attend congregation or More than 4 times per year 12/12/2021 yazidi services? Do you belong to any clubs or Yes 12/12/2021 organizations such as congregation groups, unions, fraternal or athletic groups, or [...] slept in a group home (including now)? Education Answer Date Recorded What is the highest level of Professional school degree (e.g ., , 12/12/2021 school you have completed or the DDS, DVM, RODOLFO) highest degree you have received? Sex Assigned at Date Recorded Male 04/03/2018 7:54 AM CDT Last Filed Vital Signs Vital Sign Reading Time Taken Comments Blood Pressure 156/98 07/08/2018 2:12 PM [facility] [employer]IER Pulse 99 07/08/2018 2:12 PM [employer] [employer] Temperature 36.5 ??C (97.7 ??F) 04/20/2022 2:26 PM CDT Respiratory Rate 20 04/15/2018 1:00 PM CDT Oxygen Saturation 94% 04/15/2018 1:00 PM CDT Inhaled Oxygen Concentration - - Weight 148 kg (326 lb 8 oz) 04/19/2022 11:19 AM CDT Height 168.4 cm (5' 6.3) 07/08/2018 2:12 PM [employer]INE [employer]IER Body Mass Index 52.22 07/08/2018 2:12 PM BRINE PUR[employer]IER Plan of Treatment Health Maintenance Due Date Last Done Comments Hepatitis C Screening 1945 Pneumococcal vaccine (65+ years) 06/07/2016 06/07/2015 (2 - PPSV23 if available, else PCV20) Depression Screening (Annual 08/05/2021 PHQ-2) Fall Risk Screen (Annual) 08/05/2021 Potassium Level 01/04/2023 01/04/2022, 09/21/2021, 06/19/2021, Additional history exists Sodium Level 01/04/2023 01/04/2022, 09/21/2021, 06/19/2021, Additional history exists Creatinine Level 04/19/2023 04/19/2022, 04/03/2022, 03/14/2022, Additional history exists DTaP,Tdap,and Td Vaccines (2 - Td 06/07/2025 06/07/2015, or Tdap) Zoster Vaccines Completed 09/06/2021, 05/08/2021 COVID-19 Vaccine Completed 05/10/2022, 12/29/2021, 05/30/2021, Additional history exists Influenza Vaccine Completed 05/10/2022, 05/08/2021, 05/21/2019, Additional history exists Medical Devices Implanted Type Area Product Development Director Device Shelf Model / Identifier Expiration Serial / Date Lot Knee Implant-07/06/2019 Knee Implant Right: Implanted: 07/06/2019 (Quantity not on file) Knee Ocular Lens Ocular Lens Bilateral : Eye Pacemaker-03/09/2021 Pacemaker Left: Implanted: 03/09/2021 (Quantity not on file) Chest Procedures Procedure Name Priority Date/Time Associated Comments Diagnosis BILIRUBIN, TOT, S/P Routine 04/19/2022 9:23 [facility] Resul ts for this AM CDT Antibiotic procedure are i n Treatment the results section. ALKALINE PHOSPHATASE, Routine 04/19/2022 9:23 [employer] Res ults for this S/P AM CDT Antibiotic procedure are i n Treatment the results section. ASPARTATE Routine 04/19/2022 9:23 [facility] Results for this AMINOTRANSFERASE (AST), AM CDT Antibiotic proc edure are in S/P Treatment the results section. CREATININE WITH EGFR, Routine 04/19/2022 9:23 [facility] Res ults for this S/P AM CDT Antibiotic procedure are i n Treatment the results section. ALANINE AMINOTRANSFERASE Routine 04/19/2022 9:23 [facility] Results for this (ALT), S/P AM CDT Antibiotic procedure are i n Treatment the results section. CBC WITH DIFFERENTIAL, B Routine 04/19/2022 9:23 [employer] Results for this AM CDT Antibiotic procedure are i n Treatment the results section. ECG Routine 04/19/2022 8:51 [facility] Results for this AM CDT Antibiotic procedure are i n Treatment the results section. CREATININE WITH EGFR, Routine 04/03/2022 Result s for this S/P procedure are i n the results section. CBC WITH DIFFERENTIAL, B Routine 04/03/2022 Res ults for this procedure are i n the results section. from Last 3 Months Results CBC with Differential, Blood (04/19/2022 9:23 AM CDT)Only the most recent of2 resultswithin the time period is included. P athologist Signature Hemoglobin 15.4 13.2 - 04/19/2022 DTL 16.6 g/dL 9:58 AM CDT Hematocrit 44.3 38.3 - 04/19/2022 DTL 48.6 % 9:58 AM CDT Erythrocytes 4.67 4.35 - 04/19/2022 DTL 5.65 9:58 AM CDT x10(12)/L MCV 94.9 78.2 - 04/19/2022 DTL 97.9 fL 9:58 AM CDT RBC Distrib Width 13.4 11.8 - 04/19/2022 DTL 14.5 % 9:58 AM CDT Platelet Count 155 135 - 317 04/19/2022 DTL x10(9)/L 9:58 AM CDT Leukocytes 5.9 3.4 - 9.6 04/19/2022 DTL x10(9)/L 9:58 AM CDT Neutrophils 3.69 1.56 - 04/19/2022 DTL 6.45 9:58 AM CDT x10(9)/L Lymphocytes 1.15 0.95 - 04/19/2022 DTL 3.07 9:58 AM CDT x10(9)/L Monocytes 0.59 0.26 - 04/19/2022 DTL 0.81 9:58 AM CDT x10(9)/L Eosinophils 0.38 0.03 - 04/19/2022 DTL 0.48 9:58 AM CDT x10(9)/L Basophils 0.05 0.01 - 04/19/2022 DTL 0.08 9:58 AM CDT x10(9)/L Specimen Anatomical Collection Method Collection Time Receive d Time (Source) Location / / Volume Laterality Blood (Blood, 04/19/2022 9:23 AM 04/19/20 9:47 Venous) CDT AM CDT Sherrie Lew M.D. LAB BLOOD ADD-ON Performing Organization Address City/State/ZIP Code Phon e Number [facility] - [address] [place], [place] [address] [facility] [place] [address] Laboratories-[facility] [address] ALT (Alanine Aminotransferase) (04/19/2022 9:23 AM CDT) [facility] gist Method Time Signature Alanine 17 7 - 55 04/19/2022 DTL Aminotransferase U/L 10:24 AM CDT (ALT), S Specimen Anatomical Collection Method Collection Time Receive d Time (Source) Location / / Volume Laterality Blood (Blood, 04/19/2022 9:23 AM 04/19/20 22 Venous) CDT 10:04 AM CDT Sherrie Lew M.D. LAB BLOOD ADD-ON Performing Organization Address City/[facility]/ZIP Code Phon e Number [facility] - [address] [place], [place] [address] [facility] [place], [place] [id number] [place] [address] [address] [facility] AST (Aspartate Aminotransferase) (04/19/2022 9:23 AM CDT) Patholo gist Method Time Signature Aspartate 17 8 - 48 04/19/2022 DTL Aminotransferase U/L 10:24 AM CDT (AST), S Specimen Anatomical Collection Method Collection Time Receive d Time (Source) Location / / Volume Laterality Blood (Blood, 04/19/2022 9:23 AM 04/19/20 22 Venous) CDT 10:04 AM CDT Sherrie Lew M.D. LAB BLOOD ADD-ON Performing Organization Address City/[facility]/ZIP Code Phon e Number [facility] - [address] [place] [address] [facility] [address] [facility] Alkaline Phosphatase (04/19/2022 9:23 AM CDT) P athologist Signature Alkaline 108 40 - 129 04/19/2022 DTL Phosphatase, S U/L 10:24 AM CDT Specimen Anatomical Collection Method Collection Time Receive d Time (Source) Location / / Volume Laterality Blood (Blood, 04/19/2022 9:23 AM 04/19/20 22 Venous) CDT 10:04 AM CDT Sherrie Lew M.D. LAB BLOOD ADD-ON Performing Organization Address City/[facility]/ZIP Code Phon e Number [facility] - [address] [place] [address] Creatinine with Estimated GFR (04/19/2022 9:23 AM CDT)Only the most recent of2 resultswithin the time period is included. P athologist Signature Creatinine 1.14 0.74 - 04/19/2022 DTL 1.35 mg/dL 10:24 AM CDT Estimated GFR 66 >=60 04/19/2022 DTL (eGFR) mL/min/BSA 10:24 AM CDT Comment: Estimated GFR calculated using the 2020 CKD_EPI creatinine equation. Specimen Anatomical Collection Method Collection Time Receive d Time (Source) Location / / Volume Laterality Blood (Blood, 04/19/2022 9:23 AM 04/19/20 22 Venous) CDT 10:04 AM CDT Sherrie Lew M.D. LAB BLOOD ADD-ON Performing Organization Address City/State/ZIP Code Phon e Number [facility] - [address] [place], [place] [address] [place] [address] [place] [address] Laboratories-[address] (ABNORMAL) Bilirubin, Total (04/19/2022 9:23 AM CDT) P athologist Signature Bilirubin, 2.4 (H) <=1.2 04/19/2022 DTL Total, S mg/dL 10:24 AM CDT Specimen Anatomical Collection Method Collection Time Receive d Time (Source) Location / / Volume Laterality Blood (Blood, 04/19/2022 9:23 AM 04/19/20 Venous) CDT 10:04 AM CDT Sherrie Lew M.D. LAB BLOOD ADD-ON Performing Organization Address City/[facility] Code Phon e Number [facility] - [address] [place], [place] [address] [place] [address] ECG 12 Lead (04/19/2022 8:51 AM CDT) Patholo gist Method Time Signature Ventricular 81 BPM MUSE Rate ECG/Min QRSD Interval 142 ms MUSE QT Interval 420 ms MUSE QTC Interval 487 ms MUSE R [place] -44 degrees MUSE T Wave [place] 7 degrees MUSE CODED Atrial MUSE DIAGNOSIS fibrillation Specimen Anatomical Collection Method Collection Time Receive d Time (Source) Location / / Volume Laterality 04/19/2022 8:51 AM 9:46 CDT AM CDT Impressions MUSE - 04/19/2022 9:04 AM CDT Electronic ventricular pacemaker with premature ventricular or aberrantly conducted complexes Atrial fibrillation When compared with ECG of 07-FEB-2022 09 :42, Premature ventricular complexes are now present Revised Report Narrative This result has an attachment that is no t available. Procedure Note Giancarlo Vieira Jr., M.D. - 04/19/2022For matting of this note might be different from the original. 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 ECG ORDERABLES Performing Organization Address City/State/ZIP Code Phon e Number MUSE MUSE NA from Last 3 Months Insurance Payer Benefit Plan / Subscriber ID Effective Dates Phone Addre ss Type Group HUMANA HUMANA CHOICE [id number] 2018-Present [phone] [address] [address] [place] [address] Care Teams Bulk Truck Driver Relationship Specialty Start Date End Date Elsewhere, Pcp PCP - General Internal Medicine 12/26/21
--- OUTSIDE RECORDS SUMMARY | 2022-07-03 08:24 | XMS_ITS | Encounter Summary ---
:[address] [facility] Address [address] [place] [address] Care Team Providers Name Role Phone Elsewhere, Pcp Primary Care Provider Unavailable Reason for Visit Outpatient (Routine) - Closed Specialty Diagnoses / Procedures Referred By Contact Refer red To Contact Video Medicine Diagnoses Mycobacterium Infection Sherrie Lew M.D. [facility] [address] [place] [address] Referral ID Status Reason Start Date Expiration Date Visits Requ ested Visits Authorized [id number] Closed 02/07/2022 02/07/2023 1 1 Encounter Details Date Type Department Care Team Description 03/12/2022 Telemedicine Section of Infectious Max Aguilar Infection Diseases in D, D.O. (Primary Dx) [place], [place] [address] [facility] [place] [address] [place] [phone] Social History Tobacco Use Types Packs/Day Years [...] 12/12/2021 organizations such as congregation groups, unions, fraLiquid X or athletic groups, or school groups? How [...] with follow-up. Plan to send orders to [facility]. Need follow-up in [address] [...] Primary documented in this encounter Care Teams Rigging Man Relationship Specialty Start Date End Date Elsewhere, Pcp PCP - General Internal Medicine 12/26/21 documented as of this encounter
--- OUTSIDE RECORDS SUMMARY | 2022-07-03 08:24 | XMS_ITS | Encounter Summary ---
:1945 Author Organization [facility] Address [address] [place] [address] Care Team Providers Name Role Phone Elsewhere, Pcp Primary Care Provider Unavailable Encounter Details Date Type Department Care Team Description 04/19/2022 Hospital Encounter Department of VipinSherrie barcenas [facility] Laboratory Medicine Feliberto Carvajal Treatment and Pathology, [address] [place] [address] in [place], [place] [address] [place] [address] [place], [place] (Work) [phone] Social History Tobacco Use Types Packs/Day Years [...] or relatives? How often do you attend anglican or More than 4 times per year 12/12/2021 baptist services? Do you belong to any clubs or Yes 12/12/2021 organizations such as anglican groups, unions, fraternal or athletic groups, or [...] Date acetaminophen (TYLENOL) Take 1,000 mg by mouth 0 500 mg tablet as needed. atorvastatin (LIPITOR) 40 Take 40 mg by mouth 0 0 02/21/2021 mg tablet daily. azithromycin (ZITHROMAX) Take 1 tablet (500 mg 30 tablet 2 03/22/2022 500 mg tabletIndications: total) by mouth daily. Mycobacterium Infection Take with food carvediloL (COREG) 25 mg Take 25 mg by mouth 2 0 04/04/2021 tablet (two) times a day with meals. clindamycin (CLEOCIN) 300 2 capsules prior to 0 mg capsule dental work doxycycline monohydrate Take 1 tablet (100 mg 60 tablet 2 0 03/22/2022 (ADOXA) 100 mg total) by mouth 2 tabletIndications: (two) times a day. Mycobacterium Infection Eliquis 5 mg tablet 5 mg daily. 0 11/29/2021 Entresto 97-103 mg per Take 1 tablet by mouth 0 0 09/21/2021 tablet 2 (two) times a day. furosemide (LASIX) 20 mg Take 20 mg by mouth as 0 02/21/2021 tablet needed. multivit with min-folic Take 1 tablet by mouth 0 10/18/2016 acid 0.4 mg tablet daily. nitroglycerin (NITROSTAT) Place 0.4 mg under the 0 0.4 mg SL tablet tongue as needed. FOR EMERGENCIES omeprazole (PriLOSEC) 20 Take 20 mg by mouth [address] capsule daily. Research IRB [id number] Take 2 capsules (100 2 Bottle 0 clofazimine 50 mg mg total) by mouth capsuleIndications: daily. Take with food. Mycobacteria Cutaneous Not Tuberculosis spironolactone Take 25 mg by mouth 0 11/19/2021 (ALDACTONE) 25 mg tablet daily. documented as of this encounter Plan of Treatment Not on filedocumented as of this encounter Procedures Procedure Name Priority Date/Time Associated Comments Diagnosis CBC WITH DIFFERENTIAL, B Routine 04/19/2022 9:23 Shelter Results for this AM CDT Antibiotic procedure are i n Treatment the results section. ALANINE AMINOTRANSFERASE Routine 04/19/2022 9:23 Shelter Results for this (ALT), S/P AM CDT Antibiotic procedure are i n Treatment the results section. ASPARTATE Routine 04/19/2022 9:23 Salsa Dance Instructor Results for this AMINOTRANSFERASE (AST), AM CDT Antibiotic proc edure are in S/P Treatment the results section. ALKALINE PHOSPHATASE, Routine 04/19/2022 9:23 Shelter Res ults for this S/P AM CDT Antibiotic procedure are i n Treatment the results section. CREATININE WITH EGFR, Routine 04/19/2022 9:23 [employer] Res ults for this S/P AM CDT Antibiotic procedure are i n Treatment the results section. BILIRUBIN, TOT, S/P Routine 04/19/2022 9:23 Shelter Resul ts for this AM CDT Antibiotic procedure are i n Treatment the results section. documented in this encounter Results (ABNORMAL) Bilirubin, Total (04/19/2022 9:23 AM CDT) P athologist Signature Bilirubin, 2.4 (H) <=1.2 04/19/2022 DTL Total, S mg/dL 10:24 AM CDT Specimen Anatomical Collection Method Collection Time Receive d Time (Source) Location / / Volume Laterality Blood (Blood, 04/19/2022 9:23 AM 04/19/20 22 Venous) CDT 10:04 AM CDT Sherrie Lew M.D. LAB BLOOD ADD-ON Performing Organization Address City/[facility] Phon e Number [facility] - [id number] [place] [address] [address] [facility] Alkaline Phosphatase (04/19/2022 9:23 AM CDT) P athologist Signature Alkaline 108 40 - 129 04/19/2022 DTL Phosphatase, S U/L 10:24 AM CDT Specimen Anatomical Collection Method Collection Time Receive d Time (Source) Location / / Volume Laterality Blood (Blood, 04/19/2022 9:23 AM 04/19/20 22 Venous) CDT 10:04 AM CDT Sherrie Lew M.D. LAB BLOOD ADD-ON Performing Organization Address City/[facility]/ZIP [facility] Phon e Number [facility] - [address] AST (Aspartate Aminotransferase) (04/19/2022 9:23 AM CDT) [facility] gist Method Time Signature Aspartate 17 8 [...] [facility] [address] [place], [place] [address] [place] [address] [place] [address] [address] [facility] Creatinine with Estimated GFR (04/19/2022 9:23 AM CDT) P athologist Signature Creatinine 1.14 0.74 - [...] M.D. LAB BLOOD ADD-ON Performing Organization Address City/[facility] Phon e Number [facility] - [address] [place], [place] [address] [facility] [place] [address] ALT (Alanine Aminotransferase) (04/19/2022 9:23 AM CDT) Patholo gist Method Time Signature Alanine 17 7 - 55 04/19/2022 DTL Aminotransferase U/L 10:24 AM CDT (ALT), S Specimen Anatomical Collection Method Collection Time Receive d Time (Source) Location / / Volume Laterality Blood (Blood, 04/19/2022 9:23 AM 04/19/20 22 Venous) CDT 10:04 AM CDT Sherrie Lew M.D. LAB BLOOD ADD-ON Performing Organization Address City/[facility] Phon e Number [facility] - [address] [place], [place] [address] [place] [address] CBC with Differential, Blood (04/19/2022 9:23 AM CDT) P athologist Signature Hemoglobin 15.4 13.2 - [...] Blood (Blood, 04/19/2022 9:23 AM 04/19/20 22 9:47 Venous) CDT AM CDT Sherrie Lew M.D. LAB BLOOD ADD-ON Performing Organization Address City/State/ZIP Code Phon e Number [facility] - [address] [place], [place] [address] [facility] [place] [address] Laboratories-[facility] [address] documented in this encounter Visit Diagnoses Diagnosis Shelter Antibiotic Treatment documented in this encounter Care Teams Chef Relationship Specialty Start Date End Date Elsewhere, Pcp PCP - General Internal Medicine 12/26/21 documented as of this encounter
--- OUTSIDE RECORDS SUMMARY | 2022-07-03 08:24 | XMS_ITS | Encounter Summary ---
:1945 Author Organization [facility] Address [address] [place] [address] Care Team Providers Name Role Phone Elsewhere, Pcp Primary Care Provider Unavailable Encounter Details Date Type Department Care Team Description 02/07/2022 Hospital Encounter Department of [facility] Laboratory Medicine Feliberto Carvajal Infection and Pathology, [address] [place] [address] in [place], [place] [address] [place] [address] [place], [place] (Work) [phone] Social History Tobacco Use Types Packs/Day Years [...] many times do you More than three maximliiano es a week 12/12/2021 talk on the phone with family, friends, or neighbors? How often do you get together with friends More than three t imes a week 12/12/2021 or relatives? How often do you attend judaism or More than 4 times per year 12/12/2021 presybeterian services? Do you belong to any clubs [...] or slept in a detention (including now)? Education Answer Date Recorded What [...] 1,000 mg by 0 500 mg tablet mouth as needed. atorvastatin (LIPITOR) Take 40 mg by mouth 0 02/03 40 mg tablet daily. carvediloL (COREG) 25 mg Take 25 mg by mouth 2 0 04/04/2021 tablet (two) times a day with meals. clindamycin (CLEOCIN) 2 capsules prior to 0 300 mg capsule dental work Eliquis 5 mg tablet 5 mg daily. 0 11/29/2021 Entresto 97-103 mg per Take 1 tablet by 0 022 tablet mouth 2 (two) times a day. furosemide (LASIX) 20 mg Take 20 mg by mouth 0 tablet as needed. multivit with min-folic Take 1 tablet by 0 2016 acid 0.4 mg tablet mouth daily. nitroglycerin Place 0.4 mg under 0 (NITROSTAT) 0.4 mg SL the tongue as needed. tablet FOR EMERGENCIES omeprazole (PriLOSEC) 20 Take 20 mg by mouth [address] capsule daily. spironolactone Take 25 mg by mouth 0 11/19/2021 (ALDACTONE) 25 mg tablet daily. apixaban (ELIQUIS) 5 mg 5 mg 2 (two) times a 0 04/16/2022 tablet day. azithromycin (ZITHROMAX) Take 1 tablet (500 mg 30 tablet 2 12/28/2021 03/12/2022 500 mg tablet total) by mouth daily. Take with food doxycycline monohydrate Take 1 tablet (100 mg 60 tablet 2 0 12/28/2021 03/12/2022 (ADOXA) 100 mg tablet total) by mouth 2 (two) times a day. multivitamin (THERAGRAN) Take 1 tablet by 0 03/09/2022 tablet mouth. Research IRB [id number] Take 2 capsules (100 2 Bottle 0 09/202104/16/2022 clofazimine 50 mg mg total) by mouth capsuleIndications: daily. Take with Mycobacterium Infection food. documented as of this encounter Plan of [...] Results Bilirubin, Direct (02/07/2022 9:26 AM CDT) P athologist Signature Bilirubin, 0.3 0.0 - 0.3 02/07/2022 DTL Direct, S mg/dL 10:29 AM CDT Specimen Anatomical Collection Method Collection Time Receive d Time (Source) Location / / Volume Laterality Blood (Blood, 02/07/2022 9:26 AM 02/08/20 22 Venous) CDT 10:11 AM CDT Smith Arambula M.D. LAB BLOOD ADD-ON Performing Organization Address City/[facility] Phon e Number [facility] - 200 [place], [place] [address] [facility] [place] [address] Laboratories[address] (ABNORMAL) Bilirubin, Total (02/07/2022 9:26 AM CDT) athologist Signature Bilirubin, 2.3 (H) <=1.2 02/07/2022 DTL Total, S mg/dL 10:29 AM CDT Specimen Anatomical Collection Method Collection Time Receive d Time (Source) Location / / Volume Laterality Blood (Blood, 02/07/2022 9:26 AM 02/08/20 22 Venous) CDT 10:11 AM CDT Smith Arambula M.D. LAB BLOOD ADD-ON Performing Organization Address City/[facility] Phon e Number [facility] - 200 [place], [place] [address] [place] [address] [address] CBC with Differential, Blood (02/07/2022 9:26 [...] Organization Address City/State/ZIP Code Phon e Number [facility] - [address] [place], [place] [address] [facility] [place] [place] [address] Laboratories-[facility] 200 [facility] Creatinine with Estimated GFR (02/07/2022 9:26 AM CDT) P athologist Signature Creatinine 0.98 0.74 - 02/07/2022 DTL 1.35 mg/dL 10:29 AM CDT eGFR-Non 74 >=60 02/07/2022 DTL Black/ mL/min/BSA 10:29 AM CDT Haitian Comment: ----ADDITIONAL INFORMATION---- Estimated GFR calculated using [...] M.D. LAB BLOOD ADD-ON Performing Organization Address City/[facility]/ZIP Code Phon e Number [facility] - [address] [place], [place] [address] [place] [phone] [place] [address] ALT (Alanine Aminotransferase) (02/07/2022 9:26 AM CDT) Patholo gist Method Time Signature Alanine 17 7 - 55 02/07/2022 DTL Aminotransferase U/L 10:29 AM CDT (ALT), S Specimen Anatomical Collection Method Collection Time Receive d Time (Source) Location / / Volume Laterality Blood (Blood, 02/07/2022 9:26 AM 02/08/20 22 Venous) CDT 10:11 AM CDT Smith Arambula M.D. LAB BLOOD ADD-ON Performing Organization Address City/[facility]/ZIP Code Phon e Number [facility] - [address] [place], [place] [address] [place], [place] [phone] [place] [address] Alkaline Phosphatase (02/07/2022 9:26 AM CDT) P athologist Signature Alkaline 116 40 - 129 02/07/2022 DTL Phosphatase, S U/L 10:29 AM CDT Specimen Anatomical Collection Method Collection Time Receive d Time (Source) Location / / Volume Laterality Blood (Blood, 02/07/2022 9:26 AM 02/08/20 22 Venous) CDT 10:11 AM CDT Smith Arambula M.D. 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
--- OUTSIDE RECORDS SUMMARY | 2022-07-03 08:24 | XMS_ITS | Encounter Summary ---
:1945 Author Organization [facility] Address 200 [place] [address] Care Team Providers Name Role Phone Elsewhere, Pcp Primary Care Provider Unavailable Reason for Referral Outpatient (Routine) - Closed Specialty Diagnoses / Procedures Referred By Contact Refer red To Contact Infectious Diseases Humaira Acevedo [place] D.O. 200 [place] [address] Referral ID Status Reason Start Date Expiration Date Visits Requ ested Visits Authorized [id number] Closed 03/22/2022 03/22/2023 1 1 Reason for Visit Reason Comments Med Refill Encounter Details Date Type Department Care Team Description 03/22/2022 Clinical Communication Section of Infectious Humaira Acevedo Med Refill Diseases in Rufino Sequeira [place], [place] 200 [facility] 200 [place] [phone] Social History Tobacco Use Types Packs/Day Years [...] More than 4 times per year 12/12/2021 cheondoism services? Do you belong to any clubs [...] encounter Miscellaneous Notes Addendum Note - Humaira Acevedo, D.O. - 03/22/2022 3:38 PM CDT Addended by: HUMAIRA ACEVEDO on: 03/22/2022 03:38 PM Modules accepted: Orders Telephone Encounter - Humaira Acevedo, D.O. - 03/22/2022 3:34 PM CDT Have changed the Doxycycline and azithromycin to go to the requested [facility]. Will need Dr. Lew's assistance to order Clofazamine Telephone Encounter - Bharti Mahajan - 03/22/2022 9:13 AM CDT You refilled his two antibiotics, azithromycin and doxycycline monohydrate, on 03/12/22 and sent them to [facility]. He no longer uses them so would like the prescriptions sent to [facility] instead.This pharmacy has been added and [facility] deleted. He also needs clofazimine which is part of a research study. He's not sure how that is obtained but he only has about [address] Lew was involved with that. 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
--- OUTSIDE RECORDS SUMMARY | 2022-07-03 08:24 | XMS_ITS | Encounter Summary ---
:1945 Author Organization [facility] Address [address] [place] [address] Care Team Providers Name Role Phone Elsewhere, Pcp Primary Care Provider Unavailable Encounter Details Date Type Department Care Team Description 01/11/2022 Clinical Communication Section of Infectious Grecia Khan, Diseases in [place], [place] [phone] [address] [facility] (Work) [place] [address] Social History Tobacco Use Types Packs/Day Years [...] More than 4 times per year 12/12/2021 adventism services? Do you belong to any clubs [...] on filedocumented in this encounter Care Teams Lumber Mover Relationship Specialty Start Date End Date Elsewhere, Pcp PCP - General Internal Medicine 12/26/21 documented as of this encounter
--- OUTSIDE RECORDS SUMMARY | 2022-07-03 08:24 | XMS_ITS | Encounter Summary ---
:1945 Author Organization [facility] Address [address] [place] [address] Care Team Providers Name Role Phone Elsewhere, Pcp Primary Care Provider Unavailable Reason for Visit Reason Comments Med Refill Encounter Details Date Type Department Care Team Description 04/20/2022 Refill Section of Infectious America Aguilar, D.O. Med Refill Diseases in [place] [address] [place] [address] [address] [facility] [place], [place] [phone] Social History Tobacco Use Types Packs/Day Years [...] More than 4 times per year 12/12/2021 sikh services? Do you belong to any clubs [...] encounter Miscellaneous Notes Telephone Encounter - Argentina Chambers R.N. - 04/20/2022 2:38 PM CDT Medication Refill Request Patient was last seen by Dr. Saldana on 04/19/22. Prescriptions for azithromycin and doxycycline were last written on 03/22/22 as # 30 and 60 respectively, both with 2 refill(s). Patient does not currently have an upcoming ID appt scheduled but was advised to return to the clinic for follow up in 0 months. Prescription request will be sent for provider review. Per review of Dr. Saldana' visit note, it appears that the patient will complete antibiotic treatment on 05/10/22 so may not need any more refills. 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
--- OUTSIDE RECORDS SUMMARY | 2022-07-03 08:24 | XMS_ITS | Encounter Summary ---
:1945 Author Organization [facility] Address [address] [place] [address] Care Team Providers Name Role Phone Elsewhere, Pcp Primary Care Provider Unavailable Reason for Visit Reason Onset Date Comments Starting Clofazimine 01/11/2022 Encounter Details Date Type Department Care Team Description 01/11/2022 Clinical Communication Section of Monae Khan Infectious D, CCRP Clofazimine Diseases in [phone] [facility] [address] [place] [phone] Social History Tobacco Use Types Packs/Day Years [...] or relatives? How often do you attend anabaptist or More than 4 times per year 12/12/2021 nondenominational services? Do you belong to any clubs or Yes 12/12/2021 organizations such as anabaptist groups, unions, fraternal or athletic groups, or school groups? How often do you attend meetings of the More than 4 times [facility] year 12/12/2021 clubs or organizations you belong [...] on filedocumented in this encounter Care Teams Data Warehouse Administrator Relationship Specialty Start Date End Date Elsewhere, Pcp PCP - General Internal Medicine 12/26/21 documented as of this encounter
--- OUTSIDE RECORDS SUMMARY | 2022-07-03 08:24 | XMS_ITS | Encounter Summary ---
:1945 Author Organization [facility] Address [address] [place] [address] Care Team Providers Name Role Phone Elsewhere, Pcp Primary Care Provider Unavailable Reason for Visit Reason Comments Pre-visit Intake Encounter Details Date Type Department Care Team Description 04/16/2022 Clinical Communication Visit Review in Pr e-visit Intake [place], [place] 200 [place] [address] Social History Tobacco Use Types [...] on filedocumented in this encounter Care Teams Interchange Agent Relationship Specialty Start Date End Date Elsewhere, Pcp PCP - General Internal Medicine 12/26/21 documented as of this encounter
--- OUTSIDE RECORDS SUMMARY | 2022-07-03 08:24 | XMS_ITS | Encounter Summary ---
:1945 Author Organization [facility] Address [address] [place] [address] Care Team Providers Name Role Phone Elsewhere, Pcp Primary Care Provider Unavailable Reason for Referral Outpatient (Routine) - Closed Specialty Diagnoses / Procedures Referred By Contact Refer red To Contact Diagnoses Mcfp Antibiotic Treatment Sherrie Lew M.D. [facility] Procedures ECG 12 Lead [address] [place] [phone] Referral ID Status Reason Start Date Expiration Date Visits Requ ested Visits Authorized [id number] Closed 02/07/2022 02/07/2023 1 1 utpatient (Routine) - Authorized Specialty Diagnoses / Procedures Referred By Contact Refer red To Contact Diagnoses Systems Requirements Planner Antibiotic Treatment Sherrie Lew M.D. 200 [place], [place] [phone] Referral ID Status Reason Start Date Expiration Date Visits V isits Requested Authorized [id number] Authorized 02/07/2022 02/07/2023 1 1 Reason for Visit Reason Comments OPAT Care Coordination/ Normal la bs Encounter Details Date Type Department Care Team Description 02/07/2022 Clinical Communication Section of Rocky Toure (Care Infectious Diseases E, R.N. Coordination/ in [place], [address] [place] [address] Normal labs) [place], [place] [address] [facility] [phone] [place], [place] [phone] (Work) [phone] Social History Tobacco Use Types Packs/Day Years [...] or relatives? How often do you attend scientologist or More than 4 times per year 12/12/2021 anglican services? Do you belong to any clubs or Yes 12/12/2021 organizations such as scientologist groups, unions, fraternal or athletic groups, or [...] or slept in a fdc (including now)? Education Answer Date Recorded What [...] orders were faxed to Radha Howard, phone: [phone], fax: [phone]. They were also ordered to be scheduled along with ID follow up in 3 months. Telephone Encounter - Rocky Toure R.N. - 02/07/2022 11:28 AM CDT ----- Message from Sherrie Lew M.D. sent at 02/07/2022 11:12 AM CDT ----- Please enroll patient in OPAT for monitoring on Clofazimine Arrange monthly CBC, Cr, ALT, AST, Bili,Alk phos and ECG x 2 months at [facility] (not hospital) In 3 months arrange for here at [place] to be coordinated with his face to face rtn in ID Thanks for the help! Sherrie Falcon [id number] documented in this encounter Plan of Treatment Not on filedocumented as of this encounter Results (ABNORMAL) Bilirubin, Total (04/19/2022 [...] Address City/State/ZIP Code Phon e Number [facility] - [address] [place], [place] [address] [place] [address] [facility] [address] Alkaline Phosphatase (04/19/2022 9:23 AM CDT) P athologist Signature Alkaline 108 40 - 129 04/19/2022 DTL Phosphatase, S U/L 10:24 AM CDT Specimen Anatomical Collection Method Collection Time Receive d Time (Source) Location / / Volume Laterality Blood (Blood, 04/19/2022 9:23 AM 04/19/20 22 Venous) CDT 10:04 AM CDT Sherrie Lew M.D. LAB BLOOD ADD-ON Performing Organization Address City/[facility]/ZIP Code Phon e Number [facility] - [address] [place], [place] [address] [facility] [place] [address] [facility] [address] AST (Aspartate Aminotransferase) (04/19/2022 9:23 AM [...] Address City/State/ZIP Code Phon e Number [facility] - [address] [place], [place] [address] [facility] [place] [address] Creatinine with Estimated GFR (04/19/2022 9:23 [...] Performing Organization Address City/[facility] Code Phon e Number [facility] [address] [place] [address] ALT (Alanine Aminotransferase) (04/19/2022 9:23 AM CDT) [facility] gist Method Time Signature Alanine 17 7 - 55 04/19/2022 DTL Aminotransferase U/L 10:24 AM CDT (ALT), S Specimen Anatomical Collection Method Collection Time Receive d Time (Source) Location / / Volume Laterality Blood (Blood, 04/19/2022 9:23 AM 04/19/20 22 Venous) CDT 10:04 AM CDT Sherrie Lew M.D. LAB BLOOD ADD-ON Performing Organization Address City/State/[facility] Code Phon e Number [facility] - 200 [place], [place] [address] [place] [address] [address] CBC with Differential, Blood (04/19/2022 9:23 [...] Address City/State/ZIP Code Phon e Number [facility] - [address] [place], [place] [address] [facility] [place] [address] Laboratories-[facility] [address] ECG 12 Lead (04/19/2022 8:51 AM CDT) [facility] Method Time Signature Ventricular 81 BPM MUSE Rate ECG/Min QRSD Interval 142 ms MUSE QT Interval 420 ms MUSE QTC Interval 487 ms MUSE R Jeanerette -44 degrees MUSE T Wave [place] 7 degrees MUSE CODED Atrial MUSE DIAGNOSIS fibrillation Specimen Anatomical Collection Method Collection Time Receive d Time (Source) Location / / Volume Laterality 04/19/2022 8:51 AM 2 9:46 CDT AM CDT Impressions MUSE - [...] Organization Address City/State/ZIP Code Phon e Number [facility] documented in this encounter Visit Diagnoses Diagnosis Systems Requirements Planner Antibiotic Treatment - Primary documented in this encounter Care Teams Product Support Manager Relationship Specialty Start Date End Date Elsewhere, Pcp PCP - General Internal Medicine 12/26/21 documented as of this encounter
--- OUTSIDE RECORDS SUMMARY | 2022-07-03 08:24 | XMS_ITS | Encounter Summary ---
:1945 Author Organization [facility] Address [address] [place] [address] Care Team Providers Name Role Phone Elsewhere, [...] on filedocumented in this encounter Care Teams Personal Banking Advisor Relationship Specialty Start Date End Date Elsewhere, Pcp PCP - General Internal Medicine 12/26/21 documented as of this encounter
--- OUTSIDE RECORDS SUMMARY | 2022-07-03 08:24 | XMS_ITS | Encounter Summary ---
:1945 Author Organization [facility] Address 200 [place] [address] Care Team Providers Name Role Phone Elsewhere, Pcp Primary Care Provider Unavailable Reason for Referral Outpatient (Routine) - Closed Specialty Diagnoses / Procedures Referred By Contact Refer red To Contact Video Medicine Diagnoses Mycobacterium Infection Sherrie Lew M.D. [facility] [address] [place] [phone] Referral ID Status Reason Start Date Expiration Date Visits Requ ested Visits Authorized [id number] Closed 02/07/2022 02/07/2023 1 1 Reason for Visit Outpatient (Routine) - Closed Specialty Diagnoses / Procedures Referred By Contact Refer red To Contact Infectious Diseases Diagnoses Mycobacterium Infection Smith Arambula M.D. [facility] [address] [place] [phone] Referral ID Status Reason Start Date Expiration Date Visits Requ ested Visits Authorized [id number] Closed 01/04/2022 01/04/2023 1 1 Encounter Details Date Type Department Care Team Description 02/07/2022 Office Visit Section of Infectious Emory Arambula M.D. [address] [place] [phone] Mycobacterium Infection Diseases in [place] Mary J, M.D. [address] [place] [phone] [place] [address] [place] [phone] Social History Tobacco Use Types Packs/Day Years [...] More than 4 times per year 12/12/2021 alevism services? Do you belong to any clubs or Yes 12/12/2021 organizations such as gnosticist groups, unions, fraternal or athletic groups, or [...] Body Mass Index 52.45 07/08/2018 2:12 PM RESOURCE PROGRAM TEACHER documented in this encounter Progress Notes Sherrie [...] monthly - He wants to do at [facility]. RTN via videoin 1 and 2 months and face to face in 3 months 3. Will ask for a fellow to see him, and although usually I would be happy to staff him, I will be away the [facility] two weeks of march. 4. Suggested Kefir as a probiotic 5. Will reach out to [facility] re scheduling apt. He remains interested in a face to face consult. 25 minutes with at least 20 being spent counseling and coordinating care. 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
--- OUTSIDE RECORDS SUMMARY | 2022-07-03 08:24 | XMS_ITS | Encounter Summary ---
:1945 Author Organization [facility] Address [address] [place] [address] Care Team Providers Name Role Phone Elsewhere, Pcp Primary Care Provider Unavailable Reason for Visit Outpatient (Routine) - Closed Specialty Diagnoses / Procedures Referred By Contact Refer red To Contact Allergy and Immunology Diagnoses Mycobacterium Infection Garry Cid M.D. [facility] [address] [place] [phone] Referral ID Status Reason Start Date Expiration Date Visits V isits Requested Authorized [id number] Closed Specialty 02/07/2022 02/07/2023 1 1 Services Required Encounter Details Date Type Department Care Team Description 04/20/2022 Comprehensive Visit Division of Kavon Ahmadi Allergic Diseases Feliberto Carcamo, M.S. Infection in [place] [address] [address] [place], [place] [address] [place] [phone] [place], [place] [phone] (Work) [phone] Social History Tobacco Use Types Packs/Day Years [...] More than 4 times per year 12/12/2021 uatsdin services? Do you belong to any clubs [...] Pressure - - Pulse - - Temperature 36.5 ??C (97.7 ??F) 04/20/2022 2:26 PM CDT Respiratory Rate - - Oxygen Saturation - - Inhaled Oxygen Concentration - - Weight - - Height - - Body Mass Index - - documented in this encounter Consult Notes Kavon Ahmadi M.D., M.S. - 04/20/2022 2:30 PM CDT REASON FOR CONSULT Evaluation recommendation for management of possible immunodeficiency in the setting of mycobacterial disease. HISTORY OF PRESENT ILLNESS Mr. Mendez is a very pleasant 76-year-old retired [employer] accompanied by his daughter, Nilam, and seen in the outpatient allergy immunodeficiency floor practice. The primary question is whether he has underlying immunodeficiency disorder in the setting of his current mycobacterial infection. The patient was in his overall normal state of health. He has a remote history of smoking for about 4-5 years between ages 18 and 24. 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 He has been treated with antimicrobials starting earlier this year, and the tentative stop date is May 10, 2022. He has been responding nicely to the medication regimen. In the past, there is no history of bone or joint infections, lymph node infections, bacteremia, or thrush. The concern for immunodeficiency darcie because his daughter, Nilam, had hit a thorn in the garden in January of 2016 and was treated with antimicrobial therapy and has been symptom-free or recurrence-free inthe last 6 years. Immunizations up to date. Pneumococcal vaccine booster may be needed. FAMILY HISTORY Negative for consanguinity. He lives with his . Has 1 daughter and 2 sons who are 48 and 50 years old. OBJECTIVE PHYSICAL EXAMINATION General: Pleasant 76-year-old male in no acute distress. Eyes: Extraocular movements are intact. No erythematous injection of the palpebral conjunctivae bilaterally. ENT: External ears and nose appear normal. Nasal passages are patent. Turbinates are normal appearing. Lymph: No cervical or supraclavicular adenopathy noted. Heart: Regular rate and rhythm. Lungs: Clear to auscultation bilaterally, no rales, no rhonchi. Extremities: Digits and nails appear normal. No clubbing, edema or cyanosis. Thyroid: No midline masses seen. Skin: Examined skin appears normal. No hives, no blisters seen. Psychiatric: Mood seems normal. Alert and oriented x3. 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 I think this is an isolated event. It is also very unusual for a 76-year-old gentleman to develop immunodeficiency. In addition, his daughter's episode was also short-lived. I discussed that if there is any recurrence of his mycobacterial disease, he shall be in contact with us at which point in time we may consider further immune workup. I also reviewed his vaccine record, and he may be due for pneumococcal polysaccharide vaccine or PCV20 vaccination. Patient has shown isolated increase in bilirubin. He may have the phenotype of Gilbert's syndrome, but this is something he will discuss with his primary care provider. PATIENT EDUCATION: Learning needs assessment was performed. No learning barriers were identified. Explained diagnosis and treatment plan. Patient expressed understanding and was able to teach back. This was billed as consult level 3. documented in this encounter Plan of Treatment Not on filedocumented as of this encounter Visit Diagnoses Diagnosis Mycobacterium Infection documented in this encounter Care Teams Setter Automatic Spinning Lathe Relationship Specialty Start Date End Date Elsewhere, Pcp PCP - General Internal Medicine 12/26/21 documented as of this encounter
--- OUTSIDE RECORDS SUMMARY | 2022-07-03 08:24 | XMS_ITS | Encounter Summary ---
:1945 Author Organization [facility] Address [address] [place] [address] Care Team Providers Name Role Phone Elsewhere, Pcp Primary Care Provider Unavailable Reason for Visit Reason Comments SONIA Normal Labs Encounter Details Date Type Department Care Team Description 04/27/2022 Clinical Section of Ernestine Bobo (Peggy l Labs) Communication Infectious S, R.N. Diseases in [phone] [facility] ([facility]) [place] [address] [place] [address] Social History Tobacco Use Types Packs/Day Years [...] More than 4 times per year 12/12/2021 taoism services? Do you belong to any clubs [...] slept in a nursing home (including now)? Education Answer Date Recorded What is the highest level of Professional school degree (e.g ., MD, 12/12/2021 school you have completed or the DDS, DVM, RODOLFO) highest degree you have received? Sex Assigned at Date Recorded Male 04/03/2018 7:54 AM CDT documented as of this encounter Miscellaneous Notes Telephone Encounter - Ernestine Bobo R.N. - 04/27/2022 1:48 PM CDT OPAT NOTE Infusion Provider: NA-patient on oral antimicrobials Labs at [facility] Antimicrobial(s) currently prescribed: See Med List Hyperlink in note Firm stop date 05/10/22 for all three medications (per Dr. Saldana 04/19/22 note). Lab results from 04/19/22 are viewable in the [facility] record. ECG from 04/19/22 is viewable in the [facility] Interpretation and action: Labs and ECG were reviewed by Dr. Saldana at the 04/19/22 follow up. This should be the last set of labs, as end date is 05/10/22. Monthly labs: (CBC with diff, Creatinine, ALT, AST, Bili, Alk Phos). Also needs monthly ECG. documented in this encounter Plan of Treatment Not on filedocumented as of this encounter Visit Diagnoses Not on filedocumented in this encounter Care Teams Ornament Maker Hand Relationship Specialty Start Date End Date Elsewhere, Pcp PCP - General Internal Medicine 12/26/21 documented as of this encounter
--- OUTSIDE RECORDS SUMMARY | 2022-07-03 08:24 | XMS_ITS | Encounter Summary ---
:1945 Author Organization [facility] Address [address] [place] [address] Care Team Providers Name Role Phone Elsewhere, Pcp Primary Care Provider Unavailable Reason for Visit Reason Comments OPAT Normal Labs Encounter Details Date Type Department Care Team Description 04/04/2022 Clinical Communication Section of SONIA Licea (Normal Labs) Infectious Diseases Pascual Cross R.N. in [place], [place] (Work) [address] [place] [address] Social History Tobacco Use Types Packs/Day Years [...] or relatives? How often do you attend lutheran or More than 4 times per year 12/12/2021 spiritism services? Do you belong to any clubs or Yes 12/12/2021 organizations such as lutheran groups, unions, fraternal or athletic groups, or [...] Provider: NA-patient on oral antimicrobials Labs at [facility] Antimicrobial(s) currently prescribed: See Med List [...] Signature EXT Creatinine 1.1 0.5 - 1.5 [place] mg/dL [facility] Specimen (Source) Anatomical Location Collection Method / Collectio n Time Received Time / Laterality Volume Blood (Blood, Venous) Max Aguilar D.O. LAB BLOOD ADD-ON Performing Organization Address City/[facility] Phon e Number [facility] [address] [place] [address] CBC with Differential, Blood (04/03/2022) athologist Signature EXT Platelet 169 140 - 440 [place] Count [facility] EXT Eosinophils 0.5 0 - 0.5 [facility] EXT Hemoglobin 15.4 13.5 - [place] 17.5 [facility] EXT Absolute 3.31 1.7 - 7 [place] Neutrophils [facility] EXT White Blood 6.1 4.5 - 11.0 [place] Cell (WBC) Count [facility] Specimen (Source) Anatomical Location Collection Method / Collectio n Time Received Time / Laterality Volume Blood (Blood, Venous) Narrative This result has an attachment that is no t available. Max Aguilar D.O. LAB BLOOD ADD-ON Performing Organization Address City/[facility] Phon e Number [facility] [address] [place] [address] documented in this encounter Visit Diagnoses Not on filedocumented in this encounter Care Teams Paint Preparer Relationship Specialty Start Date End Date Elsewhere, Pcp PCP - General Internal Medicine 12/26/21 documented as of this encounter
--- OUTSIDE RECORDS SUMMARY | 2022-07-03 08:24 | XMS_ITS | Encounter Summary ---
:1945 Author Organization [facility] Address [address] [place] [address] Care Team Providers Name Role Phone Elsewhere, Pcp Primary Care Provider Unavailable Reason for Visit Reason Comments Pre-visit Intake Encounter Details Date Type Department Care Team Description 03/09/2022 Clinical Communication Visit Review in Pr e-visit Intake [place], [place] [address] [place] [address] Social History Tobacco Use Types [...] More than 4 times per year 12/12/2021 congregation services? Do you belong to any clubs [...] on filedocumented in this encounter Care Teams Chemist Relationship Specialty Start Date End Date Elsewhere, Pcp PCP - General Internal Medicine 12/26/21 documented as of this encounter
--- OUTSIDE RECORDS SUMMARY | 2022-07-03 08:25 | XMS_ITS | Encounter Summary ---
:1945 Author Organization [facility] Address [address] [place] [address] Care Team Providers Name Role Phone Unavailable Primary Care Provider Unavailable Reason for Visit Reason Comments review records Encounter Details Date Type Department Care Team Description 09/27/2021 Clinical Communication Section of Providerjudah records Infectious Diseases Unknown in [place], [place] [address] [place] [address] Social History Tobacco Use Types Packs/Day Years [...] or relatives? How often do you attend sikhism or More than 4 times per year 12/12/2021 pentecostalism services? Do you belong to any clubs or Yes 12/12/2021 organizations such as sikhism groups, unions, fraternal or athletic groups, or [...] CST MORE RECORDS LOADED IN DOC VIEWER Y HUSBANDRY TEACHER Telephone Encounter - Mary Carmen Barker - [...] AVAILABLE ANYTIME Dates to avoid scheduling: PHONE: [phone] AGREE? I have read the Medical Emergency directions as noted above., I have read the Infectious Diseases Consultation Model of Care as noted above and agree to the process outlined. Y HUSBANDRY TEACHER Telephone Encounter - Mary Carmen Barker - 09/27/2021 11:58 AM CST Add'l records received and scanned into doc viewer 09/27 cr Y HUSBANDRY TEACHER documented in this encounter Plan of Treatment Not on filedocumented as of this encounter Visit Diagnoses Not on filedocumented in this encounter
--- OUTSIDE RECORDS SUMMARY | 2022-07-03 08:25 | XMS_ITS | Encounter Summary ---
:1945 Author Organization [facility] Address [address] [place] [address] Care Team Providers Name Role Phone Unavailable Primary Care Provider Unavailable Encounter Details Date Type Department Care Team Description 01/18/2020 Clinical Communication Department of Leela Linares Dermatology in [place], [place] [address] [facility] [address] [place] [phone] Social History Tobacco Use Types Packs/Day Years [...] More than 4 times per year 12/12/2021 restorationist services? Do you belong to any clubs [...] - 01/18/2020 9:37 AM CDT (Note for [facility] locations only: If the patient states they [...] no Route reply to: Scheduling Contact Number: [phone] documented in this encounter Plan of Treatment Not on filedocumented as of this encounter Visit Diagnoses Not on filedocumented in this encounter
--- OUTSIDE RECORDS SUMMARY | 2022-07-03 08:25 | XMS_ITS | Encounter Summary ---
:1945 Author Organization [facility] Address [address] [place] [address] Care Team Providers Name Role Phone Unavailable Primary Care Provider Unavailable Reason for Referral Outpatient (Routine) - Closed Specialty Diagnoses / Procedures Referred By Contact Refer red To Contact Diagnoses Mycobacteria Cutaneous Not Tuberculosis Mulu Bradley M.D. [facility] Procedures DX Chest AP or PA and Lateral 2 Views [address] [place] [phone] Referral ID Status Reason Start Date Expiration Date Visits Requ ested Visits Authorized [id number] Closed 10/31/2021 10/31/2022 1 1 utpatient (Routine) - Closed Specialty Diagnoses / Procedures Referred By Contact Refer red To Contact Dermatology Diagnoses Mycobacteria Cutaneous Not Tuberculosis Mulu Bradley M.D. [facility] [address] [place] [address] Referral ID Status Reason Start Date Expiration Date Visits V isits Requested Authorized [id number] Closed Specialty 10/31/2021 10/31/2022 1 1 Services Required Scheduling Instructions Please schedule dermatology appointment same day as ID N[facility] appointment utpatient (Routine) - Closed Specialty Diagnoses / Procedures Referred By Contact Refer red To Contact Infectious Diseases Mulu Bradley M.D. [facility] [address] [place] [address] Referral ID Status Reason Start Date Expiration Date Visits Requ ested Visits Authorized [id number] Closed 10/31/2021 10/31/2022 1 1 Scheduling Instructions Please schedule 60 minute appointment in [facility], same day as with dermatology appointment Reason for Visit Outpatient (Routine) - Closed Specialty Diagnoses / Procedures Referred By Contact Refer red To Contact Infectious Diseases Diagnoses Mycobacteria Cutaneous Not Tuberculosis Leann Roach [place] [facility] M.D. [address] [place] [address] Referral ID Status Reason Start Date Expiration Date Visits Requ ested Visits Authorized [id number] Closed 09/26/2021 09/26/2022 1 1 Encounter Details Date Type Department Care Team Description 10/31/2021 Virtual Visit Section of Carol Roach M.D. [address] [place] [address] Mycobacteria Infectious Diseases Mulu Bradley M.D. [address] [place] [phone] Cutaneous Not in [place], Tuberculosis [place] [address] [place] [phone] Social History Tobacco Use Types Packs/Day Years [...] ILLNESS Patient is a 75-year-old male from [facility] with underlying congestive heart failure, coronary artery disease, atrial fibrillation, obesity, obstructive sleep apnea [facility] skin [...] is difficult to do via telephone. Thus, [id number] consultation would be more appropriate in that capacity (Infectious Diseases with Dermatology at [facility]). I discussed this option with the patient who isin agreement to coming to [facility] for Infectious Diseases in Dermatology combined [...] to obtain). Recommendations 1. Will arrange for [id number] assessment at [facility] with Infectious Diseases as well as Dermatology on the same day 2. Baseline chest x-ray 3. Will try to obtain outside antibiotic susceptibility data from the September 05, 2021 skin biopsy with M chelonae Addendum - I was able to connect with the [facility] and [facility] in [place], [place] over thephone. Antimicrobial susceptibilities had not been performed on the September 05 M chelonae isolate; however, they have contacted the [place] department of Health laboratory and they will [...] in the spine. Abdominal surgical clips. Mulu Bradley M.D. IMG DIAGNOSTIC IMAGING PROCE LEWIS documented in this encounter Visit Diagnoses Diagnosis Mycobacteria Cutaneous Not Tuberculosis Mycobacteria Cutaneous Not Tuberculosis documented in this encounter
--- OUTSIDE RECORDS SUMMARY | 2022-07-03 08:25 | XMS_ITS | Encounter Summary ---
:1945 Author Organization [facility] Address [address] [place] [address] Care Team Providers Name Role Phone Unavailable [...] or relatives? How often do you attend yarsani or More than 4 times per year 12/12/2021 mormonism services? Do you belong to any clubs or Yes 12/12/2021 organizations such as yarsani groups, unions, fraternal or athletic groups, or [...] place to sleep or slept in a fpc (including now)? Sex Assigned at Date Recorded [...]
--- OUTSIDE RECORDS SUMMARY | 2022-07-03 08:25 | XMS_ITS | Encounter Summary ---
:1945 Author Organization [facility] Address [address] [place] [address] Care Team Providers Name Role Phone Unavailable Primary Care Provider Unavailable Reason for Referral Outpatient (Routine) - Closed Specialty Diagnoses / Procedures Referred By Contact Refer red To Contact Infectious Diseases Diagnoses Mycobacteria Cutaneous Not Tuberculosis Leann Roach [facility] [place] [address] [place] [address] Referral ID Status Reason Start Date Expiration Date Visits Requ ested Visits Authorized [id number] Closed 09/26/2021 09/26/2022 1 1 ICAL CARE LEADER Encounter Details Date Type Department Care Team Description 09/26/2021 [facility] Isaak Roach Mycobacteria AND DUSTY Blanco M.D. Cutaneous Not [address] [facility] [address] Tuberculosis [place], [place] 5 (Primary Dx) [address] [place], [place] [phone] [address] Social History Tobacco Use Types Packs/Day Years [...] as of this encounter Plan of Treatment Scheduled Referrals Name Type Priority Associated Diagnoses Order [facility] Infectious Diseases Outpatient Referral Routine Mycobacteria E xpected: Referral Cutaneous Not 09/26/2021 Tuberculosis (Approximate), Expires: 12/24/2022 documented as of this encounter Visit Diagnoses Diagnosis Mycobacteria Cutaneous Not Tuberculosis - Primary documented in this encounter
--- OUTSIDE RECORDS SUMMARY | 2022-07-03 08:25 | XMS_ITS | Encounter Summary ---
:1945 Author Organization [facility] Address [address] [place] [address] Care Team Providers Name Role Phone Unavailable Primary Care Provider Unavailable Encounter Details Date Type Department Care Team Description 12/13/2021 Clinical Communication Department of Rocky Bates, Dermatology in [place], [place] [address] [facility] [address] [place] [phone] Social History Tobacco Use Types Packs/Day Years [...] More than 4 times per year 12/12/2021 protestant services? Do you belong to any clubs [...]
--- OUTSIDE RECORDS SUMMARY | 2022-07-03 08:25 | XMS_ITS | Encounter Summary ---
:1945 Author Organization [facility] Address [address] [place] [address] Care Team Providers Name Role Phone Unavailable Primary Care Provider Unavailable Reason for Referral Outpatient (Routine) - Closed Specialty Diagnoses / Procedures Referred By Contact Refer red To Contact Diagnoses Mycobacteria Cutaneous Not Tuberculosis Garry Bradley M.D. [facility] Procedures DX Chest AP or PA and Lateral 2 Views 200 [place] [address] Referral ID Status Reason Start Date Expiration Date Visits Requ ested Visits Authorized [id number] Closed 10/31/2021 10/31/2022 1 1 Reason for Visit Outpatient (Routine) - Closed Specialty Diagnoses / Procedures Referred By Contact Refer red To Contact Diagnoses Mycobacteria Cutaneous Not Tuberculosis Garry Bradley M.D. [facility] Procedures DX Chest AP or PA and Lateral 2 Views [address] [place] [address] Referral ID Status Reason Start Date Expiration Date Visits Requ ested Visits Authorized [id number] Closed 10/31/2021 10/31/2022 1 1 Encounter Details Date Type Department Care Team Description 11/28/2021 Hospital Encounter Department of Garry Bradley Radiology, Subhash Crystal M.D. Cutaneous Not Building, in 200 [place], [place] 200 [facility] [address] [place], [place] [phone] (Work) [phone] Social History Tobacco Use Types Packs/Day Years [...] to 0 300 mg capsule dental work Entresto 97-103 mg [...] by mouth 0 201712/20/2021 (LOPRESSOR) 100 mg 2 (two) times a day. tablet multivitamin (THERAGRAN) Take 1 tablet by 0 03/09/2022 tablet mouth. sacubitriL-valsartan Take 1 tablet by 0 2 12/20/2021 (ENTRESTO) 97-103 mg per mouth 2 (two) times a tablet day. warfarin (COUMADIN) 5 mg TAKE 1.5 [...] in the spine. Abdominal surgical clips. Garry Bradley M.D. IMEdgardo DIAGNOSTIC IMAGING PROCE LEWIS documented in this encounter Visit Diagnoses Diagnosis Mycobacteria Cutaneous Not Tuberculosis documented in this encounter
--- OUTSIDE RECORDS SUMMARY | 2022-07-03 08:25 | XMS_ITS | Encounter Summary ---
:1945 Author Organization [facility] Address [address] [place] [address] Care Team Providers Name Role Phone Unavailable Primary Care Provider Unavailable Reason for Referral Outpatient (Routine) - Closed Specialty Diagnoses / Procedures Referred By Contact Refer red To Contact Video Medicine Diagnoses Mycobacterium Infection Yolis Cota M.B., [facility] Ch.B. 200 [place] [address] Referral ID Status Reason Start Date Expiration Date Visits Requ ested Visits Authorized [id number] Closed 11/28/2021 11/28/2022 1 1 Scheduling Instructions ANURAG - Beata or fellow Outpatient (Routine) - Closed Specialty Diagnoses / Procedures Referred By Contact Refer red To Contact Diagnoses Monitoring For Therapeutic Drug Therapy Yolis Cota M.B., [facility] on Procedures ECG 12 Lead Ch.B. [address] [place] [phone] Referral ID Status Reason Start Date Expiration Date Visits Requ ested Visits Authorized [id number] Closed 11/28/2021 11/28/2022 1 1 Reason for Visit Outpatient (Routine) - Closed Specialty Diagnoses / Procedures Referred By Contact Refer red To Contact Infectious Diseases Garry Bradley M.D. [place] [address] [place] [address] Referral ID Status Reason Start Date Expiration Date Visits Requ ested Visits Authorized [id number] Closed 10/31/2021 10/31/2022 1 1 Encounter Details Date Type Department Care Team Description 11/28/2021 Office Visit Section of Infectious Terrie Bradley M.D. [address] [place] [phone] Mycobacterium Infection (Primary Dx); Diseases in [place], Yolis Cota M.B., Ch.B. [address] [place] [phone] Monitoring For Therapeutic Drug Therapy [address] [phone] Social History Tobacco Use Types Packs/Day Years [...] or relatives? How often do you attend faith or More than 4 times per year 12/12/2021 taoist services? Do you belong to any clubs or Yes 12/12/2021 organizations such as faith groups, unions, fraternal or athletic groups, or [...] slept in a skilled nursing (including now)? Sex Assigned at Date Recorded [...] Mycobacterium chelonae skin infection. Follows with a ct scan special procedures technologist locally for skin lesions various etiologies routinely. [...] on apixaban s/p AV node ablation and PIPE LINE INSPECTOR-P placement 02/20/2021, hypertension, dyslipidemia, JOSE RAFAEL, and obesity with BMI 52. Additionally he has had a right total knee arthroplasty around 6195-6958, reportedly complicated by a noninfected periprostheticfracture which limits ambulation. Immunocompetent, no recent steroids or other immunosuppressants. Lives in an independent apartment in a snf community in [facility]. Previously enjoyed golfing, no recent outdoors [...] Gram-positive cocci, Mycobacterium chelonae (AST done through [facility]) ??Organism ? MYCOBACTERIUM CHELONAE ?Antibiotic ?POPPY (mcg/mL) ??Interpretation ?Cefoxitin ? >128 ? R ?Imipenem ?16 ? I ?Clofazimine ? 0.25 ?Ciprofloxacin ? >4 ? R ?Moxifloxacin ?>4 ? R ?Clarithromycin ? 0.5 ? S ?Amikacin ?32 ? I ?Tobramycin ? 2 ? S ?Doxycycline ? >8 ? R ?Tigecycline ?0.5 ?TMP/SMX ?> ? R ?Linezolid ? 32 ? R Ciprofloxacin: Ciprofloxacin and levofloxacin are interchangeable, but both are less active in vitro than moxifloxacin. Clarithromycin: Clarithromycin is the class sales utility representative for the macrolides (ie, clarithromycin, azithromycin, [...] Atrial fibrillation on apixaban, s/p AVN ablation, PIPE LINE INSPECTOR-P implantation 02/20/2021 4. Obesity, BMI 52 Mr. [...] new lesion. Scheduled to see Dermatology at [place] this afternoon. It wouldbe ideal if we [...] ECG 12 Lead (11/28/2021 3:36 PM CDT) [facility] Method Time Signature Ventricular 83 BPM MUSE Rate ECG/Min QRSD Interval 146 ms MUSE QT Interval 398 ms MUSE QTC Interval 467 ms MUSE R [place] -44 degrees MUSE T Wave [place] 14 degrees MUSE CODED Atrial MUSE DIAGNOSIS fibrillation Specimen Anatomical Collection Method Collection Time Receive d Time (Source) Location / / Volume Laterality 11/28/2021 3:36 PM 2 3:59 CDT PM CDT Impressions MUSE - [...]
--- OUTSIDE RECORDS SUMMARY | 2022-07-03 08:25 | XMS_ITS | Encounter Summary ---
:1945 Author Organization [facility] Address [address] [place] [address] Care Team Providers Name Role Phone Unavailable Primary Care Provider Unavailable Reason for Visit Outpatient (Routine) - Closed Specialty Diagnoses / Procedures Referred By Contact Refer red To Contact Dermatology Diagnoses Mycobacteria Cutaneous Not Tuberculosis Garry Bradley M.D. [facility] 200 [place], [place] [phone] Referral ID Status Reason Start Date Expiration Date Visits V isits Requested Authorized [id number] Closed Specialty 10/31/2021 10/31/2022 1 1 Services Required Encounter Details Date Type Department Care Team Description 11/28/2021 Comprehensive Visit Department of [facility] Skin (Primary Dx); Dermatology in [facility], Mycobacteria Cutaneous Not Tuberculosis Yamini Vela M.D. [place] 200 [facility] [address] [place] [phone] Social History Tobacco Use Types Packs/Day Years [...] More than 4 times per year 12/12/2021 methodist services? Do you belong to any clubs [...] place to sleep or slept in a intermediate (including now)? Sex Assigned at Date Recorded Male 04/03/2018 7:54 AM CDT documented as of this encounter Consult Notes Yamini Hernandez M.D. - 11/28/2021 1:00 PM CDT Patient was seen and evaluated by Sld Inclusion Teacher Dr Fontenot, who concurs with the assessment [...] to the patientby letter. Patient given pamphlet [id number]. Associated attestation - Jojo Fontenot M.D. - [...] Cota, The culture results came back as Blanca. Ander! Appreciate your advice and care. Thanks! Result Encounter Note - Yamini Hernandez M.D. 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 I have notified your infectious disease doctors as well. Thank you! documented in this encounter Plan of Treatment Scheduled Orders Name Type Priority Associated Diagnoses [...] Smear For Mycobacterium (11/28/2021 1:46 PM CDT) [facility] gist Method Time Signature Acid Fast Smear Negative. 11/28/2021 DTL For Mycobacterium 11:02 PM CDT Specimen Anatomical Collection Method Collection Time Receive d Time (Source) Location / / Volume Laterality Hand, Left 11/28/2021 1:46 PM 4:26 CDT PM CDT Comment: Specimen Source Site: Skin Yamini Vieira M.D. LAB MICROBIOLOGY - GENE RAL ORDERABLES Performing Organization Address City/[facility]/ZIP [facility] Phon e Number [facility] - [id number] [place] [address] Bacterial Culture, Aerobic + Susc (11/28/2021 1:46 PM CDT) Patholo gist Method Time Signature Bacterial No growth 12/03/2021 DTL Culture, after 5 7:14 AM CDT Aerobic + Susc days of incubation. Specimen (Source) Anatomical Collection Method Collection Time Re ceived Time Location / / Volume Laterality Skin (Left dorsal 11/28/2021 1:46 PM hand) CDT Yamini Vieira M.D. LAB MICROBIOLOGY - GENE RAL ORDERABLES Performing Organization Address [facility] Phon e Number [facility] - [id number] [place] [address] (ABNORMAL) Mycobacterial Culture (11/28/2021 1:46 PM CDT) Component Value Ref Test Analysis Performed At Patholo gist Range Method Time Signature Mycobacterial There are no established interpretive guidelines for agents 01/10/2022 DTL Culture reported without interpretations. 3:00 P M CDT (A) Mycobacterial MYCOBACTERIUM CHELONAE 01/10/2022 DT L Culture Few 3:00 PM CDT (A) Comment: Semi-Urgent Result. Semi-Urgent This is a semi-urgent result [facility] - ([place] Specimen (Source) Anatomical Collection Method Collection Time [...] Susceptible (MCG/ML) Comment: Clarithromycin is the class vaccine customer representative for the macrolides (ie, clarithromyc in, azithromycin, and roxithromycin). Mycobacterium Trimethoprim + SUSCEPTIBILITY, BP >4/76 mcg/mL: chelonae Sulfamethoxazole (MCG/ML) Resistant Yamini Vieira M.D. LAB MICROBIOLOGY - GENE RAL ORDERABLES Performing Organization Address City/[facility]/ZIP [facility] Phon e Number [facility] - [address] Fungal Culture, Routine (11/28/2021 1:46 PM CDT) [facility] gist Method Time [facility] Fungal No growth 12/23/2021 DT Culture, after 24 1:01 AM CDT Routine days of incubation. Specimen (Source) Anatomical Collection Method Collection Time Re ceived Time Location / / Volume Laterality Skin (Left dorsal 11/28/2021 1:46 PM hand) CDT Yamini Vieira M.D. LAB MICROBIOLOGY - GENE ABRIL ORDERABLES Performing Organization Address City/[facility] Phon e Number [facility] - [address] Dermatopathology (11/28/2021 1:25 PM CDT) Component Value Ref Test [facility] Time At [facility] 12/07/2021 PDR 2:34 PM CDT Participated in Estrella Starkey, 12/07/2021 PDR the [facility]-Pathology 2:34 PM CDT Interpretation Fellow Report Tamika [...] Grossed by JOVAN. Interpretation FINAL DIAGNOSIS 12/07/2021 PDR A. ??Left dorsal hand, Skin punch biopsy: [...] an attachment that is no t available. Yamini Vieira M.D. LAB PATH DERM ORDERABLE S Performing Organization Address City/State/ZIP Code Phon e Number [facility] - [address] [place], [place] [address] [place] [address] [facility] [address] documented in this encounter Visit Diagnoses Diagnosis Lesion Skin - Primary Mycobacteria Cutaneous Not Tuberculosis documented in this encounter
--- OUTSIDE RECORDS SUMMARY | 2022-07-03 08:25 | XMS_ITS | Encounter Summary ---
:1945 Author Organization [facility] Address [address] [place] [address] Care Team Providers Name Role Phone Unavailable Primary Care Provider Unavailable Reason for Referral Outpatient (Routine) - Closed Specialty Diagnoses / Procedures Referred By Contact Refer red To Contact Allergy and Immunology Diagnoses Mycobacterium Infection Sherrie Lew M.D. [facility] 200 [place] [address] Referral ID Status Reason Start Date Expiration Date Visits V isits Requested Authorized [id number] Closed Specialty 12/19/2021 12/19/2022 1 1 Services Required Reason for Visit Outpatient (Routine) - Closed Specialty Diagnoses / Procedures Referred By Contact Refer red To Contact Video Medicine Diagnoses Mycobacterium Infection Yolis Cota M.B., [facility] Ch.B. [address] [place] [phone] Referral ID Status Reason Start Date Expiration Date Visits Requ ested Visits Authorized [id number] Closed 11/28/2021 11/28/2022 1 1 Encounter Details Date Type Department Care Team Description 12/19/2021 Telemedicine Section of Infectious Blanca Cota M.B., Ch.B. [address] [place] [phone] Mycobacterium Infection Diseases in [place], Sherrie Lew, M.D. 200 [place] [address] [place] 200 [place] [phone] Social History Tobacco Use Types Packs/Day Years [...] or relatives? How often do you attend scientology or More than 4 times per year 12/12/2021 uatsdin services? Do you belong to any clubs or Yes 12/12/2021 organizations such as scientology groups, unions, fraternal or athletic groups, or [...] place to sleep or slept in a assisted (including now)? Education Answer Date Recorded What [...] audio/video technology by GOLDEN Lew M.D. in [facility] to the patient in his home [...] on apixaban s/p AV node ablation and SEMAPHORE OPERATOR-P placement 02/20/2021, hypertension, dyslipidemia, JOSE RAFAEL, and obesity with BMI 52. Additionally he has had a right total knee arthroplasty around 9079-9807, reportedly complicated by a noninfected periprosthetic fracture [...] and tolerated it well. Susc testing through [facility] was done on his September biopsy and [...] than moxifloxacin. Clarithromycin: Clarithromycin is the class medical representative for the macrolides (ie, clarithromycin, azithromycin, and roxithromycin). REVIEW OF SYSTEMS Pertinent items are noted in HPI; all other review of systems was negative. DIAGNOSTICS 09/26 K+ 4.9 on spironolactone Cr 0.93 ASSESSMENT / PLAN #1 Cutaneous M. Chelonae infection #2 Family Hx of unusual NTM disease #3 Nonischemic cardiomyopathy #4 Atrial fibrillation on apixaban, s/p AVN ablation, SEMAPHORE OPERATOR-P implantation 02/20/2021 #5 Obesity, BMI 52 [...]
--- OUTSIDE RECORDS SUMMARY | 2022-07-03 08:25 | XMS_ITS | Encounter Summary ---
:1945 Author Organization [facility] Address [address] [place] [address] Care Team Providers Name Role Phone Elsewhere, Pcp Primary Care Provider Unavailable Reason for Referral Outpatient (Routine) - Closed Specialty Diagnoses / Procedures Referred By Contact Refer red To Contact Allergy and Immunology Diagnoses Mycobacterium Infection Mulu Cid M.D. [address] [phone] Referral ID Status Reason Start Date Expiration Date Visits V isits Requested Authorized [id number] Closed Specialty 02/07/2022 02/07/2023 1 1 Services Required Reason for Visit Outpatient (Routine) - Closed Specialty Diagnoses / Procedures Referred By Contact Refer red To Contact Allergy and Immunology Diagnoses Mycobacterium Infection Sherrie Lew M.D. [address] [phone] Referral ID Status Reason Start Date Expiration Date Visits V isits Requested Authorized [id number] Closed Specialty 12/19/2021 12/19/2022 1 1 Services Required Encounter Details Date Type Department Care Team Description 12/20/2021 Internal E-Consult Division of Allergic Mulu Cid, Mycobacterium Diseases in M.D. Infection [place], [place] [address] [facility] [address] [place] [phone] Social History Tobacco Use Types Packs/Day Years [...] Request for e-consultation Referral: Sherrie Lew M.D. [address] [place] [address], [place] [phone] CHIEF COMPLAINT / REASON FOR E-CONSULTATION Mr. [...] pursue issues further then would recommend a [id number] or video visit with Dr. Kavon Ahmadi [...] Infection documented in this encounter Care Teams Ranch Rider Relationship Specialty Start Date End Date Elsewhere, Pcp PCP - General Internal Medicine 12/26/21 documented as of this encounter
--- OUTSIDE RECORDS SUMMARY | 2022-07-03 08:25 | XMS_ITS | Encounter Summary ---
:1945 Author Organization [facility] Address [address] [place] [address] Care Team Providers Name Role Phone Elsewhere, Pcp Primary Care Provider Unavailable Encounter Details Date Type Department Care Team Description 12/28/2021 Documentation Section of Infectious Natali Khan, CCRP Diseases in [place], (Work ) [place] [address] [place] [phone] Social History Tobacco Use Types Packs/Day [...] or relatives? How often do you attend restorationist or More than 4 times per year 12/12/2021 rastafarian services? Do you belong to any clubs or Yes 12/12/2021 organizations such as restorationist groups, unions, fraternal or athletic groups, or [...] on filedocumented in this encounter Care Teams Assembler Wire Mesh Gate Relationship Specialty Start Date End Date Elsewhere, Pcp PCP - General Internal Medicine 12/26/21 documented as of this encounter
--- OUTSIDE RECORDS SUMMARY | 2022-07-03 08:25 | XMS_ITS | Encounter Summary ---
:1945 Author Organization [facility] Address [address] [place] [address] Care Team Providers Name Role Phone Elsewhere, Pcp Primary Care Provider Unavailable Encounter Details Date Type Department Care Team Description 12/21/2021 Orders Only Section of Infectious Sherrie Lew, Myc obacterium Infection (Primary Dx); Diseases in [place] Monitoring For Therapeutic Drug Therapy [place] [address] [address] [facility] [address] [place] [phone] Social History Tobacco Use Types Packs/Day Years [...] or relatives? How often do you attend methodist or More than 4 times per year 12/12/2021 samaritan services? Do you belong to any clubs or Yes 12/12/2021 organizations such as methodist groups, unions, fraternal or athletic groups, or [...] Therapy documented in this encounter Care Teams Cmo Relationship Specialty Start Date End Date Elsewhere, Pcp PCP - General Internal Medicine 12/26/21 documented as of this encounter
--- OUTSIDE RECORDS SUMMARY | 2022-07-03 08:25 | XMS_ITS | Encounter Summary ---
:[address] [facility] Address [address] [place] [address] Care Team Providers Name Role Phone Unavailable [...]
--- OUTSIDE RECORDS SUMMARY | 2022-07-03 08:25 | XMS_ITS | Encounter Summary ---
:1945 Author Organization [facility] Address 200 [place] [address] Care Team Providers Name Role Phone Elsewhere, Pcp Primary Care Provider Unavailable Reason for Referral Outpatient (Routine) - Closed Specialty Diagnoses / Procedures Referred By Contact Refer red To Contact Infectious Diseases Diagnoses Mycobacterium Infection Sherrie Lew M.D. [facility] 200 [place] [address] Referral ID Status Reason Start Date Expiration Date Visits Requ ested Visits Authorized [id number] Closed 12/28/2021 12/28/2022 1 1 Scheduling Instructions [...] Medicine Diagnoses Mycobacterium Infection Sherrie Lew M.D. [facility] [address] [place] [phone] Referral ID Status Reason Start Date Expiration Date Visits Requ ested Visits Authorized [id number] Closed 12/25/2021 12/25/2022 1 1 Encounter Details Date Type Department Care Team Description 12/28/2021 Telemedicine Section of Infectious Sherrie Lew Myc obtiffanie Infection Diseases in [place] Vela [place] [address] [facility] 200 [place] [phone] Social History Tobacco Use Types Packs/Day Years [...] place to sleep or slept in a [place] health care facility (including now)? Education Answer Date Recorded What [...] audio/video technology by GOLDEN Lew M.D. in [facility] to the patient in Patient's Home CHIEF [...] arrhythmia. DIAGNOSTICS CBC, Cr and ALT at [facility] on 12/22/21 normal. ASSESSMENT / PLAN #1 Rebecca Worthington skin infection Plan: 1. Start Doxycycline 100 mg bid and Azithromycin 500 mg qd today or tomorrow - Side effects reviewedin detail. 2. Check blood work in 1 week, he will come down to [place] and hopefully also be seen for pictures [...] 01/04/2022 DTL Black/ mL/min/BSA 1:41 PM CDT Japanese Comment: ----ADDITIONAL INFORMATION---- Estimated GFR calculated using [...] Organization Address City/State/ZIP Code Phon e Number [facility] - [address] [place] [phone] [facility] [place] [place] [address] Laboratories-[facility] 200 [facility] CBC with Differential, Blood (01/04/2022 12:21 [...] Organization Address City/State/ZIP Code Phon e Number [facility] - [address] [place], [place] [address] [facility] [place] [place] [address] Laboratories-[facility] [address] documented in this encounter Visit Diagnoses Diagnosis Mycobacterium Infection documented in this encounter Care Teams Administrative Appeals Tribunal Member Relationship Specialty Start Date End Date Elsewhere, Pcp PCP - General Internal Medicine 12/26/21 documented as of this encounter
--- OUTSIDE RECORDS SUMMARY | 2022-07-03 08:25 | XMS_ITS | Encounter Summary ---
:[address] [facility] Address [address] [place] [address] Care Team Providers Name Role Phone Unavailable Primary Care Provider Unavailable Reason for Visit Reason Comments Biopsy Outpatient (Routine) - Closed Specialty Diagnoses / Procedures Referred By Contact Refer red To Contact Dermatology Leela Linares M.D . [facility] [address] [place] [phone] Referral ID Status Reason Start Date Expiration Date Visits Requ ested Visits Authorized [id number] Closed 01/19/2020 01/18/2021 1 1 Encounter Details Date Type Department Care Team Description 03/08/2020 Office Visit Department of Leela Linares, Tumor Skin Uncertain Dermatology in [place] [facility] (Primary Dx) [place], [place] [address] [phone] Social History Tobacco Use Types Packs/Day Years [...] More than 4 times per year 12/12/2021 confucianist services? Do you belong to any clubs or Yes 12/12/2021 organizations such as evangelical groups, unions, [facility] or athletic groups, or school groups? How [...] slept in a senior care (including now)? Sex Assigned at Date Recorded [...] thigh Patient seen and discussed with supervising senior erp consultant, Leela Lang M.D., who evaluated thepatient [...] tothe patient by letter. Patient given pamphlet [id number]. #2 Tumor of uncertain significance, left lateral [...] to thepatient by letter. Patient given pamphlet [id number]. Patient education Ready to learn, no apparent [...] B. Left lateral thigh: Benign lesion letter [place] patient. Please send letter documented in this [...] Component Value Ref Test Analysis Performed At [facility] Range Method Time Signature 03/11/2020 PDRM 3:22 PM CDT Report Rachel Ortega 03/11/2020 PDR electronically Feliberto Gottlieb 3:22 PM CDT signed by Homero Description: A: ??Received in formalin labeled with the patie nt's name, 03/11/2020 PDR medical record number, and left posterior forearm is a 3:22 PM CDT 1.7 x 1.5 x 0.1 cm ac-white skin shave biopsy. ??There is a pale ac hair-bearing pigmented lesion diffusely involved on the skin surface. ??Specimen is serially sectioned and submitted entirely in cassette A1. Grossed by JT. B: ??Received in formalin labeled with the patient's name, medical record number, and left lateral thigh is a 1.2 x 1.1 x 0.1 cm ac-white skin shave biopsy. ??There is a 0.8 x 0.8 cm pale ac pigmented lesion centrally located on the skin surface. ??Specimen is serially sectioned submitted entirely in cassette B1. Grossed by JT. Addendum B. ??PAS-D stain is negative for [...] City/State/ZIP Code Phon e Number [facility] - [address] [place], [place] [address] [place] [address] Laboratories-[facility] [address] documented in [...]
--- OUTSIDE RECORDS SUMMARY | 2022-07-03 08:25 | XMS_ITS | Encounter Summary ---
:1945 Author Organization [facility] Address [address] [place] [address] Care Team Providers Name Role Phone Unavailable Primary Care Provider Unavailable Encounter Details Date Type Department Care Team Description 11/23/2021 Documentation Section of Infectious Terrie Bradley M.D. Diseases in [place], [facility] [address] [place], [place] [address] [facility] [address] [place] [address] [phone] Social History Tobacco Use Types Packs/Day Years [...] More than 4 times per year 12/12/2021 yazidism services? Do you belong to any clubs [...] y.o. Birthdate: 1945 Sex: male Address: [address] [address] Service Date/Time: 11/23/21 9:19 AM CDT Provider: Garry Bradley M.D. Patient not seen I received a copy of the antimicrobial drug susceptibility report from the skin biopsy growth of mycobacterium chelonae from September 05, 2023 (from [facility]). For clinical information, please refer to my outpatient Infectious Diseases E- consult from October (patient has not been seen mini-ze-iocj/formally in [facility] Infectious Diseases). Patient has previously been seen at [facility] with dermatology and Cardiology. The Mycobacterium chelonae isolate from previous September 2021 outside skin biopsy demonstrates susceptibility to clarithromycin, tobramycin (both generally expected), intermediate to imipenem (POPPY 16), amikacin (VT C 32), resistant to cefoxitin, ciprofloxacin, moxifloxacin (POPPY >4), doxycycline (POPPY >8), Bactrim and linezolid (POPPY 32). Tigecycline POPPY 0.5. Please see laboratory susceptibility report scanned into the [facility] EMR for further information/details. Patient has an Infectious Diseases appointment and dermatology appointment scheduled at [facility] on November 28, 2021. Patient did receive [...]
--- OUTSIDE RECORDS SUMMARY | 2022-07-03 08:25 | XMS_ITS | Encounter Summary ---
:1945 Author Organization [facility] Address [address] [place] [address] Care Team Providers Name Role Phone Unavailable Primary Care Provider Unavailable Reason for Referral Outpatient (Routine) - Closed Specialty Diagnoses / Procedures Referred By Contact Refer red To Contact Dermatology Leela Linares M.D . [facility] Region [address] [place] [address] Referral ID Status Reason Start Date Expiration Date Visits Requ ested Visits Authorized [id number] Closed 01/19/2020 01/18/2021 1 1 Scheduling Instructions 30 minutes appointment on March 01 for 2 punch biopsies Reason for Visit Reason Comments Skin Check Appointment Request (Routine) - Closed Specialty Diagnoses / Procedures Referred By Contact Behzad ziegler To Contact Family Medicine Referral ID Status Reason Start Date Expiration Date Visits Requ ested Visits Authorized [id number] Closed 01/18/2020 01/17/2021 1 1 Encounter Details Date Type Department Care Team Description 01/19/2020 Office Visit Department of Leela Linares, Keratosis Actinic (Primary Dx); Dermatology in [place]ao Keratosis Seborrheic; [place], [place] [address] [phone] Social History Tobacco Use Types Packs/Day Years [...] Mohs surgery on 05/30/16??by Dr. Villafana at [facility] 2. Basal cell carcinoma x2 involving right [...]
--- OUTSIDE RECORDS SUMMARY | 2022-07-03 08:25 | XMS_ITS | Encounter Summary ---
:1945 Author Organization [facility] Address [address] [place] [address] Care Team Providers Name Role Phone Unavailable Primary Care Provider Unavailable Reason for Referral Outpatient (Routine) - Closed Specialty Diagnoses / Procedures Referred By Contact Refer red To Contact Video Medicine Diagnoses Mycobacterium Infection Sherrie Lew M.D. [facility] [address] [place] [phone] Referral ID Status Reason Start Date Expiration Date Visits Requ ested Visits Authorized [id number] Closed 12/25/2021 12/25/2022 1 1 Scheduling Instructions 9 am saturday Encounter Details Date Type Department Care Team Description 12/25/2021 Orders Only Section of Infectious Sherrie Lew, Myc obacterium Infection Diseases in [place] (Primary Dx) [address] [place] [phone] Social History Tobacco Use Types Packs/Day Years [...]
--- OUTSIDE RECORDS SUMMARY | 2022-07-03 08:25 | XMS_ITS | Encounter Summary ---
:1945 Author Organization [facility] Address [address] [place] [address] Care Team Providers Name Role Phone Elsewhere, Pcp Primary Care Provider Unavailable Reason for Referral Outpatient (Routine) - Closed Specialty Diagnoses / Procedures Referred By Contact Refer red To Contact Diagnoses Mycobacterium Infection Smith Arambula M.D. [facility] Procedures ECG 12 Lead [address] [place], [place] [phone] Referral ID Status Reason Start Date Expiration Date Visits Requ ested Visits Authorized [id number] Closed 01/04/2022 01/04/2023 1 1 utpatient (Routine) - Closed Specialty Diagnoses / Procedures Referred By Contact Refer red To Contact Infectious Diseases Diagnoses Mycobacterium Infection Smith Arambula M.D. [facility] [address] [place] [address] Referral ID Status Reason Start Date Expiration Date Visits Requ ested Visits Authorized [id number] Closed 01/04/2022 01/04/2023 1 1 Scheduling Instructions NTM return appointment Reason for Visit Outpatient (Routine) - Closed Specialty Diagnoses / Procedures Referred By Contact Refer red To Contact Infectious Diseases Diagnoses Mycobacterium Infection Sherrie Lew M.D. [facility] [address] [place] [address] Referral ID Status Reason Start Date Expiration Date Visits Requ ested Visits Authorized [id number] Closed 12/28/2021 12/28/2022 1 1 Encounter Details Date Type Department Care Team Description 01/04/2022 Office Visit Section of Infectious Emory Lew M.D. 200 [place] [phone] Mycobacterium Infection Diseases in [place] [address] [place] [phone] [place] [address] [place] [address] Social History Tobacco Use Types Packs/Day [...] or slept in a jail (including now)? Education Answer Date Recorded What [...] 76 y.o. Birthdate: 1945 Sex: male Address: [address] [place] [phone] Service Date/Time: 01/04/22 4:25 PM CDT Provider: Smith Arambula M.D. Referring Provider: Sherrie Lew M.D. REASON FOR CONSULT We are asked to see Mr. 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 The patient presents with his . HISTORY OF PRESENT ILLNESS Mr. 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 Please see Dr. Sherrie Lew and Dr. [...] fibrillation on apixaban??s/p AV node ablation and VISE HAND-P placement??02/20/2021, hypertension, dyslipidemia, JOSE RAFAEL, and obesity with BMI 52.?Additionally he has had a righttotal knee arthroplasty around [phone], reportedly complicated by a noninfected periprosthetic frac ture which limits ambulation. ??Immunocompetent, no recent steroids or other immunosuppressants. The patient was started on oral doxycycline December 29 and azithromycin December 30, 2021. He has signed an informed consent to start clofazimine, which requires an IND to the manufacture: Rome2[employer]. Our staff development coordinator rn has discussed potential risks and benefits of this medication: Ms. Farida Khan. The patient feels well in [...] ? >8 ? R ?Tigecycline ?0.5 ?TMP/SMX ?>4 ? R ?Linezolid ? 32 ? R [...] ECG 12 Lead (02/07/2022 9:42 AM CDT) Patholo gist Method Time Signature Ventricular 85 BPM MUSE Rate ECG/Min QRSD Interval 140 ms MUSE QT Interval 392 ms MUSE QTC Interval 466 ms MUSE R Lupton -46 degrees MUSE T Wave Lupton 2 degrees MUSE CODED Atrial MUSE DIAGNOSIS fibrillation Specimen Anatomical Collection Method Collection Time Receive d Time (Source) Location / / Volume Laterality 02/07/2022 9:42 AM CDT 10:24 AM CDT Impressions MUSE - [...] Organization Address City/State/ZIP Code Phon e Number [facility] - 200 [place], [place] [address] [facility] [place] [address] Laboratories-[address] (ABNORMAL) Bilirubin, Total (02/07/2022 9:26 AM CDT) athologist Signature Bilirubin, 2.3 (H) <=1.2 02/07/2022 DT Total, S mg/dL 10:29 AM CDT Specimen Anatomical Collection Method Collection Time Receive d Time (Source) Location / / Volume Laterality Blood (Blood, 02/07/2022 9:26 AM 02/08/20 22 Venous) CDT 10:11 AM CDT Smith Arambula M.D. LAB BLOOD ADD-ON Performing Organization Address City/State/[facility] Code Phon e Number [facility] - [address] [place] [address] [place] [address] [facility]-[address] CBC with Differential, Blood (02/07/2022 9:26 [...] Blood (Blood, 02/07/2022 9:26 AM 02/08/20 22 9:53 Venous) CDT AM CDT Smith Arambula M.D. LAB BLOOD ADD-ON Performing Organization Address City/[facility] Code Phon e Number [facility] - [address] Creatinine with Estimated GFR (02/07/2022 9:26 AM CDT) athologist Signature Creatinine 0.98 0.74 - 02/07/2022 DTL 1.35 mg/dL 10:29 AM CDT eGFR-Non 74 >=60 02/07/2022 DTL Black/ mL/min/BSA 10:29 AM CDT Hong Konger Comment: ----ADDITIONAL INFORMATION---- Estimated GFR calculated using [...] M.D. LAB BLOOD ADD-ON Performing Organization Address City/[facility] Phon e Number [facility] [address] [place], [place] [address] [facility] [place] [address] ALT (Alanine Aminotransferase) (02/07/2022 9:26 AM CDT) Patholo gist Method Time Signature Alanine 17 7 - 55 02/07/2022 DTL Aminotransferase U/L 10:29 AM CDT (ALT), S Specimen Anatomical Collection Method Collection Time Receive d Time (Source) Location / / Volume Laterality Blood (Blood, 02/07/2022 9:26 AM 02/08/20 22 Venous) CDT 10:11 AM CDT Smith Arambula M.D. LAB BLOOD ADD-ON Performing Organization Address City/[facility] Phon e Number [facility] - [address] [place], [place] [address] [place] [address] [place] [address] Laboratories-[facility] [address] Alkaline Phosphatase (02/07/2022 9:26 AM CDT) P athologist Signature Alkaline 116 40 - 129 02/07/2022 DTL Phosphatase, S U/L 10:29 AM CDT Specimen Anatomical Collection Method Collection Time Receive d Time (Source) Location / / Volume Laterality Blood (Blood, 02/07/2022 9:26 AM 02/08/20 22 Venous) CDT 10:11 AM CDT Smith Arambula M.D. LAB BLOOD ADD-ON Performing Organization Address City/State/[facility] Code Phon e Number [facility] - [address] [place], [place] [address] [facility] [place] [address] [facility]-[address] documented in this encounter Visit Diagnoses Diagnosis Mycobacterium Infection documented in this encounter Care Teams Risk Control Product Liability Director Relationship Specialty Start Date End Date Elsewhere, Pcp PCP - General Internal Medicine 12/26/21 documented as of this encounter
--- OUTSIDE RECORDS SUMMARY | 2022-07-03 08:25 | XMS_ITS | Encounter Summary ---
:1945 Author Organization [facility] Address [address] [place] [address] Care Team Providers Name Role Phone Unavailable [...] More than 4 times per year 12/12/2021 sabianism services? Do you belong to any clubs [...]
--- OUTSIDE RECORDS SUMMARY | 2022-07-03 08:25 | XMS_ITS | Encounter Summary ---
:1945 Author Organization [facility] Address [address] [place] [address] Care Team Providers Name Role Phone Elsewhere, Pcp Primary Care Provider Unavailable Encounter Details Date Type Department Care Team Description 01/04/2022 Hospital Encounter Department of Sherrie Lew Laboratory Medicine Feliberto Carvajal Infection and Pathology, [address] [place] [address] in [place], [place] [address] [place] [address] [place], [place] (Work) [phone] Social History Tobacco Use Types Packs/Day Years [...] or relatives? How often do you attend religion or More than 4 times per year 12/12/2021 islam services? Do you belong to any clubs or Yes 12/12/2021 organizations such as religion groups, unions, fraternal or athletic groups, or [...] 0 11/19/2021 (ALDACTONE) 25 mg tablet daily. azithromycin (ZITHROMAX) Take 1 tablet (500 mg 30 tablet 2 12/28/2021 03/12/2022 500 mg tablet total) by mouth daily. Take with food doxycycline monohydrate Take 1 tablet (100 mg 60 tablet 2 0 12/28/2021 03/12/2022 (ADOXA) 100 mg tablet total) by mouth 2 (two) times a day. multivitamin (THERAGRAN) Take 1 tablet by 0 03/09/2022 tablet mouth. Research IRB [id number] Take 2 capsules (100 2 Bottle 0 [...] 01/04/2022 DTL Black/ mL/min/BSA 1:41 PM CDT Macedonian Comment: ----ADDITIONAL INFORMATION---- Estimated GFR calculated using [...] Address City/State/ZIP Code Phon e Number [facility] - [address] [place], [place] [address] [place] [address] Laboratories-[facility] [address] CBC with Differential, Blood (01/04/2022 12:21 [...] Address City/State/ZIP Code Phon e Number [facility] - [address] [place], [place] [address] [place] [address] Laboratories-[facility] [address] documented in this encounter Visit Diagnoses Diagnosis Mycobacterium Infection documented in this encounter Care Teams Cemetery Counselor Relationship Specialty Start Date End Date Elsewhere, Pcp PCP - General Internal Medicine 12/26/21 documented as of this encounter
--- OUTSIDE RECORDS SUMMARY | 2022-07-03 08:25 | XMS_ITS | Encounter Summary ---
:1945 Author Organization [facility] Address 200 [place] [address] Care Team Providers Name Role Phone Unavailable Primary Care Provider Unavailable Reason for Referral Outpatient (Routine) - Closed Specialty Diagnoses / Procedures Referred By Contact Refer red To Contact Dermatology Leela Linares M.D . [facility] [address] [place] [phone] Referral ID Status Reason Start Date Expiration Date Visits Requ ested Visits Authorized [id number] Closed 02/02/2019 02/02/2020 1 1 Scheduling Instructions Skin cancer recheck in 3 months Reason for Visit Reason Comments Follow-up Outpatient (Routine) - Closed Specialty Diagnoses / Procedures Referred By Contact Refer red To Contact Dermatology Leela Linares M.D . [facility] Region [address] [place] [phone] Referral ID Status Reason Start Date Expiration Date Visits Requ ested Visits Authorized [id number] Closed 11/03/2018 11/03/2019 1 1 Encounter Details Date Type Department Care Team Description 02/02/2019 Office Visit Department of Leela Linares, Keratosis Actinic (Primary Dx); Dermatology in [place] Keratosis Seborrheic Inflamed; [place], [place] [address] [address] [phone] Social History Tobacco Use Types Packs/Day Years [...] or relatives? How often do you attend muslim or More than 4 times per year 12/12/2021 yazidi services? Do you belong to any clubs or Yes 12/12/2021 organizations such as muslim groups, unions, fraternal or athletic groups, or [...] post Mohs surgery by Dr. Villafana at [facility] on 05/30/16.??He also has a history of previous basal cell carcinomas involving the right cheek and right neck treated elsewhere. The patient denies a personal history of melanoma; however, his father had ocular melanoma and his brother also had melanoma. MEDICAL HISTORY 1. 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 Villafana at [facility] on 05/30/16. 2. History of basal [...] a total of 4 lesion(s) with two 87-08-ovkjdl freeze-thaw cycles of liquid nitrogen cryothe rapy. [...]
--- OUTSIDE RECORDS SUMMARY | 2022-07-03 08:25 | XMS_ITS | Encounter Summary ---
:1945 Author Organization [facility] Address [address] [place] [address] Care Team Providers Name Role Phone Unavailable Primary Care Provider Unavailable Reason for Visit Reason Comments Skin Check Outpatient (Routine) - Closed Specialty Diagnoses / Procedures Referred By Contact Refer red To Contact Dermatology Leela Linares M.D . [facility] Region [address] [place] [address] Referral ID Status Reason Start Date Expiration Date Visits Requ ested Visits Authorized [id number] Closed 02/02/2019 02/02/2020 1 1 Encounter Details Date Type Department Care Team Description 05/18/2019 Office Visit Department of Leela Linares Nevi Multi ple (Primary Dx); Dermatology in [place] Keratosis Seborrheic; [place], [place] [address] [place] [address] Verrucal Keratosis; [address] [place] [address] Keratosis Seborrheic Inflame d; [place] [address] Cancer Skin Basal Cell Personal History; [phone] Cancer Skin Squamous Cell Pe rsonal History [...] 12/12/2021 organizations such as alevism groups, unions, fraStylistpick or athletic groups, or school groups? How [...] surgery on 05/30/[address] Villafana at [facility].??He also has a history of previous [...] Mohs surgery on 05/30/16 byDr. Villafana at [facility] 2. Basal cell carcinoma x2 involving [...] a total of 1 lesion(s) with two 86-08-ornwjq freeze-thaw cycles of liquid nitrogen cryotherapy. The [...] a total of 1 lesion(s) with two 07-25-qacyph freeze-thaw cycles of liquid nitrogen cryotherapy. The [...] Mohs surgery on 05/30/16 byDr. Villafana at [facility] No clinical evidence of local recurrence [...]
--- OUTSIDE RECORDS SUMMARY | 2022-07-03 08:26 | XMS_ITS | Encounter Summary ---
:1945 Author Organization [facility] Address [address] [place] [address] Care Team Providers Name Role Phone Unavailable Primary Care Provider Unavailable Encounter Details Date Type Department Care Team Description 04/01/2018 Hospital Encounter Department of Vitor, Hon-Chi, Atrial Fibrillation Cardiovascular Diseases Feliberto, Ph .D. 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 Do you belong to any clubs [...] or slept in a assisted (including now)? Sex Assigned at Date Recorded Male 04/03/2018 7:54 AM CDT documented as of this encounter Medications at Time of Discharge Medication Sig Dispensed Refills Start Date End Date acetaminophen (TYLENOL) Take 1,000 mg by 0 500 mg tablet mouth as needed. clindamycin (CLEOCIN) 2 capsules prior to 0 300 mg capsule dental work multivit with min-folic Take 1 tablet by 0 2016 acid 0.4 mg tablet mouth daily. nitroglycerin Place 0.4 mg under 0 (NITROSTAT) 0.4 mg SL the tongue as needed. tablet FOR EMERGENCIES omeprazole (PriLOSEC) 20 Take 20 mg by mouth [address] capsule daily. amiodarone (PACERONE) 0 12/19/201711/2017 200 mg tablet lisinopril 0 01/29/2018 12/20/2021 (PRINIVIL,ZESTRIL) 40 mg tablet lovastatin (MEVACOR) 40 0 02/11/2018 0 12/20/2021 mg tablet metoprolol tartrate Take 100 mg by mouth 0 201712/20/2021 (LOPRESSOR) 100 mg 2 (two) times a day. tablet multivitamin tablet Take 1 tablet by 0 [...] Name Priority Date/Time Associated Diagnosis Comme nts HOLTER MONITOR - IN Routine 04/01/2018 9:33 AM Atrial Fibrilla tion Results for this CLINIC SET UP MECHANIC CDT Personal History procedure are in the results section. documented in this encounter Results HOLTER MONITOR - IN CLINIC SET UP MECHANIC (04/01/2018 9:33 AM CDT) [facility] gist Method Time Signature Recording Date [id number] HOLTER SENTINEL Analysis Date ,829 HOLTER SENTINEL Max Heart Rate 116 bpm HOLTER SENTINEL Max Heart Rate [id number] HOLTER Time SENTINEL Min Heart Rate 54 bpm HOLTER SENTINEL Min Heart Rate [id number] HOLTER Time SENTINEL Mean Heart 74 bpm [...] count HOLTER Hour SENTINEL SVE Max Per [id number] HOLTER Hour Time SENTINEL Specimen (Source) Anatomical [...]
--- OUTSIDE RECORDS SUMMARY | 2022-07-03 08:26 | XMS_ITS | Encounter Summary ---
:1945 Author Organization [facility] Address [address] [place] [address] Care Team Providers Name Role Phone Unavailable Primary Care Provider Unavailable Reason for Visit Reason Comments Skin Check Appointment Request (Routine) - Closed Specialty Diagnoses / Procedures Referred By Contact Refer red To Contact Family Medicine Referral ID Status Reason Start Date Expiration Date Visits Requ ested Visits Authorized [id number] Closed 03/26/2018 03/26/2019 1 Encounter Details Date Type Department Care Team Description 06/03/2018 Office Visit Department of Leela Linares, Lesion Nury n (Primary Dx); Dermatology in [place] Keratosis Seborrheic; [place], [place] [address] [facility] Keratosis Actinic [address] [place] [address] [phone] Social History Tobacco Use Types Packs/Day Years Used Date Smoking Tobacco: Former Cigarettes Star meory: 04/03/1964 Smokeless Tobacco: Never Alcohol Use Standard [...] More than 4 times per year 12/12/2021 oriental orthodox services? Do you belong to any [...] a [place] [facility] (including now)? Sex Assigned at Date Recorded [...] including right upper cheek x 2, left episcopal x 2, right forehead x 1, and [...]
--- OUTSIDE RECORDS SUMMARY | 2022-07-03 08:26 | XMS_ITS | Encounter Summary ---
:1945 Author Organization [facility] Address [address] [place] [address] Care Team Providers Name Role Phone Unavailable [...]
--- OUTSIDE RECORDS SUMMARY | 2022-07-03 08:26 | XMS_ITS | Encounter Summary ---
:1945 Author Organization [facility] Address [address] [place] [address] Care Team Providers Name Role Phone Unavailable Primary Care Provider Unavailable Reason for Visit Outpatient (Routine) - Closed Specialty Diagnoses / Referred By Contact Referred To Contact Procedures Cardiovascular Diseases / Diagnoses Shortness Of Breath Jarvis Lynn M.D. [facility] Cardiovascular Disease [address] [place] [address] Referral ID Status Reason Start Date Expiration Date Visits Requ ested Visits Authorized [id number] Closed 05/21/2018 05/21/2019 1 1 Encounter Details Date Type Department Care Team Description 07/08/2018 Comprehensive Visit Department of Amrik Palm Of Breath Cardiovascular Medicine W, Ph.D. in [facility] [address] [facility] [address] [place] [phone] [address] Social History Tobacco Use Types Packs/Day Years [...] More than 4 times per year 12/12/2021 zoroastrianism services? Do you belong to any clubs [...] Comments Blood Pressure 156/98 07/08/2018 2:12 PM LIFE ASSURANCE REPRESENTATIVE Pulse 99 07/08/2018 2:12 PM LIFE ASSURANCE REPRESENTATIVE Temperature - - Respiratory Rate - - Oxygen Saturation - - Inhaled Oxygen Concentration - - Weight 142 kg (312 lb 6.3 oz) 07/08/2018 2:12 PM LIFE ASSURANCE REPRESENTATIVE Height 168.4 cm (5' 6.3) 07/08/2018 2:12 PM LIFE ASSURANCE REPRESENTATIVE Body Mass Index 49.97 07/08/2018 2:12 PM LIFE ASSURANCE REPRESENTATIVE documented in this encounter Consult Notes Amrik Palm, Ph.D. - 07/08/2018 2:00 PM CST DEMOGRAPHIC INFORMATION [phone] Truong Mendez 72 y.o. male July [birth year], [...] total knee arthroplasty 6. Obstructive sleep apnea ASSURANCE REPRESENTATIVE documented in this encounter Plan of Treatment Not on filedocumented as of this encounter Visit Diagnoses Diagnosis Shortness Of Breath documented in this encounter
--- OUTSIDE RECORDS SUMMARY | 2022-07-03 08:26 | XMS_ITS | Encounter Summary ---
:1945 Author Organization [facility] Address [address] [place] [address] Care Team Providers Name Role Phone Unavailable Primary Care Provider Unavailable Reason for Referral Outpatient (Routine) - Closed Specialty Diagnoses / Referred By Contact Referred To Contact Procedures Cardiovascular Diseases / Diagnoses Shortness Of Breath Jarvis Lynn M.D. [facility] Cardiovascular Disease [address] [place] [address] Referral ID Status Reason Start Date Expiration Date Visits Requ ested Visits Authorized [id number] Closed 05/21/2018 05/21/2019 1 1 Reason for Visit Appointment Request (Routine) - Closed Specialty Diagnoses / Procedures Referred By Contact Refer red To Contact Cardiovascular Disease Choco Masters M.D. [address] [place] [address] Referral ID Status Reason Start Date Expiration Date Visits Requ ested Visits Authorized [id number] Closed 03/05/2018 03/05/2019 1 1 Encounter Details Date Type Department Care Team Description 04/03/2018 Comprehensive Visit Department of Mamadou Adler Systolic (Congestive) Heart Failure (HCC) (Primary Dx); Cardiovascular Medicine Eugenie Hearn tness Of Breath in [facility] yulia Dao, Ph.D. [address] [place] [address] [place] [phone] [facility] [phone] [place] [phone] Social History Tobacco Use Types Packs/Day Years [...] and function,Mild LA enlargement TTE(2016): LVEF 62%, XBCX78on/m2 Holter ECG(2016):Basic rhythm sinus rhythm at average HR 76bpm. 27% PVC burden, 3-4 beats runs of VTat 129 bpm Holter ECG(04.01.06): baseline rhythm atrial fibrilation, Averahe HR 74 bpm(54-116bpm) 2% PVC burden, , 2.5 pause at 11pm Labs(04.01.2018): Cre 1.0, INR: 3.2(outside-decreased dose after test result) [id number]: 2 Coronary cath-outside-(2011):Normal Truong Mendez is a pleasant 72 y.o. old male with history of atrial fibrillation, obesity, hypertension, moderate left ventricular systolic dysfunction, PVCs and obstructive sleep apnea. Today I met with him during an March heart rhythm clinic visit at [facility]. He was accompanied by his daughter and [...] pacemaker insertion. I briefly gave information about [employer] MEMBER and his pacing. First we decided to [...] these dose adjustment with his primary care it help desk associate. We are going to give our final [...] 72 y.o. male who is referred to [facility] for persistent atrial fibrillation. [...] QRS duration was 94 milliseconds and QTC xft550 milliseconds. There were nonspecific ST T wave [...] hypertension. He wanted to see a preventive it help desk associate and it is very reasonable. I ordered [...] 71) Procedure Note Demarcus Lloyd M.D. - 04/15/2018Formattin g of this note might be different [...] Volume Laterality 04/04/2018 9:08 AM CDT Narrative CV MERGE - 04/04/2018 12:15 PM CDT [...]
--- OUTSIDE RECORDS SUMMARY | 2022-07-03 08:26 | XMS_ITS | Encounter Summary ---
:1945 Author Organization [facility] Address [address] [place] [address] Care Team Providers Name Role Phone Unavailable Primary Care Provider Unavailable Encounter Details Date Type Department Care Team Description 04/15/2018 Hospital Encounter Department of Radiology, Tila Lynn M.D. [facility], in [place], [place] [address] [place] [address] Social History Tobacco Use Types Packs/Day [...] or relatives? How often do you attend buddhism or More than 4 times per year 12/12/2021 episcopal services? Do you belong to any clubs or Yes 12/12/2021 organizations such as buddhism groups, unions, fraternal or athletic groups, or [...] administration is ???ok?? . Karen () in [facility] and seen by nursing [phone] documented in this encounter Plan of Treatment [...]
--- OUTSIDE RECORDS SUMMARY | 2022-07-03 08:26 | XMS_ITS | Encounter Summary ---
:1945 Author Organization [facility] Address [address] [place] [address] Care Team Providers Name Role Phone Unavailable Primary Care Provider Unavailable Encounter Details Date Type Department Care Team Description 03/12/2018 Abstract DATA ABSTRACTION Provider, Historical Social History Tobacco [...]
--- OUTSIDE RECORDS SUMMARY | 2022-07-03 08:26 | XMS_ITS | Encounter Summary ---
:1945 Author Organization [facility] Address [address] [place] [address] Care Team Providers Name Role Phone Unavailable Primary Care Provider Unavailable Encounter Details Date Type Department Care Team Description 04/11/2018 Documentation Department of Cardiovascular Jarvis Lynn M.D. Medicine in [place], [place] [address] [place] [address] Social History Tobacco Use Types Packs/Day [...]
--- OUTSIDE RECORDS SUMMARY | 2022-07-03 08:26 | XMS_ITS | Encounter Summary ---
:1945 Author Organization [facility] Address [address] [place] [address] Care Team Providers Name Role Phone Unavailable Primary Care Provider Unavailable Encounter Details Date Type Department Care Team Description 04/02/2018 Hospital Encounter Department of Vitor, Hon-Chi, Atrial Fibrillation Radiology, Glenn Dao, Ph.D. Personal History Building, in [address] [place] [address] [place] [address] [place], [place] [phone] (Work) [phone] Social History Tobacco Use Types Packs/Day Years [...] More than 4 times per year 12/12/2021 pentecostal services? Do you belong to any clubs [...] Nadiya Adler M.D., Ph.D. IMG DIAGNOSTIC IMAGING UMAIR SAUCEDO documented in this encounter Visit Diagnoses Diagnosis Atrial Fibrillation Personal History documented in this encounter
--- OUTSIDE RECORDS SUMMARY | 2022-07-03 08:26 | XMS_ITS | Encounter Summary ---
:1945 Author Organization [facility] Address [address] [place] [address] Care Team Providers Name Role Phone Unavailable Primary Care Provider Unavailable Encounter Details Date Type Department Care Team Description 04/18/2018 Documentation Department of Cardiovascular Jarvis Lynn M.D. Medicine in [place], [place] [address] [place] [address] Social History Tobacco Use Types Packs/Day [...] More than 4 times per year 12/12/2021 anabaptist services? Do you belong to any clubs [...] risk profile. We can schedule it in [place] or he can see a local napper fixer. It is my pleasure to be part of Mr. Mendez's care. documented in this encounter Plan of Treatment Not on filedocumented as of this encounter Visit Diagnoses Not on filedocumented in this encounter
--- OUTSIDE RECORDS SUMMARY | 2022-07-03 08:26 | XMS_ITS | Encounter Summary ---
:1945 Author Organization [facility] Address [address] [place] [address] Care Team Providers Name Role Phone Elsewhere, Pcp Primary Care Provider Unavailable Encounter Details Date Type Department Care Team Description 02/28/2018 [facility] Choco Masters Persistent Atrial AND DUSTY Carvajal M.D. Fibrillation (Primary [facility] 1999 [facility] [place]x) [place] [address] [phone] Social History Tobacco Use Types Packs/Day Years [...] Primary documented in this encounter Care Teams Broadcast Journalist Relationship Specialty Start Date End Date Elsewhere, Pcp PCP - General Internal Medicine 12/26/21 documented as of this encounter
--- OUTSIDE RECORDS SUMMARY | 2022-07-03 08:26 | XMS_ITS | Encounter Summary ---
:1945 Author Organization [facility] Address [address] [place] [address] Care Team Providers Name Role Phone Unavailable Primary Care Provider Unavailable Reason for Visit Reason Comments Biopsy Encounter Details Date Type Department Care Team Description 06/10/2018 Procedure visit Department of Leela Linares Tumor Skin Uncertain Behavior (Primary Dx); Dermatology in Colin Sarah M.D. [place], [place] [address] [phone] Social History Tobacco Use Types Packs/Day Years [...] 3. History of right knee replacement in 2016 ?? FAMILY HISTORY Father has history ocular [...] to the patient by letter.Patient given pamphlet [id number]. Discussed the risks, benefits, alternatives, and the [...] Leela Linares M.D. . 06/10/2018. 10:36 AM. ER PRODUCTION LINE ARC Leela Linares M.D. - 06/10/2018 10:00 AM CST Benign lesion letter ER PRODUCTION LINE ARC documented in this encounter Plan of Treatment Not on filedocumented as of this encounter Procedures Procedure Name Priority Date/Time Associated Comments Diagnosis DERMATOPATHOLOGY CONSULT Routine 06/10/2018 10:20 Tumor Skin Results for this AM WELDER PRODUCTION LINE ARC Uncertain Behavior procedure are in the results section. documented in this encounter Results Dermatopathology Consult (06/10/2018 10:20 AM WELDER PRODUCTION LINE ARC) Component Value Ref Test Analysis Performed At [facility] gist Range Method Time Signature Gross Received in formalin labeled with the patient's name, 06/17/2018 [facility] Description: medical record number, and left posterior forearm i s a 3:16 PM LABORATORIES - 1.0 x 0.5 x 0.2 cm pale ac-mclaughlin skin shave biopsy. [facility] Previously applied ink partially obscures the skin surface. CAMPUS There is a 0.2 x 0.1 cm light ac pigmented slightly raised lesion with ill-defined borders eccentrically located on the skin surface, abutting the periphery. ??The specimen is trisected and submitted entirely cassette A1. Grossed by MAGY. Participated in Flori 06/17/2018 [facility] kellen Gordillo, 3:16 PM LABORATORIES - Interpretation M.Darryn-Pathology [facility] Report Tamika Sarah. 06/17/2018 [facility] electronically Feliberto Coats 3:16 PM LABORATORIE S - signed by [facility] 06/17/2018 [facility] 3:16 PM LABORATORIES - [facility] Interpetation FINAL DIAGNOSIS 06/17/2018 [facility]. ??DermPath Consult Wet Tissue; Left posterior forearm, 3:16 PM LABORATORIES - Skin shave biopsy: ??Verrucal keratosis with prurigo [facility] nodule-like features CAMPUS Specimen Anatomical Collection Method Collection Time Receive d Time (Source) Location / / Volume Laterality Tissue 06/10/2018 10:20 06/11/2018 AM WELDER PRODUCTION LINE ARC 11:18 AM WELDER PRODUCTION LINE ARC Narrative This result has an attachment that is no t available. Leela Linares M.D. LAB PATH DERM ORDERABLES Performing Organization Address City/State/ZIP Code Phon e Number [facility] LABORATORIES - [address] [place] [address] 05 [facility] documented in this encounter [...]
--- OUTSIDE RECORDS SUMMARY | 2022-07-03 08:26 | XMS_ITS | Encounter Summary ---
:1945 Author Organization [facility] Address [address] [place] [address] Care Team Providers Name Role Phone Unavailable Primary Care Provider Unavailable Encounter Details Date Type Department Care Team Description 05/30/2016 Hospital Encounter HX RST DERM SURG OP [facility] Ra jeancarlos Villafana M.D. [address] [place] [phone] (Wo rk) Social History Tobacco Use Types [...] or relatives? How often do you attend yarsanism or More than 4 times per year 12/12/2021 shinto services? Do you belong to any clubs or Yes 12/12/2021 organizations such as yarsanism groups, unions, fraternal or athletic groups, or [...]
--- OUTSIDE RECORDS SUMMARY | 2022-07-03 08:26 | XMS_ITS | Encounter Summary ---
:1945 Author Organization [facility] Address [address] [place] [address] Care Team Providers Name Role Phone Unavailable Primary Care Provider Unavailable Reason for Visit Reason Comments Nail Problem Encounter Details Date Type Department Care Team Description 02/24/2018 Office Visit Department of Leela Linares Hematoma S ubungual Dermatology in [place], [place] [address] (Primary Dx) [place] [phone] Social History Tobacco Use Types Packs/Day Years [...] or relatives? How often do you attend jewish or More than 4 times per year 12/12/2021 hoahaoism services? Do you belong to any clubs or Yes 12/12/2021 organizations such as jewish groups, unions, fraternal or athletic groups, or [...]
--- OUTSIDE RECORDS SUMMARY | 2022-07-03 08:26 | XMS_ITS | Encounter Summary ---
:1945 Author Organization [facility] Address [address] [place] [address] Care Team Providers Name Role Phone Unavailable Primary Care Provider Unavailable Encounter Details Date Type Department Care Team Description 04/01/2018 Hospital Encounter Department of Vitor, Hon-Chi, Atrial Fibrillation Laboratory Medicine MJensen., Ph.D. Personal History and Pathology, [address] [place] [address] in [place], [place] [address] [place] [address] [place], [place] (Work) [phone] Social History Tobacco Use Types Packs/Day Years [...] or relatives? How often do you attend cheondoism or More than 4 times per year 12/12/2021 jain services? Do you belong to any clubs or Yes 12/12/2021 organizations such as cheondoism groups, unions, fraternal or athletic groups, or [...] (ABNORMAL) Glucose, Fasting (04/01/2018 8:06 AM CDT) athologist Signature Glucose, P 114 (H) 70 - 100 04/01/2018 [facility] mg/dL 9:08 AM CDT LABORATORIES - [facility] Last Intake 12 hr 04/01/2018 [facility] 8:29 AM CDT LABORATORIES [facility] Specimen Anatomical Collection Method Collection Time Receive d Time (Source) Location / / Volume Laterality Blood (Blood, 04/01/2018 8:06 AM 04/01/20 18 8:29 Venous) CDT AM CDT Nadiya Adler M.D., Ph.D. LAB BLOOD NON ADD-ON Performing Organization Address City/[facility] Code Phon e Number [facility] LABORATORIES - 200 [place], [place] [address] [facility] BUN (Blood Urea Nitrogen) (04/01/2018 8:06 AM CDT) athologist Signature BUN (Blood 16 8 - 24 04/01/2018 [facility] Urea mg/dL 9:35 AM CDT LABORATORIES - Nitrogen), S [facility] Specimen Anatomical Collection Method Collection Time Receive d Time (Source) Location / / Volume Laterality Blood (Blood, 04/01/2018 8:06 AM 04/01/20 18 8:29 Venous) CDT AM CDT Nadiya Adler M.D., Ph.D. LAB BLOOD ADD-ON Performing Organization Address City/State/ZIP Code Phon e Number [facility] LABORATORIES - 200 [place] [address] [facility] Creatinine with Estimated GFR (04/01/2018 8:06 AM CDT) Analysis Performed At Patho logist Time Signature Creatinine 1.00 0.74 - 04/01/2018 [facility] 1.35 mg/dL 9:35 AM CDT LABORATORIES - [facility] eGFR-Non 74 >=60 04/01/2018 [facility] Black/ mL/min/BSA 9:35 AM CDT LABORATORIES - [facility] Comment: ----ADDITIONAL INFORMATION---- Estimated GFR calculated using the 2009 CKD_EPI creatinine equation. eGFR-Black/ 86 >=60 mL/min/BSA 04/01/2018 9:35 [facility] Qatari CDT LABORATORIES - [facility] Comment: ----ADDITIONAL INFORMATION---- Estimated GFR calculated using the 2009 CKD_EPI creatinine equation. Specimen Anatomical Collection Method Collection Time Receive d Time (Source) Location / / Volume Laterality Blood (Blood, 04/01/2018 8:06 AM 04/01/20 18 8:29 Venous) CDT AM CDT Nadiya Adler M.D., Ph.D. LAB BLOOD ADD-ON Performing Organization Address City/State/ZIP Code Phon e Number [facility] LABORATORIES - 200 [place] [address] [facility] Potassium (04/01/2018 8:06 AM CDT) P athologist Signature Potassium, S 4.9 3.6 - 5.2 04/01/2018 [facility] mmol/L 9:35 AM CDT LABORATORIES - [facility] Specimen Anatomical Collection Method Collection Time Receive d Time (Source) Location / / Volume Laterality Blood (Blood, 04/01/2018 8:06 AM 04/01/20 18 8:29 Venous) CDT AM CDT Nadiya Adler M.D., Ph.D. LAB BLOOD ADD-ON Performing Organization Address City/State/ZIP Code Phon e Number [facility] LABORATORIES - [address] [place] [address] [facility] Sodium (04/01/2018 8:06 AM CDT) P athologist Signature Sodium, S 140 135 - 145 04/01/2018 [facility] mmol/L 9:35 AM CDT LABORATORIES - [facility] Specimen Anatomical Collection Method Collection Time Receive d Time (Source) Location / / Volume Laterality Blood (Blood, 04/01/2018 8:06 AM 04/01/20 18 8:29 Venous) CDT AM CDT Nadiya Adler M.D., Ph.D. LAB BLOOD ADD-ON Performing Organization Address City/State/ZIP Code Phon e Number [facility] LABOR[facility]IES - [address] [place] [address] [facility] documented in this encounter Visit Diagnoses Diagnosis Atrial Fibrillation Personal History documented in this encounter
--- OUTSIDE RECORDS SUMMARY | 2022-07-03 08:26 | XMS_ITS | Encounter Summary ---
:1945 Author Organization [facility] Address [address] [place] [address] Care Team Providers Name Role Phone Unavailable Primary Care Provider Unavailable Reason for Referral Outpatient (Routine) - Closed Specialty Diagnoses / Procedures Referred By Contact Refer red To Contact Dermatology Leela Linares M.D . [facility] Region [address] [place] [address] Referral ID Status Reason Start Date Expiration Date Visits Requ ested Visits Authorized [id number] Closed 11/03/2018 11/03/2019 1 1 Scheduling Instructions Recheck right ear nevus in 3 months Reason for Visit Reason Comments Skin Check Appointment Request (Routine) - Closed Specialty Diagnoses / Procedures Referred By Contact Refer red To Contact Family Medicine Referral ID Status Reason Start Date Expiration Date Visits Requ ested Visits Authorized [id number] Closed 10/06/2018 10/06/2019 1 Encounter Details Date Type Department Care Team Description 11/03/2018 Office Visit Department of Leela Linares, Keratosis Actinic (Primary Dx); Dermatology in Colin Dao Verrucal Keratosis; [place], [place] [address] [facility] Nevi Multiple; [address] [address] [place], [place] Keratosis Seborrheic; [place] [address] Cancer Skin Squamous Cell Personal Histo ry; [phone] Cancer Skin Basal Cell Perso nal History [...] surgery by Dr. Villafana at [facility] on 05/30/16. He also has a history [...] surgery by Dr. Villafana at [facility] on 05/30/16. 2. History of basal [...] a total of 1 lesion with two 32-29-tteiro freeze-thaw cycles of liquid nitrogen cryotherapy.The patient [...] surgery by Dr. Villafana at [facility] on 05/30/16. No evidence for recurrence of [...]
--- OUTSIDE RECORDS SUMMARY | 2022-07-03 08:26 | XMS_ITS | Encounter Summary ---
:1945 Author Organization [facility] Address [address] [place] [address] Care Team Providers Name Role Phone Unavailable Primary Care Provider Unavailable Encounter Details Date Type Department Care Team Description 04/01/2018 Hospital Encounter Department of Vitor, Hon-Chi, Atrial Fibrillation Cardiovascular Diseases Feliberto, Ph .D. Personal History in [facility] rotary cutter feeder [address] [facility] [address] [place] [address] [phone] Social History Tobacco Use Types Packs/Day Years [...] More than 4 times per year 12/12/2021 confucianism services? Do you belong to any clubs [...] (04/01/2018 2:46 PM CDT) Analysis Performed At [facility] Time Signature Ejection Fraction 40 MC CV [...]
--- OUTSIDE RECORDS SUMMARY | 2022-07-03 08:26 | XMS_ITS | Encounter Summary ---
:1945 Author Organization [facility] Address [address] [place] [address] Care Team Providers Name Role Phone Unavailable Primary Care Provider Unavailable Encounter Details Date Type Department Care Team Description 04/04/2018 Hospital Encounter Department of Radiology, Tila Lynn M.D. [facility], in [place], [place] [address] [place] [address] Social History Tobacco Use Types Packs/Day [...]
--- OUTSIDE RECORDS SUMMARY | 2022-07-03 08:26 | XMS_ITS | Encounter Summary ---
:1945 Author Organization [facility] Address [address] [place] [address] Care Team Providers Name Role Phone Unavailable [...] 10:15 Result s for this EXAM AM TIRE BALANCER procedure are i n the results section. documented in this encounter Results DERMATOLOGY IMAGE EXAM (06/10/2018 10:15 AM TIRE BALANCER) Specimen (Source) Anatomical Collection Method Collection Time Re ceived Time Location / / Volume Laterality 06/10/2018 10:12 AM TIRE BALANCER Narrative [facility] - 06/10/2018 10:15 AM TIRE BALANCER This order has been created and auto-finalized [...]
--- OUTSIDE RECORDS SUMMARY | 2022-07-03 08:26 | XMS_ITS | Encounter Summary ---
:1945 Author Organization [facility] Address [address] [place] [address] Care Team Providers Name Role Phone Unavailable Primary Care Provider Unavailable Encounter Details Date Type Department Care Team Description 04/04/2018 Hospital Encounter Department of Shane, Jarvis, Unspecif ied Systolic Radiology, Sidney Dao (Congestive ) Heart Building, in Failure (HCC) [place], [place] [address] [place] [address] Social History Tobacco Use Types Packs/Day Years [...] More than 4 times per year 12/12/2021 scientology services? Do you belong to any clubs [...]
--- OUTSIDE RECORDS SUMMARY | 2022-07-03 08:26 | XMS_ITS | Encounter Summary ---
:1945 Author Organization [facility] Address [address] [place] [address] Care Team Providers Name Role Phone Unavailable Primary Care Provider Unavailable Encounter Details Date Type Department Care Team Description 04/04/2018 Hospital Encounter Department of Jarvis Lynn, Cardiovascular Diseases in .[place], [place] [address] [place] [address] Social History Tobacco Use Types Packs/Day [...] More than 4 times per year 12/12/2021 restoration services? Do you belong to any clubs [...]
--- OUTSIDE RECORDS SUMMARY | 2022-07-03 08:26 | XMS_ITS | Encounter Summary ---
:1945 Author Organization [facility] Address [address] [place] [address] Care Team Providers Name Role Phone Unavailable Primary Care Provider Unavailable Encounter Details Date Type Department Care Team Description 03/06/2018 Orders Only Department of Vitor, [place], Atrial Fibril lation Cardiovascular Medicine MJensen., Ph .D. Personal History in [facility] potato bucker [address] [facility] (Primary Dx) [address] [place] [phone] Social History Tobacco Use Types Packs/Day Years [...] on filedocumented as of this encounter Results DX Chest [...] Adler M.D., Ph.D. IMG DIAGNOSTIC IMAGING PROCE DUR (TTE) 2D ECHO DOPPLER COLOR AND CONTRAST [...] ECHO PROCEDURES HOLTER MONITOR - IN CLINIC CARDIOTHORACIC SURGEON (04/01/2018 9:33 AM CDT) [facility] gist Method Time Signature Recording Date HOLTER SENTINEL Analysis Date 180,829 HOLTER SENTINEL Max Heart Rate 116 bpm HOLTER SENTINEL Max Heart Rate [id number] HOLTER Time SENTINEL Min Heart Rate 54 bpm HOLTER SENTINEL Min Heart Rate [id number] HOLTER Time SENTINEL Mean Heart 74 bpm [...] count HOLTER Hour SENTINEL SVE Max Per [id number] HOLTER Hour Time SENTINEL Specimen (Source) Anatomical [...] MUSE QTC Interval 442 ms MUSE R Golden 22 degrees MUSE T Wave Golden 19 degrees MUSE CODED Atrial MUSE DIAGNOSIS [...] M.D., Ph.D. ECG ORDERABLES Performing Organization Address City/[facility]/ZIP Code Phon e Number MUSE MUSE NA (ABNORMAL) Glucose, Fasting (04/01/2018 8:06 AM CDT) P athologist Signature Glucose, P 114 (H) 70 - 100 04/01/2018 [facility] mg/dL 9:08 AM CDT LABORATORIES - [facility] Last Intake 12 hr 04/01/2018 [facility] 8:29 AM CDT LAB[facility]ATORIES - [facility] Specimen Anatomical Collection Method Collection Time Receive d Time (Source) Location / / Volume Laterality Blood (Blood, 04/01/2018 8:06 AM 04/01/20 18 8:29 Venous) CDT AM CDT Nadiya Adler M.D., Ph.D. LAB BLOOD NON ADD-ON Performing Organization Address City/State/ZIP Code Phon e Number [facility] LABORATORIES - [address] [place], [place] [address] [facility] BUN (Blood Urea Nitrogen) (04/01/2018 8:06 AM CDT) P athologist Signature BUN (Blood 16 8 - 24 04/01/2018 [facility] Urea mg/dL 9:35 AM CDT LABORATORIES - Nitrogen), S [facility] Specimen Anatomical Collection Method Collection Time Receive d Time (Source) Location / / Volume Laterality Blood (Blood, 04/01/2018 8:06 AM 04/01/20 18 8:29 Venous) CDT AM CDT Nadiya Adler M.D., Ph.D. LAB BLOOD ADD-ON Performing Organization Address City/State/ZIP Code Phon e Number [facility] LABORATORIES - [address] [place] [address] [facility] Creatinine with Estimated GFR (04/01/2018 8:06 AM CDT) Analysis Performed At Patho logist Time Signature Creatinine 1.00 0.74 - 04/01/2018 [facility] 1.35 mg/dL 9:35 AM CDT LABORATORIES - [facility] eGFR-Non 74 >=60 04/01/2018 [facility] Black/ mL/min/BSA 9:35 AM CDT LABORATORIES - [facility] Comment: ----ADDITIONAL INFORMATION---- Estimated GFR calculated using the 2009 CKD_EPI creatinine equation. eGFR-Black/ 86 >=60 mL/min/BSA 04/01/2018 9:35 [facility] CDT LABORATORIES [facility] Comment: ----ADDITIONAL INFORMATION---- Estimated GFR calculated using the 2009 CKD_EPI creatinine equation. Specimen Anatomical Collection Method Collection Time Receive d Time (Source) Location / / Volume Laterality Blood (Blood, 04/01/2018 8:06 AM 04/01/20 18 8:29 Venous) CDT AM CDT Nadiya Adler M.D., Ph.D. LAB BLOOD ADD-ON Performing Organization Address City/[facility]/ZIP Code Phon e Number [facility] LABORATORIES - [address] [place] [address] [facility] Potassium (04/01/2018 8:06 AM CDT) P athologist Signature Potassium, S 4.9 3.6 - 5.2 04/01/2018 [facility] mmol/L 9:35 AM CDT LABORATORIES - [facility] Specimen Anatomical Collection Method Collection Time Receive d Time (Source) Location / / Volume Laterality Blood (Blood, 04/01/2018 8:06 AM 04/01/20 18 8:29 Venous) CDT AM CDT Nadiya Adler M.D., Ph.D. LAB BLOOD ADD-ON Performing Organization Address City/State/ZIP Code Phon e Number [facility] LABORATORIES - [address] [place] [address] [facility] Sodium (04/01/2018 8:06 AM CDT) P athologist Signature Sodium, S 140 135 - 145 04/01/2018 [facility] mmol/L 9:35 AM CDT LABORATORIES - [facility] Specimen Anatomical Collection Method Collection Time Receive d Time (Source) Location / / Volume Laterality Blood (Blood, 04/01/2018 8:06 AM 04/01/20 18 8:29 Venous) CDT AM CDT Nadiya Adler M.D., Ph.D. LAB BLOOD ADD-ON Performing Organization Address City/State/ZIP Code Phon e Number [facility] LABORATORIES - [address] [place] [address] [facility] documented in this encounter Visit Diagnoses Diagnosis Atrial Fibrillation Personal History - P rimary Atrial Fibrillation Personal History Atrial Fibrillation Personal History documented in this encounter
[2022-07-03 10:34] LABS: Cholesterol* 135 mg/dL (90-199)
[2022-07-03 10:35] LABS: HDL Cholesterol* 39 mg/dL (>=40); LDL Cholesterol Calculated 66 mg/dL (<100); Triglycerides* 148 mg/dL (40-149)
== END 2022-07-03 15:53 | disposition home or self-care (01) ==
PROVIDERS: PCP Internal Medicine; Visit Provider Internal Medicine
DX: E78.5 Hyperlipidemia, unspecified (principal)
CPT/HCPCS: 80061

== ENCOUNTER 2023-01-15 15:32 | Outpatient (CLI) | payer OTHER, SELFPAY | END 2023-01-15 15:33 | disposition home or self-care (01) | LOC: NFLDREF 15:33 | PROVIDERS: PCP Internal Medicine; Visit Provider Internal Medicine | DX: Z12.5 Encounter for screening for malignant neoplasm of prostate (principal) | CPT/HCPCS: 84153 ==

== ENCOUNTER 2023-07-11 14:00 | Outpatient (CLI) | payer OTHER, SELFPAY | END 2023-07-11 14:01 | disposition home or self-care (01) | LOC: NFLDREF 07-13 11:27 | PROVIDERS: PCP Internal Medicine; Referring Provider Internal Medicine; Visit Provider Physician Assistant Medical | DX: E78.5 Hyperlipidemia, unspecified (principal); I10 Essential (primary) hypertension; Z12.5 Encounter for screening for malignant neoplasm of prostate | CPT/HCPCS: 80053; 80061; 84153 ==

== ENCOUNTER 2023-08-15 08:55 | Outpatient (CLI) | payer OTHER, SELFPAY ==
--- OUTSIDE RECORDS SUMMARY | 2023-08-16 07:30 | XMS_ITS | Clinical Summary ---
Author Name Unknown Organization [facility] Address [place], [place] [address] Care Team Providers Care Research Methodologist Name Role Phone Choco Masters MD Primary Care Provider [phone] Nurses, Advanced Heart Failure Unavailable + Tomas Wright [facility] Unavailable [phone] Allergies Active Allergy Reactions Criticality Noted Date Comments Adhesive Tape-Silicones Rash Low 07/18/2017 Hydrocodone-Acetaminophen GI Upset 02/10/2016 Intolerance Penicillins Hives Medium 10/18/2016 Medications Medication Sig Dispensed Refills Start Date End Date Status multivitamin therapeutic (THERAGRAN; ONCOVITE) tablet Take 1 Tablet by mouth once daily. 0 Active omeprazole (PRILOSEC) 20 mg Delayed-Release capsule Take 1 Capsule by mouth once daily before a meal. 0 11/20/2020 Active nitroglycerin (NITROSTAT) 0.[address] 0.4 mg under the tongue every 5 minutes if needed. 0 Active spironolactone (ALDACTONE) 25 mg tablet Take 25 mg by mouth once daily. 0 01/25/2021 Active acetaminophen (TYLENOL EXTRA STRGTH) 500 mg tablet Take 1,000 mg by mouth every 6 hours if needed. Max acetaminophen dose: 4000mg in 24 hrs. 0 Active atorvastatin (LIPITOR) 40 mg tabletIndications :Dyslipidemia Take 1 Tablet (40 mg) by mouth at bedtime. 30 Tablet 2 02/21/2021 Active furosemide (LASIX) 20 mg tabletIndications :Acute on chronic systolic heart failure (HC) Take 20 mg as needed for weight gain of 3lbs in 24 hours. Your dry weight is 316 pounds. 0 02/21/2021 Active Clofazimine, Bulk, powd As directed. 0 03/28/2022 Active sotaloL (BETAPACE) 80 mg tabletIndications :Atrial fibrillation, unspecified type (HC) Take 1 Tablet (80 mg) by mouth two times daily before meals. 180 Tablet 4 02/12/2023 Active apixaban (Eliquis) 5 mg tabletIndications :Chronic systolic congestive heart failure (HC),Longstanding persistent atrial fibrillation (HC) TAKE 1 TABLET TWICE DAILY 180 Tablet 0 06/12/2023 Active sacubitril-valsar ac (ENTRESTO 97 MG-103 MG TABLET) 97-103 mg tabletIndications :Chronic systolic congestive heart failure (HC) TAKE 1 TABLET TWICE DAILY (DOSE INCREASE) 180 Tablet 0 06/12/2023 Active carvediloL (COREG) 25 mg tabletIndications :Chronic systolic congestive heart failure (HC) Take 1.5 Tablets (37.5 mg) by mouth two times daily with meals. 270 Tablet 3 08/13/2023 Active carvediloL (COREG) 25 mg tabletIndications :Chronic systolic congestive heart failure (HC) Take 1 Tablet (25 mg) by mouth 2 times daily with meals. 90 Tablet 3 04/04/2021 4 Discontinu ed(*Medica tion adjustment ) doxycycline (ADOXA) 100 mg tablet Take 100 mg by mouth. 0 03/22/2022 4 Discontinu ed(*Med complete/R egimen complete/L evel of care change) azithromycin (ZITHROMAX) 500 mg tablet Take 1 Tablet (500 mg) by mouth. 0 03/28/2022 4 Discontinu ed(*Med complete/R egimen complete/L evel of care change) Active Problems Problem Noted Date Diagnosed Date Dyslipidemia 02/16/2021 DOW (dyspnea on exertion) 02/16/2021 Chronic systolic congestive heart failure 2019 Longstanding persistent atrial fibrillation 02/2020 HTN (hypertension) 03/11/2020 Morbid obesity due to excess calories 03/11/2020 Acute systolic heart failure Acute on chronic systolic heart failure Encounters Date Type Department Care Team Description 08/15/2023 Orders Only [facility] [address] [place] [address] Agustín Jacobo MD 1 scan: (1-Ord) NFLD-EKG-08/13/23 08/13/2023 3:00 PM CLIENT PROJECT COORDINATOR Office Visit [facility] [address] [place] [address] Agustín Jacobo MD Follow Up (Nonischemic cardiomyopathy,PVC's and Longstanding persistent atrial fibrillation) 08/13/2023 Travel 07/16/2023 Travel 06/12/2023 Refill [facility] [address] [place] [address] Smith Bran MD Refill Request (Eliquis, Entresto 97 Mg-103 Mg Tablet) from Last 3 Months Social History Tobacco Use Types Packs/Day Years Used Date Smoking Tobacco: Former Smokeless Tobacco: Never Comments:47 years ago Alcohol Use Standard Drinks/Week Comments Not Currently 0 (1 standard drink = 0.6 oz pur e alcohol) Social Connections Answer Date Recorded Frequency of Communication with Friends and Fami ly Not on file 08/01/2021 Financial Resource Strain Answer Date R ecorded Difficulty of Paying Living Expenses Not on file 08/01/2021 Difficulty of Paying Living Expenses Not on file 08/01/2021 Sex and Gender Information Value Date Recorded Sex Assigned at Not on file Gender Identity Not on file Sexual Orientation Not on file Obstetrics History Last Filed Vital Signs Vital Sign Reading Time Taken Comments Blood Pressure 158/91 08/13/2023 3:01 PM CLIENT PROJECT COORDINATOR Pulse 85 08/13/2023 3:01 PM CLIENT PROJECT COORDINATOR Temperature 36.8 ??C (98.2 ??F) 02/21/2021 7:01 AM CD T Respiratory Rate 18 02/21/2021 7:01 AM CDT Oxygen Saturation 97% 08/13/2023 3:01 PM CLIENT PROJECT COORDINATOR Inhaled Oxygen Concentration - - Weight 152 kg (335 lb) 08/13/2023 3:01 PM CLIENT PROJECT COORDINATOR Height 170.2 cm (5' 7) 04/06/2022 1:00 PM CDT Body Mass Index 52.47 04/06/2022 1:00 PM CDT Plan of Treatment Upcoming Encounters Date Type Department Care Team (Late st Contact Info) Description 11/15/2023 Cardiac Device Check [facility] [phone] Health Maintenance Due Date Last Done Comments Pneumococcal series for age 65+ (1 of 2 - PCV) 1950 Tdap 12/11/1955 Depression screening for age 12+ 1956 Hepatitis C screening for ag e 18-79 1962 Tetanus booster 1964 Zoster (shingles) series for age 50+ (1 of 2) 1994 Medicare Wellness for age 65+ 2009 Influenza for age 65+ 04/05/2023 BMI (ht and wt on same day) for age 18+ 04/06/2023 04/06/2022, 03/28/2022, 09/21/2021 COVID-19 vaccine series Completed 05/10/20, 05/10/2022, 12/29/2021, Additional history exists Procedures Procedure Name Priority Date/Time Associated Diagnosis Comments EKG 12 LEAD Routine 08/15/2023 9:15 AM CLIENT PROJECT COORDINATOR Chronic systolic congestive heart failure (HC) from Last 3 Months Results * EKG 12 LEAD (08/15/2023 9:15 AM CLIENT PROJECT COORDINATOR) Agustín Jacobo MD EKG ORD from Last 3 Months Advance Directives Latest Code Status on File Code Status Date Activated Date Inactivated Comments Full Code 02/16/2021 12:12 PM 02/21/2021 12:35 PM Question Answer Comments Code Status Discussion: Discussed Care Teams Research Methodologist Relationship Specialty Start Date End Date Reister, Wilhelm, MD [address] [place] [address] PCP - General Internal Medicine 03/03/20 Nurses, Advanced Heart Failure [address] [place] [address] Advanced Heart Failure/Transplant Card 06/19/21 Tomas Wright, [facility] [address] [place] [id number] Cardiology - CHF Advanced Heart Failure/Transplant Card 06/19/21
--- OUTSIDE RECORDS SUMMARY | 2023-08-16 07:30 | XMS_ITS | Encounter Summary ---
Author Name Unknown Organization [facility] Address [address] [place] [address] Care Team Providers Care Crossword Puzzle Maker Name Role Phone Elsewhere, Pcp Primary Care Provider Unavailabl e Encounter Details Date Type Department Care Team (Late st Contact Info) Description 02/28/2018 [facility] [address] [place] [address] Choco Masters M.D. [address] [place] [address] Persistent Atrial Fibrillation (Primary Dx) Social History Tobacco Use Types Packs/Day Years Used Date Smoking Tobacco: Unknown Sex and Gender Information Value Date Recorded Sex Assigned at Male 04/03/2018 7:54 AM CDT Gender Identity Male 04/03/2018 7:54 AM CDT Sexual Orientation Straight 04/03/2018 7: 54 AM CDT documented as of this encounter Plan of Treatment Not on file documented as of this encounter Visit Diagnoses Diagnosis Persistent Atrial Fibrillation- Primary documented in this encounter Care Teams Crossword Puzzle Maker Relationship Specialty Start Date End Date Elsewhere, Pcp PCP - General Internal Medicine 12/26/21 documented as of this encounter
--- OUTSIDE RECORDS SUMMARY | 2023-08-16 07:30 | XMS_ITS | Encounter Summary ---
Author Name Unknown Organization [facility] Address [address] [place] [address] Care Team Providers Care Global Creative Chairman Name Role Phone Elsewhere, Pcp Primary Care Provider Unavailabl e Encounter Details Date Type Department Care Team (Late st Contact Info) Description 02/26/2018 [facility] [address] [place] [address] Choco Masters M.D. [address] [place] [address] Persistent Atrial Fibrillation (Primary Dx) Social History [...] Primary documented in this encounter Care Teams Global Creative Chairman Relationship Specialty Start Date End Date Elsewhere, Pcp PCP - General Internal Medicine 12/26/21 documented as of this encounter
--- OUTSIDE RECORDS SUMMARY | 2023-08-16 07:30 | XMS_ITS ---
Author Name Unknown Organization [facility] Address [address] [place] [address] Care Team Providers Care Production Associate Name Role Phone Unavailable Unavailable Unavailable Surgery Details Not on file Complications Check Surgery Details section. Procedure Estimated Blood Loss Check Surgery Details section. Procedure Findings Check Surgery Details section. Procedure Specimens Taken Check Surgery Details section.
--- OUTSIDE RECORDS SUMMARY | 2023-08-16 07:30 | XMS_ITS | Clinical Summary ---
Author Name Unknown Organization [facility] Address [address] [place] [address] Care Team Providers Care Oral And Maxillofacial Surgery Name Role Phone Elsewhere, Pcp Primary Care Provider Unavailabl e Source Comments Patient records contain information from all sites at [facility]. For routine questions regarding patient records, call [phone] during business hours, M-F 8:00 AM - 5:00 PM Central Time. Record requests for emergency care only can be directed to [phone] at any time.[facility] Allergies Active Allergy Reactions Criticality Noted Date Comments Adhesive Tape-Silicones Rash Low 07/18/2017 Penicillins Hives (Reselect Reaction) Low 7 Medications Medication Sig Dispensed Refills Start Date End Date Status acetaminophen (TYLENOL) 500 mg tablet Take 1,000 mg by mouth as needed. 0 Active clindamycin (CLEOCIN) 300 mg capsule 2 capsules prior to dental work 0 Active nitroglycerin (NITROSTAT) 0.[address] 0.4 mg under the tongue as needed. FOR EMERGENCIES 0 Active multivit with min-folic acid 0.4 mg tablet Take 1 tablet by mouth daily. 0 10/18/2016 Active omeprazole (PriLOSEC) [address] capsule Take 20 mg by mouth daily. 0 10/18/2016 Active atorvastatin (LIPITOR) 40 mg tablet Take 40 mg by mouth daily. 0 02/21/2021 Active carvediloL (COREG) 25 mg tablet Take 25 mg by mouth 2 (two) times a day with meals. 0 04/04/2021 Active furosemide (LASIX) 20 mg tablet Take 20 mg by mouth as needed. 0 02/21/2021 Active spironolactone (ALDACTONE) 25 mg tablet Take 25 mg by mouth daily. 0 11/19/2021 Active Entresto 97-103 mg per tablet Take 1 tablet by mouth 2 (two) times a day. 0 09/21/2021 Active Eliquis 5 mg tablet 5 mg daily. 0 11/29/2021 Acti ve azithromycin (ZITHROMAX) 500 mg tabletIndications:My cobacterium Infection Take 1 tablet (500 mg total) by mouth daily. Take with food 30 tablet 2 03/22/2022 Active doxycycline monohydrate (ADOXA) 100 mg tabletIndications:My cobacterium Infection Take 1 tablet (100 mg total) by mouth 2 (two) times a day. 60 tablet 2 03/22/2022 Active Research IRB [id number] clofazimine 50 mg capsuleIndications:M ycobacteria Cutaneous Not Tuberculosis Take 2 capsules (100 mg total) by mouth daily. Take with food. 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 Family History Medical History Relation Name Comments Melanoma Brother 1 Mayank Mendez Prostate can cerm Prostate cancer Brother 1 Mayank Mendez Basal cell carcinoma Brother 2 Colon polyps Brother 3 leonel tejadaon Coronary artery disease Brother 3 leonel tejadaon Melanoma Brother 3 leonel hutchinsonverson Coronary artery disease Father r aristides tejadao n Hypertension Father r aristides tejadaon Melanoma Father r aristides hutchinsonverson Obesity Father r aristides andrea Melanoma Father's Brother Melanoma Mother Sabina Mendez Relation Name Status Comments Brother 1 Mayank Tejadaon Brother 2 Brother 3 leonel andrea Father r aristides hutchinsonverson Father's Brother Mother Sabina Mendez Social History Tobacco Use Types Packs/Day Years Used Date Smoking Tobacco: Former Cigarettes 0 4 1 - 09/01/1969 Smokeless Tobacco: Never Tobacco Cessation:Counseling Given: Not Answered Alcohol Use Standard Drinks/Week Comments No 0 (1 standard drink = 0.6 oz pur e alcohol) Humiliation, Afraid, Rape, and Kick questionnair e Answer Date Recorded Within the last year, have y ou been afraid of your partner or ex-partner? No 12/12/2021 Within the last year, have y ou been humiliated or emotionally abused in other ways by your partner or ex-partner? No Within the last year, have y ou been kicked, hit, slapped, or otherwise physically hurt by your partner or ex-partner? No 12/12/2021 Within the last year, have y ou been raped or forced to have any kind of sexual activity by your partner or ex-partner? No 12/12/2021 Social Connection and Isolat ion Panel [NHANES] Answer Date Recorded In a typical week, how many times do you talk on the phone with family, friends, or neighbors? More than three times a week 12/12/2021 How often do you get togethe r with friends or relatives? More than three times a week 12/12/2021 How often do you attend chur or taoist services? More than 4 times per year 12/12/2021 Do you belong to any clubs o r organizations such as pentecostalism groups, unions, fraternal or athletic groups, or school groups? Yes 12/12/2021 How often do you attend meet ings of the clubs or organizations you belong to? More than 4 times per year 12/12/2021 Are you , , di vorced, , never , or living with a partner? 12/12/2021 AUDIT-C Answer Date Recorded Q1: How often do you have a drink containing alc ohol? Monthly or less 12/12/2021 Q2: How many drinks containi ng alcohol do you have on a typical day when you are drinking? 1 or 2 12/12/2021 Q3: How often do you have si x or more drinks on one occasion? Never 12/12/2021 Overall Financial Resource Strain (CARDIA) Answe r Date Recorded How hard is it for you to pa y for the very basics like food, housing, medical care, and heating? Not hard at all 12/12/2021 [facility] Head of Occupat ional Health - Occupational Stress Questionnaire Answer Date Recorded Do you feel stress - tense, restless, nervous, or anxious, or unable to sleep at night because your mind is troubled all the time - these days? Not at all 12/12/2021 Exercise Vital Sign Answer Date Recorde d On average, how many days pe r week do you engage in moderate to strenuous exercise (like a brisk walk)? 2 days 12/12/2021 On average, how many minutes do you engage in exercise at this level? 10 min 12/12/2021 Hunger Vital Sign Answer Date Recorded Within the past 12 months, y ou worried that your food would run out before you got the money to buy more. Never true 12/13/19 Within the past 12 months, t he food you bought just didn't last and you didn't have money to get more. Never true 12/12/2021 PRAPARE - Transportation Answer Date Re corded In the past 12 months, has l ack of transportation kept you from medical appointments or from getting medications? No 12/03 In the past 12 months, has l ack of transportation kept you from meetings, work, or from getting things needed for daily living? No 12/12/2021 Housing Stability Vital Sign Answer Nelson e Recorded In the last 12 months, was t here a time when you were not able to pay the mortgage or rent on time? No 12/12/2021 In the last 12 months, how many places have you lived? 1 12/12/2021 In the last 12 months, was t here a time when you did not have a steady place to sleep or slept in a assisted (including now)? No 12/12/2021 Nutrition Answer Date Recorded Nutrition: EVOO Fat Source No 12/12 On average, how many serving s of fruits and vegetables do you eat per day (serving size is equal to 1 cup or approximately the size of a tennis ball)? 2-3 12/12/2021 Dental Answer Date Recorded Dental: Regular Dentist Yes 12/13/19 Employment Answer Date Recorded Employment status Retired 12/12/2021 Education Answer Date Recorded What is the highest level of school you have completed or the highest degree you have received? Professional school degree (e.g., , DDS, DVM, RODOLFO) 12/12/2021 Sex and Gender Information Value Date Recorded Sex Assigned at Male 04/03/2018 7:54 AM CDT Gender Identity Male 04/03/2018 7:54 AM CDT Sexual Orientation Straight 04/03/2018 7: 54 AM CDT Last Filed Vital Signs Vital Sign Reading Time Taken Comments Blood Pressure 156/98 07/08/2018 2:12 PM IT INTEGRATION ARCHITECT Pulse 99 07/08/2018 2:12 PM IT INTEGRATION ARCHITECT Temperature 36.5 ??C (97.7 ??F) 04/20/2022 2:26 PM CD T Respiratory Rate 20 04/15/2018 1:00 PM CDT Oxygen Saturation 94% 04/15/2018 1:00 PM CDT Inhaled Oxygen Concentration - - Weight 148 kg (326 lb 8 oz) 04/19/2022 11:19 AM CDT Height 168.4 cm (5' 6.3) 07/08/2018 2:12 PM IT INTEGRATION ARCHITECT Body Mass Index 52.22 07/08/2018 2:12 PM IT INTEGRATION ARCHITECT Plan of Treatment Health Maintenance Due Date Last Done Comments Hepatitis C Screening 1945 Depression Screening (Annual PHQ-2) 08/05/2022 Fall Risk Screen (Annual) 08/05/2022 Creatinine Level (Kidney Fun ction Test) 02/08/2024 02/07/2023, 04/19/2022, 04/06/2022, Additional history exists Potassium Level 02/08/2024 02/07/2023, 09/0 09/2021, 01/04/2022, Additional history exists Sodium Level 02/08/2024 02/07/2023, 09/0 09/2021, 01/04/2022, Additional history exists DTaP,Tdap,and Td Vaccines (2 - Td or Tdap) 06/07/2025 06/07/2015, 03/28/2007 Zoster Vaccines Completed 09/06/2021, 05/08/2021 Pneumococcal vaccine (65+ years) Completed 07/11/20, 06/07/2015 Influenza Vaccine Completed 05/01/2023, , 05/08/2021, Additional history exists COVID-19 Vaccine Completed 05/10/2023, 01/2022, 12/29/2021, Additional history exists Medical Devices Implanted Type Area Medicaid Service Coordinator Device Identifier Shelf Expiration Date Model / Serial / Lot Knee Implant-2018 Implanted:09/2018 (Quantity not on file) Knee Implant Right: Knee Ocular Lens Ocular Lens Bilateral : Eye Pacemaker-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/2020 (Quantity not on file) Pacemaker Left: Chest Care Teams Oral And Maxillofacial Surgery Relationship Specialty Start Date End Date Elsewhere, Pcp PCP - General Internal Medicine 12/26/21
--- OUTSIDE RECORDS SUMMARY | 2023-08-16 07:30 | XMS_ITS | Referral Summary ---
Author Name Unknown Organization [facility] Address [address] [place] [address] Care Team Providers Care Nursing Coordinator Name Role Phone Elsewhere, Pcp Primary Care Provider Unavailabl e Source Comments Patient records contain information from all sites at [facility]. For routine questions regarding patient records, call [phone] during business hours, M-F 8:00 AM - 5:00 PM Central Time. Record requests for emergency care only can be directed to [phone] at any time.[facility] Allergies Active Allergy Reactions Criticality Noted Date [...] 60 tablet 2 03/22/2022 Active Research IRB [id number] clofazimine 50 mg capsuleIndications:M ycobacteria Cutaneous Not Tuberculosis Take 2 capsules (100 mg total) by mouth daily. Take with food. 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 More than 4 times per year 12/12/2021 Do you belong to any clubs o r organizations such as anabaptism groups, unions, fraternal [...] and heating? Not hard at all 12/12/2021 [facility] of Occupat ional Health - Occupational Stress [...] money to buy more. Never true 12/13/19 22 Within the past 12 months, t he [...] or slept in a long-term (including now)? No 12/12/2021 Nutrition Answer Date [...] you have received? Professional school degree (e.g., MD, DDS, DVM, RODOLFO) 12/12/2021 Sex and Gender Information Value Date Recorded Sex Assigned at Male 04/03/2018 7:54 AM CDT Gender Identity Male 04/03/2018 7:54 AM CDT Sexual Orientation Straight 04/03/2018 7: 54 AM CDT Last Filed Vital Signs Vital Sign Reading Time Taken Comments Blood Pressure 156/98 07/08/2018 2:12 PM FILLER BLENDER Pulse 99 07/08/2018 2:12 PM FILLER BLENDER Temperature 36.5 ??C (97.7 ??F) 04/20/2022 2:26 PM CD T Respiratory Rate 20 04/15/2018 1:00 PM CDT Oxygen Saturation 94% 04/15/2018 1:00 PM CDT Inhaled Oxygen Concentration - - Weight 148 kg (326 lb 8 oz) 04/19/2022 11:19 AM CDT Height 168.4 cm (5' 6.3) 07/08/2018 2:12 PM FILLER BLENDER Body Mass Index 52.22 07/08/2018 2:12 PM FILLER BLENDER Plan of Treatment Not on file Medical Devices Implanted Type Area Sales Training Coordinator Device Identifier Shelf Expiration Date Model / Serial / Lot Knee Implant-2018 Implanted:09/2018 (Quantity not on file) Knee Implant Right: Knee Ocular Lens Ocular Lens Bilateral : Eye Pacemaker-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/2020 (Quantity not on file) Pacemaker Left: Chest Care Teams Nursing Coordinator Relationship Specialty Start Date End Date Elsewhere, Pcp PCP - General Internal Medicine 12/26/21
== END 2023-08-15 08:56 | disposition home or self-care (01) ==
LOC: NFLDREF 08-16 07:28
PROVIDERS: PCP Internal Medicine; Referring Provider Internal Medicine; Visit Provider Internal Medicine
DX: E78.5 Hyperlipidemia, unspecified (principal); I10 Essential (primary) hypertension; Z12.5 Encounter for screening for malignant neoplasm of prostate
CPT/HCPCS: 80053; 80061; G0103

== ENCOUNTER 2024-05-25 09:20 | Outpatient (CLI) | payer OTHER, MEDICARE, SELFPAY ==
--- OUTSIDE RECORDS SUMMARY | 2024-05-26 16:52 | XMS_ITS ---
Author Organization [facility] Address [address] [place] [address] Care Team Providers Care Toe Trimmer Name Role Phone Unavailable Unavailable Unavailable Surgery Details Not on file Complications Check Surgery Details section. Procedure Estimated Blood Loss Check Surgery Details section. Procedure Findings Check Surgery Details section. Procedure Specimens Taken Check Surgery Details section.
--- OUTSIDE RECORDS SUMMARY | 2024-05-26 16:52 | XMS_ITS | Clinical Summary ---
Author Organization [facility] Address [address] [place] [address] Care Team Providers Care Principle Industrial Hygienist Name Role Phone Elsewhere, Pcp Primary Care Provider Unavailabl e Source Comments Patient records contain information from all sites at [facility]. For routine questions regarding patient records, call [phone] during business hours, M-F 8:00 AM - 5:00 PM Central Time. Record requests for emergency care only can be directed to [phone] at any time.[facility] Allergies Active Allergy Reactions Criticality Noted Date Comments Adhesive Tape-Silicones Rash Low 07/18/2017 Penicillins Hives (Reselect Reaction) Low 7 Medications acetaminophen (TYLENOL) 500 mg tablet Take 1,000 mg by mouth as needed. Active clindamycin (CLEOCIN) 300 mg capsule 2 capsules prior to dental work Active nitroglycerin (NITROSTAT) 0.[address] 0.4 mg under the tongue as needed. FOR EMERGENCIES Active multivit with min-folic acid 0.4 mg tablet Take 1 tablet by mouth daily. 7 Active omeprazole (PriLOSEC) [address] capsule Take 20 mg by mouth daily. 7 Active atorvastatin (LIPITOR) 40 mg tablet Take 40 mg by mouth daily. 1 Active carvediloL (COREG) 25 mg tablet Take 25 mg by mouth 2 (two) times a day with meals. 1 Active furosemide (LASIX) 20 mg tablet Take 20 mg by mouth as needed. 1 Active spironolactone (ALDACTONE) 25 mg tablet Take 25 mg by mouth daily. 2 Active Entresto 97-103 mg per tablet Take 1 tablet by mouth 2 (two) times a day. 2 Active Eliquis 5 mg tablet 5 mg daily. 2 Active azithromycin (ZITHROMAX) 500 mg tabletIndication s:Mycobacterium Infection Take 1 tablet (500 mg total) by mouth daily. Take with food 30 tablet 2 2 Active doxycycline monohydrate (ADOXA) 100 mg tabletIndication s:Mycobacterium Infection Take 1 tablet (100 mg total) by mouth 2 (two) times a day. 60 tablet 2 2 Active Research IRB [id number] clofazimine 50 mg capsuleIndicatio ns:Mycobacteria Cutaneous Not Tuberculosis Take 2 capsules (100 mg total) by mouth daily. Take with food. 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 Family History Medical History Relation Name Comments Melanoma Brother 1 Mayank Mendez Prostate can cerm Prostate cancer Brother 1 Mayank Mendez Basal cell carcinoma Brother 2 Colon polyps Brother 3 leonel andrea Coronary artery disease Brother 3 leonel andrea Melanoma Brother 3 leonel hutchinsonverson Coronary artery disease Father r aristides tejadao n Hypertension Father r aristides andrea Melanoma Father r aristides andrea Obesity Father r aristides andrea Melanoma Father's Brother Melanoma Mother Sabina Mendez Relation Name Status Comments Brother 1 Mayank Hutchinsonverson Brother 2 Brother 3 leonel andrea Father r aristides andrea Father's Brother Mother Sabina Mendez Social History Tobacco Use Types Packs/Day Years Used Date Smoking Tobacco: Former Cigarettes 1 - 09/01/1969 Smokeless Tobacco: Never Tobacco Cessation:Counseling Given: Not Answered Alcohol Use Standard Drinks/Week Comments No 0 (1 standard drink = 0.6 oz pur e alcohol) [facility] Utilities Answer Date Recorded In the past 12 months has [facility] [employer], oil, or water [employer] threatened to shut off services in your home? No 11/22/2023 Humiliation, Afraid, Rape, and Kick questionnair e [...] How often do you attend chur or sabianist services? More than 4 times per year 12/12/2021 Do you belong to any clubs o r organizations such as spiritism groups, unions, fraternal or athletic groups, or [...] and heating? Not hard at all 12/12/2021 [facility] of Occupat ional Health - Occupational Stress [...] exercise (like a brisk walk)? 2 days 11/22/2023 On average, how many minutes do you engage in exercise at this level? 20 min 11/22/2023 Hunger Vital Sign Answer Date Recorded Within the past 12 months, y ou worried that your food would run out before you got the money to buy more. Never true 11/22/19 24 Within the past 12 months, t he food you bought just didn't last and you didn't have money to get more. Never true 11/22/2023 PRAPARE - Transportation Answer Date Re corded In the past 12 months, has l ack of transportation kept you from medical appointments or from getting medications? No 11/03 In the past 12 months, has l ack of transportation kept you from meetings, work, or from getting things needed for daily living? No 11/22/2023 Nutrition Answer Date Recorded On average, how many serving s of fruits and vegetables do you eat per day (serving size is equal to 1 cup or approximately the size of a tennis ball)? 3-5 11/22/2023 Dental Answer Date Recorded Dental: Regular Dentist Yes 12/13/19 Employment Answer Date Recorded Employment status Retired 11/22/2023 Housing Stability Answer Date Recorded What is your living situation today? I have a [facility] place to live 11/22/2023 Education Answer Date Recorded What is the highest level of school you have completed or the highest degree you have received? 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 Gender Identity Male 04/03/2018 7:54 AM CDT Sexual Orientation Straight 04/03/2018 7: 54 AM CDT Last Filed Vital Signs Vital Sign Reading Time Taken Comments Blood Pressure 143/93 12/17/2023 7:45 AM CDT Pulse 79 12/17/2023 7:45 AM CDT Temperature 36.5 ??C (97.7 ??F) 04/20/2022 2:26 PM CD T Respiratory Rate 20 04/15/2018 1:00 PM CDT Oxygen Saturation 94% 04/15/2018 1:00 PM CDT Inhaled Oxygen Concentration - - Weight 148 kg (326 lb 8 oz) 04/19/2022 11:19 AM CDT Height 168.4 cm (5' 6.3) 07/08/2018 2:12 PM COMMISSARY PRODUCTION SUPERVISOR Body Mass Index 52.22 07/08/2018 2:12 PM COMMISSARY PRODUCTION SUPERVISOR Plan of Treatment Health Maintenance Due Date Last Done Comments Hepatitis C Screening 1945 RSV vaccine - (32-3 6 weeks) or 60+ years (1 - 1-dose 75+ series) 12/11/2019 Depression Screening (Annual PHQ-2) 08/05/2023 Fall Risk Screen (Annual) 08/05/2023 Creatinine Level (Kidney Fun ction Test) 02/08/2024 02/07/2023, 04/19/2022, 04/06/2022, Additional history exists Potassium Level 02/08/2024 02/07/2023, 09/0 09/2021, 01/04/2022, Additional history exists Sodium Level 02/08/2024 02/07/2023, 09/0 09/2021, 01/04/2022, Additional history exists COVID-19 Vaccine (2023-2 5 season) 2024 05/10/2023, 05/10/2022, 12/29/2021, Additional history exists Influenza Vaccine (#1) 2024 3, 05/10/2022, 05/08/2021, Additional history exists DTaP,Tdap,and Td Vaccines (2 - Td or Tdap) 06/07/2025 06/07/2015, 03/28/2007 Zoster Vaccines Completed 09/06/2021, 05/08/2021 Pneumococcal vaccine (65+ years) Completed 07/11/20 22, 06/07/2015 Medical Devices Implanted Type Area Truss Assembler Device Identifier Shelf Expiration Date Model / Serial / Lot Knee Implant-2018 Implanted:09/2018 (Quantity not on file) Knee Implant Right: Knee Ocular Lens Ocular Lens Bilateral : Eye Pacemaker-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/2020 (Quantity not on file) Pacemaker Left: Chest Procedures Procedure Name Priority Date/Time Associated Diagnosis Comments CREATININE WITH EGFR, S/P Routine 04/19/2022 9:23 AM CDT [facility] Antibiotic Treatment COMPREHENSIVE METABOLIC PANEL, S/P Routine 01/04/2022 12:21 PM CDT Mycobacterium Infection from Last 3 Months or Most Recently Relevant to Health Maintenance Results * Creatinine with Estimated GFR (04/19/2022 9:23 AM CDT) Creatinine 1.14 0.74 - 1.35 mg/dL 04/19/2022 10:24 AM CDT DTL Estimated GFR (eGFR) 66 >=60 mL/min/BSA 04/19/2022 10:24 AM CDT DTL Comment: Estimated GFR calculated using the 2020 CKD_EPI creatinine equation. Blood (Blood, Venous) 04/19/2022 9:23 AM CDT 04/19/2022 10:04 AM CDT Sherrie Lew M.D. LAB BLOOD ADD-ON Final Result [facility] [address] [place] [address], [facility] [address] [place] [address] * (ABNORMAL) Comprehensive Metabolic Panel (01/04/2022 12:21 PM CDT) Potassium, S 4.7 3.6 - 5.2 mmol/L 01/04/2022 1:41 PM CDT DTL Sodium, S 139 135 - 145 mmol/L 01/04/2022 1:41 PM CDT DTL Chloride, S 101 98 - 107 mmol/L 01/04/2022 1:41 PM CDT DTL Bicarbonate, S 28 22 - 29 mmol/L 01/04/2022 1:41 PM CDT DTL Anion Gap 10 7 - 15 01/04/2022 1:41 PM CDT DTL BUN (Blood Urea Nitrogen), S 13 8 - 24 mg/dL 01/04/2022 1:41 PM CDT DTL Creatinine 1.08 0.74 - 1.35 mg/dL 01/04/2022 1:41 PM CDT DTL eGFR-Non Black/ 66 >=60 mL/min/BS A 01/04/2022 1:41 PM CDT DTL Comment: ----ADDITIONAL INFORMATION---- Estimated GFR calculated using the 2009 CKD_EPI creatinine equation. eGFR-Black/ 76 >=60 mL/min/BS A 01/04/2022 1:41 PM CDT DTL Comment: ----ADDITIONAL INFORMATION---- Estimated GFR calculated using the 2009 CKD_EPI creatinine equation. Calcium, Total, S 9.3 8.8 - 10.2 mg/dL 01/04/2022 1:41 PM CDT DTL Glucose, S 102 70 - 140 mg/dL 01/04/2022 1:41 PM CDT DTL Protein, Total, S 6.4 6.3 - 7.9 g/dL 01/04/2022 1:41 PM CDT DTL Albumin, S 4.0 3.5 - 5.0 g/dL 01/04/2022 1:41 PM CDT DTL Aspartate Aminotransferase (AST), S 18 8 - 48 U/L 01/04/2022 1:41 PM CDT DTL Alkaline Phosphatase, S 122 40 - 129 U/L 01/04/2022 1:41 PM CDT DTL Alanine Aminotransferase (ALT), S 18 7 - 55 U/L 01/04/2022 1:41 PM CDT DTL Bilirubin, Total, S 2.0(H) <=1.2 mg/dL 01/04/2022 1:41 PM CDT DTL Blood (Blood, Venous) 01/04/2022 12:21 PM CDT 01/04/2022 1:04 PM CDT Sherrie Lew M.D. LAB BLOOD ADD-ON Final Result [facility] [address] [place] [address], [place] DTL [facility] [address] [place] [address] from Last 3 Months or Most Recently Relevant to Health Maintenance Insurance [employer] Care Teams Principle Industrial Hygienist Relationship Specialty Start Date End Date Elsewhere, Pcp PCP - General Internal Medicine 12/26/21
--- OUTSIDE RECORDS SUMMARY | 2024-05-26 16:52 | XMS_ITS | Encounter Summary ---
Author Organization [facility] Address [address] [place] [address] Care Team Providers Care Security Developer Name Role Phone Elsewhere, Pcp Primary Care Provider Unavailabl e Encounter Details Date Type Department Care Team (Late st Contact Info) Description 02/26/2018 [facility] [address] [place] [address] Choco Masters M.D. [address] [place] [phone] Persistent Atrial Fibrillation (Primary Dx) Social History Tobacco Use Types Packs/Day Years Used Date Smoking Tobacco: Unknown Sex and Gender Information Value Date Recorded Sex Assigned at Male 04/03/2018 7:54 AM CDT Legal Sex Male 11:05 PM SHIPPING ORDER CLERK Gender Identity Male 04/03/2018 7:54 AM CDT Sexual Orientation Straight 04/03/2018 7: 54 AM CDT documented as of this encounter Plan of Treatment Not on file documented as of this encounter Visit Diagnoses Diagnosis Persistent Atrial Fibrillation- Primary documented in this encounter Care Teams Security Developer Relationship Specialty Start Date End Date Elsewhere, Pcp PCP - General Internal Medicine 12/26/21 documented as of this encounter
--- OUTSIDE RECORDS SUMMARY | 2024-05-26 16:52 | XMS_ITS | Clinical Summary ---
Author Organization [facility] Address [place], [place] [address] Care Team Providers Care Addresser Name Role Phone Choco Masters MD Primary Care Provider Nurses, Advanced Heart Failure Unavailable + Tomas Wright [facility] Unavailable [phone] Allergies Active Allergy Reactions Criticality Noted Date Comments Adhesive Tape-Silicones Rash Low 07/18/2017 Hydrocodone-Acetaminophen GI Upset 02/10/2016 Intolerance Penicillins Hives Medium 10/18/2016 Medications Medication Sig Dispensed Refills Start Date End Date Status multivitamin therapeutic (THERAGRAN; ONCOVITE) tablet Take 1 Tablet by mouth once daily. Active omeprazole (PRILOSEC) 20 mg Delayed-Release capsule Take 1 Capsule by mouth once daily before a meal. 11/20/2020 Active nitroglycerin (NITROSTAT) 0.[address] 0.4 mg under the tongue every 5 minutes if needed. Active spironolactone (ALDACTONE) 25 mg tablet Take 25 mg by mouth once daily. 01/25/2021 Active acetaminophen (TYLENOL EXTRA STRGTH) 500 mg tablet Take 1,000 mg by mouth every 6 hours if needed. Max acetaminophen dose: 4000mg in 24 hrs. Active atorvastatin (LIPITOR) 40 mg tabletIndications: Dyslipidemia Take 1 Tablet (40 mg) by mouth at bedtime. 30 Tablet 2 02/21/2021 Active furosemide (LASIX) 20 mg tabletIndications: Acute on chronic systolic heart failure (HC) Take 20 mg as needed for weight gain of 3lbs in 24 hours. Your dry weight is 316 pounds. 0 02/21/2021 Active Clofazimine, Bulk, powd As directed. 0 03/28/2022 Active carvediloL (COREG) 25 mg tabletIndications: Chronic systolic congestive heart failure (HC) Take 1.5 Tablets (37.5 mg) by mouth two times daily with meals. 270 Tablet 3 08/13/2023 Active sacubitril-valsart an (ENTRESTO 97 MG-103 MG TABLET) 97-103 mg tabletIndications: Chronic systolic congestive heart failure (HC) Take 1 Tablet by mouth two times daily. Due in August 2024 for cardiology follow up. 180 Tablet 1 03/12/2024 Active apixaban (Eliquis) 5 mg tabletIndications: Chronic systolic congestive heart failure (HC),Longstanding persistent atrial fibrillation (HC) Take 1 Tablet (5 mg) by mouth two times daily. Due in August 2024 for cardiology follow up. 180 Tablet 1 03/12/2024 Active sotaloL (BETAPACE) 80 mg tabletIndications: Atrial fibrillation, unspecified type (HC) Take 1 Tablet (80 mg) by mouth every 12 hours. 180 Tablet 1 04/08/2024 Active Active Problems Problem Noted Date Diagnosed Date Dyslipidemia 02/16/2021 DOW (dyspnea on exertion) 02/16/2021 Chronic systolic congestive heart failure 2019 Longstanding persistent atrial fibrillation 02/2020 HTN (hypertension) 03/11/2020 Morbid obesity due to excess calories 03/11/2020 Acute systolic heart failure Acute on chronic systolic heart failure Encounters Date Type Department Care Team Description 04/08/2024 Refill [facility] [address] [place] [phone] Agustín Jacobo MD Refill Request (Sotalol) 03/12/2024 Refill [facility] [address] [place] [address] Smith Bran MD Refill Request (Entresto 97 Mg-103 Mg Tablet, Eliquis) from Last 3 Months Social History Tobacco [...] Comments Blood Pressure 158/91 08/13/2023 3:01 PM WAISTBAND SETTER LOCKSTITCH Pulse 85 08/13/2023 3:01 PM WAISTBAND SETTER LOCKSTITCH Temperature 36.8 ??C (98.2 ??F) 02/21/2021 7:01 AM CD T Respiratory Rate 18 02/21/2021 7:01 AM CDT Oxygen Saturation 97% 08/13/2023 3:01 PM WAISTBAND SETTER LOCKSTITCH Inhaled Oxygen Concentration - - Weight 152 kg (335 lb) 08/13/2023 3:01 PM WAISTBAND SETTER LOCKSTITCH Height 170.2 cm (5' 7) 04/06/2022 1:00 PM CDT Body Mass Index 52.47 04/06/2022 1:00 PM CDT Plan of Treatment Upcoming Encounters Date Type Department Care Team (Late st Contact Info) Description 07/14/2024 11:30 AM WAISTBAND SETTER LOCKSTITCH Cardiac Device Check [facility] [place] [facility] [address] [place] [address] Health Maintenance Due Date Last Done Comments Pneumococcal series for age 65+ (1 of 2 - PCV) 1950 Tdap 12/11/1955 Depression screening for age 12+ 1956 Hepatitis C screening for ag e 18-79 1962 Tetanus booster 1964 Zoster (shingles) series for age 50+ (1 of 2) 1994 Medicare Wellness for age 65+ 2009 RSV vaccine for adults or (1 - 1-dose 75+ series) 12/11/2019 BMI (ht and wt on same day) for age 18+ 04/06/2023 04/06/2022, 03/28/2022, 09/21/2021 COVID-19 vaccine series ( season) 2024 05/10/2023, 05/10/2022, 12/29/2021, Additional history exists Influenza for age 65+ 04/05/2024 Advance Directives * Full Code (Latest Code Status on File) Date Activated Date Inactivated Comments 02/16/2021 12:12 PM 02/21/2021 12:35 PM Question Answer Comments Code Status Discussion: Discussed Care Teams Addresser Relationship Specialty Start Date End Date Choco Masters MD [address] [place] [address] PCP - General Internal Medicine 03/03/20 Nurses, Advanced Heart Failure [address] [place] [address] [id number] Advanced Heart Failure/Transplant Card 06/19/21 Tomas Wright [facility] [address] [place] [address] [address] [place] [address] Cardiology - CHF Advanced Heart Failure/Transplant Card 06/19/21
--- OUTSIDE RECORDS SUMMARY | 2024-05-26 16:52 | XMS_ITS | Referral Summary ---
Author Organization [facility] Address [address] [place] [address] Care Team Providers Care Window Trimmer Name Role Phone Elsewhere, Pcp Primary Care Provider Unavailabl e Source Comments Patient records contain information from all sites at [facility]. For routine questions regarding patient records, call [phone] during business hours, M-F 8:00 AM - 5:00 PM Central Time. Record requests for emergency care only can be directed to [phone] at any time.[facility] Allergies Active Allergy Reactions Criticality Noted Date [...] 60 tablet 2 2 Active Research IRB [id number] clofazimine 50 mg capsuleIndicatio ns:Mycobacteria Cutaneous Not [...] drink = 0.6 oz pur e alcohol) [facility] Utilities Answer Date Recorded In the past 12 months has [facility] [employer] (Closed), [employer], [employer], or water [employer] threatened to shut off services in your [...] How often do you attend chur or congregation services? More than 4 times per year 12/12/2021 Do you belong to any clubs o r organizations such as denominational groups, unions, fraternal [...] and heating? Not hard at all 12/12/2021 [facility] - Occupational Stress [...] your living situation today? I have a [facility] place to live 11/22/2023 Education Answer Date Recorded What is the highest level of school you have completed or the highest degree you have received? Professional school degree (e.g., MD, DDS, DVM, RODOLFO) 12/12/2021 Sex and Gender Information Value Date Recorded Sex Assigned at Male 04/03/2018 7:54 AM CDT Legal Sex Male 11:05 PM COMMUNICATION SIGNALS INTELLIGENCE Gender Identity Male 04/03/2018 7:54 AM CDT [...] 168.4 cm (5' 6.3) 07/08/2018 2:12 PM COMMUNICATION SIGNALS INTELLIGENCE Body Mass Index 52.22 07/08/2018 2:12 PM COMMUNICATION SIGNALS INTELLIGENCE Plan of Treatment Not on file Medical Devices Implanted Type Area Slurry Man Device Identifier Shelf Expiration Date Model / Serial / Lot Knee Implant-2018 Implanted:09/2018 (Quantity not on file) Knee Implant Right: Knee Ocular Lens Ocular Lens Bilateral : Eye Pacemaker-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 LAB BLOOD ADD-ON Final Result [facility] [address] [place] [address], [facility] DTL [facility] [address] [place] [address] * (ABNORMAL) Comprehensive Metabolic Panel (01/04/2022 12:21 [...] Lew M.D. LAB BLOOD ADD-ON Final Result [facility] [address] [place] [address], [place] DTL [facility] [address] [place] [address] from Last 3 Months or Most Recently Relevant to Health Maintenance Insurance [id number] [phone] [employer] Care Teams Window Trimmer Relationship Specialty Start Date End Date Elsewhere, Pcp PCP - General Internal Medicine 12/26/21
--- OUTSIDE RECORDS SUMMARY | 2024-05-26 16:52 | XMS_ITS | Encounter Summary ---
Author Organization [facility] Address [address] [place] [address] Care Team Providers Care Roll Mill Operator Name Role Phone Elsewhere, Pcp Primary Care Provider Unavailabl e Encounter Details Date Type Department Care Team (Late st Contact Info) Description 02/28/2018 [facility] [address] [place] [address] Choco Masters M.D. 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
== END 2024-05-25 09:21 | disposition home or self-care (01) ==
LOC: NFLDREF 05-26 16:50
PROVIDERS: PCP Internal Medicine; Referring Provider Internal Medicine; Visit Provider Internal Medicine
DX: I10 Essential (primary) hypertension (principal); E78.5 Hyperlipidemia, unspecified; N40.0 Benign prostatic hyperplasia without lower urinary tract symptoms
CPT/HCPCS: 80053; 80061; 84153

== ENCOUNTER 2024-11-03 10:49 | Emergency (ER) | payer OTHER, SELFPAY ==
--- OUTSIDE RECORDS SUMMARY | 2024-11-03 10:52 | XMS_ITS | Clinical Summary ---
Author Organization [facility] Address [address] [place] [address] Care Team Providers Care Stockroom Coordinator Name Role Phone Elsewhere, Pcp Primary Care Provider Unavailabl e Source Comments Patient records contain information from all sites at [facility]. For routine questions regarding patient records, call [phone] during business hours, M-F 8:00 AM - 5:00 PM Central Time. Record requests for emergency care only can be directed to [phone] at any time.[facility] Allergies Active Allergy Reactions Criticality Noted Date [...] 60 tablet 2 2 Active Research IRB [id number] clofazimine 50 mg capsuleIndicatio ns:Mycobacteria Cutaneous Not [...] drink = 0.6 oz pur e alcohol) [facility] Utilities Answer Date Recorded In the past 12 months has [facility] [employer] oil, or water [employer] threatened to shut off services in your [...] How often do you attend chur or mosque services? More than 4 times per year 12/12/2021 Do you belong to any clubs o r organizations such as mandaen groups, unions, fraternal [...] and heating? Not hard at all 12/12/2021 [facility] Health - Occupational Stress [...] your living situation today? I have a [facility] place to live 11/22/2023 Education Answer Date Recorded What is the highest level of school you have completed or the highest degree you have received? 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 Gender Identity Male 04/03/2018 7:54 AM CDT Sexual Orientation Straight 04/03/2018 7: 54 AM CDT Last Filed Vital Signs Vital Sign Reading Time Taken Comments Blood Pressure 143/93 12/17/2023 7:45 AM CDT Pulse 79 12/17/2023 7:45 AM CDT Temperature 36.5 C (97.7 F) 04/20/2022 2:26 PM CDT Respiratory Rate 20 04/15/2018 1:00 PM CDT Oxygen Saturation 94% 04/15/2018 1:00 PM CDT Inhaled Oxygen Concentration - - Weight 148 kg (326 lb 8 oz) 04/19/2022 11:19 AM CDT Height 168.4 cm (5' 6.3) 07/08/2018 2:12 PM SEO EXPERT Body Mass Index 52.22 07/08/2018 2:12 PM SEO EXPERT Plan of Treatment Health Maintenance Due Date Last Done Comments Hepatitis C Screening 1945 RSV vaccine - (32-36 weeks) or 60+ years (1 - 1-dose 75+ series) 12/11/2019 Creatinine Level (Kidney Function Test) 02/08/2024 02/07/2023, 04/19/2022, 04/06/2022, Additional history exists Potassium Level 02/08/2024 02/07/2023, 09/0 09/2021, 01/04/2022, Additional history exists Sodium Level 02/08/2024 02/07/2023, 09/0 09/2021, 01/04/2022, Additional history exists COVID-19 Vaccine ( season) 2024 05/10/2023, 05/10/2022, 12/29/2021, Additional history exists Influenza Vaccine (#1) 2024 , 05/10/2022, 05/08/2021, Additional history exists Depression Screening (Annual PHQ-2) 08/05/2024 Fall Risk Screen (Annual) 08/05/2024 DTaP,Tdap,and Td Vaccines (2 - Td or Tdap) 06/07/2025 06/07/2015, 03/28/2007 Zoster Vaccines Completed 09/06/2021, 05/08/2021 Pneumococcal vaccine (50+ years) Completed 07/11/2022, 06/07/2015 IPV Vaccines Aged Out No longer eligi ble based on patient's age to complete this topic Medical Devices Implanted Type Area Manager Cardiology Device Identifier Shelf Expiration Date Model / Serial / Lot Knee Implant-12/2/ 2019 Implanted:09/2018 (Quantity not on file) Knee Implant Right: Knee Ocular Lens Ocular Lens Bilateral : Eye Pacemaker-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 LAB BLOOD ADD-ON Final Result [facility] [address] [place] [address], [facility] DTL [facility] [address] [place] [address] * (ABNORMAL) Comprehensive Metabolic Panel (01/04/2022 12:21 [...] Lew M.D. LAB BLOOD ADD-ON Final Result [facility] [address] [place] [address], [place] DTL [facility] [address] [place] [address] from Last 3 Months or Most Recently Relevant to Health Maintenance Insurance [employer] Care Teams Stockroom Coordinator Relationship Specialty Start Date End Date Elsewhere, Pcp PCP - General Internal Medicine 12/26/21
--- OUTSIDE RECORDS SUMMARY | 2024-11-03 10:52 | XMS_ITS | Clinical Summary ---
Author Organization [facility] Address [address] [place] [address] Care Team Providers Care Acquisitions Analyst Name Role Phone Choco Masters MD Primary Care Provider Nurses, Advanced Heart Failure Unavailable + Tomas Wright [facility] Unavailable [phone] Allergies Active Allergy Reactions Criticality Noted Date Comments Adhesive Tape-Silicones Rash Low 07/18/2017 Hydrocodone-Acetaminophen GI Upset 02/10/2016 Intolerance Penicillins Hives Medium 10/18/2016 Medications multivitamin therapeutic (THERAGRAN; ONCOVITE) tablet Take 1 Tablet by mouth once daily. Active omeprazole (PRILOSEC) 20 mg Delayed-Release capsule Take 1 Capsule by mouth once daily before a meal. 021 Active nitroglycerin (NITROSTAT) 0.[address] 0.4 mg under the tongue every 5 minutes if needed. Active spironolactone (ALDACTONE) 25 mg tablet Take 25 mg by mouth once daily. 021 Active acetaminophen (TYLENOL EXTRA STRGTH) 500 mg tablet Take 1,000 mg by mouth every 6 hours if needed. Max acetaminophen dose: 4000mg in 24 hrs. Active atorvastatin (LIPITOR) 40 mg tabletIndications: Dyslipidemia Take 1 Tablet (40 mg) by mouth at bedtime. 30 Tablet 2 02/22/20 21 8:53 AM CDT 021 Active furosemide (LASIX) 20 mg tabletIndications: Acute on chronic systolic heart failure (HC) Take 20 mg as needed for weight gain of 3lbs in 24 hours. Your dry weight is 316 pounds. 0 021 Active Clofazimine, Bulk, powd As directed. 0 022 Active carvediloL (COREG) 25 mg tabletIndications: Chronic systolic congestive heart failure (HC) Take 1.5 Tablets (37.5 mg) by mouth two times daily with meals. 270 Tablet 3 024 Active sotaloL (BETAPACE) 80 mg tabletIndications: Atrial fibrillation, unspecified type (HC) Take 1 Tablet (80 mg) by mouth every 12 hours. 180 Tablet 1 024 Active apixaban (Eliquis) 5 mg tabletIndications: prevent thromboembolism in chronic atrial fibrillation Take 1 Tablet (5 mg) by mouth two times daily. 180 Tablet 025 Active sacubitril-valsart an (ENTRESTO 97 MG-103 MG TABLET) 97-103 mg tabletIndications: Chronic systolic congestive heart failure (HC) Take 1 Tablet by mouth two times daily. 180 Tablet 025 Active sacubitril-valsart an (ENTRESTO 97 MG-103 MG TABLET) 97-103 mg tabletIndications: Chronic systolic congestive heart failure (HC) Take 1 Tablet by mouth two times daily. Due in August 2024 for cardiology follow up. 180 Tablet 1 024 2024 Discontinued apixaban (Eliquis) 5 mg tabletIndications: Chronic systolic congestive heart failure (HC),Longstanding persistent atrial fibrillation (HC) Take 1 Tablet (5 mg) by mouth two times daily. Due in August 2024 for cardiology follow up. 180 Tablet 1 024 2024 Discontinued Active Problems Problem Noted Date Diagnosed Date Dyslipidemia 02/16/2021 DOW (dyspnea on exertion) 02/16/2021 Chronic systolic congestive heart failure 2019 Longstanding persistent atrial fibrillation 02/2020 HTN (hypertension) 03/11/2020 Morbid obesity due to excess calories 03/11/2020 Acute systolic heart failure Acute on chronic systolic heart failure Encounters Date Type Department Care Team Description 10/15/2024 3:30 PM CDT Office Visit [facility] [address] [place] [address] Soumya Valdes MD 10/12/2024 [facility] [address] [place] [address] Smith Bran MD Refill Request (Eliquis, Entresto [...] Recorded Sex Assigned at Not on file Legal Sex Male 7:46 PM 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 SYSTEM 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 Gender Identity Not on file Sexual Orientation Not on file Obstetrics History Last Filed Vital Signs Vital Sign Reading Time Taken Comments Blood Pressure 158/91 08/13/2023 3:01 PM 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 SYSTEM OPERATOR Pulse 85 08/13/2023 3:01 PM 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 SYSTEM OPERATOR Temperature 36.8 C (98.2 F) 02/21/2021 7:01 AM CDT Respiratory Rate 18 02/21/2021 7:01 AM CDT Oxygen Saturation 97% 08/13/2023 3:01 PM 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 SYSTEM OPERATOR Inhaled Oxygen Concentration - - Weight 152 kg (335 lb) 08/13/2023 3:01 PM 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 SYSTEM OPERATOR Height 170.2 cm (5' 7) 04/06/2022 1:00 PM CDT Body Mass Index 52.47 04/06/2022 1:00 PM CDT Plan of Treatment Health Maintenance Due Date Last Done Comments Tdap 12/11/1955 Depression screening for age 12+ 1956 Hepatitis C screening for ag e 18-79 1962 Pneumococcal series for age 50+ (1 of 2 - PCV) 12/11/1963 Tetanus booster 1964 Zoster (shingles) series for age 50+ (1 of 2) 1994 Medicare Wellness for age 65+ 2009 RSV vaccine for adults or (1 - 1-dose 75+ series) 12/11/2019 BMI (ht and wt on same day) for age 18+ 04/06/2023 04/06/2022, 03/28/2022, 09/21/2021 Influenza Vaccine (#1) 2024 COVID-19 vaccine series ( season) 2024 04/30/2024, 05/10/2023, 05/10/2022, Additional history exists Insurance [employer] CHOICE PPO MR Advance Directives * Full Code (Latest Code Status on File) Date Activated Date Inactivated Comments 02/16/2021 12:12 PM 02/21/2021 12:35 PM Question Answer Comments Code Status Discussion: Discussed Care Teams Acquisitions Analyst Relationship Specialty Start Date End Date Choco Masters MD [address] [place] [address] PCP - General Internal Medicine 03/03/20 Nurses, Advanced Heart Failure [address], [place] [id number] Advanced Heart Failure/Transplant Card 06/19/21 [facility]omas Wright [facility] [address] [facility] [address] [place] [address] Cardiology - CHF Advanced Heart Failure/Transplant Card 06/19/21
--- OUTSIDE RECORDS SUMMARY | 2024-11-03 10:52 | XMS_ITS | Encounter Summary ---
Author Organization [facility] Address [address] [place] [address] Care Team Providers Care Paint Sprayer Sandblaster Name Role Phone Elsewhere, Pcp Primary Care Provider Unavailabl e Encounter Details Date Type Department Care Team (Late st Contact Info) Description 02/26/2018 [facility] AND [facility] [address] [place] [address] Choco Masters M.D. 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
--- OUTSIDE RECORDS SUMMARY | 2024-11-03 10:52 | XMS_ITS | Encounter Summary ---
Author Organization [facility] Address [address] [place] [address] Care Team Providers Care Home Economics Expert Name Role Phone Elsewhere, Pcp Primary Care Provider Unavailabl e Encounter Details Date Type Department Care Team (Late st Contact Info) Description 02/28/2018 [facility] AND [facility] [address] [place] [address] Choco Masters M.D. 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
[2024-11-03 10:56] VITALS: BP 157/91; PULSE 80; RESP 24; TEMP 36.1; O2SAT 93; BMI 53.3
--- NOTE | 2024-11-03 11:17 | ED.GENADULT ---
HPI - General Adult General Date Seen: 11/03/24 Chief complaint: Cough Stated complaint: wheezing, has cold Time Seen by Provider: 11/03/24 11:07 Source: patient Mode of arrival: ambulatory Limitations: no limitations History of Present Illness HPI narrative: Patient is a 78-year-old male presenting to the emergency department for wheezing and the viral syndrome. He states starting yesterday he began to have some wheezing was gradually getting more short of breath throughout the day. Still having some mild shortness of breath and wheezing today so he went to urgent care for evaluation. At urgent care provider there noticed his of soon will occasionally drop down to 80% the she stayed around 91-92%. Chest x-ray was done showing some bronchitis. She was concerned about giving albuterol due to his beta lyle medications. Do this she transferred him to [facility]. I spoke to the patient he states his oxygen there was 190-93. Is 95% now here in the emergency department. He has no history of COPD or asthma but did smoke for 50+ years ago. Has never needed to use inhalers before. Is not aware of any sick contacts. Has been producing some white phlegm. Denies chest pain, headache, lightheadedness, dizziness, weakness, numbness, abdominal pain, fevers, chills. COVID/flu/RSV swabs negative at urgent care. No other concerns noted. Related Data Home Medications ?Medication ?Instructions ?Recorded ?Confirmed apixaban 5 mg tablet 5 mg PO BID 04/11/22 11/03/24 multivitamin (Multiple Vitamins 1 tab PO QDAY 04/11/22 11/03/24 tablet) sacubitril 97 mg-valsartan 103 mg 1 tab PO BID 04/11/22 11/03/24 tablet sotalol 80 mg tablet 80 mg PO BID 10/03/22 11/03/24 acetaminophen 500 mg capsule 1,000 mg PO Q6H PRN 07/11/23 11/03/24 Previous Rx's ?Medication ?Instructions ?Recorded nitroglycerin 0.4 mg sublingual 0.4 mg sublingual Q5-15M PRN chest 10/03/22 tablet pain #14 tabs triamcinolone acetonide 0.1 % 1 applic topical BID #30 grams 01/22/24 topical cream omeprazole 20 mg capsule,delayed 20 mg PO DAILY #90 caps 05/07/24 release atorvastatin 40 mg tablet 40 mg PO .Bedtime #90 tabs 06/05/24 carvedilol 25 mg tablet 37.5 mg (1.5 x 25 mg) PO BID #180 08/06/24 tabs spironolactone 25 mg tablet 25 mg PO DAILY #90 tabs 08/06/24 albuterol sulfate 90 mcg/actuation 2 puff inhalation Q4-6H PRN 11/03/24 aerosol inhaler shortness of breath or wheezing #8.5 grams Allergies Allergy/AdvReac Type Severity Reaction Status Date / Time hydrocodone AdvReac Mild GI upset Verified 11/03/24 09:33 Penicillin Allergy Mild Hives Uncoded 11/03/24 09:33 Review of Systems Status of ROS: Reports: 10 or more systems reviewed and unremarkable except as noted in History and below PFSH [facility] Medical History Rash ?R21 - Rash and other nonspecific skin eruption (ICD-10) BPH (benign prostatic hyperplasia) ?N40.0 - Benign prostatic hyperplasia without lower urinary tract symptoms (ICD-10) Toenail avulsion ?S91.209A - Unspecified open wound of unspecified toe(s) with damage to nail, initial encounter (ICD-10) CHF (congestive heart failure) ?I50.9 - Heart failure, unspecified (ICD-10) [place] disease ?E80.4 - Gilbert syndrome (ICD-10) Surgical History History of total knee replacement ?Z96.659 - Presence of unspecified artificial knee joint (ICD-10) History of right knee surgery (2017) ?Z98.890 - Other specified postprocedural states (ICD-10) History of cholecystectomy ?Z90.49 - Acquired absence of other specified parts of digestive tract (ICD-10) Social History What is your current living situation?: I presently have a place to live Problems where you live: no known problems In the past 12 months, utilities in danger of being shut off: no In past 12 months, lack of transportation kept you from medical appts, meetings, work, or getting things needed for daily living: no In the past 12 mos, have been you worried that your food would run out before you had money to buy more?: never true In the past 12 mos, the food you bought just didn't last and you didn't have money to buy more?: never true Smoking Status: Former smoker How often does anyone, including family, friends and others, physically hurt you: never How often does anyone, including family, friends and others, insult or talk down to you: never How often does anyone, including family, friends and others, threaten you with harm: never How often does anyone, including family, friends and others, scream or curse at you: never Exam Narrative: Exam Narrative: Const: Well-nourished, Well-developed, in mild distress Eyes: PERRL, no conjunctival injection, and symmetrical lids HENT: Atraumatic external nose and ears. Moist mucous membranes. Neck: Symmetric, trachea midline, No thyromegaly. CVS: RRR, No murmurs or gallops. Peripheral pulses 2+ and equal in all extremities RESP: Diffuse wheezing with some mildly increased work of breathing GI: Nontender/Nondistended, No rebound or guarding. MSK:Extremities w/o deformity, Normal Active ROM Skin: Warm, Dry. No rashes or lesions. Neuro: Normal Muscle tone, No focal neurological deficits. Psych: Awake, Alert, & Oriented x3. Appropriate mood and affect. Const: Vital Signs, click to edit/add: Vital Signs - 24 hr 11/03/24 10:56 Temperature 97 F L Pulse Rate [Pulse Oximeter] 80 Respiratory Rate 24 Blood Pressure [Ri ght Upper Arm] 157/91 H Pulse Oximetry 93 Oxygen Delivery Me thod Room Air Course Vital Signs Vital signs: Initial Vital Signs Temperature 97 F L 11/03/24 10:56 Temperature Source Temporal Artery Scan 11/03/24 10:56 Pulse Rate 80 11/03/24 10:56 Respiratory Rate 24 11/03/24 10:56 Blood Pressure 157/91 H 11/03/24 10:56 Blood Pressure Mean 113 H 11/03/24 10:56 Pulse Oximetry 93 11/03/24 10:56 Oxygen Delivery Method Room Air 11/03/24 10:56 Vital Signs Temperature 97 F L 11/03/24 10:56 Pulse Rate 80 11/03/24 10:56 Respiratory Rate 24 11/03/24 10:56 Blood Pressure 157/91 H 11/03/24 10:56 Pulse Oximetry 93 11/03/24 10:56 Oxygen Delivery Method Room Air 11/03/24 10:56 Temperature 97 F L 11/03/24 10:56 Pulse Rate 80 11/03/24 10:56 Respiratory Rate 24 11/03/24 10:56 Blood Pressure 157/91 H 11/03/24 10:56 Pulse Oximetry 93 11/03/24 10:56 Oxygen Delivery Method Room Air 11/03/24 10:56 Medications Administered Medications: Discontinued Medications Generic Name Dose Route Start Last Admin Trade Name Emre PRN Reason Stop Dose Admin Albuterol 2.5 mg 11/03/24 11:12 11/03/24 11:30 Albuterol Sulfate 2.5 Mg/3 Ml Vial.[facility] 11/03/24 11:13 2.5 mg ONCE ONE Administration Albuterol 2.5 mg 11/03/24 12:32 11/03/24 13:03 Albuterol Sulfate 2.5 Mg/3 Ml Vial.[facility] 11/03/24 12:33 2.5 mg ONCE ONE Administration Magnesium Oxide 400 mg 11/03/24 12:17 11/03/24 13:06 Magnesium Oxide 400 Mg Tablet PO 11/03/24 12:18 400 mg ONCE ONE Administration Medical Decision Making [facility] Narrative Medical decision making narrative: Patient is a 78-year-old male presenting for shortness of breath and wheezing. The differential diagnosis of shortness of breath is broad and includes common etiologies such as COPD, asthma, pneumonia, viral syndrome, etc. More serious etiologies considered include PE, CHF, coronary artery disease, pneumothorax, aortic dissection, aortic aneurysm. Based on the chest x-ray this seems likely bronchitis related. He is quite wheezing will give him albuterol. A concern for PE, aortic dissection, aortic aneurysm is very low. Will do an EKG and troponin to make sure he is not having any cardiac involvement. Will also do a BNP, BMP, CBC, magnesium. Lab work returns showing no concerning abnormalities other than a slightly low magnesium. This was replenished. EKG and troponin showed no concerning findings. After the 1st albuterol treatment he is feeling much better but still some mild wheezing. Decided to give him another albuterol treatment. He is feeling much better after this treatment and his wheezing has improved significantly. At this time I believe he is safe for discharge. Symptoms are likely from bronchitis based on his chest x-ray in urgent care. He will be discharged home with albuterol inhaler and a spacer. He is agreeable to this plan. On my review vital signs are stable throughout time in in the emergency department. Oximetry stayed in the mid to high 90s. compliance monitor showed no concerning arrhythmias. Lab Data Labs: Lab Results 11/03/24 11/03/24 Range/Units 11:12 11:25 WBC 9.28 (4.50-11.00) K/uL RBC 4.75 (4.30-5.90) m/uL Hgb 15.4 (13.5-17.5) gm/dL Hct 45.4 (37.0-53.0) % MCV 96 (80-100) fL MCH 32 (26-34) pg MCHC 34 (32-36) gm/dL RDW Coeff of Mine 12.6 (11.5-15.5) % Plt Count 147 (140-440) K/uL Neut % (Auto) 77.9 H (42.0-72.0) % Lymph % (Auto) 10.9 L (20-44) % Craig % (Auto) 7.4 (0.0-11.0) % Eos % (Auto) 3.1 (0.0-7.0) % Baso % (Auto) 0.3 (0.0-3.0) % Neut # (Auto) 7.20 H (1.7-7.0) K/uL Lymph # (Auto) 1.00 (0.90-2.90) K/uL Craig # (Auto) 0.70 (0.00-0.90) K/UL Eos # (Auto) 0.29 (0.00-0.50) K/uL Baso # (Auto) 0.03 (0.00-0.30) K/uL Abs Immat Gran (auto) 0.04 (0.00-0.30) K/uL Imm/Tot Granulo (auto) 0.4 % Sodium 135 (135-149) mmol/L Potassium 4.4 (3.6-5.1) mmol/L Chloride 101 (96-114) mmol/L Carbon Dioxide 26 (20-32) mmol/L Anion Gap 8 (7-15) mEq/L BUN 16 (7-30) mg/dL Creatinine 0.8 (0.5-1.5) mg/dL Estimated Creat Clear 54.05 Estimated GFR 90 ml/min Glucose 140 H (60-115) mg/dL Calcium 9.1 (8.4-10.6) mg/dL Magnesium 1.3 L (1.5-2.6) mg/dL NT-Pro-B Natriuret Pep 1230 pg/mL POC Troponin I 0.00 L (0.01-0.04) ng/ml ECG Data Attestation: I personally reviewed and interpreted this ECG as follows: Prior ECG tracings: available for review Interpretation: Ventricular paced rhythm with a rate of 78 beats per minute, normal intervals, normal axis, no ST or T-wave abnormalities. Appears similar previous EKG on file Discharge Plan Discharge Clinical Impression: Bronchitis Patient Disposition: Home, Self-Care Condition: Improved Instructions: How to Use a Metered-Dose Inhaler (DC), Acute Bronchitis (ED) Additional Instructions: Use the albuterol inhaler as needed for your wheezing. Make sure you are using a spacer that was provided. Return to emergency department for new or worsening symptoms. Prescriptions: New albuterol sulfate 90 mcg/actuation HFA aerosol inhaler 2 puff inhalation Q4-6H PRN (Reason: shortness of breath or wheezing) Qty: 8.5 0RF No Action triamcinolone acetonide 0.1 % cream 1 applic topical BID Qty: 30 3RF multivitamin [Multiple Vitamins] Tablet 1 tab PO QDAY apixaban 5 mg tablet 5 mg PO BID sacubitril-valsartan 97-103 mg tablet 1 tab PO BID sotalol 80 mg tablet 80 mg PO BID nitroglycerin 0.4 mg tablet, sublingual 0.4 mg sublingual Q5-15M PRN (Reason: chest pain) Qty: 14 3RF acetaminophen 500 mg capsule 1,000 mg PO Q6H PRN omeprazole 20 mg capsule,delayed release(DR/EC) 20 mg PO DAILY Qty: 90 3RF atorvastatin 40 mg tablet 40 mg PO .Bedtime Qty: 90 3RF spironolactone 25 mg tablet 25 mg PO DAILY Qty: 90 1RF carvedilol 25 mg tablet 37.5 mg PO BID Qty: 180 2RF Rx Instructions: must administer with a meal/food Follow Up/Referrals: Choco Masters MD [Primary Care Provider] - Stand Alone Forms: [employer] Info Instructions
[2024-11-03] MEDS: ALBUTEROL SULFATE 2.5 MG/3 ML VIAL.NEB NEB ×2 (11:30→13:03)
[2024-11-03 11:33] LABS: Basophils Absolute Auto 0.03 K/uL (0.00-0.30); Basophils Percent Auto 0.3 % (0.0-3.0); Eosinophils Absolute Auto 0.29 K/uL (0.00-0.50); Eosinophils Percent Auto 3.1 % (0.0-7.0); Hematocrit 45.4 % (37.0-53.0); Hemoglobin* 15.4 gm/dL (13.5-17.5); Immature Granulocytes Abs Auto 0.04 K/uL (0.00-0.30); Immature Granulocytes Pct Auto 0.4 %; Lymphocytes Percent Auto 10.9 % (20-44); Mean Corpuscular HGB Conc 34 gm/dL (32-36); Mean Corpuscular Hemoglobin 32 pg (26-34); Mean Corpuscular Volume 96 fL (80-100); Monocytes Percent Auto 7.4 % (0.0-11.0); Neutrophils Percent Auto 77.9 % (42.0-72.0); Platelet Count* 147 K/uL (140-440); RDW Coefficient of Variation % 12.6 % (11.5-15.5); Red Blood Count 4.75 m/uL (4.30-5.90); White Blood Count* 9.28 K/uL (4.50-11.00)
[2024-11-03 11:35] LABS: Slide Review Reflex No
--- OUTSIDE RECORDS SUMMARY | 2024-11-03 11:57 | XMS_ITS | Encounter Summary ---
Author Organization [facility] Address [address] [place] [address] Care Team Providers Care Fire Department Marine Engineer Name Role Phone Elsewhere, Pcp Primary Care Provider Unavailabl e Encounter Details Date Type Department Care Team (Late st Contact Info) Description 02/28/2018 [facility] AND [facility] [address] [place] [address] Choco Masters M.D. 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
--- OUTSIDE RECORDS SUMMARY | 2024-11-03 11:57 | XMS_ITS | Encounter Summary ---
Author Organization [facility] Address [address] [place] [address] Care Team Providers Care Oliver Filter Operator Name Role Phone Elsewhere, Pcp Primary Care Provider Unavailabl e Encounter Details Date Type Department Care Team (Late st Contact Info) Description 02/26/2018 [facility] AND [facility] [address] [place] [address] Choco Masters M.D. 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
--- OUTSIDE RECORDS SUMMARY | 2024-11-03 11:57 | XMS_ITS | Clinical Summary ---
Author Organization [employer] [facility] Address [address] [place] [address] Care Team Providers Care Buncher Machine Name Role Phone Choco Masters MD Primary Care Provider Nurses, Advanced Heart Failure Unavailable + Tomas Wright [facility] Unavailable [phone] Allergies Active Allergy Reactions Criticality Noted [...] Description 10/15/2024 3:30 PM CDT Office Visit [facility] [address] [place] [address] Soumya Valdes MD 10/12/2024 [facility] [address] [place] [address] Smith Bran MD Refill Request (Eliquis, Entresto [...] on file Legal Sex Male 7:46 PM FREIGHT SORTER Gender Identity Not on file Sexual Orientation Not on file Obstetrics History Last Filed Vital Signs Vital Sign Reading Time Taken Comments Blood Pressure 158/91 08/13/2023 3:01 PM FREIGHT SORTER Pulse 85 08/13/2023 3:01 PM FREIGHT SORTER Temperature 36.8 C (98.2 F) 02/21/2021 7:01 AM CDT Respiratory Rate 18 02/21/2021 7:01 AM CDT Oxygen Saturation 97% 08/13/2023 3:01 PM FREIGHT SORTER Inhaled Oxygen Concentration - - Weight 152 kg (335 lb) 08/13/2023 3:01 PM FREIGHT SORTER Height 170.2 cm (5' 7) 04/06/2022 1:00 [...] Comments Code Status Discussion: Discussed Care Teams Buncher Machine Relationship Specialty Start Date End Date Choco Masters MD [address] [place] [address] PCP - General Internal Medicine 03/03/20 Nurses, Advanced Heart Failure [address], [place] [id number] Advanced Heart Failure/Transplant Card 06/19/21 [facility] [address] [facility] [address] [place] [address] Cardiology - CHF Advanced Heart Failure/Transplant Card 06/19/21
--- OUTSIDE RECORDS SUMMARY | 2024-11-03 11:57 | XMS_ITS | Clinical Summary ---
Author Organization [facility] Address [address] [place] [address] Care Team Providers Care Plodder Operator Name Role Phone Elsewhere, Pcp Primary Care Provider Unavailabl e Source Comments Patient records contain information from all sites at [facility]. For routine questions regarding patient records, call [phone] during business hours, M-F 8:00 AM - 5:00 PM Central Time. 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 More than 4 times per year 12/12/2021 Do you belong to any clubs o r organizations such as faith groups, unions, fraternal [...] and heating? Not hard at all 12/12/2021 [facility] [place] [facility] Occupat ional Health - Occupational Stress [...] your living situation today? I have a [facility] place to live 11/22/2023 Education Answer Date Recorded What is the highest level of school you have completed or the highest degree you have received? 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 Gender Identity Male 04/03/2018 7:54 AM CDT [...] 168.4 cm (5' 6.3) 07/08/2018 2:12 PM SCHEDULING ASSISTANT Body Mass Index 52.22 07/08/2018 2:12 PM SCHEDULING ASSISTANT Plan of Treatment Health Maintenance Due Date [...] this topic Medical Devices Implanted Type Area Fiberglasser Device Identifier Shelf Expiration Date Model / Serial / Lot Knee Implant-12/2/ 2019 Implanted:09/2018 (Quantity not on file) Knee Implant Right: Knee Ocular Lens Ocular Lens Bilateral : Eye 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 [address] [place] [address] * (ABNORMAL) Comprehensive Metabolic Panel (01/04/2022 12:21 [...] Lew M.D. LAB BLOOD ADD-ON Final Result [facility] [address] [place] [address], [place] DTL [facility] [address] [place] [address] from Last 3 Months or Most Recently Relevant to Health Maintenance Insurance HUM[employer] Care Teams Plodder Operator Relationship Specialty Start Date End Date Elsewhere, Pcp PCP - General Internal Medicine 12/26/21
[2024-11-03 12:08] LABS: Chloride* 101 mmol/L (96-114)
[2024-11-03 12:09] LABS: Potassium* 4.4 mmol/L (3.6-5.1); Sodium* 135 mmol/L (135-149)
[2024-11-03 12:12] LABS: Anion Gap 8 mEq/L (7-15); Blood Urea Nitrogen* 16 mg/dL (7-30); Calcium* 9.1 mg/dL (8.4-10.6); Carbon Dioxide* 26 mmol/L (20-32); Creatinine* 0.8 mg/dL (0.5-1.5); Est. Creatinine Clearance* 54.05; Estimated Glomerular Filt Rate 90 ml/min; Glucose* 140 mg/dL (60-115); Magnesium* 1.3 mg/dL (1.5-2.6)
[2024-11-03 12:22] LABS: NT Pro B Type NatriureticPept* 1230 pg/mL
[2024-11-03] MEDS: MAGNESIUM OXIDE 400 MG TABLET PO (13:06)
== END 2024-11-03 13:42 | disposition home or self-care (01) ==
PROVIDERS: Emergency Provider Student in an Organized Health Care Education/Training Program; PCP Internal Medicine
DX: J40 Bronchitis, not specified as acute or chronic (principal)
CPT/HCPCS: 36415; 80048; 83735; 83880; 84484; 85025; 93005; 94640; 99284; A9270

== ENCOUNTER 2024-12-17 10:51 | Outpatient (CLI) | payer OTHER, SELFPAY | END 2024-12-17 10:52 | disposition home or self-care (01) | LOC: NFLDREF 12-24 22:10 | PROVIDERS: PCP Internal Medicine; Referring Provider Internal Medicine; Visit Provider Internal Medicine | DX: I50.22 Chronic systolic (congestive) heart failure (principal) | CPT/HCPCS: 80048 ==